=== PATIENT | male | born 1960 | race Caucasian/White ===

== ENCOUNTER 2017-01-17 10:36 | Emergency (ER) | payer OTHER ==
[~2017-01-17 10:36] MED LIST: ASPEC81 PO; CMD5 PO; DILT120C50 PO; MULT-506 PO
[2017-01-17 10:45] VITALS: TEMP 36.8; Ht 172.7 cm
[2017-01-17] MEDS ORDERED: MAGN400T6 PO (11:48)
[2017-01-17] MEDS ORDERED: METO50TA7 PO (11:48)
[2017-01-17 12:34] LABS: HEMATOCRIT 52.2 % (42-52); MEAN CELL VOLUME 93.4 fL (80-100); MEAN CORPUSCULAR HEMOGLOBIN 32.2 pg (25-34); MEAN CORPUSCULAR HGB CONC 34.5 g/dl (32-36); MEAN PLATELET VOLUME 11.8 fL (7.4-10.4); PLATELET COUNT 204 K/uL (130-400); RED BLOOD COUNT 5.59 M/uL (4.7-6.1); WHITE BLOOD COUNT 9.98 K/uL (4.8-10.8)
[2017-01-17 12:52] LABS: CALCIUM 9.1 mg/dl (8.5-10.1)
[2017-01-17 12:53] LABS: BLOOD UREA NITROGEN 19 mg/dl (7-18); BUN/CREATININE RATIO 14.7 (10-20); CARBON DIOXIDE 26 mmol/L (21-32); CHLORIDE 107 mmol/L (98-107); GLUCOSE 111 mg/dl (70-99); POTASSIUM 4.6 mmol/L (3.5-5.1); SODIUM 140 mmol/L (136-145)
--- NOTE | 2017-01-17 14:14 | DIAGNOSTIC IMAGING REPORT ---
LEFT LOWER EXTREMITY VENOUS DOPPLER HISTORY: left calf pain COMPARISON STUDY: None. FINDINGS: There is normal compressibility, flow, and augmentation within the left lower extremity deep venous system. IMPRESSION: No DVT within the left lower extremity. Electronically signed by: Jose Chester M.D. 01/17/2017 2:12 PM Dictated Date/Time: 01/17/2017 2:12 PM
--- NOTE | 2017-01-17 14:58 | EMERGENCY ROOM VISIT NOTE ---
History Report prepared by Zoie: Jimbo Christopher Under the Supervision of: Dr. Irwin Rea D.O. First contact with patient: 12:02 Chief Complaint: CALF PAIN Stated Complaint: LEFT LEG CALF/ANKLE PAIN History of Present Illness The patient is a 57 year old male who presents to the Emergency Room with complaints of persistent left lower extremity pain that started at approximately 0930 this morning. The patient describes pain in the left calf that is worse when he bears weight on it. The patient also has pain in the left ankle / Achilles tendon area. Pain is rated 2/10 in severity. The pain started when he got up from a chair and walked to his bedroom. He notes that he was walking up stairs prior to that. The patient is on Coumadin for a history of atrial fibrillation. Per nursing staff, the patient's POC INR was 1.4 upon arrival to the ED. Source of History: patient, nursing staff Onset: 0930 this morning Position: leg (left) Symptom Intensity: 2/10 Timing: other (persistent) Modifying Factors (Worsening): other (bearing weight) Review of Systems See HPI for pertinent positives & negatives. A total of 10 systems reviewed and were otherwise negative. Past Medical & Surgical Medical Problems: (1) New onset a-fib (2) Precordial chest pain Family History Cancer Diabetes mellitus Gallbladder disease Heart disease Hypertension Lung disease Social History Smoking Status: Never Smoker Alcohol Use: occasionally Drug Use: none Marital Status: Housing Status: lives with family Occupation Status: employed Current/Historical Medications Scheduled Diltiazem HCl (Diltiazem Cd), 120 MG PO QAM Metoprolol Succ (Toprol Xl) (Toprol-Xl), 1 TAB PO DAILY Multivitamin (Multivitamin), 1 TAB PO DAILY Warfarin Sod (Coumadin), 5 MG PO DAILY Miscellaneous Medications Magnesium Oxide (Mag-Ox), 400 MG PO Allergies Coded Allergies: Sulfa Antibiotics (Verified Allergy, Unknown, /, 05/24/15) Physical Exam Vital Signs Date Time Temp Pulse Resp B/P (MAP) Pulse Ox O2 Delivery O2 Flow Rate FiO2 01/17/17 13:28 75 18 119/89 98 Room Air 01/17/17 12:30 86 16 116/83 98 Room Air 01/17/17 10:45 36.8 99 20 115/86 99 Room Air Physical Exam CONSTITUTIONAL/VITAL SIGNS: Reviewed / noted above. GENERAL: Non-toxic in appearance. INTEGUMENTARY: Warm, dry, and [place]. HEAD: Normocephalic. EYES: without scleral icterus or trauma. ENT/OROPHARYNX: clear and moist. LYMPHADENOPATHY/NECK: Is supple without lymphadenopathy or meningismus. RESPIRATORY: Lungs clear and equal. CARDIOVASCULAR: Regular rate and rhythm. GI/ABDOMEN: Soft and nontender. No organomegaly or pulsatile mass. No rebound or guarding. Normal bowel sounds. EXTREMITIES: Tender to palpation over the left calf and Achilles area, there is no significant erythema warmth or edema, good distal pulses, no obvious bony trauma. BACK: No CVA tenderness. NEUROLOGICAL: Intact without focal deficits. PSYCHIATRIC: normal affect. MUSCULOSKELETAL: Normally developed with good muscle tone. Medical Decision & Procedures ER Provider Diagnostic Interpretation: Radiology results as stated below per my review and radiologist interpretation: LEFT LOWER EXTREMITY VENOUS DOPPLER HISTORY: left calf pain COMPARISON STUDY: None. FINDINGS: There is normal compressibility, flow, and augmentation within the left lower extremity deep venous system. IMPRESSION: No DVT within the left lower extremity. Electronically signed by: Jose Chester M.D. 01/17/2017 2:12 PM Dictated Date/Time: 01/17/2017 2:12 PM Laboratory Results 01/17/17 12:21 01/17/17 12:21 Test 01/17/17 12:14 01/17/17 12:21 Bedside Prothrombin Time INR 1.4 (0.9-1.1) Red Blood Count 5.59 M/uL (4.7-6.1) Mean Corpuscular Volume 93.4 fL (80-100) Mean Corpuscular Hemoglobin 32.2 pg (25-34) Mean Corpuscular Hemoglobin Concent 34.5 g/dl (32-36) RDW Standard Deviation 46.9 fL (36.4-46.3) RDW Coefficient of Variation 13.7 % (11.5-14.5) Mean Platelet Volume 11.8 fL (7.4-10.4) Anion Gap 7.0 mmol/L (3-11) Estimated GFR () 70.7 Estimated GFR (Non- 61.0 BUN/Creatinine Ratio 14.7 (10-20) Calcium Level 9.1 mg/dl (8.5-10.1) Laboratory results as stated above per my review. ED Course 1217: Previous medical records were reviewed. The patient was evaluated in room C7. A complete history and physical examination was performed. 1500: Reassessed the patient. Discussed the workup. He understands and agrees with the treatment plan. The patient is ready for discharge. Medical Decision Differential diagnosis: Etiologies such as DVT, musculoskeletal, infection, joint effusion, trauma, lymphedema, idiopathic, CHF, as well as others were entertained.. Medication Reconciliation: I attest that I have personally reviewed the patient' s current medication list. Blood pressure Screening: Patient was found to have normal blood pressure on screening and does not require follow-up. This is a 57-year-old male who presents to the ED with a chief complaint of left calf and posterior ankle pain. The patient states that he walked up and down a couple flight of stairs today and then sat down. When he got up to answer the phone and walk into the bedroom, he developed a pain in his left calf and posterior leg. The patient denies any other symptoms. His exam is noted above. There is some tenderness to palpation the left calf and Achilles. Negative Helm test. Achilles tendon appears to be intact to palpation and he has good strength with plantar flexion of his left foot. Exam did not reveal any findings of bony deformity or infection. CBC is normal, INR is 1.4, he is on Coumadin for A. fib. PRP was unremarkable. Left lower extremity ultrasound did not show DVT. The patient was told the results. His symptoms are likely to be musculoskeletal. He is felt to be stable for discharge. Impression Primary Impression: Pain of left calf Scribe Attestation The scribe's documentation has been prepared under my direction and personally reviewed by me in its entirety. I confirm that the note above accurately reflects all work, treatment, procedures, and medical decision making performed by me. Departure Information Dispostion Home / Self-Care Referrals Jocy Baac PA-C (PCP) Forms HOME CARE DOCUMENTATION FORM, IMPORTANT VISIT INFORMATION Patient Instructions My [facility] Additional Instructions Your INR today is 1.4. This should be closer to 2.5. Talk to your doctor about adjustments of your Coumadin. Ultrasound did not show DVT. Follow-up with your doctor for further care and evaluation in 1-2 days. Return to the emergency department for worsening or new symptoms or any concerns. You have been examined and treated today on an emergency basis only. This is not a substitute for, or an effort to provide, complete comprehensive medical care. It is impossible to recognize and treat all injuries or illnesses in a single emergency department visit. It is therefore important that you follow up closely with your doctor. Call as soon as possible for an appointment.
[2017-01-17 15:20] VITALS: BP 120/86; PULSE 77; O2SAT 98
[2017-02-09] MEDS ORDERED: LNX25 PO (14:41)
[2017-02-09] MEDS ORDERED: CRD200 PO (14:41)
[2017-02-09] MEDS ORDERED: LSX40 PO (14:41)
[2017-02-09] MEDS ORDERED: TPRSR50 PO ×2 (14:41)
[2017-02-09] MEDS ORDERED: LSN25 PO (14:41)
[2017-02-09] MEDS ORDERED: SPR25 PO (14:41)
[2017-02-09] MEDS ORDERED: LNX125 PO (14:46)
== END 2017-01-17 15:28 | disposition home or self-care (01) ==
LOC: C.EDB 10:37 → C.EDC 15:28
DX: M79.662 Pain in left lower leg (principal); I48.91 Unspecified atrial fibrillation; Z80.9 Family history of malignant neoplasm, unspecified; Z83.3 Family history of diabetes mellitus; Z83.79 Family history of other diseases of the digestive system; Z82.49 Family history of ischemic heart disease and other diseases of the circulatory system; Z83.6 Family history of other diseases of the respiratory system; Z79.01 Long term (current) use of anticoagulants; Z79.899 Other long term (current) drug therapy

== ENCOUNTER 2017-02-03 12:12 | Inpatient (IN) | payer OTHER ==
[~2017-02-03] VITALS: Ht 172.7 cm; Wt 93.8 kg
[~2017-02-03 12:12] MED LIST changes: -ASPEC81 PO; +CRDCD120 PO; -DILT120C50 PO; +MAGN400T6 PO; +METO50TA7 PO
[2017-02-03] MEDS ORDERED: ACETAMINOPHEN 325 MG TAB PO PRN (13:45)
[2017-02-03] MEDS ORDERED: METOPROLOL TARTRATE 1 MG/ML VIAL IV ONE (13:45)
[2017-02-03] MEDS ORDERED: ONDANSETRON INJ 2 MG/ML 2 ML VIAL IV PRN (13:45)
[2017-02-03 13:50] VITALS: BP 112/86; PULSE 121; TEMP 36.7; O2SAT 94; Ht 172.7 cm; Wt 93.8 kg
--- NOTE | 2017-02-03 13:52 | Cardiology Consultation ---
Cardiology Consultation History of Present Illness Patient is a 57 year old male has been following with Dr. Bravo for his history of paroxysmal atrial fibrillation and mild nonischemic cardiomyopathy. He states that over the last month he has noticed that he has been getting significantly short of breath. He states that he initially started getting winded with activity, but it has gradually progressed to the point where he is short of breath with bending over to tie his shoe, or even at rest. He was seen by his primary care and was diagnosed with bronchitis, and started on a course of antibiotics, however, he states that that was not helpful. Along with this, he started experiencing some chest tightness. He states he does not believe the tightness is exertional related. It can happen at any time, and he just feels as though he is not able to take a deep breath. During this course he also started retaining fluid. He started noticing lower extremity edema and increasing abdominal girth. His symptoms came to a head last night when he woke up in the middle of night, significantly short of breath lying flat, and had to sit up on the edge of the bed to catch his breath. He was also started on Lasix 20 mg daily by primary care. He has lost about 2 pounds since then, but all the symptoms have persisted. He has been religiously compliant with all of his medications, has not missed any dosages, and overall he states he just feels horrible right now. Of note, the patient is also dealing with significant social stressors. He has recently lost his job. 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 Past Medical/Surgical History Problem List: Medical Problems: (1) New onset a-fib (2) Precordial chest pain (3) SOB (shortness of breath) PAST SURGICAL HISTORY: 1. Femur fracture repair. 2. Hernia repair. 3. Finger surgery. 4. Colonoscopy. MEDICAL ILLNESSES: 1. Paroxysmal atrial fibrillation on chronic Coumadin therapy. 2. Mild nonischemic cardiomyopathy with nonischemic Lexiscan nuclear stress test July 2015. Family History Cancer Diabetes mellitus Gallbladder disease Heart disease Hypertension Lung disease FAMILY HISTORY: Remarkable for coronary artery disease in his mother, father and brother. Social History Smoking Status: Never Smoker Smokeless Tobacco Use: No Drug Use: none Marital Status: Occupation: employed Review Of Systems General: The patient denies weight change, night sweats, fever, chills. Head: The patient denies headache and prior head trauma. Cardiovascular: The patient denies chest pain or chest discomfort, dyspnea on exertion, palpitations, PND, orthopnea, edema, spontaneous shortness of breath, syncope and near syncope. Pulmonary: The patient denies cough, wheeze, pleurisy, hemoptysis, sputum, and excessive snoring. Gastrointestinal: The patient denies nausea, vomiting, diarrhea, constipation, bloating, hematemesis, hematochezia, and abdominal pain. Skin: The patient denies diaphoresis and rash. Musculoskeletal: The patient denies joint pain, joint swelling, myalgia, back pain, neck pain and prior injuries. Neurological: The patient denies prior stroke and seizures Allergies Coded Allergies: Sulfa Antibiotics (Verified Allergy, Unknown, /, 05/24/15) Medications Reported Home Medications Medications Dose Route/Sig Max Daily Dose Days Date Category Mag-Ox (Magnesium Oxide) 400 Mg Tab 400 Mg PO 01/17/17 Reported Toprol-Xl (Metoprolol Succinate) 50 Mg Tabcr 1 Tab PO DAILY 30 01/17/17 Reported Coumadin (Warfarin Sod) 5 Mg Tab 5 Mg PO DAILY 30 05/26/15 Rx Diltiazem Cd (Diltiazem HCl) 120 Mg Capcr 120 Mg PO QAM 30 05/26/15 Rx Multivitamin (Multivitamins) Tab 1 Tab PO DAILY 05/24/15 Reported Physical Exam General Appearance: Alert and Oriented x3. NAD. Head: Normocephalic Atraumatic. Eyes: PERRLA, EOMI, conjunctiva and sclera clear Neck: Supple. No carotid bruits noted. No JVD. No HJD. Respiratory: Breath sounds clear to auscultation bilaterally. No w/r/r. Cardiovascular: Reg rate and rhythm. S1 and S2 noted. No murmurs, rubs, gallops. PMI non displace. Abdomen: Normal bowel sounds, soft nontender. no abdominal bruits. Extremities: No edema, no clubbing or cyanosis. distal pulses 2/4 bilaterally. Neuro: No focal deficits. Psychiatric: Normal affect. Data Test 02/03/17 13:33 02/03/17 13:45 Creatine Kinase MB Ratio White Blood Count 9.80 Red Blood Count 5.62 Hemoglobin 17.6 Hematocrit 52.3 Mean Corpuscular Volume 93.1 Mean Corpuscular Hemoglobin 31.3 Mean Corpuscular Hemoglobin Concent 33.7 Platelet Count 227 Mean Platelet Volume 11.8 Neutrophils (%) (Auto) 75.2 Lymphocytes (%) (Auto) 13.2 Monocytes (%) (Auto) 9.9 Eosinophils (%) (Auto) 1.2 Basophils (%) (Auto) 0.2 Neutrophils # (Auto) 7.37 Lymphocytes # (Auto) 1.29 Monocytes # (Auto) 0.97 Eosinophils # (Auto) 0.12 Basophils # (Auto) 0.02 RDW Standard Deviation 47.4 RDW Coefficient of Variation 13.9 Immature Granulocyte % (Auto) 0.3 Immature Granulocyte # (Auto) 0.03 Prothrombin Time 37.7 Prothrombin Time INR 3.4 PTT 36.5 Partial Thromboplastin Ratio 1.4 Sodium Level 140 Potassium Level 4.1 Chloride Level 106 Carbon Dioxide Level 27 Anion Gap 7.0 Blood Urea Nitrogen 18 Creatinine 1.30 Est Creatinine Clear Calc Drug Dose 73.1 Estimated GFR () 70.7 Estimated GFR (Non- 61.0 BUN/Creatinine Ratio 13.7 Random Glucose 110 Calcium Level 8.5 Magnesium Level 2.5 Total Bilirubin 1.1 Aspartate Amino Transferase (AST) 32 Alanine Aminotransferase (ALT) 68 Alkaline Phosphatase 55 Creatine Kinase MB 4.4 Troponin I 0.016 Pro-B-Type Natriuretic Peptide 4842 Total Protein 6.9 Albumin 3.8 Globulin 3.1 Albumin/Globulin Ratio 1.2 Last 24 Hours Test 02/03/17 13:33 02/03/17 13:36 Creatine Kinase MB Ratio Imaging: CXY cardiomegaly EKG:Atrial fib Assessment & Plan IMPRESSION: 1. Acute decompensated systolic heart. 2. Newly discovered severely reduced LV systolic function, EF 20-24 %. 3. Atrial fibrillation with rapid ventricular response. Recommenmdation: Continue to diurese Hold diltiazem due to negative chronotropic effects ECHO Start [facility]
--- NOTE | 2017-02-03 14:19 | History and Physical ---
History & Physical Date & Time of Service: Feb 03, 2017 at 13:58 Chief Complaint: Acute Heart Failure Primary Care Physician: Jocy Baca PA-C History of Present Illness Source: patient, family Patient is a 57 yr male with PMH of P.atrial fibrillation,non ischemic cardiomyopathy presents for evaluation after visiting his scorekeeper for worsening SOB especially on exertion, B/L leg swelling, weight gain and dry intermittent cough since 2 weeks duration. He was seen by his PCP and was thought to have bronchitis for which he was prescribed antibiotics which did not help. He reports currently he is undergoing thought lot of stress secondary to losing his job. He states his SOB is worsened especially overnight and worse with exertion. Reports associated dry cough but denies any chest pain , palpitations, fever, chills, nausea, vomiting, dizziness, abdominal pain, change in bowel/bladder habits. Reports orthopnea and weight gain of at least 2 pounds in 2 weeks. Denies any recent travel, sick contact. He states he was started on lasix 4 days ago and has been taking it regularly. His recent ECHO showed an EF of 20-24% per his scorekeeper note. Past Medical/Surgical History Medical Problems: (1) New onset a-fib Status: Resolved (2) Precordial chest pain Status: Resolved Family History Cancer Diabetes mellitus Gallbladder disease Heart disease Hypertension Lung disease Past Surgical History: Hernia repair, Right knee surgery Social History Smoking Status: Never Smoker Smokeless Tobacco Use: No Alcohol Use: socially Drug Use: none Marital Status: Occupational Status: employed Allergies Coded Allergies: Sulfa Antibiotics (Verified Allergy, Unknown, /, 05/24/15) Home Medications Scheduled Diltiazem HCl (Diltiazem Cd), 120 MG PO QAM Metoprolol Succ (Toprol Xl) (Toprol-Xl), 1 TAB PO DAILY Multivitamin (Multivitamin), 1 TAB PO DAILY Warfarin Sod (Coumadin), 5 MG PO DAILY Miscellaneous Medications Magnesium Oxide (Mag-Ox), 400 MG PO Review of Systems See HPI for pertinent positives & negatives. A total of 10 systems reviewed and were otherwise negative. 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 psychology teacher II-XII nml as tested, no motor/sensory deficits, alert, normal mood/affect, oriented x 3 Skin: normal color, warm/dry Diagnostics Laboratory Results Results Past 24 Hours Test 02/03/17 13:33 02/03/17 13:45 02/03/17 13:52 Range/Units Creatine Kinase MB Ratio 0-3.0 Diagnostic Radiology CXR:pending EKG EKG:pending Monitor shows afib with RVR, PVCs Impression Assessment and Plan Acute systolic CHF exacerbation: Patient is a direct admit from his scorekeeper 's office Admit in Tele Will obtain CBC, CMP, Coags, CXR, EKG, Troponin Start his on IV Lasix 40mg BID Daily weight, I/Os Recent ECHO: EF:20-25% Will consult cardiology Will trend cardiac enzymes Afib with RVR: Monitor: afib with RVR, PVCs Currently rate is in 110s Will give stat dose of 2.5 mg lopressor Check electrolytes check INR Anxiety: Currently not on any meds at home Will consider Xanax PRN if necessary clinically DVT Px: On coumadin Code Status: Full Code Disposition: Monitor in Tele VTE Prophylaxis VTE Risk Assessment Done? Y/N: Yes Risk Level: Moderate
[2017-02-03 14:33] LABS: BASO % 0.2 %; BASO ABS # 0.02 K/uL (0-0.2); COMPLETE YES; EOS % 1.2 %; HEMATOCRIT 52.3 % (42-52); IG% 0.3 %; LYMPH % 13.2 %; LYMPH ABS # 1.29 K/uL (1.2-3.4); MEAN CELL VOLUME 93.1 fL (80-100); MEAN CORPUSCULAR HEMOGLOBIN 31.3 pg (25-34); MEAN CORPUSCULAR HGB CONC 33.7 g/dl (32-36); MEAN PLATELET VOLUME 11.8 fL (7.4-10.4); MONO % 9.9 %; NEUT % 75.2 %; PLATELET COUNT 227 K/uL (130-400); RED BLOOD COUNT 5.62 M/uL (4.7-6.1)
--- NOTE | 2017-02-03 14:35 | DIAGNOSTIC IMAGING REPORT ---
CHEST ONE VIEW PORTABLE CLINICAL HISTORY: SOB dyspnea COMPARISON STUDY: 05/24/2015 FINDINGS: Mild stable cardiomegaly. Diaphragms smooth. Lungs are clear. IMPRESSION: Mild stable cardiomegaly. Otherwise negative study. Electronically signed by: Wes Pederson M.D. 02/03/2017 2:34 PM Dictated Date/Time: 02/03/2017 2:33 PM
[2017-02-03 14:52] LABS: ALT/SGPT 68 U/L (12-78); AST/SGOT 32 U/L (15-37); BLOOD UREA NITROGEN 18 mg/dl (7-18); BUN/CREATININE RATIO 13.7 (10-20); CALCIUM 8.5 mg/dl (8.5-10.1); CARBON DIOXIDE 27 mmol/L (21-32); CHLORIDE 106 mmol/L (98-107); GLUCOSE 110 mg/dl (70-99); MAGNESIUM 2.5 mg/dl (1.8-2.4); POTASSIUM 4.1 mmol/L (3.5-5.1); SODIUM 140 mmol/L (136-145)
[2017-02-03 14:55] LABS: INR 3.4 (0.9-1.1); PARTIAL THROMBOPLASTIN RATIO 1.4; PROTHROMBIN TIME (PATIENT) 37.7 SECONDS (9.0-12.0)
[2017-02-03 14:58] LABS: ALB/GLOB RATIO 1.2 (0.9-2); ALKALINE PHOSPHATASE 55 U/L (45-117)
[2017-02-03 15:54] VITALS: BP 106/58; PULSE 96; TEMP 36.4; O2SAT 95
[2017-02-03 16:00] VITALS: O2SAT 95
[2017-02-03] MEDS: FUROSEMIDE INJ 40 MG in SYRINGE 0 ML IV SCH (16:51)
[2017-02-03] MEDS: WARFARIN SOD 5 MG TAB PO SCH (16:52)
[2017-02-03 19:42] VITALS: BP 112/64; PULSE 113; TEMP 36.6; O2SAT 96
[2017-02-03] MEDS: LISINOPRIL 2.5 MG TAB PO SCH (20:51)
[2017-02-03 23:05] VITALS: BP 122/86; PULSE 116; TEMP 36.9; O2SAT 94
[2017-02-03] MEDS: METOPROLOL TARTRATE 1 MG/ML VIAL IV PRN (23:56)
[2017-02-04 02:35] LABS: INR 3.4 (0.9-1.1); PROTHROMBIN TIME (PATIENT) 38.5 SECONDS (9.0-12.0)
[2017-02-04 03:31] VITALS: BP 106/78; PULSE 96; TEMP 36.6; O2SAT 90
[2017-02-04] MEDS: MAGNESIUM OXIDE 400 MG TAB PO SCH (07:07)
[2017-02-04 07:24] VITALS: BP 112/77; PULSE 102; TEMP 36.7; O2SAT 92
[2017-02-04] MEDS: FUROSEMIDE INJ 40 MG in SYRINGE 0 ML IV SCH (07:50)
[2017-02-04] MEDS ORDERED: DILTIAZEM HCL 120 MG CAPCR PO SCH (09:00)
[2017-02-04] MEDS: METOPROLOL SUCC 50MG EXT REL TAB PO SCH (09:33)
--- NOTE | 2017-02-04 10:37 | Cardiology Follow-Up ---
Subjective General Date of Service: Feb 04, 2017. Pt evaluation today including: conversation w/ patient, physical exam, chart review, lab review, review of studies, review of inpatient medication list History of Present Illness The patient is a 57 year old male admitted with HF, new cardiomyopathy and atrial fib with RVR. Pt. with no complaints. Diuresed large amount. HR increased again this AM. Allergies Coded Allergies: Sulfa Antibiotics (Verified Allergy, Unknown, /, 05/24/15) Social History Smoking Status: Never Smoker Hx Tobacco Use In Past Year?: Yes (can/week) Hx Alcohol Use - Type And Amou: Yes (beer (rarely)) Hx Substance Use - Type And Am: No Problem List Medical Problems: (1) Pain of left calf Status: Acute Physical Exam Vital Signs Last Vital Signs Documentation Date Time Temp Pulse Resp B/P (MAP) Pulse Ox O2 Delivery O2 Flow Rate FiO2 02/04/17 08:00 Room Air 02/04/17 07:24 36.7 102 18 112/77 (89) 92 Physical Exam Constitutional: General Apperance: heathly-appearing, well-nourished Level of Distress: NAD ENMT: normal ENT inspection Neck: supple Lungs: Auscultation: breath sounds normal, no wheezing, no rales/crackles Cardiovascular: Heart Auscultation: RRR, normal S1, normal S2, no murmurs Abdomen: Bowel Sounds: normal Inspection & Palpation: soft, non-distended Musculoskeletal: normal Extremities: no cyanosis, no edema Neurologic: Gait & Station: normal gait Cranial Nerves: grossly intact Sensation: grossly intact Assessment and Plan Assessment and Plan Meds Administered (Past 24Hrs) Medications (Trade) Dose Ordered Sig/Peri Route Start Time Stop Time Status Last Admin Dose Admin Metoprolol Tartrate (Lopressor Iv) 2.5 mg NOW ONCE IV 02/03/17 13:45 02/03/17 13:58 DC 02/03/17 14:36 2.5 MG Furosemide 40 mg/ Syringe 4 ml @ 4 mls/min BID17 IV 02/03/17 17:00 03/05/17 16:59 02/04/17 07:50 4 MLS/MIN Metoprolol Succinate (Toprol Xl Tab) 50 mg DAILY PO 02/04/17 09:00 03/06/17 08:59 02/04/17 09:33 50 MG Warfarin Sodium (Coumadin Tab) 5 mg DAILY@1600 PO 02/03/17 17:00 03/05/17 16:59 Future Hold 02/03/17 16:52 5 MG Lisinopril (Zestril Tab) 2.5 mg QPM PO 02/03/17 21:00 03/05/17 20:59 02/03/17 20:51 2.5 MG Metoprolol Tartrate (Lopressor Iv) 2.5 mg Q6 PRN IV 02/03/17 21:30 03/05/17 21:29 02/03/17 23:56 2.5 MG Test 02/03/17 13:45 02/03/17 19:56 02/04/17 02:00 02/04/17 02:08 White Blood Count 9.80 Red Blood Count 5.62 Hemoglobin 17.6 Hematocrit 52.3 Mean Corpuscular Volume 93.1 Mean Corpuscular Hemoglobin 31.3 Mean Corpuscular Hemoglobin Concent 33.7 Platelet Count 227 Mean Platelet Volume 11.8 Neutrophils (%) (Auto) 75.2 Lymphocytes (%) (Auto) 13.2 Monocytes (%) (Auto) 9.9 Eosinophils (%) (Auto) 1.2 Basophils (%) (Auto) 0.2 Neutrophils # (Auto) 7.37 Lymphocytes # (Auto) 1.29 Monocytes # (Auto) 0.97 Eosinophils # (Auto) 0.12 Basophils # (Auto) 0.02 RDW Standard Deviation 47.4 RDW Coefficient of Variation 13.9 Immature Granulocyte % (Auto) 0.3 Immature Granulocyte # (Auto) 0.03 Prothrombin Time 37.7 38.5 Prothrombin Time INR 3.4 3.4 PTT 36.5 Partial Thromboplastin Ratio 1.4 Sodium Level 140 Potassium Level 4.1 Chloride Level 106 Carbon Dioxide Level 27 Anion Gap 7.0 Blood Urea Nitrogen 18 Creatinine 1.30 Est Creatinine Clear Calc Drug Dose 73.1 Estimated GFR () 70.7 Estimated GFR (Non- 61.0 BUN/Creatinine Ratio 13.7 Random Glucose 110 Calcium Level 8.5 Magnesium Level 2.5 Total Bilirubin 1.1 Aspartate Amino Transferase (AST) 32 Alanine Aminotransferase (ALT) 68 Alkaline Phosphatase 55 Pro-B-Type Natriuretic Peptide 4842 Total Protein 6.9 Albumin 3.8 Globulin 3.1 Albumin/Globulin Ratio 1.2 Creatine Kinase MB 4.1 3.1 Creatine Kinase MB Ratio Troponin I 0.022 0.032 Impression: Atrial Fibrillation with RVR Idiopathic cardiomyopathy Systolic heart failure Recommendations: Will decrease dose of Lasix. Add Dig for better HR control. Will review echo. Laboratory Results Last 24 Hours Test 02/03/17 13:33 02/03/17 13:45 02/03/17 19:56 02/04/17 02:00 Creatine Kinase MB Ratio White Blood Count 9.80 K/uL Red Blood Count 5.62 M/uL Hemoglobin 17.6 g/dL Hematocrit 52.3 % Mean Corpuscular Volume 93.1 fL Mean Corpuscular Hemoglobin 31.3 pg Mean Corpuscular Hemoglobin Concent 33.7 g/dl Platelet Count 227 K/uL Mean Platelet Volume 11.8 fL Neutrophils (%) (Auto) 75.2 % Lymphocytes (%) (Auto) 13.2 % Monocytes (%) (Auto) 9.9 % Eosinophils (%) (Auto) 1.2 % Basophils (%) (Auto) 0.2 % Neutrophils # (Auto) 7.37 K/uL Lymphocytes # (Auto) 1.29 K/uL Monocytes # (Auto) 0.97 K/uL Eosinophils # (Auto) 0.12 K/uL Basophils # (Auto) 0.02 K/uL RDW Standard Deviation 47.4 fL RDW Coefficient of Variation 13.9 % Immature Granulocyte % (Auto) 0.3 % Immature Granulocyte # (Auto) 0.03 K/uL Prothrombin Time 37.7 SECONDS Prothromb Time International Ratio 3.4 Activated Partial Thromboplast Time 36.5 SECONDS Partial Thromboplastin Ratio 1.4 Sodium Level 140 mmol/L Potassium Level 4.1 mmol/L Chloride Level 106 mmol/L Carbon Dioxide Level 27 mmol/L Anion Gap 7.0 mmol/L Blood Urea Nitrogen 18 mg/dl Creatinine 1.30 mg/dl Est Creatinine Clear Calc Drug Dose 73.1 ml/min Estimated GFR () 70.7 Estimated GFR (Non- 61.0 BUN/Creatinine Ratio 13.7 Random Glucose 110 mg/dl Calcium Level 8.5 mg/dl Magnesium Level 2.5 mg/dl Total Bilirubin 1.1 mg/dl Aspartate Amino Transf (AST/SGOT) 32 U/L Alanine Aminotransferase (ALT/SGPT) 68 U/L Alkaline Phosphatase 55 U/L Creatine Kinase MB 4.4 ng/ml 4.1 ng/ml Troponin I 0.016 ng/ml 0.022 ng/ml Pro-B-Type Natriuretic Peptide 4842 pg/ml Total Protein 6.9 gm/dl Albumin 3.8 gm/dl Globulin 3.1 gm/dl Albumin/Globulin Ratio 1.2 Test 02/04/17 02:08 Prothrombin Time 38.5 SECONDS Prothromb Time International Ratio 3.4 Creatine Kinase MB 3.1 ng/ml Troponin I 0.032 ng/ml
[2017-02-04] MEDS ORDERED: DIGOXIN IV 250 MCG in SYRINGE 9 ML IV ONE (11:00)
[2017-02-04 11:39] VITALS: BP 121/90; PULSE 118; TEMP 36.4; O2SAT 96
--- NOTE | 2017-02-04 13:07 | Progress Note ---
Internal Med Progress Note Date of Service: Feb 04, 2017. Provider Documentation: SUBJECTIVE: Patient is doing much better today. SOB has almost resolved. Leg swelling, orthopnea resolved. Weight down, diuresed well Tele- Atrial fibrillation with RVR OBJECTIVE: Vital Signs-as noted below Exam: General-AAOX3, no distress Neck-Supple, NO JVD Lungs-AEBE, no crackles Heart-Irregularly irregular rhythm Extremities-No edema Lab data as noted below. 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 Patient presented with worsening SOB, orthopnea, weight gain, leg swelling x couples of weeks, not improved with antibiotics for possible bronchitis. -Likely precipitated by Atrial fibrillation with RVR -Clinically much better- symptoms have almost resolved -IV Lasix 40 mg BID--> Decreased to 20 mg PO BID today -Continue with metoprolol -Work up- Serial Trop- negative, BNP 4k, -Echo ordered -Cardiology on board. Will need Cardiac cath for new onset CMP--> likely on tuesday ATRIAL FIBRILLATION WITH RVR- HR improved - Continue with Metoprolol 50 mg as at home. Discontinued Diltiazem 120 mg which was his home medication. - Digoxin 0.125 mg daily started. - Echo ordered - Anticoagulation: On coumadin with INR 3.4 DVT Px: On coumadin CODE STATUS Full Code DISPOSITION Monitor in Tele Vital Signs: Date Time Temp Pulse Resp B/P (MAP) Pulse Ox O2 Delivery O2 Flow Rate FiO2 02/04/17 11:39 36.4 118 19 121/90 (100) 96 Room Air 02/04/17 11:17 112 02/04/17 08:00 Room Air 02/04/17 07:24 36.7 102 18 112/77 (89) 92 Room Air 02/04/17 04:00 Room Air 02/04/17 03:31 36.6 96 18 106/78 (87) 90 Room Air 02/04/17 00:01 Room Air 02/03/17 23:56 115 115/76 02/03/17 23:05 36.9 116 19 122/86 (98) 94 Room Air 02/03/17 20:00 Room Air 02/03/17 19:42 36.6 113 20 112/64 (80) 96 Room Air 02/03/17 16:00 95 Room Air 02/03/17 15:54 36.4 96 18 106/58 (74) 95 Room Air 02/03/17 14:36 121 112/86 02/03/17 13:50 36.7 121 16 112/86 94 Room Air Lab Results: Results Past 24 Hours Test 02/03/17 13:33 02/03/17 13:45 02/03/17 19:56 02/04/17 02:00 Range/Units Creatine Kinase MB Ratio 0-3.0 White Blood Count 9.80 4.8-10.8 K/uL Red Blood Count 5.62 4.7-6.1 M/uL Hemoglobin 17.6 14.0-18.0 g/dL Hematocrit 52.3 42-52 % Mean Corpuscular Volume 93.1 80-100 fL Mean Corpuscular Hemoglobin 31.3 25-34 pg Mean Corpuscular Hemoglobin Concent 33.7 32-36 g/dl Platelet Count 227 130-400 K/uL Mean Platelet Volume 11.8 7.4-10.4 fL Neutrophils (%) (Auto) 75.2 % Lymphocytes (%) (Auto) 13.2 % Monocytes (%) (Auto) 9.9 % Eosinophils (%) (Auto) 1.2 % Basophils (%) (Auto) 0.2 % Neutrophils # (Auto) 7.37 1.4-6.5 K/uL Lymphocytes # (Auto) 1.29 1.2-3.4 K/uL Monocytes # (Auto) 0.97 0.11-0.59 K/uL Eosinophils # (Auto) 0.12 0-0.5 K/uL Basophils # (Auto) 0.02 0-0.2 K/uL RDW Standard Deviation 47.4 36.4-46.3 fL RDW Coefficient of Variation 13.9 11.5-14.5 % Immature Granulocyte % (Auto) 0.3 % Immature Granulocyte # (Auto) 0.03 0.00-0.02 K/uL Prothrombin Time 37.7 9.0-12.0 SECONDS Prothromb Time International Ratio 3.4 0.9-1.1 Activated Partial Thromboplast Time 36.5 21.0-31.0 SECONDS Partial Thromboplastin Ratio 1.4 Sodium Level 140 136-145 mmol/L Potassium Level 4.1 3.5-5.1 mmol/L Chloride Level 106 98-107 mmol/L Carbon Dioxide Level 27 21-32 mmol/L Anion Gap 7.0 3-11 mmol/L Blood Urea Nitrogen 18 7-18 mg/dl Creatinine 1.30 0.60-1.40 mg/dl Est Creatinine Clear Calc Drug Dose 73.1 ml/min Estimated GFR () 70.7 Estimated GFR (Non- 61.0 BUN/Creatinine Ratio 13.7 10-20 Random Glucose 110 70-99 mg/dl Calcium Level 8.5 8.5-10.1 mg/dl Magnesium Level 2.5 1.8-2.4 mg/dl Total Bilirubin 1.1 0.2-1 mg/dl Aspartate Amino Transf (AST/SGOT) 32 15-37 U/L Alanine Aminotransferase (ALT/SGPT) 68 12-78 U/L Alkaline Phosphatase 55 45-117 U/L Creatine Kinase MB 4.4 4.1 0.5-3.6 ng/ml Troponin I 0.016 0.022 0-0.045 ng/ml Pro-B-Type Natriuretic Peptide 4842 0-900 pg/ml Total Protein 6.9 6.4-8.2 gm/dl Albumin 3.8 3.4-5.0 gm/dl Globulin 3.1 2.5-4.0 gm/dl Albumin/Globulin Ratio 1.2 0.9-2 Test 02/04/17 02:08 Range/Units Prothrombin Time 38.5 9.0-12.0 SECONDS Prothromb Time International Ratio 3.4 0.9-1.1 Creatine Kinase MB 3.1 0.5-3.6 ng/ml Troponin I 0.032 0-0.045 ng/ml
--- NOTE | 2017-02-04 13:27 | ECHOCARDIOGRAM REPORT ---
*NOTICE TO RECEIVING [employer] This information is strictly Confidential and protected under [place] law. [place] law prohibits you from making any further disclosure of this information unless further disclosure is expressly permitted by the written consent of the person to whom it pertains or is authorized by law. A general authorization for the release of medical or other information is not sufficient for this purpose. Hospital accepts no responsibility if the information is made available to any other person, INCLUDING THE PATIENT. Interpretation Summary * Name: EDGAR TAN Study Date: 02/04/2017 07:29 AM BP: 112/77 mmHg * Patient Location: C.2T\S\S231\S\1 HR: 122 * : 1960 (M/d/yyyy) Gender: Male Height: 68 in * Age: 57 yrs Ethnicity: [place] Weight: 222 lb * Ordering Physician: Pelon Ocampo * Referring Physician: Zac Bravo D.O. * Performed By: Marisa Gutierrez RCS * * Reason For Study: SOB / A-FIB * BSA: 2.1 m2 * -- Conclusions -- * There is moderate concentric left ventricular hypertrophy. * Left ventricular systolic function is moderate to severely reduced. * Ejection Fraction = 30-35%. * The right ventricular systolic function is mild to moderately reduced. * The left atrium is severely dilated. * The right atrium is moderately dilated. * There is moderate mitral regurgitation. * There is mild tricuspid regurgitation. Procedure Details * A complete two-dimensional transthoracic echocardiogram was performed (2D, M-mode, Doppler and color flow Doppler). Left Ventricle * The left ventricle is normal in size. * There is moderate concentric left ventricular hypertrophy. * Left ventricular systolic function is moderate to severely reduced. * Ejection Fraction = 30-35%. Right Ventricle * The right ventricle is grossly normal size. * The right ventricular systolic function is mild to moderately reduced. Atria * The left atrium is severely dilated. * The right atrium is moderately dilated. Mitral Valve * The mitral valve leaflets appear thickened, but open well. * There is moderate mitral regurgitation. Tricuspid Valve * The tricuspid valve is not well visualized, but is grossly normal. * There is mild tricuspid regurgitation. Aortic Valve * The aortic valve is normal in structure and function. Pulmonic Valve * The pulmonic valve is not well seen, but is grossly normal. * There is no significant pulmonary regurgitation. Great Vessels * The aortic root and proximal ascending aorta are normal sized. Pericardium/Pleural * There is no pericardial effusion. MMode 2D Measurements and Calculations IVSd 1.3 cm IVSs 1.6 cm LVIDd 4.6 cm LVIDs 3.6 cm LVPWd 1.4 cm LVPWs 1.7 cm IVS/LVPW 0.92 FS 20.0 % EDV(Teich) 95.1 ml ESV(Teich) 56.0 ml EF(Teich) 41.1 % EDV(cubed) 94.4 ml ESV(cubed) 48.3 ml EF(cubed) 48.9 % % IVS thick 21.3 % % LVPW thick 15.9 % LV mass(C)d 245.8 grams LV mass(C)dI 115.1 grams/m\S\2 LV mass(C)s 233.3 grams LV mass(C)sI 109.2 grams/m\S\2 SV(Teich) 39.1 ml SI(Teich) 18.3 ml/m\S\2 SV(cubed) 46.1 ml SI(cubed) 21.6 ml/m\S\2 Ao root diam 2.9 cm Ao root area 6.8 cm\S\2 ACS 2.0 cm LA dimension 5.4 cm LA/Ao 1.8 LVOT diam 2.0 cm LVOT area 3.0 cm\S\2 LVAd ap4 37.1 cm\S\2 LVLd ap4 8.8 cm EDV(MOD-sp4) 129.0 ml EDV(sp4-el) 133.2 ml LVAs ap4 25.0 cm\S\2 LVLs ap4 7.2 cm ESV(MOD-sp4) 70.7 ml ESV(sp4-el) 73.3 ml EF(MOD-sp4) 45.2 % EF(sp4-el) 45.0 % LVAd ap2 39.8 cm\S\2 LVLd ap2 8.5 cm EDV(MOD-sp2) 149.4 ml EDV(sp2-el) 157.9 ml LVAs ap2 24.8 cm\S\2 LVLs ap2 7.4 cm ESV(MOD-sp2) 70.1 ml ESV(sp2-el) 71.1 ml EF(MOD-sp2) 53.1 % EF(sp2-el) 55.0 % LVLd %diff -3.08 % EDV(MOD-bp) 139.6 ml LVLs %diff 1.7 % ESV(MOD-bp) 70.8 ml EF(MOD-bp) 49.3 % SV(MOD-sp4) 58.4 ml SI(MOD-sp4) 27.3 ml/m\S\2 SV(MOD-sp2) 79.3 ml SI(MOD-sp2) 37.1 ml/m\S\2 SV(MOD-bp) 68.8 ml SI(MOD-bp) 32.2 ml/m\S\2 SV(sp4-el) 59.9 ml SI(sp4-el) 28.0 ml/m\S\2 SV(sp2-el) 86.8 ml SI(sp2-el) 40.6 ml/m\S\2 Doppler Measurements and Calculations MV E max renate 98.1 cm/sec MV P1/2t max renate 75.3 cm/sec MV P1/2t 95.2 msec MVA(P1/2t) 2.3 cm\S\2 MV dec slope 231.8 cm/sec\S\2 MV dec time 0.15 sec Ao V2 max 76.4 cm/sec Ao max PG 2.3 mmHg Ao max PG (full) 1.2 mmHg SHANDRA(V,A) 2.1 cm\S\2 SHANDRA(V,D) 2.1 cm\S\2 LV V1 max PG 1.2 mmHg LV V1 max 54.0 cm/sec MR max renate 433.8 cm/sec MR max PG 75.3 mmHg TR max renate 244.8 cm/sec
[2017-02-04 15:20] VITALS: BP 122/90; PULSE 114; TEMP 37; O2SAT 96
[2017-02-04] MEDS: FUROSEMIDE 20 MG TAB PO SCH (17:27)
[2017-02-04] MEDS: DIGOXIN 0.25 MG TAB PO SCH (17:27)
[2017-02-04 19:18] VITALS: BP 133/93; PULSE 101; TEMP 36.8; O2SAT 95
[2017-02-04] MEDS: LISINOPRIL 2.5 MG TAB PO SCH (21:07)
[2017-02-05 00:16] VITALS: BP 122/81; PULSE 114; TEMP 36.4; O2SAT 96
[2017-02-05 03:41] VITALS: BP 137/86; PULSE 92; TEMP 36.6; O2SAT 94
[2017-02-05 07:22] LABS: MEAN CELL VOLUME 92.3 fL (80-100); MEAN CORPUSCULAR HEMOGLOBIN 30.3 pg (25-34); MEAN CORPUSCULAR HGB CONC 32.8 g/dl (32-36); MEAN PLATELET VOLUME 12.2 fL (7.4-10.4); PLATELET COUNT 196 K/uL (130-400); RED BLOOD COUNT 5.85 M/uL (4.7-6.1); WHITE BLOOD COUNT 9.91 K/uL (4.8-10.8)
[2017-02-05 07:30] LABS: INR 2.6 (0.9-1.1); PROTHROMBIN TIME (PATIENT) 28.8 SECONDS (9.0-12.0)
[2017-02-05] MEDS: MAGNESIUM OXIDE 400 MG TAB PO SCH (07:33)
[2017-02-05] MEDS: FUROSEMIDE 20 MG TAB PO SCH ×2 (07:34→15:44)
[2017-02-05] MEDS: METOPROLOL SUCC 50MG EXT REL TAB PO SCH (07:34)
[2017-02-05 07:48] VITALS: BP 130/93; PULSE 97; TEMP 36.6; O2SAT 95
[2017-02-05 07:50] LABS: BUN/CREATININE RATIO 16.4 (10-20); CALCIUM 8.7 mg/dl (8.5-10.1); CREATININE 1.1 mg/dl (0.60-1.40); POTASSIUM 3.9 mmol/L (3.5-5.1)
[2017-02-05] MEDS ORDERED: METOPROLOL SUCC 25MG EXT REL TAB PO ONE (09:00)
--- NOTE | 2017-02-05 11:32 | Cardiology Follow-Up ---
Subjective Subjective Date of Service: Feb 05, 2017. Pt evaluation today including: conversation w/ patient, physical exam, chart review, lab review, review of studies, review of inpatient medication list Additional Details: Pt seen and examined, states that he's feeling much better since admission. SOB and abdominal bloating improved. Denies cp, palpitations, lightheadedness or dizziness. Tele reviewed: afib in 100's Problem List Medical Problems: (1) Pain of left calf Status: Acute Review of Systems Respiratory: + shortness of breath, + dyspnea on exertion, No see HPI, No cough , No sputum, No wheezing, No dyspnea at rest, No hemoptysis, No problem reported Cardiac: + edema, No see HPI, No chest pain, No orthopnea, No PND, No claudication, No palpitations, No problem reported Objective Vital Signs Last Vital Signs Documentation Date Time Temp Pulse Resp B/P (MAP) Pulse Ox O2 Delivery O2 Flow Rate FiO2 02/05/17 11:14 Room Air 02/05/17 07:48 36.6 97 20 130/93 (105) 95 Physical Exam: General Appearance: WD/WN, no apparent distress Eyes: bilateral eyes normal inspection, bilateral eyes PERRL, bilateral eyes EOMI ENT: normal ENT inspection, hearing grossly normal, pharynx normal Neck: supple, no adenopathy, thyroid normal, no JVD, no carotid bruits, trachea midline Respiratory/Chest: chest non-tender, lungs clear, normal breath sounds, no respiratory distress, no accessory muscle use Cardiovascular: no edema, no gallop, no murmur, + tachycardia, + irregularly irregular Abdomen: normal bowel sounds, non tender, soft Extremities: non-tender, normal inspection, no pedal edema, no calf tenderness 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 Afib with RVR rates improving but still in 100's at rest will increase metoprolol succinate to 75mg qam and add 25mg qpm cont dig INR therapeutic, coumadin on hold for cath 2. cardiomyopathy historically was nonischemic but given significant reduction of LV systolic function will proceed with cath to rule out ischemia cont rate control will also ask surgery for abdominal fat pad biopsy to rule out amyloidosis while INR is down 3. acute systolic failure diuresing well actually began to diurese with lasix given by pcp will cont for now cont to monitor on tele
--- NOTE | 2017-02-05 11:41 | Progress Note ---
Internal Med Progress Note Date of Service: Feb 05, 2017. Provider Documentation: SUBJECTIVE: Patient is doing much better today. Symptoms of SOB, Orthopnea, leg swelling has resolved. Weight down, diuresed well Tele- Atrial fibrillation with RVR - HR in 110s OBJECTIVE: Vital Signs-as noted below Exam: General-AAOX3, no distress Neck-Supple, NO JVD Lungs-AEBE, no crackles Heart-Irregularly irregular rhythm Extremities-No edema Lab data as noted below. 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 Patient presented with worsening SOB, orthopnea, weight gain, leg swelling x couples of weeks, not improved with antibiotics for possible bronchitis. -Likely precipitated by Atrial fibrillation with RVR -Clinically much better- symptoms have almost resolved -S/P IV Lasix 40 mg BID--> Decreased to 20 mg PO BID on 02/04/17 -Metoprolol increased to 75 mg daily and 25 mg q PM -Work up- Serial Trop- negative, BNP 4k, -Echo - EF 30-35%, LV reduced, RV reduced function, Moderate MR, Mild TR, Left atrial severely dilated. -Cardiology on board. Will need Cardiac cath for new onset CMP on tuesday. Cardiology will request fat pad biopsy to rule out amyloidosis. ATRIAL FIBRILLATION WITH RVR- HR improved, but still 110s - Increased Metoprolol to 75 mg daily and 25 mg q PM. Discontinued Diltiazem 120 mg which was his home medication. - Digoxin 0.125 mg daily started this admission - Echo - as above - Anticoagulation: On coumadin with INR 2.6. Hold for Cath on tuesday DVT Px: On coumadin-= INR 2.6 CODE STATUS Full Code DISPOSITION Monitor in Tele Vital Signs: Date Time Temp Pulse Resp B/P (MAP) Pulse Ox O2 Delivery O2 Flow Rate FiO2 02/05/17 11:14 Room Air 02/05/17 07:53 Room Air 02/05/17 07:48 36.6 97 20 130/93 (105) 95 Room Air 02/05/17 04:00 Room Air 02/05/17 03:41 36.6 92 20 137/86 (103) 94 Room Air 02/05/17 00:16 36.4 114 18 122/81 (95) 96 Room Air 02/05/17 00:00 Room Air 02/04/17 20:00 Room Air 02/04/17 19:18 36.8 101 18 133/93 (106) 95 Room Air 02/04/17 17:27 110 02/04/17 16:15 Room Air 02/04/17 15:20 37.0 114 18 122/90 (101) 96 Room Air 02/04/17 12:00 Room Air 02/04/17 11:39 36.4 118 19 121/90 (100) 96 Room Air Lab Results: Results Past 24 Hours Test 02/05/17 06:30 02/05/17 10:56 Range/Units White Blood Count 9.91 4.8-10.8 K/uL Red Blood Count 5.85 4.7-6.1 M/uL Hemoglobin 17.7 14.0-18.0 g/dL Hematocrit 54.0 42-52 % Mean Corpuscular Volume 92.3 80-100 fL Mean Corpuscular Hemoglobin 30.3 25-34 pg Mean Corpuscular Hemoglobin Concent 32.8 32-36 g/dl RDW Standard Deviation 46.6 36.4-46.3 fL RDW Coefficient of Variation 13.7 11.5-14.5 % Platelet Count 196 130-400 K/uL Mean Platelet Volume 12.2 7.4-10.4 fL Prothrombin Time 28.8 9.0-12.0 SECONDS Prothromb Time International Ratio 2.6 0.9-1.1 Sodium Level 141 136-145 mmol/L Potassium Level 3.9 3.5-5.1 mmol/L Chloride Level 106 98-107 mmol/L Carbon Dioxide Level 26 21-32 mmol/L Anion Gap 9.0 3-11 mmol/L Blood Urea Nitrogen 18 7-18 mg/dl Creatinine 1.10 0.60-1.40 mg/dl Est Creatinine Clear Calc Drug Dose 85.6 ml/min Estimated GFR () 86.5 Estimated GFR (Non- 74.6 BUN/Creatinine Ratio 16.4 10-20 Random Glucose 87 70-99 mg/dl Calcium Level 8.7 8.5-10.1 mg/dl
[2017-02-05 12:04] LABS: BUN/CREATININE RATIO 14.1 (10-20); CALCIUM 9.5 mg/dl (8.5-10.1); CREATININE 1.3 mg/dl (0.60-1.40)
[2017-02-05 12:37] VITALS: BP 120/82; PULSE 101; TEMP 36.6; O2SAT 97
[2017-02-05 14:32] LABS: POTASSIUM 4.5 mmol/L (3.5-5.1)
[2017-02-05 15:40] VITALS: BP 131/99; PULSE 115; TEMP 36.4; O2SAT 97
[2017-02-05] MEDS: DIGOXIN 0.25 MG TAB PO SCH (15:44)
[2017-02-05 19:30] VITALS: BP 138/105; PULSE 114; TEMP 36.5; O2SAT 96
[2017-02-05] MEDS: LISINOPRIL 2.5 MG TAB PO SCH (20:55)
[2017-02-05] MEDS ORDERED: METOPROLOL SUCC 25MG EXT REL TAB PO SCH (21:00)
[2017-02-06] VITALS (7 sets, daily range): BP systolic 115–134; BP diastolic 71–95; PULSE 93–110; TEMP 36.6–36.8; O2SAT 94–96
[2017-02-06 06:13] LABS: INR 1.9 (0.9-1.1); PROTHROMBIN TIME (PATIENT) 20.4 SECONDS (9.0-12.0)
[2017-02-06] MEDS: MAGNESIUM OXIDE 400 MG TAB PO SCH (07:25)
[2017-02-06] MEDS: FUROSEMIDE 20 MG TAB PO SCH (07:26)
[2017-02-06] MEDS ORDERED: METOPROLOL SUCC 25MG EXT REL TAB PO SCH (09:00)
[2017-02-06] MEDS ORDERED: METOPROLOL SUCC 25MG EXT REL TAB PO ONE (10:00)
--- NOTE | 2017-02-06 12:59 | Cardiology Follow-Up ---
Subjective Subjective Date of Service: Feb 06, 2017. Pt evaluation today including: conversation w/ patient, conversation w/ family , physical exam, chart review, lab review, review of studies, review of inpatient medication list Additional Details: Pt seen and examined, with at bedside, both have multiple questions, report that all were answered to satisfaction. Lakhwinder cp, sob, palpitations, lightheadedness or dizziness. States that edema has resolved. Tele reviewed: atrial fibrillation rates's 90's-110's Problem List Medical Problems: (1) Pain of left calf Status: Acute Review of Systems Respiratory: + shortness of breath, + dyspnea on exertion, No see HPI, No cough , No sputum, No wheezing, No dyspnea at rest, No hemoptysis, No problem reported Cardiac: + edema, No see HPI, No chest pain, No orthopnea, No PND, No claudication, No palpitations, No problem reported Objective Vital Signs Last Vital Signs Documentation Date Time Temp Pulse Resp B/P (MAP) Pulse Ox O2 Delivery O2 Flow Rate FiO2 02/06/17 12:01 36.6 107 20 131/95 (107) 96 Room Air Physical Exam: General Appearance: WD/WN, no apparent distress Eyes: bilateral eyes normal inspection, bilateral eyes PERRL, bilateral eyes EOMI ENT: normal ENT inspection, hearing grossly normal, pharynx normal Neck: supple, no adenopathy, thyroid normal, no JVD, no carotid bruits, trachea midline Respiratory/Chest: chest non-tender, lungs clear, normal breath sounds, no respiratory distress, no accessory muscle use Cardiovascular: no edema, no gallop, no murmur, + tachycardia, + irregularly irregular Abdomen: normal bowel sounds, non tender, soft Extremities: non-tender, normal inspection, no pedal edema, no calf tenderness 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 Afib with RVR rates improving but still in 100's at rest will increase metoprolol succinate to 100mg qam and add 50mg qpm cont dig INR therapeutic, coumadin on hold for cath if cath negative will likely restart cardizem po 2. cardiomyopathy historically was nonischemic but given significant reduction of LV systolic function will proceed with cath to rule out ischemia cont rate control will also ask surgery for abdominal fat pad biopsy to rule out amyloidosis while INR is down 3. acute systolic failure diuresing well actually began to diurese with lasix given by pcp change to lasix 40mg po daily will likely add spironolactone after cath cont to monitor on tele
--- NOTE | 2017-02-06 13:02 | Progress Note ---
Internal Med Progress Note Date of Service: Feb 06, 2017. Provider Documentation: SUBJECTIVE: Patient is doing much better today. Symptoms of SOB, Orthopnea, leg swelling has resolved. Weight down, diuresed well Tele- Atrial fibrillation with RVR - HR in 110s OBJECTIVE: Vital Signs-as noted below Exam: General-AAOX3, no distress Neck-Supple, NO JVD Lungs-AEBE, no crackles Heart-Irregularly irregular rhythm Extremities-No edema Lab data as noted below. 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 Patient presented with worsening SOB, orthopnea, weight gain, leg swelling x couples of weeks, not improved with antibiotics for possible bronchitis. -Likely precipitated by Atrial fibrillation with RVR -Clinically much better - symptoms have almost resolved -S/P IV Lasix 40 mg BID -> Decreased to 20 mg PO BID on 02/04/17 -Metoprolol increased to total of 150 mg daily -Work up- Serial Trop- negative, BNP 4k, -Echo - EF 30-35%, LV reduced, RV reduced function, Moderate MR, Mild TR, Left atrial severely dilated. -Cardiology on board. Will need Cardiac cath for new onset CMP on Tuesday. Cardiology will request fat pad biopsy to rule out amyloidosis. ATRIAL FIBRILLATION WITH RVR- HR improved, but still 110s - Increased Metoprolol to 75 mg daily and 25 mg q PM. Discontinued Diltiazem 120 mg which was his home medication. - Digoxin 0.125 mg daily started this admission - Echo - as above - Anticoagulation: On coumadin with INR 1.9. Hold for Cath on Tuesday. DVT Px: -On Coumadin - INR 1.9 CODE STATUS Full Code DISPOSITION Monitor on Tele monitor Vital Signs: Date Time Temp Pulse Resp B/P (MAP) Pulse Ox O2 Delivery O2 Flow Rate FiO2 02/06/17 12:01 36.6 107 20 131/95 (107) 96 Room Air 02/06/17 11:16 Room Air 02/06/17 08:10 36.6 98 18 134/87 (103) 94 Room Air 02/06/17 08:00 Room Air 02/06/17 04:00 36.8 93 18 115/86 (96) 95 Room Air 02/06/17 04:00 Room Air 02/06/17 00:04 36.7 110 18 118/88 (98) 95 Room Air 02/06/17 00:00 Room Air 02/05/17 20:00 Room Air 02/05/17 19:30 36.5 114 16 138/105 (116) 96 Nasal Cannula 02/05/17 15:44 76 02/05/17 15:40 36.4 115 16 131/99 (110) 97 Room Air 02/05/17 15:28 Room Air Lab Results: Results Past 24 Hours Test 02/06/17 05:45 Range/Units Prothrombin Time 20.4 9.0-12.0 SECONDS Prothromb Time International Ratio 1.9 0.9-1.1
[2017-02-06] MEDS ORDERED: FUROSEMIDE 20 MG TAB PO ONE (13:30)
[2017-02-06] MEDS: HEPARIN 25,000 UNIT/500ML D5W 500 ML IV PRN (14:41)
[2017-02-06] MEDS: DIGOXIN 0.25 MG TAB PO SCH (15:25)
[2017-02-06] MEDS: WARFARIN SOD 5 MG TAB PO SCH (16:40)
[2017-02-06] MEDS: LISINOPRIL 2.5 MG TAB PO SCH (20:53)
[2017-02-06] MEDS: METOPROLOL SUCC 50MG EXT REL TAB PO SCH (20:53)
[2017-02-06 21:12] LABS: PARTIAL THROMBOPLASTIN RATIO 2.1
[2017-02-07] VITALS (19 sets, daily range): BP systolic 93–127; BP diastolic 60–89; PULSE 87–120; TEMP 36.4–37; O2SAT 93–97
[2017-02-07] MEDS: HEPARIN 25,000 UNIT/500ML D5W 500 ML IV PRN ×2 (05:34→21:04)
[2017-02-07 05:50] LABS: HEMATOCRIT 55.7 % (42-52); MEAN CELL VOLUME 92.1 fL (80-100); MEAN CORPUSCULAR HEMOGLOBIN 29.8 pg (25-34); MEAN CORPUSCULAR HGB CONC 32.3 g/dl (32-36); MEAN PLATELET VOLUME 11.9 fL (7.4-10.4); PLATELET COUNT 201 K/uL (130-400); RED BLOOD COUNT 6.05 M/uL (4.7-6.1); WHITE BLOOD COUNT 8.99 K/uL (4.8-10.8)
[2017-02-07 06:16] LABS: PARTIAL THROMBOPLASTIN RATIO 2.8
[2017-02-07] MEDS: MAGNESIUM OXIDE 400 MG TAB PO SCH (07:46)
[2017-02-07] MEDS: METOPROLOL SUCC 50MG EXT REL TAB PO SCH ×2 (07:47→18:19)
[2017-02-07] MEDS: FUROSEMIDE 40 MG TAB PO SCH (07:47)
--- NOTE | 2017-02-07 07:59 | Progress Note ---
Progress Note Date of Service Feb 07, 2017. Progress Note surgery consulted for fat pad biopsy, r/o amyloidosis Dr. Beverly arranged for biopsy to be performed by pathology department, we did not see the patient
[2017-02-07 08:46] LABS: BUN/CREATININE RATIO 17.6 (10-20); CALCIUM 8.7 mg/dl (8.5-10.1); CREATININE 1.1 mg/dl (0.60-1.40); POTASSIUM 4.1 mmol/L (3.5-5.1)
[2017-02-07 09:06] LABS: INR 1.5 (0.9-1.1); PROTHROMBIN TIME (PATIENT) 16.3 SECONDS (9.0-12.0)
--- NOTE | 2017-02-07 09:43 | Cardiology Follow-Up ---
Subjective General Date of Service: Feb 07, 2017. Pt evaluation today including: conversation w/ patient, conversation w/ family , physical exam, chart review, lab review, review of studies, review of inpatient medication list History of Present Illness The patient is a 57 year old male seen in follow-up. Denies chest pain or shortness of breath overnight. Rate control improved this morning with average in the 80s. Remains in atrial fibrillation. Family present at bedside. Patient offers no other concerns/complaints this time. Allergies Coded Allergies: Sulfa Antibiotics (Verified Allergy, Unknown, /, 05/24/15) Social History Smoking Status: Never Smoker Hx Tobacco Use In Past Year?: Yes (can/week) Hx Alcohol Use - Type And Amou: Yes (beer (rarely)) Hx Substance Use - Type And Am: No Problem List Medical Problems: (1) Pain of left calf Status: Acute Review of Systems Respiratory: No cough, No sputum, No wheezing, No shortness of breath, No dyspnea at rest, No hemoptysis Cardiac: No chest pain, No orthopnea, No PND, No edema, No palpitations Physical Exam Vital Signs Last Vital Signs Documentation Date Time Temp Pulse Resp B/P (MAP) Pulse Ox O2 Delivery O2 Flow Rate FiO2 02/07/17 08:00 Room Air 02/07/17 07:11 36.5 89 19 93/63 (73 96 Physical Exam Constitutional: General Apperance: heathly-appearing, well-nourished Level of Distress: NAD Head: normocephalic ENMT: normal ENT inspection Neck: supple Lungs: Auscultation: breath sounds normal, no wheezing, no rales/crackles Cardiovascular: Heart Auscultation: normal S1, normal S2, no murmurs, irregular rate rhythm Peripheral Pulses: Radial Pulse: normal on the left, normal on the right Femoral Pulse: normal on the right Abdomen: Bowel Sounds: normal Inspection & Palpation: soft, non-distended Musculoskeletal: normal Extremities: no cyanosis, no edema Neurologic: Gait & Station: normal gait Cranial Nerves: grossly intact Sensation: grossly intact Assessment and Plan Assessment and Plan 57-year-old male admitted with acute decompensated systolic heart failure secondary to atrial fibrillation with rapid ventricular response. Heart rate has improved with titration of beta batsheva therapy. Appears compensated from a heart failure perspective area diuretic therapy has been de-escalated. Due to decline in left ventricular systolic function there is a concern for underlying ischemic heart disease. He is tentatively plan for cardiac catheterization today. Plan/recommendations: I long discussion with the patient regarding the risk versus benefit of cardiac catheterization with coronary angiography. Patient is agreeable to diagnostic procedure and percutaneous intervention if indicated. He is a bare-metal stent candidate due to the need for chronic anticoagulation in the setting of atrial fibrillation. Other cardiovascular medications will be continued as previously ordered. Further recommendations pending review of coronary angiography. Laboratory Results Last 24 Hours Test 02/06/17 20:35 02/07/17 05:17 Activated Partial Thromboplast Time 55.5 SECONDS 71.6 SECONDS Partial Thromboplastin Ratio 2.1 2.8 White Blood Count 8.99 K/uL Red Blood Count 6.05 M/uL Hemoglobin 18.0 g/dL Hematocrit 55.7 % Mean Corpuscular Volume 92.1 fL Mean Corpuscular Hemoglobin 29.8 pg Mean Corpuscular Hemoglobin Concent 32.3 g/dl RDW Standard Deviation 45.8 fL RDW Coefficient of Variation 13.6 % Platelet Count 201 K/uL Mean Platelet Volume 11.9 fL Prothrombin Time 16.3 SECONDS Prothromb Time International Ratio 1.5 Sodium Level 139 mmol/L Potassium Level 4.1 mmol/L Chloride Level 105 mmol/L Carbon Dioxide Level 24 mmol/L Anion Gap 10.0 mmol/L Blood Urea Nitrogen 19 mg/dl Creatinine 1.10 mg/dl Est Creatinine Clear Calc Drug Dose 83.8 ml/min Estimated GFR () 86.5 Estimated GFR (Non- 74.6 BUN/Creatinine Ratio 17.6 Random Glucose 93 mg/dl Calcium Level 8.7 mg/dl
--- NOTE | 2017-02-07 10:03 | Procedure Note ---
Pre-Mod Sedation Assessment General Date of Moderate Sedation: Feb 07, 2017. Vital Signs: Vital Signs Past 12 Hours Date Time Temp Pulse Resp B/P (MAP) Pulse Ox O2 Delivery O2 Flow Rate FiO2 02/07/17 09:48 36.5 89 19 93/63 96 Room Air 02/07/17 08:00 Room Air 02/07/17 07:11 36.5 89 19 93/63 (73) 96 Room Air 02/07/17 04:00 Room Air 02/07/17 03:54 36.4 91 19 93/66 (75) 95 Room Air 02/07/17 00:00 Room Air 02/06/17 23:04 36.7 107 19 130/87 (101) 96 Room Air Review Cardiovascular: + systolic murmur, + irregularly irregular Abdomen: non tender, soft Lungs: chest non-tender, lungs clear Pre-Sedation Airway Assessment Oral Cavity: WNL Short Thick Neck: No Hx of Sleep Apnea: No Smoking Status: Never Smoker Mallampati Classification: Class III ASA Classification: Class III Procedure Planning Contraindications-for Mod Sed: None Yes Notes The planned sedation has been discussed with the patient and consent obtained. I have identified the patient, determined the appropriateness of sedation and have assessed the patient immediately prior to the procedure. All medicine(s) and interventions are by my order.
[2017-02-07] MEDS ORDERED: HEPARIN SOD (PORCINE) 1000 UNIT/ML 10 ML VIAL ONE (10:17)
[2017-02-07] MEDS ORDERED: NiCARDipine HCL INJ 2.5 MG/ML 10 ML AMP ONE (10:17)
[2017-02-07] MEDS ORDERED: MIDAZOLAM HCL 1 MG/ML 2ML VIAL ONE (10:18)
[2017-02-07] MEDS ORDERED: NITROGLYCERIN/D5W 100MCG/ML 20ML SYR ONE (10:18)
[2017-02-07] MEDS ORDERED: FENTANYL CITRATE INJ 50 MCG/1 ML 2 ML VIAL ONE (10:18)
[2017-02-07] MEDS ORDERED: SODIUM CHLORIDE 0.9% 1000ML 250 ML IV PRN (11:33)
[2017-02-07 11:35] LABS: ISTAT ARTERIAL BLOOD GAS HCO3 29 meq/L (19-24); ISTAT ARTERIAL BLOOD GAS PCO2 43 mmHg (35-46); ISTAT ARTERIAL BLOOD GAS PO2 < 32 mmHg (80-95); ISTAT ARTERIAL BLOOD GAS pH 7.43 (7.35-7.45); ISTAT CARBON DIOXIDE 30 mEq/l (24-31)
[2017-02-07 11:35] LABS: ISTAT ARTERIAL BLOOD GAS HCO3 18 meq/L (19-24); ISTAT ARTERIAL BLOOD GAS PCO2 32 mmHg (35-46); ISTAT ARTERIAL BLOOD GAS PO2 74 mmHg (80-95); ISTAT ARTERIAL BLOOD GAS pH 7.36 (7.35-7.45); ISTAT CARBON DIOXIDE 19 mEq/l (24-31)
--- NOTE | 2017-02-07 11:36 | Procedure Note ---
Post-Mod Sedation Assessment General Date of Moderate Sedation Feb 07, 2017. Vital Signs: Vital Signs Past 12 Hours Date Time Temp Pulse Resp B/P (MAP) Pulse Ox O2 Delivery O2 Flow Rate FiO2 02/07/17 11:19 84 16 104/74 (84) 94 Room Air 02/07/17 09:48 36.5 89 19 93/63 96 Room Air 02/07/17 08:00 Room Air 02/07/17 07:11 36.5 89 19 93/63 (73) 96 Room Air 02/07/17 04:00 Room Air 02/07/17 03:54 36.4 91 19 93/66 (75) 95 Room Air 02/07/17 00:00 Room Air Review - Discharge Criteria Vital Signs Stable: Yes Alert/Oriented/Conversant: Yes Returned to Baseline Mental St: Yes Nausea Absent/Minimal: Yes Pain/Discomfort/Absent/Minimal: Yes Normal/Baseline Respirations: Yes Active Bleeding?: No Pt Received D/C Instructions: N/A Prescriptions Given: None Specific Proced. D/C Criteria Distal Pulses Present (Cardiac: Yes Groin site assessed-Card Cath: N/A Voided Prior To Discharge: N/A Discharged Patients Adult Escort/Transportation: N/A
[2017-02-07] MEDS ORDERED: ACETAMINOPHEN 325 MG TAB PO PRN (11:45)
[2017-02-07] MEDS ORDERED: ONDANSETRON INJ 2 MG/ML 2 ML VIAL IV PRN (11:45)
--- NOTE | 2017-02-07 11:47 | Cardiac Catheterization ---
Procedure Note Procedure Date Feb 07, 2017. Pre-Procedure Diagnosis CHF, Cardiomyopathy AUC Score 8 Post-Procedure Diagnosis Mild CAD Procedure(s) Performed Coronary Angiography, Left Heart Cath, Right Heart Cath Economic Developer Dr. Bocanegra Cotton Weigher(s) Alexei PSYCHIATRIC AIDE, Sedation RN: Thomas Stewart Estimated Blood Loss 8cc Medication(s) Fentanyl, Heparin, Nicardipine, Nitroglycerin, Versed, Lidocaine 1% Summary of Findings Mild non obstructive CAD. Mild pulmonary HTN Elevated PCWP and LVEDP = 19mmHg Hemodynamics Rest Ao: 100/73/87 Final Ao: 104/75/90 LV: 104/13/19 RA: 9 RV: 43/1/5 PA: 40/20/29 PW: 19 Recommendations Medical therapy and/or Counseling Specimens None Radiation Exposure (mGy) 1375 Contrast (mls) 60 Anesthesia Moderate sedation, Start 1033, End 1119 Procedural Complication(s) None Disposition PCU ACC Data Cardiac Status Clinical evaluation leading to the procedure: CHF, decline in LV systolic function. CAD Presntation: Unstable angina (ADHF) Heart Failure: Yes, NYHA Class: CCS III Cardiogenic Shock w/in 24Hrs: No Cardiac Arrest w/in 24Hrs: No Imaging studies past 6 months: No Stress studies past 6 months: No Standard Exercise Stress Test: No Stress Echocardiogram: No Stress Testing w/SPECT MPI: No Coronary Anatomy Dominant: Right Left Main (% Stenosis): Normal LAD (% Stenosis): Ostial (0%), Proximal (20%), Mid (30%), Distal (10%) D1 (% Stenosis): Normal Circumflex (% Stenosis): Normal OM1 (% Stenosis): Normal OM2 (% Stenosis): Normal OM3 (% Stenosis): Normal L PL1 (% Stenosis): Normal L PL2 (% Stenosis): Normal RCA (% Stenosis): Ostial (0%), Proximal (30%), Mid (0%), Distal (0%) R PDA (% Stenosis): Ostial (Bifurcates proximally), Normal R PL1 (% Stenosis): Normal AM (% Stenosis): Normal Diagnostic Status: Urgent Closure Device Percutaneous Entry Location: Radial Closure Device: Radial Band Recommendations: Medical therapy and/or Counseling Intraprocedure Events Significant Dissection: No Perforation: No
--- NOTE | 2017-02-07 12:05 | Progress Note ---
Internal Med Progress Note Date of Service: Feb 07, 2017. Provider Documentation: SUBJECTIVE: Patient is status post cardiac cath today. No complaints of SOB, Orthopnea, leg swelling. Weight down, diuresed well within 24 hours Tele- Atrial fibrillation HR- 90s OBJECTIVE: Vital Signs-as noted below Exam: General-AAOX3, no distress Neck-Supple, NO JVD Lungs-AEBE, no crackles Heart-Irregularly irregular rhythm Extremities-No edema Lab data as noted below. 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 Bravo's office. Patient presented with worsening SOB, orthopnea, weight gain, leg swelling x couples of weeks, not improved with antibiotics for possible bronchitis. -Likely precipitated by Atrial fibrillation with RVR -Clinically responded well to IV lasix and within 24 hours symptoms resolved. -S/P IV Lasix 40 mg BID -> Changed to 20 mg PO BID on 02/04/17 --> 40 mg daily -Metoprolol increased to total of 150 mg daily on 02/06/17 -S/P Cardiac cath today - Normal coronaries. Plan is for abdominal fat pad biopsy to crescent to rule out amyloidosis to look into etiology for cardiomyopathy -Work up- Serial Trop- negative, BNP 4k. -Echo - EF 30-35%, LV reduced, RV reduced function, Moderate MR, Mild TR, Left atrial severely dilated. -Cardiology on board. ATRIAL FIBRILLATION WITH RVR- HR improved now in 90s - Increased Metoprolol to total of 150 mg daily on 02/06/17. Discontinued Diltiazem 120 mg which was his home medication. - Digoxin 0.125 mg daily started this admission - Echo - as above - Anticoagulation: On coumadin with INR 1.5. Held for cath today and for abdominal fat pad biopsy tomorrow. DVT Px: -On Coumadin - INR 1.5, Heparin SQ CODE STATUS Full Code DISPOSITION Monitor on Tele monitor Likely discharge tomorrow if HR stable and after abdominal fat pad biopsy Vital Signs: Date Time Temp Pulse Resp B/P (MAP) Pulse Ox O2 Delivery O2 Flow Rate FiO2 02/07/17 11:34 93 16 110/74 (86) 94 Room Air 02/07/17 11:19 84 16 104/74 (84) 94 Room Air 02/07/17 09:48 36.5 89 19 93/63 96 Room Air 02/07/17 08:00 Room Air 02/07/17 07:11 36.5 89 19 93/63 (73) 96 Room Air 02/07/17 04:00 Room Air 02/07/17 03:54 36.4 91 19 93/66 (75) 95 Room Air 02/07/17 00:00 Room Air 02/06/17 23:04 36.7 107 19 130/87 (101) 96 Room Air 02/06/17 20:00 Room Air 02/06/17 19:12 36.8 102 18 126/71 (89) 96 Room Air 02/06/17 15:28 Room Air 02/06/17 15:25 81 02/06/17 15:22 36.8 102 16 121/84 (96) 95 Room Air 02/06/17 12:01 36.6 107 20 131/95 (107) 96 Room Air Lab Results: Results Past 24 Hours Test 02/06/17 20:35 02/07/17 05:17 02/07/17 10:54 02/07/17 11:18 Range/Units Activated Partial Thromboplast Time 55.5 71.6 21.0-31.0 SECONDS Partial Thromboplastin Ratio 2.1 2.8 White Blood Count 8.99 4.8-10.8 K/uL Red Blood Count 6.05 4.7-6.1 M/uL Hemoglobin 18.0 14.0-18.0 g/dL Hematocrit 55.7 42-52 % Mean Corpuscular Volume 92.1 80-100 fL Mean Corpuscular Hemoglobin 29.8 25-34 pg Mean Corpuscular Hemoglobin Concent 32.3 32-36 g/dl RDW Standard Deviation 45.8 36.4-46.3 fL RDW Coefficient of Variation 13.6 11.5-14.5 % Platelet Count 201 130-400 K/uL Mean Platelet Volume 11.9 7.4-10.4 fL Prothrombin Time 16.3 9.0-12.0 SECONDS Prothromb Time International Ratio 1.5 0.9-1.1 Sodium Level 139 136-145 mmol/L Potassium Level 4.1 3.5-5.1 mmol/L Chloride Level 105 98-107 mmol/L Carbon Dioxide Level 24 21-32 mmol/L Anion Gap 10.0 3-11 mmol/L Blood Urea Nitrogen 19 7-18 mg/dl Creatinine 1.10 0.60-1.40 mg/dl Est Creatinine Clear Calc Drug Dose 83.8 ml/min Estimated GFR () 86.5 Estimated GFR (Non- 74.6 BUN/Creatinine Ratio 17.6 10-20 Random Glucose 93 70-99 mg/dl Calcium Level 8.7 8.5-10.1 mg/dl Bedside Blood Gas pH (LAB) 7.43 7.36 7.35-7.45 Bedside Blood Gas pCO2 (LAB) 43 32 35-46 mmHg Bedside Blood Gas pO2 (LAB) < 32 74 80-95 mmHg Bedside Blood Gas HCO3 (LAB) 29 18 19-24 meq/L Bedside Blood Gas Total CO2 30 19 24-31 mEq/l Bedside Blood Gas Base Excess (LAB) 5.0 -8.0 -9-1.8 meq/L Bedside Blood Gas O2 Saturation 64.0 94.0 90-95 %
[2017-02-07] MEDS: WARFARIN SOD 5 MG TAB PO SCH (15:31)
[2017-02-07] MEDS: DIGOXIN 0.25 MG TAB PO SCH (15:33)
[2017-02-07] MEDS: METOPROLOL TARTRATE 1 MG/ML VIAL IV PRN (17:40)
[2017-02-07] MEDS ORDERED: NURSING VERBAL MED ORDER ONE (18:00)
[2017-02-07 18:55] LABS: PARTIAL THROMBOPLASTIN RATIO 1.2
[2017-02-07] MEDS ORDERED: HEPARIN IV BOLUS 6,000 UNIT in SYRINGE 0 ML IV ONE (21:00)
[2017-02-07] MEDS: LISINOPRIL 2.5 MG TAB PO SCH (21:02)
[2017-02-08 03:49] LABS: PARTIAL THROMBOPLASTIN RATIO 7.8
[2017-02-08 03:50] VITALS: BP 106/74; PULSE 84; TEMP 36.8; O2SAT 95
[2017-02-08 05:30] LABS: PARTIAL THROMBOPLASTIN RATIO 3.2
[2017-02-08 07:19] VITALS: BP 106/72; PULSE 93; TEMP 36.6; O2SAT 93
[2017-02-08] MEDS: METOPROLOL SUCC 50MG EXT REL TAB PO SCH ×2 (08:30→20:33)
[2017-02-08] MEDS: MAGNESIUM OXIDE 400 MG TAB PO SCH (08:30)
[2017-02-08] MEDS: FUROSEMIDE 40 MG TAB PO SCH (08:30)
[2017-02-08 09:21] LABS: INR 1.7 (0.9-1.1); PROTHROMBIN TIME (PATIENT) 18.3 SECONDS (9.0-12.0)
[2017-02-08] MEDS ORDERED: AMIODARONE 200 MG TAB PO ONE (11:15)
--- NOTE | 2017-02-08 11:15 | Cardiology Follow-Up ---
Subjective General Date of Service: Feb 08, 2017. Pt evaluation today including: conversation w/ patient, physical exam, chart review, lab review, review of studies, review of inpatient medication list History of Present Illness The patient is a 57 year old male seen in follow-up. Cardiac catheterization demonstrated nonobstructive coronary disease with mild pulmonary hypertension. Patient remains in atrial fibrillation on monitor. 3 short salvos of nonsustained ventricular tachycardia recorded yesterday. There were no associated symptoms. No recurrent ventricular tachycardia this a.m. His abdominal fat pad biopsy was performed. Results will be likely available in 5- 7 days. Patient is feeling well. Denies orthopnea or PND. No lower extremity edema or chest discomfort. Requesting clearance to take a shower. Offers no complaints this time. Allergies Coded Allergies: Sulfa Antibiotics (Verified Allergy, Unknown, /, 05/24/15) Social History Smoking Status: Never Smoker Hx Tobacco Use In Past Year?: Yes (can/week) Hx Alcohol Use - Type And Amou: Yes (beer (rarely)) Hx Substance Use - Type And Am: No Problem List Medical Problems: (1) Pain of left calf Status: Acute Review of Systems Respiratory: No cough, No wheezing, No shortness of breath, No dyspnea at rest , No hemoptysis Cardiac: No chest pain, No orthopnea, No PND, No edema, No claudication, No palpitations Physical Exam Vital Signs Last Vital Signs Documentation Date Time Temp Pulse Resp B/P (MAP) Pulse Ox O2 Delivery O2 Flow Rate FiO2 02/08/17 08:00 Room Air 02/08/17 07:19 36.6 93 18 106/72 (83) 93 Physical Exam Constitutional: General Apperance: heathly-appearing, well-nourished Level of Distress: NAD Head: normocephalic ENMT: normal ENT inspection Neck: supple Lungs: Auscultation: breath sounds normal, no wheezing, no rales/crackles Cardiovascular: Heart Auscultation: normal S1, normal S2, no murmurs, tachycardia, irregular rate rhythm Peripheral Pulses: Radial Pulse: normal on the left, normal on the right Femoral Pulse: normal on the right Abdomen: Bowel Sounds: normal Inspection & Palpation: soft, non-distended Musculoskeletal: normal Extremities: no cyanosis, no edema Neurologic: Gait & Station: normal gait Cranial Nerves: grossly intact Sensation: grossly intact Assessment and Plan Assessment and Plan 57-year-old male admitted with acute decompensated systolic heart failure and atrial fibrillation with rapid ventricular response. Heart rate mildly improved , however, remains elevated with minimal exertion. His ejection fraction is less than 35%. He appears compensated from a heart failure perspective. Cardiac catheterization performed yesterday demonstrates mild nonobstructive coronary disease. Plan/recommendations: Results of catheterization and echocardiogram discussed with the patient. Heart rate remain elevated. We discussed rate control versus rhythm control strategy at length. Given his nonischemic cardiomyopathy, which is presumed tachycardia induced, we'll attempt rhythm control strategy. Recommend 4 weeks of adequate anticoagulation followed by elective external direct-current cardioversion. I will also add low-dose amiodarone in hopes of maintaining rhythm control post cardioversion. With patient's significant left atrial enlargement chances of success are limited and this was discussed at length. I also explained telemetry findings of nonsustained ventricular tachycardia recorded over the past 24 hours. Patient understands he is high risk for lethal dysrhythmias given his significant left ventricular systolic dysfunction. Discussed risk versus benefit of placing LifeVest for the next 12 weeks. Patient is agreeable. Continue evidence base heart failure therapy with beta batsheva, and lisinopril. I will add Aldactone today. Heparin will be restarted today. He'll receive a dose of Coumadin this evening. Repeat PT INR and basic metabolic panel in the a.m. Laboratory Results Last 24 Hours Test 02/07/17 11:18 02/07/17 18:04 02/08/17 02:39 02/08/17 05:00 Bedside Blood Gas pH (LAB) 7.36 Bedside Blood Gas pCO2 (LAB) 32 mmHg Bedside Blood Gas pO2 (LAB) 74 mmHg Bedside Blood Gas HCO3 (LAB) 18 meq/L Bedside Blood Gas Total CO2 19 mEq/l Bedside Blood Gas Base Excess (LAB) -8.0 meq/L Bedside Blood Gas O2 Saturation 94.0 % Activated Partial Thromboplast Time 30.1 SECONDS 206.1 SECONDS 83.6 SECONDS Partial Thromboplastin Ratio 1.2 7.8 3.2 Magnesium Level 2.3 mg/dl Prothrombin Time 18.3 SECONDS Prothromb Time International Ratio 1.7
[2017-02-08] MEDS ORDERED: SPIRONOLACTONE 25 MG TAB PO ONE (11:30)
[2017-02-08 11:50] VITALS: BP 114/80; PULSE 98; TEMP 36.6; O2SAT 94
[2017-02-08 12:01] LABS: PARTIAL THROMBOPLASTIN RATIO 1.2
[2017-02-08] MEDS: HEPARIN 25,000 UNIT/500ML D5W 500 ML IV PRN ×2 (12:31→13:24)
[2017-02-08] MEDS ORDERED: HEPARIN IV BOLUS 6,000 UNIT in SYRINGE 0 ML IV ONE (13:15)
[2017-02-08 15:47] VITALS: BP 116/78; PULSE 101; TEMP 36.9; O2SAT 97
--- NOTE | 2017-02-08 15:59 | Progress Note ---
Internal Med Progress Note Date of Service: Feb 08, 2017. Provider Documentation: SUBJECTIVE: The patient was seen and examined Feels a lot better today Has has 9 beats of V Tac yesterday Started on Amiodarone OBJECTIVE: Vital Signs-as noted below Exam: General-No apparent distress Eyes-normal ENT-normal Neck-supple Lungs-Clear to auscultate bilaterally Heart-Regular,no murmur appreciated Abdomen-Benign,no masses,bowel sound present Extremities-No edema Neuro-AAOx3 Lab data as noted below. ASSESSMENT & PLAN: ACUTE SYSTOLIC CONGESTIVE HEART FAILURE, NEW ONSET Patient presented with worsening SOB, orthopnea, weight gain, leg swelling x couples of weeks, not improved with antibiotics for possible bronchitis. Precipitated by Atrial fibrillation with RVR Responding to IV Lasix Changed to 20 mg PO BID on 02/04/17 --> 40 mg daily -Metoprolol increased to total of 150 mg daily on 02/06/17 -Echo - EF 30-35%, LV reduced, RV reduced function, Moderate MR, Mild TR, Left atrial severely dilated. -S/P Cardiac cath - Normal coronaries. Plan is for abdominal fat pad biopsy done today to r/o Amyloidosis Appreciate Cardiology input ATRIAL FIBRILLATION WITH RVR- HR improved now in 90s - Increased Metoprolol to total of 150 mg daily on 02/06/17. Discontinued Diltiazem 120 mg which was his home medication. - Digoxin 0.125 mg daily started this admission- Has has runs of Vv tac last night Started on Amiodarone by the dyehouse worker today DVT Px: -On Coumadin - INR 1.7, Heparin IV CODE STATUS Full Code DISPOSITION Monitor on Tele monitor Likely dischareg in a day or two Vital Signs: Date Time Temp Pulse Resp B/P (MAP) Pulse Ox O2 Delivery O2 Flow Rate FiO2 02/08/17 15:47 36.9 101 22 116/78 (91) 97 Room Air 02/08/17 12:00 Room Air 02/08/17 11:50 36.6 98 18 114/80 (91) 94 Room Air 02/08/17 08:00 Room Air 02/08/17 07:19 36.6 93 18 106/72 (83) 93 Room Air 02/08/17 04:00 Room Air 02/08/17 03:50 36.8 84 18 106/74 (85) 95 Room Air 02/08/17 00:00 Room Air 02/07/17 23:42 37.0 99 20 109/74 (86) 94 Room Air 02/07/17 20:00 Room Air 02/07/17 19:03 36.5 99 18 119/85 (96) 94 Room Air 02/07/17 17:40 140 127/84 02/07/17 17:19 36.7 120 20 127/84 (98) 93 Room Air 02/07/17 17:00 36.7 120 20 127/84 (98) 93 Room Air 02/07/17 16:19 36.4 98 18 104/73 (83) 93 Room Air 02/07/17 16:00 93 Room Air Lab Results: Results Past 24 Hours Test 02/07/17 18:04 02/08/17 02:39 02/08/17 05:00 02/08/17 11:16 Range/Units Activated Partial Thromboplast Time 30.1 206.1 83.6 31.0 21.0-31.0 SECONDS Partial Thromboplastin Ratio 1.2 7.8 3.2 1.2 Magnesium Level 2.3 1.8-2.4 mg/dl Prothrombin Time 18.3 9.0-12.0 SECONDS Prothromb Time International Ratio 1.7 0.9-1.1
[2017-02-08] MEDS: DIGOXIN 0.25 MG TAB PO SCH (16:04)
[2017-02-08] MEDS: WARFARIN SOD 5 MG TAB PO SCH (16:04)
[2017-02-08 19:54] VITALS: BP 119/85; PULSE 90; TEMP 36.8; O2SAT 96
[2017-02-08 20:02] LABS: INR 1.7 (0.9-1.1)
[2017-02-08 20:16] LABS: BUN/CREATININE RATIO 14.3 (10-20); CALCIUM 8.9 mg/dl (8.5-10.1); CREATININE 1.4 mg/dl (0.60-1.40); MAGNESIUM 2.4 mg/dl (1.8-2.4)
[2017-02-08 20:22] LABS: PARTIAL THROMBOPLASTIN RATIO 5.9
[2017-02-08] MEDS: AMIODARONE 200 MG TAB PO SCH (20:32)
[2017-02-08] MEDS: LISINOPRIL 2.5 MG TAB PO SCH (20:33)
[2017-02-08 22:24] LABS: PARTIAL THROMBOPLASTIN RATIO 2.6
[2017-02-08 23:20] VITALS: BP 126/88; PULSE 96; TEMP 36.8; O2SAT 96
[2017-02-09 04:07] VITALS: BP 95/63; PULSE 71; TEMP 36.5; O2SAT 97
[2017-02-09 04:37] LABS: HEMATOCRIT 50.6 % (42-52); MEAN CELL VOLUME 91.5 fL (80-100); MEAN CORPUSCULAR HEMOGLOBIN 31.6 pg (25-34); MEAN CORPUSCULAR HGB CONC 34.6 g/dl (32-36); MEAN PLATELET VOLUME 11.4 fL (7.4-10.4); PLATELET COUNT 185 K/uL (130-400); RED BLOOD COUNT 5.53 M/uL (4.7-6.1); WHITE BLOOD COUNT 8.24 K/uL (4.8-10.8)
[2017-02-09 05:09] LABS: PARTIAL THROMBOPLASTIN RATIO 3.8
[2017-02-09] MEDS: MAGNESIUM OXIDE 400 MG TAB PO SCH (07:13)
[2017-02-09] MEDS: FUROSEMIDE 40 MG TAB PO SCH (07:13)
[2017-02-09] MEDS: AMIODARONE 200 MG TAB PO SCH (07:14)
[2017-02-09] MEDS: METOPROLOL SUCC 50MG EXT REL TAB PO SCH (07:16)
[2017-02-09] MEDS: HEPARIN 25,000 UNIT/500ML D5W 500 ML IV PRN (07:49)
[2017-02-09 07:52] VITALS: BP 86/57; PULSE 80; TEMP 36.7; O2SAT 97
[2017-02-09] MEDS ORDERED: SPIRONOLACTONE 25 MG TAB PO SCH (09:00)
[2017-02-09 09:15] VITALS: BP 100/70; PULSE 77
--- NOTE | 2017-02-09 10:34 | Cardiology Follow-Up ---
Subjective General Date of Service: Feb 09, 2017. Pt evaluation today including: conversation w/ patient, physical exam, chart review, lab review, review of studies, review of inpatient medication list History of Present Illness The patient is a 57 year old male seen in follow-up. He is feeling well today. Telemetry demonstrates improved rate control this morning. Occasional PVCs and one deepthi of nonsustained ventricular tachycardia recorded. Denies orthopnea or PND. A.m. labs pending. Offers no complaints this time. Allergies Coded Allergies: Sulfa Antibiotics (Verified Allergy, Unknown, /, 05/24/15) Social History Smoking Status: Never Smoker Hx Tobacco Use In Past Year?: Yes (can/week) Hx Alcohol Use - Type And Amou: Yes (beer (rarely)) Hx Substance Use - Type And Am: No Problem List Medical Problems: (1) Pain of left calf Status: Acute Review of Systems Respiratory: No cough, No sputum, No wheezing, No shortness of breath, No dyspnea at rest, No hemoptysis Cardiac: No chest pain, No orthopnea, No PND, No edema, No claudication, No palpitations Physical Exam Vital Signs Last Vital Signs Documentation Date Time Temp Pulse Resp B/P (MAP) Pulse Ox O2 Delivery O2 Flow Rate FiO2 02/09/17 09:15 77 100/70 (80) 02/09/17 08:04 Room Air 02/09/17 07:52 36.7 16 97 Physical Exam Constitutional: General Apperance: heathly-appearing, well-nourished Level of Distress: NAD Head: normocephalic ENMT: normal ENT inspection Neck: supple Lungs: Auscultation: breath sounds normal, no wheezing, no rales/crackles Cardiovascular: Heart Auscultation: normal S1, normal S2, no murmurs, irregular rate rhythm Peripheral Pulses: Radial Pulse: normal on the left, normal on the right Femoral Pulse: normal on the right Abdomen: Bowel Sounds: normal Inspection & Palpation: soft, non-distended Musculoskeletal: normal Extremities: no cyanosis, no edema Neurologic: Gait & Station: normal gait Cranial Nerves: grossly intact Sensation: grossly intact Assessment and Plan Assessment and Plan 57-year-old male admitted with acute decompensated systolic heart failure and atrial fibrillation with rapid ventricular response. Cardiac catheterization performed during hospitalization demonstrates mild nonobstructive coronary disease and mild pulmonary hypertension. Heart rate improved overnight with addition of amiodarone. Continues to have short salvos of asymptomatic nonsustained ventricular tachycardia at heart rates less than 120 bpm. Patient is feeling well today and anxious for discharge. Appears euvolemic and compensated on physical exam. Plan/recommendations: Review a.m. labs when available. If INR remains below 2.0 patient will be discharged with subcutaneous Lovenox bridging. Continue current cardiovascular medications including Toprol-XL, amiodarone, lisinopril, Aldactone, and furosemide. He will require close heart failure clinic follow-up in one week. I will make arrangements for this appointment today. Ultimate plan for 4 weeks of adequate oral anticoagulation followed by external direct-current cardioversion. A repeat resting 2-D transthoracic echo will be performed approximately 12 weeks after cardioversion to assess left ventricular systolic function to determine need for ICD. All questions answered to satisfaction of the patient. He may be discharged after a.m. labs reviewed, and LifeVest is placed. Laboratory Results Last 24 Hours Test 02/08/17 11:16 02/08/17 19:36 02/08/17 21:49 02/09/17 04:25 Activated Partial Thromboplast Time 31.0 SECONDS 153.6 SECONDS 68.6 SECONDS 99.7 SECONDS Partial Thromboplastin Ratio 1.2 5.9 2.6 3.8 Prothrombin Time 19.0 SECONDS Prothromb Time International Ratio 1.7 Sodium Level 139 mmol/L Potassium Level 4.0 mmol/L Chloride Level 106 mmol/L Carbon Dioxide Level 24 mmol/L Anion Gap 9.0 mmol/L Blood Urea Nitrogen 20 mg/dl Creatinine 1.40 mg/dl Est Creatinine Clear Calc Drug Dose 65.9 ml/min Estimated GFR () 64.6 Estimated GFR (Non- 55.8 BUN/Creatinine Ratio 14.3 Random Glucose 100 mg/dl Calcium Level 8.9 mg/dl Magnesium Level 2.4 mg/dl White Blood Count 8.24 K/uL Red Blood Count 5.53 M/uL Hemoglobin 17.5 g/dL Hematocrit 50.6 % Mean Corpuscular Volume 91.5 fL Mean Corpuscular Hemoglobin 31.6 pg Mean Corpuscular Hemoglobin Concent 34.6 g/dl RDW Standard Deviation 45.8 fL RDW Coefficient of Variation 13.6 % Platelet Count 185 K/uL Mean Platelet Volume 11.4 fL Test 02/09/17 10:05
[2017-02-09 10:55] LABS: INR 1.7 (0.9-1.1); PROTHROMBIN TIME (PATIENT) 18.8 SECONDS (9.0-12.0)
[2017-02-09 11:03] VITALS: BP 105/75; PULSE 84; TEMP 36.8; O2SAT 97
[2017-02-09 11:08] LABS: BUN/CREATININE RATIO 15.5 (10-20); CALCIUM 8.8 mg/dl (8.5-10.1); CREATININE 1.1 mg/dl (0.60-1.40)
--- NOTE | 2017-02-09 12:19 | Progress Note ---
Internal Med Progress Note Date of Service: Feb 09, 2017. Provider Documentation: SUBJECTIVE: The patient was seen and examined Feels a lot better today No more episodes of V Tach Denies any symptoms OBJECTIVE: Vital Signs-as noted below Exam: General-No apparent distress Eyes-normal ENT-normal Neck-supple Lungs-Clear to auscultate bilaterally Heart-Irregular,no murmur appreciated Abdomen-Benign,no masses,bowel sound present Extremities-No edema Neuro-AAOx3 Lab data as noted below. ASSESSMENT & PLAN: ACUTE SYSTOLIC CONGESTIVE HEART FAILURE, NEW ONSET Patient presented with worsening SOB, orthopnea, weight gain, leg swelling x couples of weeks, not improved with antibiotics for possible bronchitis. Precipitated by Atrial fibrillation with RVR Responding to IV Lasix Changed to 20 mg PO BID on 02/04/17 --> 40 mg daily -Metoprolol increased to total of 150 mg daily on 02/06/17 -Echo - EF 30-35%, LV reduced, RV reduced function, Moderate MR, Mild TR, Left atrial severely dilated. -S/P Cardiac cath - Normal coronaries. Plan is for abdominal fat pad biopsy done today to r/o Amyloidosis Appreciate Cardiology input Aldactone added ATRIAL FIBRILLATION WITH RVR- HR improved now in 90s - Increased Metoprolol to total of 150 mg daily on 02/06/17. Discontinued Diltiazem 120 mg which was his home medication. - Digoxin 0.125 mg daily started this admission- Has has runs of Vv tac last night Started on Amiodarone by the sisal operator -to prevent V tachycardia Life-vest will be applied Plan to do cardiovert after 1 month DVT Px: -On Coumadin - INR 1.7, Heparin IV CODE STATUS Full Code DISPOSITION Monitor on Tele monitor Likely discharge today Vital Signs: Date Time Temp Pulse Resp B/P (MAP) Pulse Ox O2 Delivery O2 Flow Rate FiO2 02/09/17 11:03 36.8 84 18 105/75 (85) 97 Room Air 02/09/17 09:15 77 100/70 (80) 02/09/17 08:04 Room Air 02/09/17 07:52 36.7 80 16 86/57 (67) 97 Room Air 02/09/17 04:07 36.5 71 18 95/63 (74) 97 Room Air 02/09/17 04:00 Room Air 02/09/17 00:00 Room Air 02/08/17 23:20 36.8 96 20 126/88 (101) 96 Room Air 02/08/17 20:00 Room Air 02/08/17 19:54 36.8 90 22 119/85 (96) 96 Room Air 02/08/17 16:04 101 02/08/17 16:00 Room Air 02/08/17 15:47 36.9 101 22 116/78 (91) 97 Room Air Lab Results: Results Past 24 Hours Test 02/08/17 19:36 02/08/17 21:49 02/09/17 04:25 02/09/17 10:05 Range/Units Prothrombin Time 19.0 18.8 9.0-12.0 SECONDS Prothromb Time International Ratio 1.7 1.7 0.9-1.1 Activated Partial Thromboplast Time 153.6 68.6 99.7 21.0-31.0 SECONDS Partial Thromboplastin Ratio 5.9 2.6 3.8 Sodium Level 139 141 136-145 mmol/L Potassium Level 4.0 4.0 3.5-5.1 mmol/L Chloride Level 106 107 98-107 mmol/L Carbon Dioxide Level 24 26 21-32 mmol/L Anion Gap 9.0 8.0 3-11 mmol/L Blood Urea Nitrogen 20 17 7-18 mg/dl Creatinine 1.40 1.10 0.60-1.40 mg/dl Est Creatinine Clear Calc Drug Dose 65.9 83.3 ml/min Estimated GFR () 64.6 86.5 Estimated GFR (Non- 55.8 74.6 BUN/Creatinine Ratio 14.3 15.5 10-20 Random Glucose 100 98 70-99 mg/dl Calcium Level 8.9 8.8 8.5-10.1 mg/dl Magnesium Level 2.4 1.8-2.4 mg/dl White Blood Count 8.24 4.8-10.8 K/uL Red Blood Count 5.53 4.7-6.1 M/uL Hemoglobin 17.5 14.0-18.0 g/dL Hematocrit 50.6 42-52 % Mean Corpuscular Volume 91.5 80-100 fL Mean Corpuscular Hemoglobin 31.6 25-34 pg Mean Corpuscular Hemoglobin Concent 34.6 32-36 g/dl RDW Standard Deviation 45.8 36.4-46.3 fL RDW Coefficient of Variation 13.6 11.5-14.5 % Platelet Count 185 130-400 K/uL Mean Platelet Volume 11.4 7.4-10.4 fL
[2017-02-09 13:08] LABS: PARTIAL THROMBOPLASTIN RATIO 2.4
[2017-02-09] MEDS ORDERED: ENOXAPARIN 100 MG/1ML SYR SQ ONE (13:30)
[2017-02-09] MEDS ORDERED: TPRSR50 PO ×2 (14:41)
[2017-02-09] MEDS ORDERED: CRD200 PO (14:41)
[2017-02-09] MEDS ORDERED: LSX40 PO (14:41)
[2017-02-09] MEDS ORDERED: SPR25 PO (14:41)
[2017-02-09] MEDS ORDERED: LNX25 PO (14:41)
[2017-02-09] MEDS ORDERED: LSN25 PO (14:41)
--- NOTE | 2017-02-09 14:44 | Discharge Instructions ---
Discharge Instructions Date of Service Feb 09, 2017. Admission Reason for Admission: Acute Heart Failure Discharge Discharge Diagnosis / Problem: AF with RVR,CHF Discharge Goals Goal(s): Prevent Disease Progression Activity Recommendations Activity Limitations: resume your previous activity . Instructions / Follow-Up Instructions / Follow-Up Dr Avina on 02/14/17 at 10:5 AM,Cardiology will call with appointment,Coag clinic notified Current Hospital Diet Patient's current hospital diet: AHA Diet (Heart Healthy) Discharge Diet Recommended Diet: AHA Diet (Heart Healthy) Pending Studies Studies pending at discharge: no Medical Emergencies . Who to Call and When: Medical Emergencies: If at any time you feel your situation is an emergency, please call 911 immediately. . Non-Emergent Contact Non-Emergency issues call your: Primary Care Provider . Past History Medical & Surgical History: (1) Precordial chest pain (2) New onset a-fib (3) SOB (shortness of breath) . "Provider Documentation" section prepared by Jaime Puri. . VTE Core Measure Inpt VTE Proph given/why not?: Unfractionated heparin SQ, Warfarin (Coumadin)
[2017-02-09] MEDS ORDERED: LNX125 PO (14:46)
[2017-02-09 15:05] VITALS: BP 105/75; PULSE 84; TEMP 36.8; O2SAT 97
[2017-02-09] MEDS: WARFARIN SOD 5 MG TAB PO SCH (15:22)
[2017-02-09] MEDS: DIGOXIN 0.25 MG TAB PO SCH (15:24)
--- NOTE | 2017-02-10 07:31 | Discharge Summary ---
Discharge Summary Date of Service Feb 10, 2017. Discharge Summary Admission Date: Feb 03, 2017 at 12:31 Discharge Date: Feb 09, 2017 Discharge Disposition: Home Principal Diagnosis: AF with RVR,CHF Secondary Diagnoses/Problems: Please see H&P and Hospital progress note Consultations: Cardiology Medication Reconciliation New Medications: Digoxin (Digoxin) 0.125 Mg Tab 125 MCG PO DAILY, #30 Amiodarone HCl (Amiodarone HCl) 200 Mg Tab 200 MG PO BID for 30 Days, #60 TAB Furosemide (Furosemide) 40 Mg Tab 40 MG PO DAILY for 30 Days, #30 TAB Lisinopril (Lisinopril) 2.5 Mg Tab 2.5 MG PO QPM for 30 Days, #30 TAB Metoprolol Succinate (Metoprolol Succinate ER) 50 Mg Tabcr 100 MG PO DAILY for 30 Days, #60 Metoprolol Succinate (Metoprolol Succinate ER) 50 Mg Tabcr 50 MG PO QPM for 30 Days, #30 Spironolactone (Spironolactone) 25 Mg Tab 25 MG PO QAM for 30 Days, #30 TAB Continued Medications: Magnesium Oxide (Mag-Ox) 400 Mg Tab 400 MG PO, TAB Multivitamin (Multivitamin) Tab 1 TAB PO DAILY Warfarin Sod (Coumadin) 5 Mg Tab 5 MG PO DAILY for 30 Days Discontinued Medications: Diltiazem HCl (Diltiazem Cd) 120 Mg Capcr 120 MG PO QAM for 30 Days Metoprolol Succ (Toprol Xl) (Toprol-Xl) 50 Mg Tabcr 1 TAB PO DAILY for 30 Days, #30 TAB 5 Refills Admission Information HPI (per Admitting provider): Patient is a 57 yr male with PMH of P.atrial fibrillation,non ischemic cardiomyopathy presents for evaluation after 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 He was seen by his PCP and was thought to have bronchitis for which he was prescribed antibiotics which did not help. He reports currently he is undergoing thought lot of stress secondary to losing his job. He states his SOB is worsened especially overnight and worse with exertion. Reports associated dry cough but denies any chest pain , palpitations, fever, chills, nausea, vomiting, dizziness, abdominal pain, change in bowel/bladder habits. Reports orthopnea and weight gain of at least 2 pounds in 2 weeks. Denies any recent travel, sick contact. He states he was started on lasix 4 days ago and has been taking it regularly. His recent ECHO showed an EF of 20-24% per his rotary cutter operator note. Past Medical/Surgical History Medical Problems: (1) New onset a-fib Status: Resolved (2) Precordial chest pain Status: Resolved Family History Cancer Diabetes mellitus Gallbladder disease Heart disease Hypertension Lung disease Past Surgical History: Hernia repair, Right knee surgery Social History Smoking Status: Never Smoker Smokeless Tobacco Use: No Alcohol Use: socially Drug Use: none Marital Status: Occupational Status: employed Allergies Coded Allergies: Sulfa Antibiotics (Verified Allergy, Unknown, /, 05/24/15) Home Medications Scheduled Diltiazem HCl (Diltiazem Cd), 120 MG PO QAM Metoprolol Succ (Toprol Xl) (Toprol-Xl), 1 TAB PO DAILY Multivitamin (Multivitamin), 1 TAB PO DAILY Warfarin Sod (Coumadin), 5 MG PO DAILY Miscellaneous Medications Magnesium Oxide (Mag-Ox), 400 MG PO Review of Systems See HPI for pertinent positives & negatives. A total of 10 systems reviewed and were otherwise negative. Physical Ex - H&P Physical Exam General Appearance: WD/WN, no apparent distress Head: normocephalic, atraumatic Eyes: normal inspection, PERRL, EOMI ENT: normal ENT inspection, hearing grossly normal Neck: supple, trachea midline Respiratory/Chest: chest non-tender, lungs clear, normal breath sounds, no accessory muscle use Cardiovascular: no murmur, + irregularly irregular, + pertinent finding (2+ B/ L edema) Abdomen/GI: normal bowel sounds, non tender, soft, + pertinent finding ( Protuberant) Back: normal inspection Extremities/Musculoskelatal: normal inspection, + pedal edema Neurologic/Psych: real estate consultant II-XII nml as tested, no motor/sensory deficits, alert, normal mood/affect, oriented x 3 Skin: normal color, warm/dry Diagnostics - H&P Diagnostics Laboratory Results Results Past 24 Hours Test 02/03/17 13:33 02/03/17 13:45 02/03/17 13:52 Range/Units Creatine Kinase MB Ratio 0-3.0 Diagnostic Radiology CXR:pending EKG EKG:pending Monitor shows afib with RVR, PVCs Impression - H&P Impression Assessment and Plan Acute systolic CHF exacerbation: Patient is a direct admit from his rotary cutter operator 's office Admit in Tele Will obtain CBC, CMP, Coags, CXR, EKG, Troponin Start his on IV Lasix 40mg BID Daily weight, I/Os Recent ECHO: EF:20-25% Will consult cardiology Will trend cardiac enzymes Afib with RVR: Monitor: afib with RVR, PVCs Currently rate is in 110s Will give stat dose of 2.5 mg lopressor Check electrolytes check INR Anxiety: Currently not on any meds at home Will consider Xanax PRN if necessary clinically DVT Px: On coumadin Code Status: Full Code Disposition: Monitor in Tele VTE Prophylaxis VTE Risk Assessment Done? Y/N: Yes Risk Level: Moderate Physical Exam (per Admitting): General Appearance: WD/WN, no apparent distress Head: normocephalic, atraumatic Eyes: normal inspection, PERRL, EOMI ENT: normal ENT inspection, hearing grossly normal Neck: supple, trachea midline Respiratory/Chest: chest non-tender, lungs clear, normal breath sounds, no accessory muscle use Cardiovascular: no murmur, + irregularly irregular, + pertinent finding (2+ B/L edema) Abdomen/GI: normal bowel sounds, non tender, soft, + pertinent finding ( Protuberant) Back: normal inspection Extremities/Musculoskelatal: normal inspection, + pedal edema Neurologic/Psych: real estate consultant II-XII nml as tested, no motor/sensory deficits, alert , normal mood/affect, oriented x 3 Skin: normal color, warm/dry Hospital Course ACUTE SYSTOLIC CONGESTIVE HEART FAILURE, NEW ONSET Patient presented with worsening SOB, orthopnea, weight gain, leg swelling x couples of weeks, not improved with antibiotics for possible bronchitis. Precipitated by Atrial fibrillation with RVR Responding to IV Lasix Changed to 20 mg PO BID on 02/04/17 --> 40 mg daily -Metoprolol increased to total of 150 mg daily on 02/06/17 -Echo - EF 30-35%, LV reduced, RV reduced function, Moderate MR, Mild TR, Left atrial severely dilated. -S/P Cardiac cath - Normal coronaries. Plan is for abdominal fat pad biopsy done today to r/o Amyloidosis Appreciate Cardiology input Aldactone added ATRIAL FIBRILLATION WITH RVR- HR improved now in 90s - Increased Metoprolol to total of 150 mg daily on 02/06/17. Discontinued Diltiazem 120 mg which was his home medication. - Digoxin 0.125 mg daily started this admission- Has has runs of Vv tac last night Started on Amiodarone by the rotary cutter operator -to prevent V tachycardia Life-vest will be applied Plan to do cardiovert after 1 month DVT Px: -On Coumadin - INR 1.7, Heparin IV CODE STATUS Full Code DISPOSITION Monitor on Tele monitor Likely discharge today Total time spent on discharge = 35 minutes This includes examination of the patient, discharge planning, medication reconciliation, and communication with other providers. Discharge Instructions Date of Service Feb 09, 2017. Admission Reason for Admission: Acute Heart Failure Discharge Discharge Diagnosis / Problem: AF with RVR,CHF Discharge Goals Goal(s): Prevent Disease Progression Activity Recommendations Activity Limitations: resume your previous activity . Instructions / Follow-Up Instructions / Follow-Up Dr Avina on 02/14/17 at 10:5 AM,Cardiology will call with appointment,Coag clinic notified Current Hospital Diet Patient's current hospital diet: AHA Diet (Heart Healthy) Discharge Diet Recommended Diet: AHA Diet (Heart Healthy) Pending Studies Studies pending at discharge: no Medical Emergencies . Who to Call and When: Medical Emergencies: If at any time you feel your situation is an emergency, please call 911 immediately. . Non-Emergent Contact Non-Emergency issues call your: Primary Care Provider . Past History Medical & Surgical History: (1) Precordial chest pain (2) New onset a-fib (3) SOB (shortness of breath) . "Provider Documentation" section prepared by Jaime Puri. . VTE Core Measure Inpt VTE Proph given/why not?: Unfractionated heparin SQ, Warfarin (Coumadin) <Electronically signed by Jaime Puri M.D.> Signed: 02/09/17 [id number] Additional Copies To Vivi Avina,DO
== END 2017-02-09 15:30 | disposition home or self-care (01) | DRG 286 ==
LOC: C.2T 12:31
PROVIDERS: ADMIT Internal Medicine; ATTEND Internal Medicine
PROC: B2111ZZ Fluoroscopy of Multiple Coronary Arteries using Low Osmolar Contrast (ICD-10-PCS; principal; 2017-02-07 10:23)
PROC: 4A023N8 Measurement of Cardiac Sampling and Pressure, Bilateral, Percutaneous Approach (ICD-10-PCS; principal; 2017-02-07 10:23)
DX: I48.0 Paroxysmal atrial fibrillation (principal); I50.21 Acute systolic (congestive) heart failure; I27.0 Primary pulmonary hypertension; I42.0 Dilated cardiomyopathy; R07.2 Precordial pain; F41.9 Anxiety disorder, unspecified; I25.10 Atherosclerotic heart disease of native coronary artery without angina pectoris; Z82.49 Family history of ischemic heart disease and other diseases of the circulatory system; Z79.899 Other long term (current) drug therapy; Z79.01 Long term (current) use of anticoagulants

== ENCOUNTER → 2017-09-21 | Outpatient (CLI) | payer OTHER ==
[~2017-09-21] MED LIST changes: +CRD200 PO; -CRDCD120 PO; +LNX125 PO; +LSN25 PO; +LSX40 PO; -METO50TA7 PO; +SPR25 PO; +TPRSR50 PO
[2017-09-21 12:57] LABS: BASO % 0.5 %; BASO ABS # 0.05 K/uL (0-0.2); EOS % 3.9 %; EOS ABS # 0.36 K/uL (0-0.5); HEMATOCRIT 50.4 % (42-52); HEMOGLOBIN 16.8 g/dL (14.0-18.0); IG# 0.04 K/uL (0.00-0.02); LYMPH % 13.1 %; LYMPH ABS # 1.21 K/uL (1.2-3.4); MEAN CELL VOLUME 96.9 fL (80-100); MEAN CORPUSCULAR HEMOGLOBIN 32.3 pg (25-34); MEAN CORPUSCULAR HGB CONC 33.3 g/dl (32-36); MEAN PLATELET VOLUME 11.1 fL (7.4-10.4); MONO % 12.4 %; MONO ABS # 1.14 K/uL (0.11-0.59); NEUT % 69.7 %; NEUT ABS # 6.42 K/uL (1.4-6.5); PLATELET COUNT 241 K/uL (130-400); RED CELL DISTRIBUTION WIDTH CV 13.4 % (11.5-14.5); RED CELL DISTRIBUTION WIDTH SD 47.9 fL (36.4-46.3); WHITE BLOOD COUNT 9.22 K/uL (4.8-10.8)
[2017-09-21 13:03] LABS: INR 1.4 (0.9-1.1)
[2017-09-21 13:17] LABS: ALBUMIN 3.7 gm/dl (3.4-5.0); ALT/SGPT 117 U/L (12-78); BLOOD UREA NITROGEN 22 mg/dl (7-18); CALCIUM 9.2 mg/dl (8.5-10.1); CARBON DIOXIDE 32 mmol/L (21-32); CHOLESTEROL 162 mg/dl (0-200); GLUCOSE 116 mg/dl (70-99); POTASSIUM 5.1 mmol/L (3.5-5.1); SODIUM 137 mmol/L (136-145)
[2017-09-21 13:28] LABS: ALKALINE PHOSPHATASE 45 U/L (45-117); AST/SGOT 61 U/L (15-37); LDL CHOLESTEROL CALCULATED 103 mg/dl; TOTAL PROTEIN 7.5 gm/dl (6.4-8.2)
== END | disposition home or self-care (01) ==
LOC: C.LABBFT 07:22
PROVIDERS: ATTEND Internal Medicine
DX: I48.91 Unspecified atrial fibrillation (principal); N52.9 Male erectile dysfunction, unspecified

== ENCOUNTER → 2017-10-18 | Outpatient (CLI) | payer OTHER ==
[~2017-10-18] MED LIST changes: +APIX1TAB3 PO
[2017-10-18 12:51] LABS: HEMOGLOBIN A1C 5.3 % (4.5-5.6)
[2017-10-18 13:01] LABS: ALBUMIN 3.6 gm/dl (3.4-5.0); ALT/SGPT 132 U/L (12-78); AST/SGOT 63 U/L (15-37); BLOOD UREA NITROGEN 23 mg/dl (7-18); CALCIUM 8.6 mg/dl (8.5-10.1); CARBON DIOXIDE 30 mmol/L (21-32); CREATININE 1.44 mg/dl (0.60-1.40); GLUCOSE 118 mg/dl (70-99); POTASSIUM 4.4 mmol/L (3.5-5.1); SODIUM 139 mmol/L (136-145)
[2017-10-18 13:04] LABS: ALKALINE PHOSPHATASE 51 U/L (45-117); TOTAL PROTEIN 7.2 gm/dl (6.4-8.2)
== END | disposition home or self-care (01) ==
LOC: C.LABBFT 08:47
PROVIDERS: ATTEND Internal Medicine
DX: N28.9 Disorder of kidney and ureter, unspecified (principal); R73.9 Hyperglycemia, unspecified

== ENCOUNTER → 2017-11-04 | Outpatient (CLI) | payer OTHER ==
[~2017-11-04] MED LIST changes: -CMD5 PO
--- NOTE | 2017-11-04 12:27 | DIAGNOSTIC IMAGING REPORT ---
DUPLEX RENAL ARTERY CLINICAL HISTORY: N28.9 Renal [id number] COMPARISON STUDY: None. FINDINGS: The right kidney measures 13.1 cm and the left kidney measures 14.1 cm. No hydronephrosis. Bilateral renal veins are patent. Peak systolic velocity within the right renal artery is 164 cm/s and the left renal artery is 127 cm/s. Resistive indices of the bilateral renal arcuate arteries are within normal limits. IMPRESSION: No evidence for renal artery stenosis. Electronically signed by: Jose Chester M.D. 11/04/2017 12:25 PM Dictated Date/Time: 11/04/2017 12:24 PM
--- NOTE | 2017-11-04 12:28 | DIAGNOSTIC IMAGING REPORT ---
ABDOMINAL ULTRASOUND, RIGHT UPPER QUADRANT HISTORY: R79.89 Elevated liver function tests [id number]. COMPARISON: None. FINDINGS: Pancreas: The pancreatic head and tail are obscured by overlying bowel gas. The remaining portions of the pancreas are within normal limits. Liver: The liver is echogenic consistent with fatty change. The liver measures 18 cm in length. Gallbladder: No gallbladder wall thickening. No gallstones. CBD: 4 mm. Right kidney: No hydronephrosis. IMPRESSION: 1. Hepatic steatosis. 2. Normal gallbladder. No gallstones. Electronically signed by: Jose Chester M.D. 11/04/2017 12:26 PM Dictated Date/Time: 11/04/2017 12:25 PM
== END | disposition home or self-care (01) ==
LOC: C.ULTR 10:34
PROVIDERS: ATTEND Internal Medicine
DX: R79.89 Other specified abnormal findings of blood chemistry (principal); N28.9 Disorder of kidney and ureter, unspecified; K76.0 Fatty (change of) liver, not elsewhere classified

== ENCOUNTER → 2017-11-14 | Outpatient (CLI) | payer OTHER ==
[2017-11-14 17:12] LABS: ALBUMIN 3.8 gm/dl (3.4-5.0); TOTAL PROTEIN 7.5 gm/dl (6.4-8.2)
[2017-11-14 17:52] LABS: HEP C IGG 13 YRS+OLDER_RFLX NEG (NEG)
[2017-11-16 13:59] LABS: HEPATITIS A IGM TC 51813E NON-REACTIVE (NON-REACTIVE); HEPATITIS B CORE IGM TC51854R NON-REACTIVE (NON-REACTIVE)
== END | disposition home or self-care (01) ==
LOC: C.LABBFT 15:24
PROVIDERS: ATTEND Registered Nurse
DX: K76.0 Fatty (change of) liver, not elsewhere classified (principal); R74.8 Abnormal levels of other serum enzymes

== ENCOUNTER → 2017-12-12 | Outpatient (CLI) | payer OTHER ==
--- NOTE | 2017-12-13 05:33 | PAP/PSG TECHNICIAN REPORT ---
[facility] Dietary Supervisor Polysomnogram Report Study name: None Report date: 12/13/2017 Study date: 12/12/2017 Referring Physician: CLIFF FAN MD Name: EDGAR TAN Interpreting Physician: Domingo Uribe M.D. Date of : 1960 Dietary Supervisor: YAYA Parker. Sex: Male Age: 57 StudyType: PSG Weight: 235 lbs Height: 57 years, Height Neck Circum:17inches BMI: Medications: Digoxin 125mcg, Eliquis 5mg, Furosemide 40mg, Magnesium 400mg, Multivitamin, Lisinopril 2.5mg, Metoprolol Succinate Er 50mg, Spironolactone 25mg Patient History Study started on room air with no ETCO2 monitoring in room #6. 57 yr old male here tonight for a diagnostic psg. He has a history of A-FIB and cardiomyopathy. His reports loud snoring. His ESS=5/24. Neck circ=17inches. Parameters Monitored NPSG: E1-M2, E2-M1, Fp1-M2, Fp2-M1, F3-M2, F4-M2, F4-M1, C3-M2, C4-M2, C4-M1, O1-M2, O2-M2, O2-M1, T3-M2, T4-M1, P3-M2, P4-M1, CHIN1, CHIN2, HR, EKG, Legs, PFLOW, SNOR, FLOW, CFLOW, Tidal Volume, THOR, ABDO, SpO2, PLTH, CPRESS, ETCO2 Wave, ETCO2, pH Sleep Architecture Sleep Stages Time at Lights Off 11:05:26 PM STAGES Time (min.) TST (%) Time at Lights On 5:21:56 AM Wake 100.0 -- Total Recording Time (TRT) 375.50 min. N1 13.5 5 Total Sleep Period (TSP) 300.5 min. N2 170.5 62 Total Sleep Time (TST) 275.5min. N3 51.5 19 Awake Time 100.0 min. REM 40.0 15 Wake after Sleep Onset 80.5 min. Sleep Efficiency (SE) 73 % Sleep Onset Latency (SHARON) 20.5 min. Number of Stage 1 Shifts None Awakenings 10 Stage Changes 52 Number of REM periods 3 REM 40.0 15 REM Latency 144.5 min. NREM 235.5 85 Body Position Analysis Supine Right Left Side Prone Vertical Total Sleep Time (min.) 19.0 84.0 191.5 275.50 0.0 0.0 Total Sleep Time (%) 0% 30% 70% 100 0% N/A% Total Sleep Time REM (min.) 0.0 0.0 40.0 None 0.0 0.0 Total Sleep Time NREM (min.) 0.0 84.0 151.5 None 0.0 0.0 Intermittent Wake (min.) 19.0 31.4 49.5 None 0.0 0.0 Total Sleep Period (%) 0% None None None None None Arousals Myoclonus (PLM) * Events Count Index Events Count Index Spontaneous 14 3 Events Awake (PLMW) 42 25.2 Respiratory 0 0.0 Events Asleep w/ Arousal (PLMA) 1 0.2 PLM 1 0 Events Asleep w/o Arousal (PLMS) 36 7.8 Snoring 6 1 Total Asleep 37 8.1 Total 21 5 Total 79 13 Respiratory Analysis * CA OA MA CH H RERA Total Count 0 0 0 0 4 0 4 Index 0.0 0.0 0.0 0 0.9 0 0.9 Mean Duration 0.0 0.0 0.0 0.00 41.0 0.0 41.0 Longest Duration 0.0 0.0 0.0 0.00 0.0 0.0 49.2 Respiratory Event Summary Total Supine ~Supine Right Left Prone REM NREM Apneas Count 0 N/A 0 0 0 N/A 0 0 Index 0.0 N/A 0 0.0 0.0 N/A 0 0 Hypopneas (4% Desat) Count 4 N/A 4 0 4 N/A 4 0 Index 0.9 N/A 1 0.0 1.3 N/A 6.0 0.0 Apneas & All Hypopneas Count 4 N/A 4 0 4 N/A 4 0 Index 0.9 N/A 1 0 1 N/A 6.0 0.0 Respiratory Events (Gasoline Locomotive Crane Operator+All Hyp+RERA) Count 4 N/A 4 0 4 N/A 4 0 Index 0.9 N/A 1 0.0 1.3 N/A 6.0 0.0 Respiratory Related Arousal Count 0 N/A 0 0 0 N/A 0 0 Index 0.0 N/A 0 0 0 N/A 0 0 Snoring Analysis Supine Right Left Prone REM NREM Total Snore duration 53.0 min Snores count N/A 1,020 1,961 N/A 145 2,836 2,981 Snore mean duration 1.1 Sec Snores index N/A 729 614 N/A 217.5 722.5 649.2 TST with snoring (%) 19.2% Desaturation Event Summary: Minimum %SpO2 Event Count Mean/Min/Max Duration(sec.) Desaturation Index % Time In Bed > 90 7 26.5 / 6.8 / 50.3 9.4 12.2 86 - 90 3 40.2 / 35.0 / 45.0 0.6 86.2 81 - 85 3 21.9 / 6.8 / 40.5 31.3 1.6 76 - 80 0 N/A 0.0 0.0 71 - 75 0 N/A 0.0 0.0 66 - 70 0 N/A 0.0 0.0 61 - 65 0 N/A 0.0 0.0 56 - 60 0 N/A 0.0 0.0 51 - 55 0 N/A 0.0 0.0 < 50 0 N/A 0.0 0.0 Total REM NREM Awake <50% 0.0 min. 0.0 min. 0.0 min. 0.0 min. 51 - 60% 0.0 min. 0.0 min. 0.0 min. 0.0 min. 61 - 70% 0.0 min. 0.0 min. 0.0 min. 0.0 min. 71 - 80% 0.0 min. 0.0 min. 0.0 min. 0.0 min. 81 - 90% 321.4 min. 39.5 min. 200.0 min. 82.0 min. 91 - 100% 44.7 min. 0.5 min. 34.9 min. 9.3 min. Average 89 88 89 88 Minimum SpO2 81 81 85 83 Desaturation Event Index 1.6 4.5 1.0 1.8 # Desat. Events below 89% 8 3 2 3 Time(%) with Saturation below 89% 40.3 7.6 16.5 16.2 Time(min.) with Saturation below 89% 147.5 27.7 60.4 59.4 Time (mins) REM (mins) NREM (mins) % of TST SpO2 Below 90% 7 3 N4 64.8 SpO2 Below 88% 2 0 0 13 Heart Rate Analysis Min (bpm) Max (bpm) Average (bpm) Awake 54 82 64 NREM 51 78 63 REM 54 75 62 Overall 51 78 63 Supplemental O2 Values Minimum O2 level: None Value Start Time End Time Dietary Supervisor Comments Mr. Tan slept in the supine, right and left positions. Cardiac arrhythmia and some leg movements were noted. No bruxism noted. Snoring was noted and scored as a 5 on a scale of 1 through 5. (0=no snoring, 5=snoring loud enough to be heard through a closed door or down the allen way) He awoke to use the restroom 1 time during the night. He stated that he slept about the same as when at home. The final report will be interpreted and signed by a sleep physician. The completed physician report will then be placed in the patient medical record. Therapy (cm H2O) 0 TIB (min.) 375.5 TST (min.) 275.5 Sleep Onset (min.) 20.5 REM Onset From Sleep (min.) 144.5 Sleep Efficiency % 73 Wakefulness (%) 27 Wakefulness (min.) 100.0 NREM 1 (%) 5 NREM 1 (min.) 13.5 NREM 2 (%) 62 NREM 2 (min.) 170.5 NREM 3 (%) 19 NREM 3 (min.) 51.5 REM (%) 15 REM (min.) 40.0 # Arousals 21 Arousal Index 5 # Snore 2,981 Snore Index 649.2 AHI 0.9 AHI Supine N/A AHI Non-Supine 1 NREM AHI 0.0 REM AHI 6.0 RDI 0.9 # Obstructive Apnea 0 # Central Apnea 0 # Mixed Apnea 0 # Hypopneas 4 RERAs 0 Total Respiratory Events 4 Time Below SpO2 89% (min.) 88.1 Mean NREM SpO2 (%) 89 Mean REM SpO2 (%) 88 Mean Sleep SpO2 (%) 89 Min NREM SpO2 (%) 85 Min REM SpO2 (%) 81 Position Supine (min.) 19.0 Position Non-supine (min.) 275.5 LM Index Sleep 8.1 LM Index NREM 9.2 LM Index REM 1.5 Mean Heart Rate (bpm) 63 Min Heart Rate (bpm) 51
--- NOTE | 2017-12-15 07:34 | POLYSOMNOGRAPH REPORT ---
CLINICAL DATA: A 57-year-old male with BMI of 36.[address] Schroeder. He has a history of atrial fibrillation and cardiomyopathy with loud snoring. SLEEP ARCHITECTURE: Total sleep period was 300.5 minutes. Total sleep time was 275.5 minutes divided between 235.5 minutes of non-REM sleep and 40 minutes of REM sleep. Sleep onset latency was 20.5 minutes. REM latency was 144.5 minutes. Sleep efficiency was 73%. Wake after sleep onset was 80.5 minutes. Sleep consisted of stage N1 5%, stage N2 62%, stage N3 19%, and REM 15%. AROUSAL DATA: 21 arousals were recorded for an index of 5 per hour. PLM DATA: 37 limb movements during sleep were noted for an index of 8.1 per hour with arousal index of 0.2 per hour. RESPIRATORY DATA: There was no evidence of clinically significant sleep apnea seen. The AHI was 0.9. There were 4 hypopneic episodes with a mean duration of 41 seconds. OXIMETRY DATA: Transient hypoxemia was seen. Oxygen mayra was 81%. Mean saturation was 89%. Time below 88% was 2 minutes. EKG: Heart rates ranged from 51-78 beats per minute. Atrial fibrillation was seen throughout the night. SCALE OPERATOR'S COMMENTS: The patient slept supine, in the right and in the left positions. Snoring was severe, rated 5 on a scale of 1 through 5. IMPRESSION: No evidence of clinically significant sleep apnea/hypopnea, sustained nocturnal hypoxemia or abnormal limb movements during sleep to explain this patient's symptoms. He did have atrial fibrillation throughout the night. RECOMMENDATIONS: The patient should continue to practice good sleep hygiene. Weight loss may be of benefit. There is nothing to suggest that CPAP or oxygen are needed at this time. [facility]
== END | disposition home or self-care (01) ==
LOC: C.NEUR 20:00
PROVIDERS: ATTEND Internal Medicine Cardiovascular Disease
DX: I48.91 Unspecified atrial fibrillation (principal); R73.9 Hyperglycemia, unspecified; G47.33 Obstructive sleep apnea (adult) (pediatric); Z88.2 Allergy status to sulfonamides

== ENCOUNTER 2023-02-28 07:41 | Inpatient (IN) ==
[2023-02-28 09:17] LABS: Basophils # (auto) 0.06 K/uL (0-0.2); Basophils % (auto) 0.6 %; Eosinophils # (auto) 0.17 K/uL (0-0.50); Eosinophils % (auto) 1.7 %; Hematocrit (blood only) 48.7 % (42.0-52.0); Hemoglobin 14.6 g/dl (14.0-18.0); Immature Granulocytes # (auto) 0.04 K/uL (0.01-0.20); Immature Granulocytes % (auto) 0.4 %; Lymphocytes # (auto) 1.01 K/uL (1.2-3.4); Mean Corpuscular Hemoglobin 23.1 pg (25.0-34.0); Mean Corpuscular Volume 76.9 fL (80.0-100.0); Mean Platelet Volume 11.2 fL (9.4-12.4); Monocytes # (auto) 1.08 K/uL (0.11-0.59); Monocytes % (auto) 10.7 %; Neutrophils # (auto) 7.72 K/uL (1.40-6.50); Neutrophils % (auto) 76.6 %; Platelet Count 278 K/uL (130-400); RDW Coefficient of Variation 21.2 % (11.5-14.5); RDW Standard Deviation 55.1 fL (36.4-46.3); Red Blood Count 6.33 M/uL (4.70-6.10); White Blood Count 10.08 K/ul (4.8-10.8)
--- NOTE | 2023-02-28 09:25 | XRay Report ---
XR chest 1V portable HISTORY: 63 years-old Male Dyspnea acute shortness of breath COMPARISON: 02/03/2017 TECHNIQUE: AP view of the chest FINDINGS: Cardiac silhouette is enlarged. Single-lead left subclavian pacer/AICD. No pneumothorax, pleural effu renetta, airspace consolidation or pulmonary edema. Bones of the chest appear grossly intact. IMPRESSION: No acute process. ACT 112: Negative or not required by law. The above report was generated using voice recognition software. It may contain grammatical, syntax o r spelling errors. Electronically signed by: Natan Combs M.D. 02/28/2023 9:24 AM
--- NOTE | 2023-02-28 09:27 | Emergency Department Note ---
Impression & Plan EDMONDS (dyspnea on exertion), Bilateral edema of lower extremity ED Provider Note INFORMANT: Patient ED PROVIDER(S): Domingo Mohan MD CHIEF COMPLAINT: Shortness of breath, weight gain PLAN: Disposition: Admitted Condition: Good Outpatient prescription management: None Referral: None MEDICAL DECISION MAKING: Patient presented because of weight gain, shortness of breath. He was evaluated and his blood work was unremarkable regarding his CBC and chemistry panel. The patient unfortunately did have a marked elevation of his BNP. Troponin was negative. He was given IV Lasix. I did consult with Dr. Bocanegra of [facility] cardiology. He recommended admission and further work-up. Consultation was made with the [facility] hospitalist service.. Case discussed diagnostics were reviewed. Patient was evaluated in the ER and admitted for further management. Discussed with recreational vehicle resort manager. After review of the information above and other included data, I feel the victor hugo ent disposition. Triage Nursing notes reviewed and agree them. Vital Signs: reviewed and remarkable for no significant abnormalities Prior /Outside records reviewed: none Differential diagnosis: CHF, reactive airway disease, pneumonia, pneumothorax, COPD, infections, c ardiac ischemia, pulmonary embolism, musculoskeletal, gastrointestinal, as well as other pathologies. Diagnostics, as interpreted by me: ECG: Twelve-lead ECG reveals atrial fibrillation at 85 bpm. Low voltage QRS. Septal Q wave. No ST elevation or depression. Cardiac Monitoring: Cardiac monitoring ordered by me: The patient was placed on continuous cardiac monitoring and observed. It revealed atrial fibrillation 84 bpm. Medical decision rules: none Imaging studies: Chest x-ray shows cardiomegaly. No significant pulmonary edema. HPI: The patient is a 63 year old male who presents to the Emergency Room with complaints of SOB and LE edema. This started 10 days ago and is persisting. The patient also notes the following associated symptoms, 7lb wt gain, cough 3 weeks. The patient has tried lasix for relieving factors. Current pain is rated as 0/10. Pt denies LOC, headache, fevers, chills, diaphoresis, visual changes, neck pain, chest pain, nausea, vomiting, abdominal pain, back pain, melena, hematochezia, urinary symptoms, numbness, weakness, lymphadenopathy, rash, or other complaints. PAST MEDICAL HISTORY: See Below, afib, anticoagulation senior living PAST SURGICAL HISTORY: See Below, SOCIAL HISTORY: See Below, no smoking HOME MEDICATIONS: See Below ALLERGIES: See Below VITALS: See Below PHYSICAL EXAMINATION: GENERAL: Awake, alert, tired-appearing, in no distress HENT: Normocephalic, atraumatic. Oropharynx unremarkable. EYES: Normal conjunctiva. Sclera non-icteric. NECK: Inspection normal. Non-tender. Supple. No nuchal rigidity. FROM. No masses. RESPIRATORY: Clear to auscultation. No wheezes. No rales. Normal respiratory effort. CARDIAC: Normal rate. Irregular rhythm. No murmurs. No rubs. Extremities warm and well perfused. Pulses equal. No JVD. GI: Soft, non-distended. No tenderness to palpation. No rebound or guarding. No masses. RECTAL: Deferred. MUSCULOSKELETAL: Atraumatic. Chest examination reveals no tenderness. The back is symmetrical on inspection without obvious abnormality. There is no CVA tenderness to palpation. No joint edema. LOWER EXTREMITIES: Calves are equal size bilaterally and non-tender. 2+ edema. No discoloration. NEURO: Normal sensorium. No sensory or motor deficits noted. SKIN: No rash or jaundice noted. Past Med/Surg History Medical History Asthma NO INHALER USED Diverticulitis Elevated hemoglobin Fatty liver "CAUSED FROM AMIODARONE" History of colon polyps History of separation anxiety "WHEN AWAY FROM " Hypertension MACHADO (nonalcoholic steatohepatitis) NICM (nonischemic cardiomyopathy) Permanent atrial fibrillation Secondary polycythemia SOB (shortness of breath) Unilateral inguinal hernia Ventricular tachycardia Surgical History History of amputation LEFT THUMB History of arthroscopy KNEE History of cardiac cath 01/2017 (NO STENTS) History of cardiac defibrillator placement 04/01/22 ANA [facility] History of colonoscopy History of herniorrhaphy History of tooth extraction Family History Father Family history of diabetes mellitus Mother Heart disorder Social History Smoking Status: Never smoker Tobacco Type: Smokeless Tobacco (Dip or Chew) Second Hand Exposure: No; Do You Dip or Chew Tobacco: Yes; Tobacco Cessation Education Requested by Patient: No Hx Alcohol Use: No Hx Substance Use: No Preferred Language: Czech Communication Ability: Effective Heavy Forger Required: No Beliefs That Will Affect Care: None Current Living Situation: Spouse Other Information That Helps Us Care for You: No Feels Safe at Home: Yes Safety Concerns: Feels Safe At This Time Assistive Devices: None Allergies Allergies Allergy/AdvReac Type Severity Reaction Status Date / Time Sulfa (Sulfonamide Allergy Mild Fever Verified 03/12/20 15:28 Antibiotics) coumadin Allergy Severe skin Uncoded 02/28/23 13:08 sloughing off Home Meds Home Medications Medication Instructions Recorded Confirmed apixaban 5 mg tablet (Eliquis) 5 mg PO BID 05/12/18 02/28/23 magnesium oxide 400 mg PO QAM 05/12/18 02/28/23 metoprolol succinate 50 mg capsule 100 mg PO BID 05/12/18 02/28/23 sprinkle, ext. release 24 hr multivitamin 1 tab PO QAM 05/12/18 02/28/23 empagliflozin 10 mg tablet 10 mg PO DAILY 02/28/23 02/28/23 (Jardiance) loratadine 10 mg tablet 10 mg PO DAILY 02/28/23 02/28/23 omeprazole 20 mg capsule,delayed 20 mg PO QAM 02/28/23 02/28/23 release sacubitril 24 mg-valsartan 26 mg 1 tab PO BID 02/28/23 02/28/23 tablet (Entresto) Results & Data (ED) Vital Signs Vital Signs - 24 hr 02/28/23 07:45 02/28/23 08:18 02/28/23 08:22 Temperature 36.1 C L Temperature Source Temporal Artery Scan Pulse Rate 93 H 89 Pulse Rhythm Regular Pulse Strength Normal Respiratory Rate 20 Respiratory Effort / Characteristics Non-Labored Spontaneous Spontaneous Respiratory Depth Normal Normal Respiratory Pattern Regular Blood Pressure 117/88 Blood Pressure Mean 97 Pulse Oximetry 97 Oxygen Delivery Method Room Air Sepsis Recent Fever Within 48 Hours No Sepsis New/Unexplained Change in Mental Status No Sepsis Action Taken by Nursing No Action Required 02/28/23 08:22 02/28/23 08:22 Temperature Temperature Source Pulse Rate Pulse Rhythm Pulse Strength Respiratory Rate Respiratory Effort / Characteristics Respiratory Depth Respiratory Pattern Blood Pressure Blood Pressure Mean Pulse Oximetry Oxygen Delivery Method Room Air Room Air Sepsis Recent Fever Within 48 Hours Sepsis New/Unexplained Change in Mental Status Sepsis Action Taken by Nursing Laboratory Data 02/28/23 09:01 02/28/23 09:01 Lab Results 02/28/23 02/28/23 02/28/23 Range/Units 08:59 09:01 09:01 WBC 10.08 (4.8-10.8) K/ul RBC 6.33 H (4.70-6.10) M/uL Hgb 14.6 (14.0-18.0) g/dl Hct 48.7 (42.0-52.0) % MCV 76.9 L (80.0-100.0) fL MCH 23.1 L (25.0-34.0) pg MCHC 30.0 L (32.0-36.0) g/dL RDW Std Deviation 55.1 H (36.4-46.3) fL RDW Coeff of Silke 21.2 H (11.5-14.5) % Plt Count 278 (130-400) K/uL MPV 11.2 (9.4-12.4) fL Immature Gran % (Auto) 0.4 % Neut % (Auto) 76.6 % Lymph % (Auto) 10.0 % [place] % (Auto) 10.7 % Eos % (Auto) 1.7 % Baso % (Auto) 0.6 % Neut # (Auto) 7.72 H (1.40-6.50) K/uL Lymph # (Auto) 1.01 L (1.2-3.4) K/uL [place] # (Auto) 1.08 H (0.11-0.59) K/uL Eos # (Auto) 0.17 (0-0.50) K/uL Baso # (Auto) 0.06 (0-0.2) K/uL Immature Gran # (Auto) 0.04 (0.01-0.20) K/uL Polychromasia 2+ Anisocytosis Present Spherocytes 1+ PT (9.0-12.0) Seconds INR (0.9-1.1) APTT (21.0-31.0) Seconds PTT Ratio Sodium 139 (136-145) mmol/L Potassium 4.0 (3.5-5.1) mmol/L Chloride 105 (98-107) mmol/L Carbon Dioxide 28 (21-32) mmol/L Anion Gap 6 (3-11) BUN 24 H (6-23) mg/dl Creatinine 1.26 (0.6-1.4) mg/dl Est Cr Clr Drug Dosing 68.9 ml/min Est GFR ( Amer) 70.4 ml/min Est GFR (Non-Af Amer) 60.7 ml/min BUN/Creatinine Ratio 19.0 (10-20) Glucose 106 H (70-99(Fasting)) mg/dl Calcium 9.2 (8.6-10.3) mg/dl Magnesium 2.2 (1.7-2.4) mg/dl Total Bilirubin 1.7 H (0.2-1.0) mg/dl AST 21 (13-39) U/L ALT 23 (7-52) U/L Alkaline Phosphatase 46 (34-104) U/L Troponin I High Sens 10.0 (0-20) pg/ml B-Natriuretic Peptide (0-100) pg/ml Total Protein 6.4 (6.0-8.3) gm/dl Albumin 3.9 (3.4-5.0) gm/dl Globulin 2.5 (2.5-4.0) gm/dl Albumin/Globulin Ratio 1.6 (0.9-2) Urine Color Urine Appearance (Clear) Urine pH (4.5-7.5) Ur Specific [place] (1.000-1.030) Urine Protein (Negative) Urine Glucose (UA) (Negative) Urine Ketones (Negative) Urine Blood (Negative) Urine Nitrite (Negative) Urine Bilirubin (Negative) Urine Urobilinogen (Negative) Ur Leukocyte Esterase (Negative) SARS-CoV-2, RNA, NAAT NEGATIVE (NEGATIVE) 02/28/23 02/28/23 02/28/23 Range/Units 09:01 09:01 10:33 WBC (4.8-10.8) K/ul RBC (4.70-6.10) M/uL Hgb (14.0-18.0) g/dl Hct (42.0-52.0) % MCV (80.0-100.0) fL MCH (25.0-34.0) pg MCHC (32.0-36.0) g/dL RDW Std Deviation (36.4-46.3) fL RDW Coeff of Silke (11.5-14.5) % Plt Count (130-400) K/uL MPV (9.4-12.4) fL Immature Gran % (Auto) % Neut % (Auto) % Lymph % (Auto) % [place] % (Auto) % Eos % (Auto) % Baso % (Auto) % Neut # (Auto) (1.40-6.50) K/uL Lymph # (Auto) (1.2-3.4) K/uL [place] # (Auto) (0.11-0.59) K/uL Eos # (Auto) (0-0.50) K/uL Baso # (Auto) (0-0.2) K/uL Immature Gran # (Auto) (0.01-0.20) K/uL Polychromasia Anisocytosis Spherocytes PT 13.4 H (9.0-12.0) Seconds INR 1.2 H (0.9-1.1) APTT 29.4 (21.0-31.0) Seconds PTT Ratio 1.0 Sodium (136-145) mmol/L Potassium (3.5-5.1) mmol/L Chloride (98-107) mmol/L Carbon Dioxide (21-32) mmol/L Anion Gap (3-11) BUN (6-23) mg/dl Creatinine (0.6-1.4) mg/dl Est Cr Clr Drug Dosing ml/min Est GFR ( Amer) ml/min Est GFR (Non-Af Amer) ml/min BUN/Creatinine Ratio (10-20) Glucose (70-99(Fasting)) mg/dl Calcium (8.6-10.3) mg/dl Magnesium (1.7-2.4) mg/dl Total Bilirubin (0.2-1.0) mg/dl AST (13-39) U/L ALT (7-52) U/L Alkaline Phosphatase (34-104) U/L Troponin I High Sens (0-20) pg/ml B-Natriuretic Peptide 2956 H (0-100) pg/ml Total Protein (6.0-8.3) gm/dl Albumin (3.4-5.0) gm/dl Globulin (2.5-4.0) gm/dl Albumin/Globulin Ratio (0.9-2) Urine Color Dark Yellow Urine Appearance Clear (Clear) Urine pH 5.5 (4.5-7.5) Ur Specific [place] 1.021 (1.000-1.030) Urine Protein Negative (Negative) Urine Glucose (UA) 3+ H (Negative) Urine Ketones Negative (Negative) Urine Blood Negative (Negative) Urine Nitrite Negative (Negative) Urine Bilirubin Negative (Negative) Urine Urobilinogen Negative (Negative) Ur Leukocyte Esterase Negative (Negative) SARS-CoV-2, RNA, NAAT (NEGATIVE) Administered Medications Apixaban (Apixaban 5 Mg Tablet) 5 mg PO BID [facility] Stop: 03/30/23 20:59 Last Admin: 03/01/23 08:15 Dose: 5 mg Documented By: Admin: 02/28/23 19:37 Dose: 5 mg Documented By: RAJWINDER Empagliflozin (Empagliflozin 10 Mg Tab) 10 mg PO DAILY [facility] Stop: 03/30/23 16:06 Last Admin: 03/01/23 08:15 Dose: 10 mg Documented By: Admin: 02/28/23 17:24 Dose: 10 mg Documented By: MAU Furosemide (Furosemide 40 Mg/4 Ml Vial) 40 mg IV DAILY [facility] Stop: 03/31/23 08:59 Last Admin: 03/01/23 08:15 Dose: 40 mg Documented By: MAU Magnesium Oxide (Magnesium Oxide 400 Mg Tab) 400 mg PO QAM [facility] Stop: 03/31/23 08:59 Last Admin: 03/01/23 08:15 Dose: 400 mg Documented By: MAU Metoprolol Succinate (Metoprolol Succ 50mg Ext Rel Tab) 100 mg PO BID [facility] Stop: 03/30/23 20:59 Last Admin: 03/01/23 08:15 Dose: 100 mg Documented By: Admin: 02/28/23 19:36 Dose: 100 mg Documented By: RAJWINDER Pantoprazole Sodium (Pantoprazole 40 Mg Tab) 40 mg PO QAM [facility] Stop: 03/30/23 16:29 Last Admin: 03/01/23 08:15 Dose: 40 mg Documented By: Admin: 02/28/23 17:24 Dose: 40 mg Documented By: MAU Sacubitril/Valsartan (Valsartan/Sacubitril 26/24mg Tab) 1 tab PO BID [facility] Stop: 03/30/23 20:59 Last Admin: 03/01/23 08:15 Dose: 1 tab Documented By: Admin: 02/28/23 19:37 Dose: 1 tab Documented By: RAJWINDER Spironolactone (Spironolactone 12.5 Mg Tab) 12.5 mg PO DAILY [facility] Stop: 03/30/23 16:44 Last Admin: 03/01/23 08:15 Dose: 12.5 mg Documented By: Admin: 02/28/23 17:30 Dose: 12.5 mg Documented By: MAU Discontinued Medications Furosemide (Furosemide 40 Mg/4 Ml Vial) 40 mg IV ONE ONE Stop: 02/28/23 12:43 Last Admin: 02/28/23 12:57 Dose: 40 mg Documented By: KMO Discharge Plan Visit Data Chief Complaint: Shortness of Breath/Dyspnea Stated Complaint: SOB,EDEMA TO LEGS,SLIGHT COUGH,AFIB ED Provider: Domingo Mohan Discharge Problem: EDMONDS (dyspnea on exertion), Bilateral edema of lower extremity Patient Disposition: Admitted As Inpatient Discharge Instructions Interventions: ED Discharge Assessment Last Done: 02/28/23 14:45
[2023-02-28 09:36] LABS: Albumin Globulin Ratio 1.6 (0.9-2); Albumin Level 3.9 gm/dl (3.4-5.0); Bilirubin,Total 1.7 mg/dl (0.2-1.0); Calcium 9.2 mg/dl (8.6-10.3); Creatinine Clr Calc Pharmacy 68.9 ml/min; Est GFR (African American) 70.4 ml/min; Est GFR (Non-African American) 60.7 ml/min; Globulin 2.5 gm/dl (2.5-4.0); Magnesium 2.2 mg/dl (1.7-2.4); Total Protein 6.4 gm/dl (6.0-8.3)
[2023-02-28 09:40] LABS: Anisocytosis Present; Polychromasia 2+; Spherocytes 1+
[2023-02-28 09:47] LABS: INR 1.2 (0.9-1.1); Partial Thromboplastin Time 29.4 Seconds (21.0-31.0); Prothrombin Time 13.4 Seconds (9.0-12.0)
[2023-02-28 10:55] LABS: Appearance Urine Clear (Clear); Bilirubin Urine Negative (Negative); Blood Urine Negative (Negative); Color Urine Dark Yellow; Glucose Urine UA 3+ (Negative); Ketones Urine Negative (Negative); Leukocyte Esterase Urine Negative (Negative); Nitrite Urine Negative (Negative); Protein Urine Negative (Negative); Specific Gravity Urine 1.021 (1.000-1.030); Urobilinogen Urine Negative (Negative); pH Urine 5.5 (4.5-7.5)
[2023-02-28] MEDS ORDERED: FUROSEMIDE 40 MG/4 ML VIAL IV ONE (12:42)
--- NOTE | 2023-02-28 13:14 | History & Physical Report ---
Date of Service February 28, 2023 Assessment & Plan (1) Acute HFrEF (heart failure with reduced ejection fraction): Plan: h/o NICM. Reports worsening swelling, weight gain and increased dyspnea on exertion over the past 10 days that was progressive. He did try to take Lasix but this was an old prescription from 2017 and this wasn't helpful. Known h/o reduced EF s/p ICD in place. He is on GDMT wtih Entresto, Jardiance, and Toprol XL. Takes apixaban for persistent atrial fibrillation. 875cc out in response to initial dose of lasix in the ER. Cont Lasix 40mg IV once daily. He is functional and is very diligent in recording his data, so hopeful to avoid cintron catheter. Cont monitoring I/O strictly and daily standing weights. Cardiology consultation. Low salt diet. Trop is negative and EKG without evidence of acute ischemia, doubt ACS. Echo pending. Prior last year reveals EF 40-45% (2) NICM (nonischemic cardiomyopathy): Plan: ? tachycardia induced, initially diagnosed in 2016. Resolved per echo October 2017 (EF 55-60%) with further decline in EF again in Apr 2022 (45%). LVEF 27% oer cardiac MRI Mar 2022 and s/p ICD placement Apr [address] Skelton. (3) Hypertension: Plan: chronic, at goal. Cont current medications. (4) Permanent atrial fibrillation: Plan: chronic, cont apixaban and Toprol XL. Pacer interrogation pending. (5) Secondary polycythemia: Plan: h/o erythrocytosis since at least 2016. Normal WBC and platelets at baseline. EPO level 9.7 (2015) nd JAK2 mutation negative (2015), MPL mutation negative. No h/o thrombotic complications in the past. Sees [facility] Hematology for this. Undergoes phlebotomy for Hct>48. Around this level today. Expect phlebotomy from blood draws may change this. CBC in am. (6) Chronic kidney disease: Plan: chronic, at baseline which is around 1.2-1.4. DVT proph-apixaban Full Code per my discussion with he and his on admission. Dispo- PCU I spent a total [id number] coordinating, documenting, and providing care for this patient excluding time spent in the performance of separately billed services Carolyn Gonzalez DO [facility] Hospitalist History of Present Illness Chief Complaint: SOB Primary Care Provider: Vivi Avina DO The patient is a 63 year old male who presents to the Emergency Room with complaints of SOB and LE edema. This started 10 days ago and is persisting/progressively worsening. The patient also notes the following associated symptoms, 7lb wt gain, nonproductive cough 3 weeks for which his provider started claritin. The patient has tried Lasix for relieving factors but this was not helpful. Current pain is rated as 0/10. Has noted not being able to carry groceries into his house from the car, which he can typically do. Denies chest pain. Reports hands and feet were swelling. Was taking Lasix 20mg daily to help with this which is an outdated script from 2017. Started this on Tuesday (3-4 days ago). Wakes up coughing recently, can sleep flat without orthopnea. Reports a 7 lb weight. One week ago was still very functional, however, recording 10K+ steps in his logbook. Has a h/o heart failure exacerbation causing hospitalization 7 years ago. Allergies Allergy/AdvReac Type Severity Reaction Status Date / Time Sulfa (Sulfonamide Allergy Mild Fever Verified 03/12/20 15:28 Antibiotics) coumadin Allergy Severe skin Uncoded 02/28/23 13:08 sloughing off Home Medications Medication Instructions Recorded Confirmed Type apixaban 5 mg tablet (Eliquis) 5 mg PO BID 05/12/18 02/28/23 History magnesium oxide 400 mg PO QAM 05/12/18 02/28/23 History metoprolol succinate 50 mg capsule 100 mg PO BID 05/12/18 02/28/23 History sprinkle, ext. release 24 hr multivitamin 1 tab PO QAM 05/12/18 02/28/23 History empagliflozin 10 mg tablet 10 mg PO DAILY 02/28/23 02/28/23 History (Jardiance) loratadine 10 mg tablet 10 mg PO DAILY 02/28/23 02/28/23 History omeprazole 20 mg capsule,delayed 20 mg PO QAM 02/28/23 02/28/23 History release sacubitril 24 mg-valsartan 26 mg 1 tab PO BID 02/28/23 02/28/23 History tablet (Entresto) Past Med/Surg History Medical History (Updated 02/28/23 @ 14:20 by Carolyn Gonzalez DO) Asthma NO INHALER USED Diverticulitis Elevated hemoglobin Fatty liver "CAUSED FROM AMIODARONE" History of colon polyps History of separation anxiety "WHEN AWAY FROM " Hypertension MACHADO (nonalcoholic steatohepatitis) NICM (nonischemic cardiomyopathy) Permanent atrial fibrillation Secondary polycythemia SOB (shortness of breath) Unilateral inguinal hernia Ventricular tachycardia Surgical History (Updated 02/28/23 @ 13:12 by Carolyn Gonzalez DO) History of amputation LEFT THUMB History of arthroscopy KNEE History of cardiac cath 01/2017 (NO STENTS) History of cardiac defibrillator placement 04/01/22 ANA [facility] History of colonoscopy History of herniorrhaphy History of tooth extraction Family History (Updated 02/28/23 @ 13:13 by Carolyn Gonzalez DO) Father Family history of diabetes mellitus Mother Heart disorder Social History (Updated 02/28/23 @ 13:13 by Carolyn Gonzalez DO) Smoking Status: Never smoker Tobacco Type: Smokeless Tobacco (Dip or Chew) Second Hand Exposure: Yes (IN THE PAST (PARENTS SMOKING)); Do You Dip or Chew Tobacco: Yes (1 CAN WEEKLY); Hx Alcohol Use: No Hx Substance Use: No Preferred Language: Greek Communication Ability: Effective Engraving Patternmaker Required: No Beliefs That Will Affect Care: Sabianist Sabianist Beliefs: SABIANISM Current Living Situation: Spouse Feels Safe at Home: Yes Assistive Devices: Glasses Review of Systems Review of Systems: All systems were reviewed and negative except as indicated on HPI. Physical Exam Physical Exam: CONSTITUTIONAL: WNWD, vitals as above, generally well-appearing, NAD EYES: normal conjunctivae, no scleral icterus ENT: external ear and nose normal, MMM, tobacco dip seen in buccal area. NECK: trachea midline RESPIRATORY: clear to auscultation bilaterally, no crackles, rales or wheezes, normal respiratory effort CARDIOVASCULAR: regular rate and rhythm, S1 and 2 heard without murmurs, gallops or rubs, no JVD, trace peripheral edema in lower extremities. CHEST: +ICD in anterior left chest wall GASTROINTESTINAL: soft, nontender, ND, no guarding MUSCULOSKELETAL: strength 5/5 throughout, head is normocephalic and atraumatic SKIN: warm and dry NEUROLOGIC: CN 2-12 grossly intact, no sensory deficit, normal cognition, normal speech, no tremor PSYCHIATRIC: alert cooperative and oriented to person, place and time. Euthymic mood, makes good eye contact, language grossly intact, recent and remote memory grossly intact. Results & Data Results & Data Vital Signs (Past 12 Hours) Vital Signs Temp Pulse Pulse Resp BP BP Pulse Ox 02/28/23 12:00 72 18 112/75 98 02/28/23 11:50 82 02/28/23 10:00 87 18 98/82 L 98 02/28/23 08:22 02/28/23 08:22 02/28/23 08:18 89 02/28/23 07:45 36.1 C L 93 H 20 117/88 97 O2 Del Method 02/28/23 12:00 Room Air 02/28/23 11:50 02/28/23 10:00 Room Air 02/28/23 08:22 Room Air 02/28/23 08:22 Room Air 02/28/23 08:18 02/28/23 07:45 Room Air Laboratory Results Short CBC 02/28/23 Range/Units 09:01 WBC 10.08 (4.8-10.8) K/ul Hgb 14.6 (14.0-18.0) g/dl Hct 48.7 (42.0-52.0) % Plt Count 278 (130-400) K/uL BMP 02/28/23 09:01 Sodium 139 Potassium 4.0 Chloride 105 Carbon Dioxide 28 BUN 24 H Creatinine 1.26 Glucose 106 H Calcium 9.2 Liver Function 02/28/23 Range/Units 09:01 Total Bilirubin 1.7 H (0.2-1.0) mg/dl AST 21 (13-39) U/L ALT 23 (7-52) U/L Alkaline Phosphatase 46 (34-104) U/L Albumin 3.9 (3.4-5.0) gm/dl Urine 02/28/23 Range/Units 10:33 Urine Color Dark Yellow Urine Appearance Clear (Clear) Urine pH 5.5 (4.5-7.5) Ur Specific [place] 1.021 (1.000-1.030) Urine Protein Negative (Negative) Urine Glucose (UA) 3+ H (Negative) Diagnostic Findings Chest X-Ray 02/28/23 08:19 XR chest 1V portable HISTORY: 63 years-old Male Dyspnea acute shortness of breath COMPARISON: 02/03/2017 TECHNIQUE: AP view of the chest FINDINGS: Cardiac silhouette is enlarged. Single-lead left subclavian pacer/AICD. No pneumothorax, pleural effusion, airspace consolidation or pulmonary edema. Bones of the chest appear grossly intact. IMPRESSION: No acute process. ACT 112: Negative or not required by law. The above report was generated using voice recognition software. It may contain grammatical, syntax or spelling errors. Electronically signed by: Natan Combs M.D. 02/28/2023 9:24 AM
[2023-02-28] MEDS ORDERED: ACETAMINOPHEN 325 MG TAB PO PRN (16:07)
--- NOTE | 2023-02-28 16:48 | Cardiology Consultation ---
Date of Consultation February 28, 2023 Assessment & Plan (1) Acute on chronic heart failure with reduced ejection fraction and diastolic dysfunction: (2) NICM (nonischemic cardiomyopathy): (3) Permanent atrial fibrillation: Plan 63-year-old male admitted with acute heart failure with reduced ejection fraction. Echocardiogram demonstrate decline in LV function as noted above. Patient received 1 dose of intravenous furosemide in ER with significant diuresis. He is scheduled for second dose in the a.m. Currently treated with evidence-based heart failure therapy including Entresto, Toprol-XL, and Jardiance. Treated with spironolactone until September 2022 when it was discontinue d due to hyperkalemia. Patient reports significant intake of potassium rich food at that time. We will retrial with low-dose spironolactone 12.5 mg daily. Attempt to titrate Entresto as tolerated as well. Repeat basic metabolic panel in a.m. Follow daily weight, fluid balance, GFR, and electrolytes. All questions answered to satisfaction of both the patient and his . History of Present Illness Reason for Consultation: CHF Requesting Physician: Dr. Gonzalez Attending Physician: Carolyn Gonzalez, History of Present Illness 63-year-old male present to the emergency department with lower extremity edema, 7 pound weight gain, dyspnea on exertion with reduced exercise tolerance. Patient reports symptoms over the past 2 weeks. Mild, nonproductive cough present. Denies orthopnea or PND. Carries history of nonischemic cardiomyopathy with ejection fraction as low as 20-25%. Most recent echocardiogram reporting LVEF of 40-45%. Received 40 mg of intravenous furosemide in the ER. Nearly 1 L diuresis noted. Telemetry reveals rate controlled atrial fibrillation. 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 Allergies Allergy/AdvReac Type Severity Reaction Status Date / Time Sulfa (Sulfonamide Allergy Mild Fever Verified 03/12/20 15:28 Antibiotics) coumadin Allergy Severe skin Uncoded 02/28/23 13:08 sloughing off Home Medications Medication Instructions Recorded Confirmed Type apixaban 5 mg tablet (Eliquis) 5 mg PO BID 05/12/18 02/28/23 History magnesium oxide 400 mg PO QAM 05/12/18 02/28/23 History metoprolol succinate 50 mg capsule 100 mg PO BID 05/12/18 02/28/23 History sprinkle, ext. release 24 hr multivitamin 1 tab PO QAM 05/12/18 02/28/23 History empagliflozin 10 mg tablet 10 mg PO DAILY 02/28/23 02/28/23 History (Jardiance) loratadine 10 mg tablet 10 mg PO DAILY 02/28/23 02/28/23 History omeprazole 20 mg capsule,delayed 20 mg PO QAM 02/28/23 02/28/23 History release sacubitril 24 mg-valsartan 26 mg 1 tab PO BID 02/28/23 02/28/23 History tablet (Entresto) Patient History Medical History Asthma NO INHALER USED Diverticulitis Elevated hemoglobin Fatty liver "CAUSED FROM AMIODARONE" History of colon polyps History of separation anxiety "WHEN AWAY FROM " Hypertension MACHADO (nonalcoholic steatohepatitis) NICM (nonischemic cardiomyopathy) Permanent atrial fibrillation Secondary polycythemia SOB (shortness of breath) Unilateral inguinal hernia Ventricular tachycardia Surgical History History of amputation LEFT THUMB History of arthroscopy KNEE History of cardiac cath 01/2017 (NO STENTS) History of cardiac defibrillator placement 04/01/22 [facility] History of colonoscopy History of herniorrhaphy History of tooth extraction Family History Father Family history of diabetes mellitus Mother Heart disorder Social History Smoking Status: Never smoker Tobacco Type: Smokeless Tobacco (Dip or Chew) Second Hand Exposure: No; Do You Dip or Chew Tobacco: Yes; Tobacco Cessation Education Requested by Patient: No Hx Alcohol Use: No Hx Substance Use: No Preferred Language: [place] Communication Ability: Effective Parks Recreation Coordinator Required: No Beliefs That Will Affect Care: None Current Living Situation: Spouse Other Information That Helps Us Care for You: No Feels Safe at Home: Yes Safety Concerns: Feels Safe At This Time Assistive Devices: Glasses Review of Systems Review of Systems: All systems reviewed & are unremarkable except as noted in Subjective Physical Exam Constitutional: well nourished; no acute distress Respiratory: normal respiratory effort; no respiratory distress, no labored breathing and no retractions Auscultation: no crackles, no rales, no rhonchi and no wheezes Cardiovascular: Rate/Rhythm: + irregularly irregular Heart Sounds: normal S1 and normal S2; no murmur Vessels: no JVD Extremities: + edema (Mild bilateral pedal edema) Gastrointestinal (Abdomen): Inspection/Auscultation: normal bowel sounds; abdomen not distended Percussion/Palpation: abdomen soft; abdomen nontender, no guarding and abdomen not rigid Neurologic: CN's II-XI intact bilaterally; + does not move all extremities and no focal motor deficits Psychiatric: A+Ox3, euthymic affect Results & Data Vital Signs (Past 12 Hours) Vital Signs Temp Pulse Pulse Resp BP BP Pulse Ox 02/28/23 16:17 36.6 C 94 H 16 112/91 95 02/28/23 15:40 86 02/28/23 14:45 88 16 105/78 97 02/28/23 12:55 85 18 118/90 98 02/28/23 12:00 72 18 112/75 98 02/28/23 11:50 82 02/28/23 10:00 87 18 98/82 L 98 02/28/23 08:22 02/28/23 08:22 02/28/23 08:18 89 02/28/23 07:45 36.1 C L 93 H 20 117/88 97 O2 Del Method 02/28/23 16:17 Room Air 02/28/23 15:40 02/28/23 14:45 Room Air 02/28/23 12:55 Room Air 02/28/23 12:00 Room Air 02/28/23 11:50 02/28/23 10:00 Room Air 02/28/23 08:22 Room Air 02/28/23 08:22 Room Air 02/28/23 08:18 02/28/23 07:45 Room Air Laboratory Results Cardiac Enzymes 02/28/23 02/28/23 Range/Units 09:01 09:01 AST 21 (13-39) U/L Troponin I High Sens 10.0 (0-20) pg/ml B-Natriuretic Peptide 2956 H (0-100) pg/ml Coagulation 02/28/23 02/28/23 Range/Units 09:01 09:01 PT 13.4 H (9.0-12.0) Seconds APTT 29.4 (21.0-31.0) Seconds B-Natriuretic Peptide 2956 H (0-100) pg/ml CBC 02/28/23 Range/Units 09:01 WBC 10.08 (4.8-10.8) K/ul RBC 6.33 H (4.70-6.10) M/uL Hgb 14.6 (14.0-18.0) g/dl Hct 48.7 (42.0-52.0) % Plt Count 278 (130-400) K/uL Neut # (Auto) 7.72 H (1.40-6.50) K/uL Lymph # (Auto) 1.01 L (1.2-3.4) K/uL Wood # (Auto) 1.08 H (0.11-0.59) K/uL Eos # (Auto) 0.17 (0-0.50) K/uL Baso # (Auto) 0.06 (0-0.2) K/uL Comprehensive Metabolic Panel 02/28/23 Range/Units 09:01 Sodium 139 (136-145) mmol/L Potassium 4.0 (3.5-5.1) mmol/L Chloride 105 (98-107) mmol/L Carbon Dioxide 28 (21-32) mmol/L BUN 24 H (6-23) mg/dl Creatinine 1.26 (0.6-1.4) mg/dl Glucose 106 H (70-99(Fasting)) mg/dl Calcium 9.2 (8.6-10.3) mg/dl AST 21 (13-39) U/L ALT 23 (7-52) U/L Alkaline Phosphatase 46 (34-104) U/L Total Protein 6.4 (6.0-8.3) gm/dl Albumin 3.9 (3.4-5.0) gm/dl Intake and Output 02/28/23 02/28/23 02/28/23 06:59 14:59 22:59 Other: Weight 97.8 kg 96.6 kg Weight Measurement Method Chair Scale Standing Scale Patient Weight 03/01/23 06:59 Weight 96.6 kg
[2023-02-28] MEDS: EMPAGLIFLOZIN 10 MG TAB PO SCH (17:24)
[2023-02-28] MEDS: PANTOprazole 40 MG TAB PO SCH (17:24)
[2023-02-28] MEDS: SPIRONOLACTONE 12.5 MG TAB PO SCH (17:30)
[2023-02-28] MEDS: METOPROLOL SUCC 50MG EXT REL TAB PO SCH (19:36)
[2023-02-28] MEDS: APIXABAN 5 MG TABLET PO SCH (19:37)
[2023-02-28] MEDS: VALSARTAN/SACUBITRIL 26/24MG TAB PO SCH (19:37)
[2023-03-01 07:11] LABS: Hematocrit (blood only) 44.9 % (42.0-52.0); Hemoglobin 13.7 g/dl (14.0-18.0); Mean Corpuscular Hemoglobin 23.1 pg (25.0-34.0); Mean Corpuscular Hgb Conc 30.5 g/dL (32.0-36.0); Mean Corpuscular Volume 75.7 fL (80.0-100.0); Mean Platelet Volume 10.6 fL (9.4-12.4); Platelet Count 245 K/uL (130-400); RDW Coefficient of Variation 20.6 % (11.5-14.5); RDW Standard Deviation 53.6 fL (36.4-46.3); Red Blood Count 5.93 M/uL (4.70-6.10); White Blood Count 9.85 K/ul (4.8-10.8)
[2023-03-01 07:27] LABS: BUN Creatinine Ratio 22.7 (10-20); Calcium 8.8 mg/dl (8.6-10.3); Creatinine Clr Calc Pharmacy 78.1 ml/min; Est GFR (African American) 82.9 ml/min; Est GFR (Non-African American) 71.6 ml/min; Potassium 3.9 mmol/L (3.5-5.1)
[2023-03-01] MEDS: MAGNESIUM OXIDE 400 MG TAB PO SCH (08:15)
[2023-03-01] MEDS: METOPROLOL SUCC 50MG EXT REL TAB PO SCH ×2 (08:15→20:06)
[2023-03-01] MEDS: FUROSEMIDE 40 MG/4 ML VIAL IV SCH (08:15)
[2023-03-01] MEDS: EMPAGLIFLOZIN 10 MG TAB PO SCH (08:15)
[2023-03-01] MEDS: SPIRONOLACTONE 12.5 MG TAB PO SCH (08:15)
[2023-03-01] MEDS: PANTOprazole 40 MG TAB PO SCH (08:15)
[2023-03-01] MEDS: APIXABAN 5 MG TABLET PO SCH ×2 (08:15→20:02)
[2023-03-01] MEDS: VALSARTAN/SACUBITRIL 26/24MG TAB PO SCH ×2 (08:15→20:07)
--- NOTE | 2023-03-01 14:16 | Hospitalist Progress Note ---
Date of Service March 01, 2023 Assessment & Plan (1) Acute HFrEF (heart failure with reduced ejection fraction): Plan: H/O NICM S/P ICD Presents with worsening leg edema, weight gain and increased dyspnea on exertion over the past 10 days --CXR:No acute process. --ECHO: Left ventricle is moderately dilated. Left ventricle systolic function is severely reduced. EF 20 to 25%. Severe global hypokinesis of left ventricle. Right ventricle is mildly dilated. Right ventricle systolic function is reduced as assessed by tricuspid annular plane systolic excursion. Aortic valve sclerosis mild, without significant aortic valve stenosis. Moderate mitral and tricuspid regurgitation. Estimated systolic pulmonary pressure is 44 mmHg. -Continue IV Lasix, metoprolol, spironolactone, Entresto, Jardiance Appreciate cardiology input Monitor I's and O's, daily weight, renal function, electrolytes Currently saturating well on room (2) NICM (nonischemic cardiomyopathy): Plan: Management as above (3) Hypertension: Plan: BP relatively low Continue Entresto, metoprolol (4) Permanent atrial fibrillation: Plan: Continue metoprolol On apixaban for anticoagulation (5) Secondary polycythemia: Plan: H/O Erythrocytosis since at least 2017. EPO level 9.7 (2016) nd JAK2 mutation negative (2016), MPL mutation negative. No h/o thrombotic complications in the past. Follows with [facility] Undergoes phlebotomy for Hct>48. Monitor CBC (6) Chronic kidney disease: Plan: chronic, at baseline which is around 1.2-1.4. DVT Px: Apixaban Code Status Full Code Admission and Anticipated Discharge Date Admission Date: February 28, 2023 Subjective Patient is seen and examined at bedside States feeling much better today Dyspnea, leg edema much improved No new complaints Sitting in chair comfortably during my encounter Denies any chest pain, dizziness, nausea, vomiting, abdominal pain No other complaints today saturating well on room air Review of Systems Review of Systems: All systems reviewed & are unremarkable except as noted in Subjective Physical Exam Physical Exam: Physical Exam: Vitals signs as noted above General Appearance:Moderately built and nourished, no apparent distress Head: normocephalic, Atraumatic Eyes: normal inspection, EOMI Neck: supple, Trachea midline Respiratory/Chest: Normal breath sounds, CTA, No accessory muscle use Cardiovascular: S1, S2, + murmur Abdomen/GI:Soft, Non tender, Bowel sounds present Extremities/Musculoskeletal:normal inspection, 1+ pedal edema Neurologic/Psych:AAOX3, grossly no focal neurological deficits Skin: normal color, warm Results & Data Results & Data Vital Signs (Past 12 Hours) Vital Signs Temp Pulse Pulse Resp BP Pulse Ox O2 Del Method 03/01/23 11:37 36.5 C 92 H 18 105/75 98 Room Air 03/01/23 07:51 72 03/01/23 07:30 36.1 C L 86 18 112/89 98 Room Air 03/01/23 03:02 36.7 C 88 16 94/66 L 94 Room Air Laboratory Results Short CBC 03/01/23 Range/Units 06:22 WBC 9.85 (4.8-10.8) K/ul Hgb 13.7 L (14.0-18.0) g/dl Hct 44.9 (42.0-52.0) % Plt Count 245 (130-400) K/uL BMP 03/01/23 06:22 Sodium 138 Potassium 3.9 Chloride 104 Carbon Dioxide 26 BUN 25 H Creatinine 1.10 Glucose 82 Calcium 8.8
--- NOTE | 2023-03-01 18:32 | Cardiology Progress Note ---
Date of Service March 01, 2023 Assessment & Plan (1) Acute on chronic heart failure with reduced ejection fraction and diastolic dysfunction: (2) NICM (nonischemic cardiomyopathy): (3) Permanent atrial fibrillation: Plan 63-year-old male admitted with acute heart failure with reduced ejection fraction. Echocardiogram demonstrate decline in LV function as noted above. Continue furosemide 40 mg IV daily, spironolactone 12.5 mg daily, Entresto, metoprolol succinate, Jardiance, Eliquis. Admission and Anticipated Discharge Date Admission Date: February 28, 2023 Subjective Patient seen in cardiology follow-up. His brother, [id number], and are visiting at the bedside. Patient feeling improved without acute complaint at present. He notes several days of progressive lower extremity edema, his thinks that it was going on a little bit longer, and shortness of breath. His symptoms have improved thus far in the hospital. Telemetry reveals rate controlled atrial fibrillation in the 70s to 80s which is a chronic finding for him, and occasional PVCs. Physical Exam Constitutional: WD/WN, vitals as above Respiratory: normal respiratory effort, lungs clear to auscultation Cardiovascular: Rate/Rhythm: regular rate and regular rhythm Vessels: no JVD Extremities: no edema Gastrointestinal (Abdomen): normal bowel sounds, soft, nontender, no hepatosplenomegaly Neurologic: PERRL, EOMI, accommodation nl, no face palsy, no dysarthria Results & Data Vital Signs (Past 12 Hours) Vital Signs Temp Pulse Pulse Resp BP Pulse Ox O2 Del Method 03/01/23 15:00 83 03/01/23 15:02 36.5 C 84 17 101/72 94 Room Air 03/01/23 11:37 36.5 C 92 H 18 105/75 98 Room Air 03/01/23 07:51 72 03/01/23 07:30 36.1 C L 86 18 112/89 98 Room Air Laboratory Results CBC 03/01/23 Range/Units 06:22 WBC 9.85 (4.8-10.8) K/ul RBC 5.93 (4.70-6.10) M/uL Hgb 13.7 L (14.0-18.0) g/dl Hct 44.9 (42.0-52.0) % Plt Count 245 (130-400) K/uL Comprehensive Metabolic Panel 03/01/23 Range/Units 06:22 Sodium 138 (136-145) mmol/L Potassium 3.9 (3.5-5.1) mmol/L Chloride 104 (98-107) mmol/L Carbon Dioxide 26 (21-32) mmol/L BUN 25 H (6-23) mg/dl Creatinine 1.10 (0.6-1.4) mg/dl Glucose 82 (70-99(Fasting)) mg/dl Calcium 8.8 (8.6-10.3) mg/dl
--- NOTE | 2023-03-02 05:46 | Electrocardiogram Report ---
Test Reason : Blood Pressure : / mmHG Vent. Rate : 085 BPM Atrial Rate : 000 BPM P-R Int : 000 ms QRS Dur : 088 ms QT Int : 378 ms P-R-T Axes : 000 026 012 degrees QTc Int : 449 ms Atrial fibrillation Low voltage QRS Septal infarct , age undetermined Nonspecific T wave abnormality Abnormal ECG When compared with ECG of 08-FEB-2017 11:15, Nonspecific T wave abnormality, improved in Inferior leads Nonspecific T wave abnormality, improved in Anterior leads QT has lengthened Confirmed by Ric Donovan ([id number]) on 03/02/2023 5:45:47 AM Referred By: Confirmed By:Ric Donovan
[2023-03-02 06:09] LABS: Hematocrit (blood only) 45.2 % (42.0-52.0); Mean Corpuscular Hemoglobin 23.4 pg (25.0-34.0); Mean Corpuscular Volume 75.5 fL (80.0-100.0); Mean Platelet Volume 11.2 fL (9.4-12.4); Platelet Count 238 K/uL (130-400); RDW Coefficient of Variation 20.7 % (11.5-14.5); RDW Standard Deviation 52.5 fL (36.4-46.3); Red Blood Count 5.99 M/uL (4.70-6.10); White Blood Count 9.05 K/ul (4.8-10.8)
[2023-03-02 06:27] LABS: Albumin Level 3.5 gm/dl (3.4-5.0); BUN Creatinine Ratio 19.2 (10-20); Bilirubin Direct 0.4 mg/dl (0-0.2); Bilirubin,Total 1.7 mg/dl (0.2-1.0); Calcium 8.9 mg/dl (8.6-10.3); Creatinine Clr Calc Pharmacy 68.6 ml/min; Est GFR (African American) 71.1 ml/min; Est GFR (Non-African American) 61.3 ml/min; Potassium 3.6 mmol/L (3.5-5.1); Total Protein 5.9 gm/dl (6.0-8.3)
[2023-03-02] MEDS: EMPAGLIFLOZIN 10 MG TAB PO SCH (08:02)
[2023-03-02] MEDS: METOPROLOL SUCC 50MG EXT REL TAB PO SCH (08:02)
[2023-03-02] MEDS: FUROSEMIDE 40 MG/4 ML VIAL IV SCH (08:02)
[2023-03-02] MEDS: MAGNESIUM OXIDE 400 MG TAB PO SCH (08:02)
[2023-03-02] MEDS: APIXABAN 5 MG TABLET PO SCH (08:02)
[2023-03-02] MEDS: SPIRONOLACTONE 12.5 MG TAB PO SCH (08:02)
[2023-03-02] MEDS: VALSARTAN/SACUBITRIL 26/24MG TAB PO SCH (08:02)
[2023-03-02] MEDS: PANTOprazole 40 MG TAB PO SCH (08:02)
--- NOTE | 2023-03-02 12:31 | Hospitalist Progress Note ---
Date of Service March 02, 2023 Assessment & Plan (1) Acute HFrEF (heart failure with reduced ejection fraction): Plan: H/O NICM S/P ICD Presents with worsening leg edema, weight gain and increased dyspnea on exertion over the past 10 days --CXR:No acute process. --ECHO: Left ventricle is moderately dilated. Left ventricle systolic function is severely reduced. EF 20 to 25%. Severe global hypokinesis of left ventricle. Right ventricle is mildly dilated. Right ventricle systolic function is reduced as assessed by tricuspid annular plane systolic excursion. Aortic valve sclerosis mild, without significant aortic valve stenosis. Moderate mitral and tricuspid regurgitation. Estimated systolic pulmonary pressure is 44 mmHg. During the hospitalization, patient was treated with IV diuretics (Lasix 40 mg IV once a day) with good urinary output. Cardiology was consulted for comanagement. At discharge, (2) NICM (nonischemic cardiomyopathy): Plan: Management as above (3) Hypertension: Plan: BP relatively low Continue Entresto, metoprolol (4) Permanent atrial fibrillation: Plan: Continue metoprolol On apixaban for anticoagulation (5) Secondary polycythemia: Plan: H/O Erythrocytosis since at least 2016. EPO level 9.7 (2016) nd JAK2 mutation negative (2016), MPL mutation negative. No h/o thrombotic complications in the past. Follows with [facility] Undergoes phlebotomy for Hct>48. Monitor CBC (6) Chronic kidney disease: Plan: chronic, at baseline which is around 1.2-1.4. DVT Px: Apixaban Code Status Full Code Admission and Anticipated Discharge Date Admission Date: February 28, 2023 Subjective Patient seen and examined at bedside. He is lying in the bed comfortably; not in distress. Denies any shortness of breath. Reports that his leg swelling has improved significantly. Review of Systems Review of Systems: All systems reviewed & are unremarkable except as noted in Subjective Physical Exam Physical Exam: Constitutional: WD/WN, vitals as above, NAD, sitting up in bed, pleasant, conversing easily Respiratory: normal respiratory effort, lungs clear to auscultation, no wheeze, rales, rhonchi. Normal insp/exp effort, no accessory muscle use Cardiovascular: Irregular, no murmur, no edema Vessels: no JVD or carotid bruit Chest: normal inspection of chest Abdomen: normal bowel sounds, soft, nontender, no hepatosplenomegaly Musculoskeletal: no cyanosis or clubbing, extremities motor strength 5/5. No pitting edema Skin: no rashes, warm and dry normal turgor Neurologic: PERRL, EOMI, accommodation nl, no face palsy, no dysarthria CN's II- XI intact bilaterally and moves all extremities Psychiatric: A+Ox3, euthymic affect Results & Data Results & Data Vital Signs (Past 12 Hours) Vital Signs Temp Pulse Pulse Resp BP Pulse Ox O2 Del Method 03/02/23 11:55 36.7 C 96 H 17 98/75 L 96 Room Air 03/02/23 07:59 36.8 C 91 H 18 120/80 98 Room Air 03/02/23 07:28 75 03/02/23 02:44 36.5 C 81 18 95/69 L 96 Room Air Laboratory Results Laboratory Results WBC 9.05 K/ul (4.8-10.8) 03/02/23 05:44 RBC 5.99 M/uL (4.70-6.10) 03/02/23 05:44 Hgb 14.0 g/dl (14.0-18.0) 03/02/23 05:44 Hct 45.2 % (42.0-52.0) 03/02/23 05:44 MCV 75.5 fL (80.0-100.0) L 03/02/23 05:44 MCH 23.4 pg (25.0-34.0) L 03/02/23 05:44 MCHC 31.0 g/dL (32.0-36.0) L 03/02/23 05:44 RDW Std Deviation 52.5 fL (36.4-46.3) H 03/02/23 05:44 RDW Coeff of Silke 20.7 % (11.5-14.5) H 03/02/23 05:44 Plt Count 238 K/uL (130-400) 03/02/23 05:44 MPV 11.2 fL (9.4-12.4) 03/02/23 05:44 Immature Gran % (Auto) 0.4 % 02/28/23 09:01 Neut % (Auto) 76.6 % 02/28/23 09:01 Lymph % (Auto) 10.0 % 02/28/23 09:01 [place] % (Auto) 10.7 % 02/28/23 09:01 Eos % (Auto) 1.7 % 02/28/23 09:01 Baso % (Auto) 0.6 % 02/28/23 09:01 Neut # (Auto) 7.72 K/uL (1.40-6.50) H 02/28/23 09:01 Lymph # (Auto) 1.01 K/uL (1.2-3.4) L 02/28/23 09:01 [place] # (Auto) 1.08 K/uL (0.11-0.59) H 02/28/23 09:01 Eos # (Auto) 0.17 K/uL (0-0.50) 02/28/23 09:01 Baso # (Auto) 0.06 K/uL (0-0.2) 02/28/23 09:01 Immature Gran # (Auto) 0.04 K/uL (0.01-0.20) 02/28/23 09:01 Polychromasia 2+ 02/28/23 09:01 Anisocytosis Present 02/28/23 09:01 Spherocytes 1+ 02/28/23 09:01 PT 13.4 Seconds (9.0-12.0) H 02/28/23 09:01 INR 1.2 (0.9-1.1) H 02/28/23 09:01 APTT 29.4 Seconds (21.0-31.0) 02/28/23 09:01 PTT Ratio 1.0 02/28/23 09:01 Sodium 138 mmol/L (136-145) 03/02/23 05:44 Potassium 3.6 mmol/L (3.5-5.1) 03/02/23 05:44 Chloride 103 mmol/L (98-107) 03/02/23 05:44 Carbon Dioxide 29 mmol/L (21-32) 03/02/23 05:44 Anion Gap 6 (3-11) 03/02/23 05:44 BUN 24 mg/dl (6-23) H 03/02/23 05:44 Creatinine 1.25 mg/dl (0.6-1.4) 03/02/23 05:44 Est Cr Clr Drug Dosing 68.6 ml/min 03/02/23 05:44 Est GFR ( Amer) 71.1 ml/min 03/02/23 05:44 Est GFR (Non-Af Amer) 61.3 ml/min 03/02/23 05:44 BUN/Creatinine Ratio 19.2 (10-20) 03/02/23 05:44 Glucose 92 mg/dl (70-99(Fasting)) 03/02/23 05:44 Calcium 8.9 mg/dl (8.6-10.3) 03/02/23 05:44 Magnesium 2.0 mg/dl (1.7-2.4) 03/01/23 06:22 Total Bilirubin 1.7 mg/dl (0.2-1.0) H 03/02/23 05:44 Direct Bilirubin 0.4 mg/dl (0-0.2) H 03/02/23 05:44 AST 17 U/L (13-39) 03/02/23 05:44 ALT 16 U/L (7-52) 03/02/23 05:44 Alkaline Phosphatase 48 U/L (34-104) 03/02/23 05:44 Troponin I High Sens 10.0 pg/ml (0-20) 02/28/23 09:01 B-Natriuretic Peptide 1525 pg/ml (0-100) H 03/02/23 05:44 Total Protein 5.9 gm/dl (6.0-8.3) L 03/02/23 05:44 Albumin 3.5 gm/dl (3.4-5.0) 03/02/23 05:44 Globulin 2.5 gm/dl (2.5-4.0) 02/28/23 09:01 Albumin/Globulin Ratio 1.6 (0.9-2) 02/28/23 09:01 Urine Color Dark Yellow 02/28/23 10:33 Urine Appearance Clear (Clear) 02/28/23 10:33 Urine pH 5.5 (4.5-7.5) 02/28/23 10:33 Ur Specific [place] 1.021 (1.000-1.030) 02/28/23 10:33 Urine Protein Negative (Negative) 02/28/23 10:33 Urine Glucose (UA) 3+ (Negative) H 02/28/23 10:33 Urine Ketones Negative (Negative) 02/28/23 10:33 Urine Blood Negative (Negative) 02/28/23 10:33 Urine Nitrite Negative (Negative) 02/28/23 10:33 Urine Bilirubin Negative (Negative) 02/28/23 10:33 Urine Urobilinogen Negative (Negative) 02/28/23 10:33 Ur Leukocyte Esterase Negative (Negative) 02/28/23 10:33 SARS-CoV-2, RNA, NAAT NEGATIVE (NEGATIVE) 02/28/23 08:59 Impressions Chest X-Ray 02/28/23 08:19 XR chest 1V portable HISTORY: 63 years-old Male Dyspnea acute shortness of breath COMPARISON: 02/03/2017 TECHNIQUE: AP view of the chest FINDINGS: Cardiac silhouette is enlarged. Single-lead left subclavian pacer/AICD. No pneumothorax, pleural effusion, airspace consolidation or pulmonary edema. Bones of the chest appear grossly intact. IMPRESSION: No acute process. ACT 112: Negative or not required by law. The above report was generated using voice recognition software. It may contain grammatical, syntax or spelling errors. Electronically signed by: Natan Combs M.D. 02/28/2023 9:24 AM
--- NOTE | 2023-03-02 13:44 | Cardiology Progress Note ---
Date of Service March 02, 2023 Assessment & Plan (1) Acute on chronic heart failure with reduced ejection fraction and diastolic dysfunction: (2) NICM (nonischemic cardiomyopathy): (3) Permanent atrial fibrillation: Plan 63-year-old male admitted with acute heart failure with reduced ejection fraction. EKG and telemetry reveals rate controlled atrial fibrillation with relatively narrow QRS complex of 88 ms. Patient is status post implantation of a single-chamber AICD performed 04/01/2022 at [facility] by Dr. Haynes. Per outpatient chart, patient underwent cardiac MRI on 03/04/2022: Findings consistent with nonischemic cardiomyopathy at that time ejection fraction 27%. I reviewed the images of the outpatient echocardiogram performed 10/07/2022 within the [facility] system. The ejection fraction was reported to be 44% at that time. However I think this was an overestimation of the ejection fraction. Contrast was not administered. I independently reviewed the images obtained at the time of his echocardiogram during his hospital stay 02/28/2023. Sonic contrast (Definity) was administered. Severe left ventricular systolic dysfunction noted with qualitative ejection fraction in the range of 20-25%. Overall, with taking all this data into account, I am not certain that he has had a recent decline in the ejection fraction after all, but this likely represents the same ejection fraction that was noted a year ago and prompted his AICD. Severe left atrial enlargement is present. I do not think attempts to restore sinus rhythm would be successful. Recommend discharge on the current medications: Eliquis 5 mg twice daily Entresto 1 tablet by mouth 2 times per day Jardiance 10 mg by mouth daily Metoprolol succinate 100 mg by mouth two times per day Resume spironolactone 12.5 mg daily. Potassium stable at this time. Resume furosemide 20 mg by mouth daily. He was previously taking this on an as- needed basis. I am optimistic that if he is taking a daily loop diuretic dose, that his potassium will be reasonably well controlled on the low-dose of spironolactone. -We will arrange follow-up with outpatient cardiology clinic, as well as the clinical pharmacy team for CHF medication optimization. Admission and Anticipated Discharge Date Admission Date: February 28, 2023 Subjective Patient seen in cardiology follow-up. He states he feels well, and is eager for discharge. Telemetry reveals rate controlled atrial fibrillation in the 80s with occasional PVCs. Physical Exam Constitutional: WD/WN, vitals as above Respiratory: normal respiratory effort, lungs clear to auscultation Cardiovascular: Rate/Rhythm: regular rate and regular rhythm Vessels: no JVD Extremities: no edema Gastrointestinal (Abdomen): normal bowel sounds, soft, nontender, no hepatosplenomegaly Neurologic: PERRL, EOMI, accommodation nl, no face palsy, no dysarthria Results & Data Vital Signs (Past 12 Hours) Vital Signs Temp Pulse Pulse Resp BP Pulse Ox O2 Del Method 03/02/23 11:55 36.7 C 96 H 17 98/75 L 96 Room Air 03/02/23 07:59 36.8 C 91 H 18 120/80 98 Room Air 03/02/23 07:28 75 03/02/23 02:44 36.5 C 81 18 95/69 L 96 Room Air Laboratory Results Cardiac Enzymes 03/02/23 03/02/23 Range/Units 05:44 05:44 AST 17 (13-39) U/L B-Natriuretic Peptide 1525 H (0-100) pg/ml Coagulation 03/02/23 Range/Units 05:44 B-Natriuretic Peptide 1525 H (0-100) pg/ml CBC 03/02/23 Range/Units 05:44 WBC 9.05 (4.8-10.8) K/ul RBC 5.99 (4.70-6.10) M/uL Hgb 14.0 (14.0-18.0) g/dl Hct 45.2 (42.0-52.0) % Plt Count 238 (130-400) K/uL Comprehensive Metabolic Panel 03/02/23 Range/Units 05:44 Sodium 138 (136-145) mmol/L Potassium 3.6 (3.5-5.1) mmol/L Chloride 103 (98-107) mmol/L Carbon Dioxide 29 (21-32) mmol/L BUN 24 H (6-23) mg/dl Creatinine 1.25 (0.6-1.4) mg/dl Glucose 92 (70-99(Fasting)) mg/dl Calcium 8.9 (8.6-10.3) mg/dl Direct Bilirubin 0.4 H (0-0.2) mg/dl AST 17 (13-39) U/L ALT 16 (7-52) U/L Alkaline Phosphatase 48 (34-104) U/L Total Protein 5.9 L (6.0-8.3) gm/dl Albumin 3.5 (3.4-5.0) gm/dl Intake and Output 03/01/23 03/02/23 03/02/23 22:59 06:59 14:59 Intake Total 1650 / 1750 100 / 1750 Output Total 3002 1150 / 3002 2550 / 2550 Balance 1648 / -1252 -1050 / -1252 -2550 / -2550 Intake: Oral 1650 / 1750 100 / 1750 Output: Urine 1150 / 3000 2550 / 2550 # Bowel Movements 2 / 2 Other: # Unmeasured Voids 2 Weight 95.2 kg Weight Measurement Method Built in [facility]
--- NOTE | 2023-03-02 14:05 | Discharge Summary ---
Date of Service March 02, 2023 Admission HPI Per Admitting Provider The patient is a 63 year old male who presents to the Emergency Room with complaints of SOB and LE edema. This started 10 days ago and is persisting/progressively worsening. The patient also notes the following associ ated symptoms, 7lb wt gain, nonproductive cough 3 weeks for which his provider started claritin. The patient has tried Lasix for relieving factors but this was not helpful. Current pain is rated as 0/10. Has noted not being able to carry groceries into his house from the car, which he can typically do. Denies chest pain. Reports hands and feet were swelling. Was taking Lasix 20mg daily to help with this which is an outdated script from 2017. Started this on Tuesday (3-4 days ago). Wakes up coughing recently, can sleep flat without orthopnea. Reports a 7 lb weight. One week ago was still very functional, however, recording 10K+ steps in his logbook. Has a h/o heart failure exacerbation causing hospitalization 7 years ago. Admission Exam Per Admitting Provider CONSTITUTIONAL: WNWD, vitals as above, generally well-appearing, NAD EYES: normal conjunctivae, no scleral icterus ENT: external ear and nose normal, MMM, tobacco dip seen in buccal area. NECK: trachea midline RESPIRATORY: clear to auscultation bilaterally, no crackles, rales or wheezes, normal respiratory effort CARDIOVASCULAR: regular rate and rhythm, S1 and 2 heard without murmurs, gallops or rubs, no JVD, trace peripheral edema in lower extremities. CHEST: +ICD in anterior left chest wall GASTROINTESTINAL: soft, nontender, ND, no guarding MUSCULOSKELETAL: strength 5/5 throughout, head is normocephalic and atraumatic SKIN: warm and dry NEUROLOGIC: CN 2-12 grossly intact, no sensory deficit, normal cognition, normal speech, no tremor PSYCHIATRIC: alert cooperative and oriented to person, place and time. Euthymic mood, makes good eye contact, language grossly intact, recent and remote memory grossly intact. Principal Diagnosis Acute HFrEF (heart failure with reduced ejection fraction) Discharge Exam Constitutional: WD/WN, vitals as above, NAD, sitting up in bed, pleasant, conversing easily Respiratory: normal respiratory effort, lungs clear to auscultation, no wheeze, rales, rhonchi. Normal insp/exp effort, no accessory muscle use Cardiovascular: RRR, no murmur, no edema Vessels: no JVD or carotid bruit Chest: normal inspection of chest Abdomen: normal bowel sounds, soft, nontender, no hepatosplenomegaly Musculoskeletal: no cyanosis or clubbing, extremities motor strength 5/5 Skin: no rashes, warm and dry normal turgor Neurologic: PERRL, EOMI, accommodation nl, no face palsy, no dysarthria CN's II- XI intact bilaterally and moves all extremities Psychiatric: A+Ox3, euthymic affect Discharge Data Allergies Allergy/AdvReac Type Severity Reaction Status Date / Time Sulfa (Sulfonamide Allergy Mild Fever Verified 03/12/20 15:28 Antibiotics) coumadin Allergy Severe skin Uncoded 02/28/23 13:08 sloughing off Consultations 02/28/23 13:32 ED Decision to Admit Stat 02/28/23 16:07 Consult Cardiology Routine Hospital Course (1) Acute HFrEF (heart failure with reduced ejection fraction): (2) NICM (nonischemic cardiomyopathy): (3) Hypertension: (4) Permanent atrial fibrillation: (5) Secondary polycythemia: (6) Chronic kidney disease: Plan Patient is a 63 year old male who presents to the Emergency Room with complaints of SOB and LE edema. This started 10 days ago and is persisting/progressively worsening. Patient was admitted to telemetry floor for further management. Cardiology was consulted for comanagement. Patient was started on IV diuretic with Lasix 40 mg once a day. He responded well with diuretics with urine output of 5 L. Repeat echocardiogram showed reduced EF of 20 to 25%. Patient was discharged home with 20 mg of Lasix every day in spironolactone 12.5 mg once a day. Other guideline directed medical therapy was continued. Patient to follow-up with primary care doctor and cardiology Total Time Total Time Spent Total Time Spent (In Minutes): 45 Total Time Includes: Examination of the Patient, Discharge Planning, Medication Reconciliation, Communication With Other Providers and Other Discharge Plan Discharge Items Patient Disposition: Home - Self-Care Reason For Visit: CHF EXACERBATION Discharge Diagnosis: Acute on chronic systolic heart failure. Activity: Resume your previous activity Non-emergency contact: Primary Care Provider Call non-emergency contact if: you have any medication questions and your symptoms worsen Follow-up/Referrals: Vivi Avina, DO [Primary Care Provider] - (Date & Time 03/07/2023 4:20 PM Provider Vivi Avina DO Department [facility] ) Diet: Regular Addtl Attending Provider Instructions: You are admitted to the hospital with acute heart failure with reduced ejection fraction. You are prescribed following medications as per recommendation by cardiology: 1) Take Lasix 20 mg once a day. 2) Take Aldactone 12.5mg once a day. Please take your weight daily in the morning and make a note of it. If your weight increases by 3 to 5 pounds and you notice that your leg have started to swell; take extra dose of Lasix 20 mg in the afternoon till your weight is back to baseline. Also, contact your primary care doctor. Please follow-up with your primary care doctor for Pending Studies at Discharge: No Stand-Alone Forms: My [facility], Smoking Cessation Medications and DC Order Prescriptions: New spironolactone 25 mg Tablet 12.5 mg PO DAILY Qty: 30 0RF furosemide 20 mg Tablet 20 mg PO QAM Qty: 30 0RF Continued multivitamin Tablet 1 tab PO QAM magnesium oxide 400 mg Capsule 400 mg PO QAM Eliquis 5 mg Tablet 5 mg PO BID metoprolol succinate 50 mg Capsule,Sprinkle,Er 24hr 100 mg PO BID omeprazole 20 mg capsule,delayed release(DR/EC) 20 mg PO QAM Jardiance 10 mg tablet 10 mg PO DAILY Entresto 24-26 mg tablet 1 tab PO BID loratadine 10 mg Tablet 10 mg PO DAILY Admission Data Admit Date/Time: 02/28/23 13:23 Attending Provider: Krishna Lopez Admit Provider: Carolyn Gonzalez Primary Care Provider: Vivi Avina Other Providers: Carolyn Gonzalez ; Flavio Bocanegra ; Jeff White
[2023-03-03] MEDS ORDERED: FUROSEMIDE 20 MG TAB PO SCH (09:00)
== END 2023-03-02 17:26 | disposition home or self-care (01) | DRG 291 ==
LOC: ED 07:41 → 2E 13:23 → SUATTDRO 13:23 → 2E 14:45

== ENCOUNTER 2023-06-14 01:52 | Observation (INO) ==
--- NOTE | 2023-06-14 02:20 | Emergency Department Note ---
Impression & Plan Orthopnea, Permanent atrial fibrillation, Acute HFrEF (heart failure with reduced ejection fraction) ED Provider Note CHIEF COMPLAINT: Shortness of breath HISTORY OF PRESENT ILLNESS: This 63-year-old male patient presents to the emergency department via private vehicle accompanied by for evaluation of shortness of breath which started 1 hour ago. The patient reports a history of atrial fibrillation and heart failure. 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 The patient feels that he will likely transfer his care to the [facility], noting that [facility] is too busy to properly care for him. Patient states he has been experiencing swelling in both of his feet for several weeks. He states this is not significantly changed recently, but he has increased his Lasix to 40 mg daily to try to alleviate the swelling. The patient states that about 1 hour ago, he developed shortness of breath, worse with lying flat. He states that when the symptoms did not resolve, he woke his and asked to be brought here. The patient denies any fever or recent illness. No nausea or vomiting. No numbness or tingling. No change in the swelling of the feet. Patient has been eating and drinking normally. Pt. states "I know what it is. It's fluid in my lungs." REVIEW OF SYSTEMS: A 10 system review of systems was performed with positives and pertinent negatives listed in the history of present illness. All other systems were reviewed and are negative. ALLERGIES: Sulfa, Coumadin PHYSICAL EXAM: VITALS: Vitals are noted on the nurse's note and reviewed by myself. Vital signs stable. GENERAL: This is a 63-year-old male, in no acute distress, nondiaphoretic, well- developed well-nourished. SKIN: 1+ pitting edema of the ankles. Bilateral the skin was otherwise without rashes, erythema, edema, or bruising. There is no tenting of the skin. Capillary refill less than 2 seconds. HEAD: Normocephalic atraumatic. EARS: External auditory canals clear, tympanic membranes pearly dumont without erythema or effusion bilaterally. No hemotympanum. Negative miller sign EYES: Pupils equal round and reactive to light and accommodation. Conjunctivae without injection, sclerae without icterus. Extraocular movements intact. NOSE: Patent, turbinates without inflammation or discharge. No sinus tenderness. MOUTH: Mucous membranes moist. Tonsils are not enlarged. Pharynx without erythema or exudate. Uvula midline. Airway patent. Tongue does not deviate. NECK: Supple without nuchal rigidity. No lymphadenopathy. No JVD. HEART: Irregular rate and rhythm without murmurs gallops or rubs. LUNGS: Clear to auscultation bilaterally without wheezes, rales or rhonchi. No retractions or accessory muscle use. ABDOMEN: Positive bowel sounds x 4. Soft, nontender, without masses or organomegaly. No guarding or rebound tenderness. MUSCULOSKELETAL: No muscle atrophy, erythema, or edema noted. Full range of motion without joint tenderness in all extremities. No tenderness to palpation. Normal gait. Strength 5/5 throughout. NEURO: Patient was alert and oriented to person place and time. No focal neurological deficits. An order was placed for continuous cafeteria monitor. The monitor showed a normal sinus rhythm at a ventricular rate of 86 bpm, per my interpretation. EKG, per my interpretation: Atrial fibrillation with PVCs. No ST elevation or depression. No T wave inversion. No significant change when compared to EKG from 02/28/2023. EMERGENCY DEPARTMENT COURSE: The patient was seen and evaluated as above. Patient has a history of heart failure. He states that he knows his lungs are filling up with fluid and that is with causing his orthopnea IV access was obtained, labs were drawn. Labs were reviewed. No leukocytosis, anemia, thrombocytopenia. Renal, hepatic function and electrolytes without significant abnormality. BNP significantly elevated at greater than 4700. Troponin 19.7. INR 1.3 Chest x-ray, per my interpretation shows cardiomegaly. No consolidation to suggest pneumonia The patient was medicated with IV Lasix. The patient notes that one of his symptoms become like this where he requires an emergency department visit, he generally needs to be admitted to the hospital. Given his significantly elevated BNP as well as this history, utilizing shared decision-making, we did elect to admit him. I discussed case with Dr. Chandler. He did agree to see the patient. Please see hospitalist dictation regarding ongoing management and care of this patient Differential diagnosis includes Reactive airway disease, pneumonia, pneumothorax, COPD, CHF, infections, cardiac ischemia, pulmonary embolism, musculoskeletal, gastrointestinal, as well as other pathologies. I attest that I have personally reviewed the patient's current medication list. Patient was found to have normal blood pressure on screening and does not require follow-up. The chart was completed utilizing [employer] Speech voice recognition software. Grammatical errors, random word insertions, pronoun errors, and incomplete sentences are an occasional consequence of this system due to software limitations, ambient noise, and hardware issues. Any formal questions or concerns about the content, text, or information contained within the body of this dictation should be directly addressed to the provider for clarification. Past Med/Surg History Medical History Acute on chronic heart failure with reduced ejection fraction and diastolic dysfunction NICM (nonischemic cardiomyopathy) Permanent atrial fibrillation MACHADO (nonalcoholic steatohepatitis) Unilateral inguinal hernia Secondary polycythemia Ventricular tachycardia Elevated hemoglobin History of colon polyps Fatty liver "CAUSED FROM AMIODARONE" Diverticulitis History of separation anxiety "WHEN AWAY FROM " Hypertension Asthma NO INHALER USED SOB (shortness of breath) Surgical History History of amputation LEFT THUMB History of arthroscopy KNEE History of cardiac cath 01/2017 (NO STENTS) History of cardiac defibrillator placement 04/01/22 [facility] History of colonoscopy History of herniorrhaphy History of tooth extraction Family History Father Family history of diabetes mellitus Mother Heart disorder Social History Smoking Status: Never smoker Tobacco Type: Smokeless Tobacco (Dip or Chew) Second Hand Exposure: No; Do You Dip or Chew Tobacco: Yes (less than one can per week); Hx Alcohol Use: No Hx Substance Use: No Preferred Language: Slovenian Communication Ability: Effective Glaze Grinder Required: No Beliefs That Will Affect Care: None Current Living Situation: Family 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[employer], 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 Feels Safe at Home: Yes Assistive Devices: None Allergies Allergies Allergy/AdvReac Type Severity Reaction Status Date / Time Sulfa (Sulfonamide Allergy Mild Fever Verified 06/14/23 02:16 Antibiotics) coumadin Allergy Severe skin Uncoded 06/14/23 02:16 sloughing off Home Meds Home Medications Medication Instructions Recorded Confirmed apixaban 5 mg tablet (Eliquis) 5 mg PO BID 05/12/18 06/14/23 magnesium oxide 400 mg PO QAM 05/12/18 06/14/23 empagliflozin 10 mg tablet 10 mg PO QAM 02/28/23 06/14/23 (Jardiance) loratadine 10 mg tablet 10 mg PO DAILY PRN Allergy Symptoms 02/28/23 06/14/23 omeprazole 20 mg capsule,delayed 20 mg PO DAILYBB 02/28/23 06/14/23 release sacubitril 24 mg-valsartan 26 mg 1 tab PO BID 02/28/23 06/14/23 tablet (Entresto) albuterol sulfate 90 mcg/actuation 2 puff inhalation Q4 PRN wheezing 06/14/23 06/14/23 aerosol inhaler or dyspnea furosemide 20 mg tablet 20 mg PO QAM PRN as directed 06/14/23 06/14/23 metoprolol succinate 100 mg 100 mg PO AMHS 06/14/23 06/14/23 tablet,extended release 24 hr [id number] 300 mcg-K 60 1 tab PO DAILY 06/14/23 06/14/23 mcg-lycop 600 mcg-lutein 300 mcg tablet (Centrum Silver Men) Previous Rx's Medication Instructions Recorded spironolactone 25 mg tablet 12.5 mg (1/2 x 25 mg) PO DAILY #30 03/02/23 tabs Results & Data (ED) Vital Signs Vital Signs - 24 hr 06/14/23 01:56 06/14/23 02:20 Temperature 36.9 C Temperature Source Temporal Artery Scan Pulse Rate 85 86 Respiratory Rate 18 Respiratory Effort / Characteristics Non-Labored Spontaneous Respiratory Depth Normal Blood Pressure 106/82 Blood Pressure Mean 90 Pulse Oximetry 98 Oxygen Delivery Method Room Air Sepsis Recent Fever Within 48 Hours No Sepsis New/Unexplained Change in Mental Status No Sepsis Action Taken by Nursing No Action Required Laboratory Data 06/14/23 02:25 06/14/23 02:25 Lab Results 06/14/23 Range/Units 02:25 WBC 10.09 (4.8-10.8) K/ul RBC 6.84 H (4.70-6.10) M/uL Hgb 16.3 (14.0-18.0) g/dl Hct 55.4 H (42.0-52.0) % MCV 81.0 (80.0-100.0) fL MCH 23.8 L (25.0-34.0) pg MCHC 29.4 L (32.0-36.0) g/dL RDW Std Deviation 54.3 H (36.4-46.3) fL RDW Coeff of Silke 20.2 H (11.5-14.5) % Plt Count 309 (130-400) K/uL MPV 10.8 (9.4-12.4) fL Immature Gran % (Auto) 0.2 % Neut % (Auto) 64.6 % Lymph % (Auto) 20.4 % [place] % (Auto) 11.7 % Eos % (Auto) 2.4 % Baso % (Auto) 0.7 % Neut # (Auto) 6.52 H (1.40-6.50) K/uL Lymph # (Auto) 2.06 (1.20-3.40) K/uL [place] # (Auto) 1.18 H (0.11-0.59) K/uL Eos # (Auto) 0.24 (0.00-0.50) K/uL Baso # (Auto) 0.07 (0.00-0.20) K/uL Immature Gran # (Auto) 0.02 (0.01-0.20) K/uL Polychromasia 1+ Anisocytosis Present PT 14.4 H (9.0-12.0) Seconds INR 1.3 H (0.9-1.1) APTT 28.4 (21.0-31.0) Seconds PTT Ratio 1.0 Sodium 136 (136-145) mmol/L Potassium 3.9 (3.5-5.1) mmol/L Chloride 99 (98-107) mmol/L Carbon Dioxide 27 (21-32) mmol/L Anion Gap 10 (3-11) BUN 25 H (6-23) mg/dl Creatinine 1.50 H (0.6-1.4) mg/dl Est Cr Clr Drug Dosing 57.6 ml/min Est GFR ( Amer) 57.0 ml/min Est GFR (Non-Af Amer) 49.2 ml/min BUN/Creatinine Ratio 16.7 (10-20) Glucose 102 H (70-99(Fasting)) mg/dl Calcium 10.1 (8.6-10.3) mg/dl Total Bilirubin 1.6 H (0.2-1.0) mg/dl AST 33 (13-39) U/L ALT 26 (7-52) U/L Alkaline Phosphatase 72 (34-104) U/L Troponin I High Sens 19.7 (0-20) pg/ml B-Natriuretic Peptide > 4700 H (0-100) pg/ml Total Protein 8.0 (6.0-8.3) gm/dl Albumin 4.7 (3.4-5.0) gm/dl Globulin 3.3 (2.5-4.0) gm/dl Albumin/Globulin Ratio 1.4 (0.9-2) Administered Medications Discontinued Medications Furosemide (Furosemide 40 Mg/4 Ml Vial) 40 mg IV ONE ONE Stop: 06/14/23 03:32 Last Admin: 06/14/23 04:09 Dose: 40 mg Documented By: SB Discharge Plan Visit Data Chief Complaint: Shortness of Breath/Dyspnea Stated Complaint: SOB/FLUID RETENTION ED Provider: Edward Ling ED Midlevel Provider: Nataly Mata Discharge Problem: Orthopnea, Permanent atrial fibrillation, Acute HFrEF (heart failure with reduced ejection fraction) Patient Disposition: Admitted As Inpatient Forms Stand Alone Forms: My [facility] Prescriptions Prescriptions: No Action magnesium oxide 400 mg Capsule 400 mg PO QAM Eliquis 5 mg Tablet 5 mg PO BID metoprolol succinate 100 mg tablet extended release 24 hr 100 mg PO AMHS albuterol sulfate 90 mcg/actuation HFA aerosol inhaler 2 puff INHALATION Q4 PRN (Reason: wheezing or dyspnea) furosemide 20 mg tablet 20 mg PO QAM PRN (Reason: as directed) Centrum Silver Men [id number] mcg Tablet 1 tab PO DAILY omeprazole 20 mg capsule,delayed release(DR/EC) 20 mg PO DAILYBB Jardiance 10 mg tablet 10 mg PO QAM Entresto 24-26 mg tablet 1 tab PO BID loratadine 10 mg Tablet 10 mg PO DAILY PRN (Reason: Allergy Symptoms) spironolactone 25 mg Tablet 12.5 mg PO DAILY Qty: 30 0RF Referrals Referrals: Vivi Avina, [Primary Care Provider] -
[2023-06-14 02:49] LABS: Basophils # (auto) 0.07 K/uL (0.00-0.20); Basophils % (auto) 0.7 %; Eosinophils # (auto) 0.24 K/uL (0.00-0.50); Eosinophils % (auto) 2.4 %; Hematocrit (blood only) 55.4 % (42.0-52.0); Hemoglobin 16.3 g/dl (14.0-18.0); Immature Granulocytes # (auto) 0.02 K/uL (0.01-0.20); Immature Granulocytes % (auto) 0.2 %; Lymphocytes # (auto) 2.06 K/uL (1.20-3.40); Lymphocytes % (auto) 20.4 %; Mean Corpuscular Hemoglobin 23.8 pg (25.0-34.0); Mean Corpuscular Hgb Conc 29.4 g/dL (32.0-36.0); Mean Platelet Volume 10.8 fL (9.4-12.4); Monocytes # (auto) 1.18 K/uL (0.11-0.59); Monocytes % (auto) 11.7 %; Neutrophils # (auto) 6.52 K/uL (1.40-6.50); Neutrophils % (auto) 64.6 %; Platelet Count 309 K/uL (130-400); RDW Coefficient of Variation 20.2 % (11.5-14.5); RDW Standard Deviation 54.3 fL (36.4-46.3); Red Blood Count 6.84 M/uL (4.70-6.10); White Blood Count 10.09 K/ul (4.8-10.8)
[2023-06-14 03:05] LABS: Albumin Globulin Ratio 1.4 (0.9-2); Albumin Level 4.7 gm/dl (3.4-5.0); BUN Creatinine Ratio 16.7 (10-20); Bilirubin,Total 1.6 mg/dl (0.2-1.0); Calcium 10.1 mg/dl (8.6-10.3); Creatinine Clr Calc Pharmacy 57.6 ml/min; Est GFR (Non-African American) 49.2 ml/min; Globulin 3.3 gm/dl (2.5-4.0); Potassium 3.9 mmol/L (3.5-5.1)
[2023-06-14 03:11] LABS: Troponin I High Sensitivity 19.7 pg/ml (0-20)
[2023-06-14 03:18] LABS: INR 1.3 (0.9-1.1); Partial Thromboplastin Time 28.4 Seconds (21.0-31.0); Prothrombin Time 14.4 Seconds (9.0-12.0)
[2023-06-14 03:25] LABS: Anisocytosis Present; Polychromasia 1+
[2023-06-14] MEDS ORDERED: FUROSEMIDE 40 MG/4 ML VIAL IV ONE (03:31)
--- NOTE | 2023-06-14 05:12 | History & Physical Report ---
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 Acute heart failure with reduced ejection fraction EF 40 to 45% on echo done in September 2022 Received IV Lasix 40 mg in the ER We will continue IV Lasix 40 twice daily Continue home medications metoprolol succinate, Jardiance, Entresto, spironolactone Daily weights and I's and O's We will monitor the response Echocardiogram Monitoring telemetry floor Consult cardiology in a.m. 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 Patient states last few days his legs edema getting worse and increased his Lasix dose but was not helping. Tonight at 1 AM woke up with short of breath which prompted him to come to ER. Orthopnea present. Denies any chest pain. No nausea. No headache. No blurred vision. Has some runny nose. Has dry cough. No difficulty swallowing. Appetite is good. No abdominal pain. Normal bowel and bladder movements. Currently hemodynamics are stable. Past medical history. As mentioned above Past surgical history. Colonoscopy, cardiac defibrillator. Inguinal hernia repair. Social history. . No smoking. Chews 1 can/week. No alcohol use. No drug use. Family history. Father had prostate cancer at age 78. Diabetes. CHF. Hypertension. Mother had MT. Brother had heart disorder. Allergies Allergy/AdvReac Type Severity Reaction Status Date / Time Sulfa (Sulfonamide Allergy Mild Fever Verified 06/14/23 02:16 Antibiotics) coumadin Allergy Severe skin Uncoded 06/14/23 02:16 sloughing off Home Medications Medication Instructions Recorded Confirmed Type apixaban 5 mg tablet (Eliquis) 5 mg PO BID 05/12/18 06/14/23 History magnesium oxide 400 mg PO QAM 05/12/18 06/14/23 History empagliflozin 10 mg tablet 10 mg PO QAM 02/28/23 06/14/23 History (Jardiance) loratadine 10 mg tablet 10 mg PO DAILY PRN Allergy Symptoms 02/28/23 06/14/23 History omeprazole 20 mg capsule,delayed 20 mg PO DAILYBB 02/28/23 06/14/23 History release sacubitril 24 mg-valsartan 26 mg 1 tab PO BID 02/28/23 06/14/23 History tablet (Entresto) spironolactone 25 mg tablet 12.5 mg (1/2 x 25 mg) PO DAILY #30 03/02/23 06/14/23 Rx tabs albuterol sulfate 90 mcg/actuation 2 puff inhalation Q4 PRN wheezing 06/14/23 06/14/23 History aerosol inhaler or dyspnea furosemide 20 mg tablet 20 mg PO QAM as directed 06/14/23 06/14/23 History metoprolol succinate 100 mg 100 mg PO AMHS 06/14/23 06/14/23 History tablet,extended release 24 hr [id number] 300 mcg-K 60 1 tab PO DAILY 06/14/23 06/14/23 History mcg-lycop 600 mcg-lutein 300 mcg tablet (Centrum Silver Men) Past Med/Surg History Medical History Acute on chronic heart failure with reduced ejection fraction and diastolic dysfunction NICM (nonischemic cardiomyopathy) Permanent atrial fibrillation CLIFFORD (nonalcoholic steatohepatitis) Unilateral inguinal hernia Secondary polycythemia Ventricular tachycardia Elevated hemoglobin History of colon polyps Fatty liver "CAUSED FROM AMIODARONE" Diverticulitis History of separation anxiety "WHEN AWAY FROM " Hypertension Asthma NO INHALER USED SOB (shortness of breath) Surgical History History of amputation LEFT THUMB History of arthroscopy KNEE History of cardiac cath 01/2017 (NO STENTS) History of cardiac defibrillator placement 04/01/22 [facility] [place], GORDO History of colonoscopy History of herniorrhaphy History of tooth extraction Family History Father Family history of diabetes mellitus Mother Heart disorder Social History Smoking Status: Never smoker Tobacco Type: Smokeless Tobacco (Dip or Chew) Second Hand Exposure: No; Do You Dip or Chew Tobacco: Yes; Tobacco Cessation Education Requested by Patient: No Hx Alcohol Use: No Hx Substance Use: No Preferred Language: Thai Communication Ability: Effective Retoucher Photoengraving Required: No Beliefs That Will Affect Care: None Current Living Situation: Spouse 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 ENT- oropharynx clear Neck- supple, no JVD. Lungs- clear to auscultation no obvious wheezing or crackles Heart- regular rhythm; no murmur, no gallop. Abdomen- normal bowel sounds, soft, nontender, no distension. Extremities- +1 pretibial edema, no erythema seen. Neuro- alert, oriented x 3; PERRL, no facial palsy; no dysarthria; Skin- warm & dry Results & Data Results & Data Vital Signs (Past 12 Hours) Vital Signs Temp Pulse Resp BP Pulse Ox O2 Del Method 06/14/23 02:20 86 06/14/23 01:56 36.9 C 85 18 106/82 98 Room Air Diagnostic Findings Laboratory Results WBC 10.09 K/ul (4.8-10.8) 06/14/23 02:25 RBC 6.84 M/uL (4.70-6.10) H 06/14/23 02:25 Hgb 16.3 g/dl (14.0-18.0) 06/14/23 02:25 Hct 55.4 % (42.0-52.0) H 06/14/23 02:25 MCV 81.0 fL (80.0-100.0) 06/14/23 02:25 MCH 23.8 pg (25.0-34.0) L 06/14/23 02:25 MCHC 29.4 g/dL (32.0-36.0) L 06/14/23 02:25 RDW Std Deviation 54.3 fL (36.4-46.3) H 06/14/23 02:25 RDW Coeff of Silke 20.2 % (11.5-14.5) H 06/14/23 02:25 Plt Count 309 K/uL (130-400) 06/14/23 02:25 MPV 10.8 fL (9.4-12.4) 06/14/23 02:25 Immature Gran % (Auto) 0.2 % 06/14/23 02:25 Neut % (Auto) 64.6 % 06/14/23 02:25 Lymph % (Auto) 20.4 % 06/14/23 02:25 [place] % (Auto) 11.7 % 06/14/23 02:25 Eos % (Auto) 2.4 % 06/14/23 02:25 Baso % (Auto) 0.7 % 06/14/23 02:25 Neut # (Auto) 6.52 K/uL (1.40-6.50) H 06/14/23 02:25 Lymph # (Auto) 2.06 K/uL (1.20-3.40) 06/14/23 02:25 [place] # (Auto) 1.18 K/uL (0.11-0.59) H 06/14/23 02:25 Eos # (Auto) 0.24 K/uL (0.00-0.50) 06/14/23 02:25 Baso # (Auto) 0.07 K/uL (0.00-0.20) 06/14/23 02:25 Immature Gran # (Auto) 0.02 K/uL (0.01-0.20) 06/14/23 02:25 Polychromasia 1+ 06/14/23 02:25 Anisocytosis Present 06/14/23 02:25 PT 14.4 Seconds (9.0-12.0) H 06/14/23 02:25 INR 1.3 (0.9-1.1) H 06/14/23 02:25 APTT 28.4 Seconds (21.0-31.0) 06/14/23 02:25 PTT Ratio 1.0 06/14/23 02:25 Sodium 136 mmol/L (136-145) 06/14/23 02:25 Potassium 3.9 mmol/L (3.5-5.1) 06/14/23 02:25 Chloride 99 mmol/L (98-107) 06/14/23 02:25 Carbon Dioxide 27 mmol/L (21-32) 06/14/23 02:25 Anion Gap 10 (3-11) 06/14/23 02:25 BUN 25 mg/dl (6-23) H 06/14/23 02:25 Creatinine 1.50 mg/dl (0.6-1.4) H 06/14/23 02:25 Est Cr Clr Drug Dosing 57.6 ml/min 06/14/23 02:25 Est GFR ( Amer) 57.0 ml/min 06/14/23 02:25 Est GFR (Non-Af Amer) 49.2 ml/min 06/14/23 02:25 BUN/Creatinine Ratio 16.7 (10-20) 06/14/23 02:25 Glucose 102 mg/dl (70-99(Fasting)) H 06/14/23 02:25 Calcium 10.1 mg/dl (8.6-10.3) 06/14/23 02:25 Total Bilirubin 1.6 mg/dl (0.2-1.0) H 06/14/23 02:25 AST 33 U/L (13-39) 06/14/23 02:25 ALT 26 U/L (7-52) 06/14/23 02:25 Alkaline Phosphatase 72 U/L (34-104) 06/14/23 02:25 Troponin I High Sens 19.7 pg/ml (0-20) 06/14/23 02:25 B-Natriuretic Peptide > 4700 pg/ml (0-100) H 06/14/23 02:25 Total Protein 8.0 gm/dl (6.0-8.3) 06/14/23 02:25 Albumin 4.7 gm/dl (3.4-5.0) 06/14/23 02:25 Globulin 3.3 gm/dl (2.5-4.0) 06/14/23 02:25 Albumin/Globulin Ratio 1.4 (0.9-2) 06/14/23 02:25 ECG Additional Comments: ECG. Atrial fibrillation with PVCs at a rate of 90. No significant change was found Code Status & VTE Plan VTE Prophylaxis Plan VTE Prophylaxis will be ordered: Yes
[2023-06-14] MEDS ORDERED: NITROGLYCERIN SL 0.4 MG/TAB TAB SL PRN (07:03)
[2023-06-14] MEDS ORDERED: ACETAMINOPHEN 325 MG TAB PO PRN (07:03)
[2023-06-14] MEDS ORDERED: ALBUTEROL HFA 8 GM INHALER INH PRN (07:03)
[2023-06-14] MEDS ORDERED: LORATADINE 10 MG TAB PO PRN (07:03)
[2023-06-14] MEDS ORDERED: POLYETHYLENE (MIRALAX) 17 GM PACK PO PRN (07:03)
--- NOTE | 2023-06-14 07:13 | XRay Report ---
XR chest 1V portable CLINICAL HISTORY: Dyspnea TECHNIQUE: Single frontal radiograph of the chest was obtained. Comparison: Comparison is made to chest radiograph 02/28/2023 FINDINGS: Pacemaker defibrillator is seen. Cardiomegaly is noted. The lungs are clear. No evidence of pleural e ffusion or pneumothorax. IMPRESSION: No acute chest disease. ACT 112: Negative or not required by law. Electronically signed by: Tomy Langley M.D. 06/14/2023 7:12 AM
--- NOTE | 2023-06-14 08:27 | Cardiology Consultation ---
Date of Consultation June 14, 2023 Assessment & Plan (1) Heart failure, systolic, with acute decompensation: (2) Persistent atrial fibrillation: (3) Atrial enlargement, left: (4) Nonobstructive atherosclerosis of coronary artery: (5) Monoallelic mutation of TTN gene: (6) Hypertension: Supervising Physician Co-Signing Physician Notes Attending Staff: Pt seen and evaluated with [facility] staff Concur with observations and plans 63 yo man presenting with worsening dyspnea and LE edema Dx: acute on chronic combined CHF * NICMP (2017) * TTN+ * Cath 2017 - Nonobstructive CAD * LVEF 25-30% * ICD * Chronic Afib Plans: * Diurese * Lasix 80 mg IV BID * Goal is -2 liters per day * Cm Hose * K+ goal 4.5-5 * Mag goal >2 * Check PM electrolytes * Continue Entresto 24/26 mg po BID * Start Aldactone 12.5 mg po per day * Stop Lopressor 100 mg po BID * Start Toprol 100 mg po per day * + Afib - rate controlled * Continue DOAC * Restart Jardiance 10 mg po per day Sharif Davis History of Present Illness Reason for Consultation: Acute systolic heart failure Requesting Physician: Dr. Chandler Attending Physician: Dr. Estevez History of Present Illness 63-year-old male presenting to the ER via personal vehicle with acute on chronic shortness of breath, orthopnea, and PND following worsening lower extremity peripheral edema and weight gain despite self titration of oral furosemide. - Chest x-ray showed an enlarged cardiac silhouette without pulmonary edema or pleural effusion, without acute process. - B natruretic peptide elevated greater than 4700 pg/mL. - High-sensitivity troponin negative 19.7 - 13.8 pg/mL. - EKG: Atrial fibrillation at 90 bpm with premature ventricular or aberrantly conducted complexes, low voltage QRS. Cannot rule out an old anterior infarct. QTc 481 ms. - Telemetry: Atrial fibrillation in the 80s Problem List: Nonischemic cardiomyopathy, initially diagnosed in 2017 TTN positive, 01/2023 genetic testing February 07, 2017 Coronary Angiography ([facility], Dr. Bocanegra): Mild nonobstructive CAD (20% proximal LAD, 30% mid LAD, 10% distal LAD, 30% proximal RCA, right dominant coronary anatomy). Mild pulmonary hypertension. Elevated PCWP and LVEDP = 19 mmHg LVEF 25 to 29% via cardiac MRI in March 2022 Nonischemic nuclear stress testing last in October 2021 NYHA Class III Status post April 01, 2022 Medtronic single-chamber ICD implantation Persistent atrial fibrillation with resting echocardiography revealing a severely enlarged left atrium, treated with rate control and Eliquis anticoagulation Hypertension Abnormal LFTs Secondary polycythemia History of MACHADO History of hyperkalemia Covid-19 May 2023 Social History. . No smoking. Chews 1 can/week. No alcohol use. No drug use. Family History. Father had prostate cancer at age 78. Diabetes. CHF. Hypertension. Mother had [place]. Brother had heart disorder. Allergies Allergy/AdvReac Type Severity Reaction Status Date / Time Sulfa (Sulfonamide Allergy Mild Fever Verified 06/14/23 02:16 Antibiotics) coumadin Allergy Severe skin Uncoded 06/14/23 02:16 sloughing off Home Medications Medication Instructions Recorded Confirmed Type apixaban 5 mg tablet (Eliquis) 5 mg PO BID 05/12/18 06/14/23 History magnesium oxide 400 mg PO QAM 05/12/18 06/14/23 History empagliflozin 10 mg tablet 10 mg PO QAM 02/28/23 06/14/23 History (Jardiance) loratadine 10 mg tablet 10 mg PO DAILY PRN Allergy Symptoms 02/28/23 06/14/23 History omeprazole 20 mg capsule,delayed 20 mg PO DAILYBB 02/28/23 06/14/23 History release sacubitril 24 mg-valsartan 26 mg 1 tab PO BID 02/28/23 06/14/23 History tablet (Entresto) spironolactone 25 mg tablet 12.5 mg (1/2 x 25 mg) PO DAILY #30 03/02/23 06/14/23 Rx tabs albuterol sulfate 90 mcg/actuation 2 puff inhalation Q4 PRN wheezing 06/14/23 06/14/23 History aerosol inhaler or dyspnea furosemide 20 mg tablet 20 mg PO QAM as directed 06/14/23 06/14/23 History metoprolol succinate 100 mg 100 mg PO AMHS 06/14/23 06/14/23 History tablet,extended release 24 hr ajrlhrsn-[id number]-iwifq 300 mcg-K 60 1 tab PO DAILY 06/14/23 06/14/23 History mcg-lycop 600 mcg-lutein 300 mcg tablet (Centrum Silver Men) Patient History Medical History Acute on chronic heart failure with reduced ejection fraction and diastolic dysfunction NICM (nonischemic cardiomyopathy) Permanent atrial fibrillation MACHADO (nonalcoholic steatohepatitis) Unilateral inguinal hernia Secondary polycythemia Ventricular tachycardia Elevated hemoglobin History of colon polyps Fatty liver "CAUSED FROM AMIODARONE" Diverticulitis History of separation anxiety "WHEN AWAY FROM " Hypertension Asthma NO INHALER USED SOB (shortness of breath) Surgical History History of cardiac defibrillator placement 04/01/22 [facility], [place]ORD[place] History of amputation LEFT THUMB History of arthroscopy KNEE History of herniorrhaphy History of colonoscopy History of tooth extraction History of cardiac cath 01/2017 (NO STENTS) Family History Father Family history of diabetes mellitus Mother Heart disorder Social History Smoking Status: Never smoker Tobacco Type: Smokeless Tobacco (Dip or Chew) Second Hand Exposure: No; Do You Dip or Chew Tobacco: Yes; Tobacco Cessation Education Requested by Patient: No Hx Alcohol Use: No Hx Substance Use: No Preferred Language: Venezuelan Communication Ability: Effective Developmental Behavioral Physician Required: No Beliefs That Will Affect Care: None Current Living Situation: Spouse 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[employer], [employer] Other Information That Helps Us Care for You: No Feels Safe at Home: Yes Safety Concerns: Feels Safe At This Time Assistive Devices: Glasses Review of Systems Review of Systems: Complete review of systems is otherwise as stated above, negative, noncontributory Physical Exam Physical Exam: Overweight JVP to just under jaw S1S2 Soft 2/6 systolic murmur CTA B 1+ Bilateral LE edema Warm and perfusing Results & Data Vital Signs (Past 12 Hours) Vital Signs Temp Pulse Pulse Resp BP BP Pulse Ox 06/14/23 07:00 06/14/23 07:00 36.6 C 87 18 100/77 99 06/14/23 06:08 70 06/14/23 05:00 81 14 101/73 94 06/14/23 03:52 68 14 102/68 95 06/14/23 02:20 86 06/14/23 01:56 36.9 C 85 18 106/82 98 06/14/23 01:52 O2 Del Method 06/14/23 07:00 Room Air 06/14/23 07:00 Room Air 06/14/23 06:08 06/14/23 05:00 06/14/23 03:52 Room Air 06/14/23 02:20 06/14/23 01:56 Room Air 06/14/23 01:52 Room Air Laboratory Results Cardiac Enzymes 06/14/23 06/14/23 Range/Units 02:25 07:50 AST 33 (13-39) U/L Troponin I High Sens 19.7 13.8 D (0-20) pg/ml B-Natriuretic Peptide > 4700 H (0-100) pg/ml Coagulation 06/14/23 Range/Units 02:25 PT 14.4 H (9.0-12.0) Seconds APTT 28.4 (21.0-31.0) Seconds B-Natriuretic Peptide > 4700 H (0-100) pg/ml CBC 06/14/23 06/14/23 Range/Units 02:25 07:50 WBC 10.09 10.55 (4.8-10.8) K/ul RBC 6.84 H 6.20 H (4.70-6.10) M/uL Hgb 16.3 14.7 (14.0-18.0) g/dl Hct 55.4 H 49.6 (42.0-52.0) % Plt Count 309 320 (130-400) K/uL Neut # (Auto) 6.52 H 7.78 H (1.40-6.50) K/uL Lymph # (Auto) 2.06 1.32 (1.20-3.40) K/uL [place] # (Auto) 1.18 H 1.26 H (0.11-0.59) K/uL Eos # (Auto) 0.24 0.12 (0.00-0.50) K/uL Baso # (Auto) 0.07 0.05 (0.00-0.20) K/uL Comprehensive Metabolic Panel 06/14/23 06/14/23 Range/Units 02:25 07:50 Sodium 136 138 (136-145) mmol/L Potassium 3.9 4.0 (3.5-5.1) mmol/L Chloride 99 101 (98-107) mmol/L Carbon Dioxide 27 28 (21-32) mmol/L BUN 25 H 24 H (6-23) mg/dl Creatinine 1.50 H 1.36 (0.6-1.4) mg/dl Glucose 102 H 107 H (70-99(Fasting)) mg/dl Calcium 10.1 9.4 (8.6-10.3) mg/dl AST 33 (13-39) U/L ALT 26 (7-52) U/L Alkaline Phosphatase 72 (34-104) U/L Total Protein 8.0 (6.0-8.3) gm/dl Albumin 4.7 (3.4-5.0) gm/dl Intake and Output 06/13/23 06/14/23 06/14/23 22:59 06:59 14:59 Other: Weight 96.7 kg 96.3 kg Weight Measurement Method Standing Scale Patient Weight 06/15/23 06:59 Weight 96.3 kg Diagnostic Findings Device interrogation on March 06, 2023 personally reviewed. Single lead Medtronic ICD with backup pacemaker set at VVI 40 bpm. Remaining longevity: 10.9 years. Persistent atrial fibrillation with average heart rates between 60 and 100 bpm. Ventricular paced 0.4%. 1 episode of nonsustained ventricular tachycardia. February 28, 2023 TTE Interpretation Summary ([facility], Dr. Bocanegra): Moderately dilated LV. Severely reduced LV systolic function. EF 20 to 25%. Severe global hypokinesis of the LV. Mildly dilated RV. Reduced RV systolic function by TAPSE. Mild aortic valve sclerosis without significant stenosis. Moderate mitral regurgitation. Moderate tricuspid regurgitation. Estimated systolic pulmonary pressure 44 mmHg. Medications Administered Current Inpatient Medications Acetaminophen (Acetaminophen 325 Mg Tab) 650 mg PO Q4H PRN PRN Reason: Pain or Fever Stop: 07/14/23 07:02 Albuterol (Albuterol Hfa 8 Gm Inhaler) 2 puffs INH Q4 PRN PRN Reason: wheezing or dyspnea Stop: 07/14/23 07:02 Apixaban (Apixaban 5 Mg Tablet) 5 mg PO BID CASSANDRA Stop: 07/14/23 08:59 Last Admin: 06/14/23 09:13 Dose: 5 mg Furosemide (Furosemide 40 Mg/4 Ml Vial) 40 mg IV BID17 [facility] Stop: 07/14/23 08:59 Last Admin: 06/14/23 09:14 Dose: 40 mg Loratadine (Loratadine 10 Mg Tab) 10 mg PO DAILY PRN PRN Reason: Allergy Symptoms Stop: 07/14/23 07:02 Magnesium Oxide (Magnesium Oxide 400 Mg Tab) 400 mg PO QAM CASSANDRA Stop: 07/14/23 08:59 Last Admin: 06/14/23 09:13 Dose: 400 mg Metoprolol Succinate (Metoprolol Succ 50mg Ext Rel Tab) 100 mg PO BID CASSANDRA Stop: 07/14/23 08:59 Last Admin: 06/14/23 09:12 Dose: 100 mg Multivitamins/Minerals (Cerovite Adv Formula Tab) 1 tab PO DAILY CASSANDRA Stop: 07/14/23 08:59 Last Admin: 06/14/23 09:13 Dose: 1 tab Nitroglycerin (Nitroglycerin Sl 0.4 Mg/Tab Tab) 0.4 mg SL Q5M PRN PRN Reason: Chest Pain Stop: 07/14/23 07:02 Pantoprazole Sodium (Pantoprazole 40 Mg Tab) 40 mg PO DAILYBB [facility] Stop: 07/14/23 07:44 Last Admin: 06/14/23 09:13 Dose: 40 mg Polyethylene Glycol (Polyethylene (Miralax) 17 Gm Pack) 17 gm PO DAILY PRN PRN Reason: Constipation Stop: 07/14/23 07:02 Sacubitril/Valsartan (Valsartan/Sacubitril 26/24mg Tab) 1 tab PO BID CASSANDRA Stop: 07/14/23 08:59 Last Admin: 06/14/23 09:13 Dose: 1 tab Spironolactone (Spironolactone 12.5 Mg Tab) 12.5 mg PO DAILY CASSANDRA Stop: 07/14/23 08:59 Last Admin: 06/14/23 09:25 Dose: Not Given
[2023-06-14 08:31] LABS: Basophils # (auto) 0.05 K/uL (0.00-0.20); Basophils % (auto) 0.5 %; Eosinophils # (auto) 0.12 K/uL (0.00-0.50); Eosinophils % (auto) 1.1 %; Hematocrit (blood only) 49.6 % (42.0-52.0); Hemoglobin 14.7 g/dl (14.0-18.0); Immature Granulocytes # (auto) 0.02 K/uL (0.01-0.20); Immature Granulocytes % (auto) 0.2 %; Lymphocytes # (auto) 1.32 K/uL (1.20-3.40); Lymphocytes % (auto) 12.5 %; Mean Corpuscular Hemoglobin 23.7 pg (25.0-34.0); Mean Corpuscular Hgb Conc 29.6 g/dL (32.0-36.0); Mean Platelet Volume 11.5 fL (9.4-12.4); Monocytes # (auto) 1.26 K/uL (0.11-0.59); Monocytes % (auto) 11.9 %; Neutrophils # (auto) 7.78 K/uL (1.40-6.50); Neutrophils % (auto) 73.8 %; Platelet Count 320 K/uL (130-400); RDW Coefficient of Variation 19.8 % (11.5-14.5); RDW Standard Deviation 52.8 fL (36.4-46.3); White Blood Count 10.55 K/ul (4.8-10.8)
[2023-06-14 08:35] LABS: BUN Creatinine Ratio 17.6 (10-20); Calcium 9.4 mg/dl (8.6-10.3); Creatinine Clr Calc Pharmacy 63.4 ml/min; Est GFR (African American) 64.2 ml/min; Est GFR (Non-African American) 55.4 ml/min; Magnesium 2.3 mg/dl (1.7-2.4)
[2023-06-14 08:41] LABS: Troponin I High Sensitivity 13.8 pg/ml (0-20)
[2023-06-14 08:51] LABS: Estimated Average Glucose 123 mg/dl; Hemoglobin A1C 5.9 % (4.5-5.6)
[2023-06-14] MEDS ORDERED: FUROSEMIDE 40 MG/4 ML VIAL IV SCH (09:00)
[2023-06-14 09:11] LABS: Appearance Urine Clear (Clear); Bilirubin Urine Negative (Negative); Blood Urine Negative (Negative); Color Urine Yellow; Glucose Urine UA 2+ (Negative); Ketones Urine Negative (Negative); Leukocyte Esterase Urine Negative (Negative); Nitrite Urine Negative (Negative); Protein Urine Negative (Negative); Urobilinogen Urine Negative (Negative); pH Urine 5.5 (4.5-7.5)
[2023-06-14] MEDS: METOPROLOL SUCC 50MG EXT REL TAB PO SCH ×2 (09:12→20:23)
[2023-06-14] MEDS: APIXABAN 5 MG TABLET PO SCH ×2 (09:13→20:22)
[2023-06-14] MEDS: VALSARTAN/SACUBITRIL 26/24MG TAB PO SCH ×2 (09:13→20:23)
[2023-06-14] MEDS: CEROVITE ADV FORMULA TAB PO SCH (09:13)
[2023-06-14] MEDS: MAGNESIUM OXIDE 400 MG TAB PO SCH (09:13)
[2023-06-14] MEDS: PANTOprazole 40 MG TAB PO SCH (09:13)
[2023-06-14] MEDS: SPIRONOLACTONE 12.5 MG TAB PO SCH (09:25)
--- NOTE | 2023-06-14 11:05 | Electrocardiogram Report ---
Test Reason : Blood Pressure : / mmHG Vent. Rate : 090 BPM Atrial Rate : 000 BPM P-R Int : 000 ms QRS Dur : 090 ms QT Int : 394 ms P-R-T Axes : 000 035 002 degrees QTc Int : 481 ms Atrial fibrillation with premature ventricular or aberrantly conducted complexes Low voltage QRS Possible Old Anterior infarct (cited on or before 28-FEB-2023) Abnormal ECG When compared with ECG of 28-FEB-2023 07:57, No significant change was found Confirmed by Dickson Waite ([id number]) on 06/14/2023 11:05:04 AM Referred By: REFERRED SELF Confirmed By:Dickson Waite
--- NOTE | 2023-06-14 14:05 | Communication Note ---
Date of Service: June 14, 2023 S: Reports feeling much better, noted improvement in orthopnea O: HDS, no oxygen; labs stable, BNP >4700, 1+ pitting edema around BLE, lungs CTABL A/P: Mr. 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 Patient states he has been working very hard and works with a [employer]--noting not complete dietary compliance. He noted swelling of his legs, but orthopnea was the presenting concern. For over 1 week, he has been taking 40mg lasix rather than 20mg. He reports his dry weight to be around 200lbs and is roughly 212lbs on admission. #Acute on chronic heart failure with reduced ejection fraction *POA #Hypertension ECHO 06/14 20-25%, RV function reduced February 28, 2023 TTE Interpretation Summary ([facility], Dr. Bocanegra): Moderately dilated LV. Severely reduced LV systolic function. EF 20 to 25%. Severe global hypokinesis of the LV. Mildly dilated RV. Reduced RV systolic function by TAPSE. Mild aortic valve sclerosis without significant stenosis. Moderate mitral regurgitation. Moderate tricuspid regurgitation. Estimated systolic pulmonary pressure 44 mmHg. - Home diuretics: Lasix 20mg, currently taking 40mg daily - GDMT: *BetaB: continue home 100mg Metoprolol 100mg BID *RAAS: continue home entresto 26-24 *Dyllan: Start Aldactone 12.5mg daily *SGLT: Restart Jardiance 10mg daily *ICD: Address outpatient - s/p 40mg IV lasix in ED -Continue IV lasix 80mg BID - Strict I/Os, daily weights -Cardiology following #Permanent Atrial Fibrillation Continue metoprolol BID Continue Eliquis Monitor on Tele
[2023-06-14 17:07] LABS: BUN Creatinine Ratio 18.8 (10-20); Calcium 9.3 mg/dl (8.6-10.3); Creatinine Clr Calc Pharmacy 62.5 ml/min; Est GFR (African American) 63.1 ml/min; Est GFR (Non-African American) 54.4 ml/min; Potassium 4.5 mmol/L (3.5-5.1)
[2023-06-14] MEDS: FUROSEMIDE 40 MG/4 ML VIAL IV SCH (17:17)
[2023-06-15] MEDS: PANTOprazole 40 MG TAB PO SCH (05:39)
[2023-06-15 08:15] LABS: Hematocrit (blood only) 47.4 % (42.0-52.0); Hemoglobin 14.9 g/dl (14.0-18.0); Mean Corpuscular Hemoglobin 24.1 pg (25.0-34.0); Mean Corpuscular Hgb Conc 31.4 g/dL (32.0-36.0); Mean Corpuscular Volume 76.6 fL (80.0-100.0); Mean Platelet Volume 10.7 fL (9.4-12.4); Platelet Count 259 K/uL (130-400); RDW Coefficient of Variation 19.8 % (11.5-14.5); RDW Standard Deviation 50.1 fL (36.4-46.3); Red Blood Count 6.19 M/uL (4.70-6.10)
[2023-06-15] MEDS: METOPROLOL SUCC 50MG EXT REL TAB PO SCH ×2 (08:27→20:06)
[2023-06-15] MEDS: APIXABAN 5 MG TABLET PO SCH ×2 (08:27→20:06)
[2023-06-15] MEDS: VALSARTAN/SACUBITRIL 26/24MG TAB PO SCH ×2 (08:27→20:06)
[2023-06-15] MEDS: CEROVITE ADV FORMULA TAB PO SCH (08:28)
[2023-06-15] MEDS: FUROSEMIDE 40 MG/4 ML VIAL IV SCH (08:28)
[2023-06-15] MEDS: MAGNESIUM OXIDE 400 MG TAB PO SCH (08:28)
[2023-06-15] MEDS: SPIRONOLACTONE 12.5 MG TAB PO SCH (08:28)
[2023-06-15] MEDS: EMPAGLIFLOZIN 10 MG TAB PO SCH (08:28)
[2023-06-15 08:47] LABS: Calcium 9.4 mg/dl (8.6-10.3); Creatinine Clr Calc Pharmacy 60.3 ml/min; Est GFR (Non-African American) 53.5 ml/min; Magnesium 2.1 mg/dl (1.7-2.4); Phosphorus 3.7 mg/dl (2.5-4.9); Potassium 4.4 mmol/L (3.5-5.1)
--- NOTE | 2023-06-15 13:01 | Cardiology Progress Note ---
Date of Service June 15, 2023 Assessment & Plan Admission and Anticipated Discharge Date Admission Date: June 14, 2023 Supervising Physician Co-Signing Physician Notes Attending Staff: Pt seen and evaluated with AP staff Concur with observations and plans 63 yo man presenting with worsening dyspnea and LE edema Dx: acute on chronic combined CHF * NICMP (2017) * TTN+ * Cath 2017 - Nonobstructive CAD * LVEF 25-30% * ICD * Chronic Afib Plans: * Diuresing - getting closer to euvolemia * STOP Lasix 80 mg IV BID * START Lasix 80 mg po per day (start on 06/15/2023) * Goal is -2 liters * Cm Hose * K+ goal 4.5-5 * Mag goal >2 * Check PM electrolytes * Continue Entresto 24/26 mg po BID * Increase Aldactone 25 mg po per day * Continue Toprol 100 mg po per day * + Afib - rate controlled * Continue DOAC * Continue Jardiance 10 mg po per day * Pt to follow up with [facility] Cardiology Sharif Davis Subjective Events Overnight: * diuresis overnight - 6 liters out Subjective: * breathing improved Review of Systems Review of Systems: All systems reviewed & are unremarkable except as noted in HPI & below Physical Exam Physical Exam: Overweight JVP just above the clavicles S1S2 Soft 2/6 systolic murmur CTA B 1+ Bilateral LE edema Warm and perfusing Results & Data Vital Signs (Past 12 Hours) Vital Signs Temp Pulse Pulse Resp BP Pulse Ox O2 Del Method 06/15/23 11:00 36.9 C 77 20 119/70 96 Room Air 06/15/23 08:00 37.0 C 74 18 125/63 97 Room Air 06/15/23 07:00 Room Air 06/15/23 07:00 69 06/15/23 03:22 37.5 C 88 20 138/77 96 Room Air Laboratory Results CBC 06/15/23 Range/Units 07:47 WBC 9.60 (4.8-10.8) K/ul RBC 6.19 H (4.70-6.10) M/uL Hgb 14.9 (14.0-18.0) g/dl Hct 47.4 (42.0-52.0) % Plt Count 259 (130-400) K/uL Comprehensive Metabolic Panel 06/14/23 06/15/23 Range/Units 16:17 07:47 Sodium 136 138 (136-145) mmol/L Potassium 4.5 4.4 (3.5-5.1) mmol/L Chloride 100 100 (98-107) mmol/L Carbon Dioxide 29 32 (21-32) mmol/L BUN 26 H 28 H (6-23) mg/dl Creatinine 1.38 1.40 (0.6-1.4) mg/dl Glucose 91 91 (70-99(Fasting)) mg/dl Calcium 9.3 9.4 (8.6-10.3) mg/dl Intake and Output 06/14/23 06/15/23 06/15/23 22:59 06:59 14:59 Intake Total 400 / 750 350 / 750 Output Total 1600 / 6200 2400 / 6200 Balance -1200 / -5450 -2050 / -5450 Intake: Oral 400 / 750 350 / 750 Output: Urine 1600 / 6200 2400 / 6200 Other: Weight 92.3 kg Weight Measurement Method Standing Scale Medications Administered Current Inpatient Medications Acetaminophen (Acetaminophen 325 Mg Tab) 650 mg PO Q4H PRN PRN Reason: Pain or Fever Stop: 07/14/23 07:02 Albuterol (Albuterol Hfa 8 Gm Inhaler) 2 puffs INH Q4 PRN PRN Reason: wheezing or dyspnea Stop: 07/14/23 07:02 Apixaban (Apixaban 5 Mg Tablet) 5 mg PO BID [facility] Stop: 07/14/23 08:59 Last Admin: 06/15/23 08:27 Dose: 5 mg Empagliflozin (Empagliflozin 10 Mg Tab) 10 mg PO DAILY [facility] Stop: 07/15/23 08:59 Last Admin: 06/15/23 08:28 Dose: 10 mg Furosemide (Furosemide 40 Mg/4 Ml Vial) 80 mg IV BID17 [facility] Stop: 07/14/23 16:59 Last Admin: 06/15/23 08:28 Dose: 80 mg Loratadine (Loratadine 10 Mg Tab) 10 mg PO DAILY PRN PRN Reason: Allergy Symptoms Stop: 07/14/23 07:02 Magnesium Oxide (Magnesium Oxide 400 Mg Tab) 400 mg PO QAM [facility] Stop: 07/14/23 08:59 Last Admin: 06/15/23 08:28 Dose: 400 mg Metoprolol Succinate (Metoprolol Succ 50mg Ext Rel Tab) 100 mg PO BID [facility] Stop: 07/14/23 08:59 Last Admin: 06/15/23 08:27 Dose: 100 mg Multivitamins/Minerals (Cerovite Adv Formula Tab) 1 tab PO DAILY [facility] Stop: 07/14/23 08:59 Last Admin: 06/15/23 08:28 Dose: 1 tab Nitroglycerin (Nitroglycerin Sl 0.4 Mg/Tab Tab) 0.4 mg SL Q5M PRN PRN Reason: Chest Pain Stop: 07/14/23 07:02 Pantoprazole Sodium (Pantoprazole 40 Mg Tab) 40 mg PO DAILYBB [facility] Stop: 07/14/23 07:44 Last Admin: 06/15/23 05:39 Dose: 40 mg Polyethylene Glycol (Polyethylene (Miralax) 17 Gm Pack) 17 gm PO DAILY PRN PRN Reason: Constipation Stop: 07/14/23 07:02 Sacubitril/Valsartan (Valsartan/Sacubitril 26/24mg Tab) 1 tab PO BID [facility] Stop: 07/14/23 08:59 Last Admin: 06/15/23 08:27 Dose: 1 tab Spironolactone (Spironolactone 12.5 Mg Tab) 12.5 mg PO DAILY [facility] Stop: 07/14/23 08:59 Last Admin: 06/15/23 08:28 Dose: 12.5 mg
--- NOTE | 2023-06-15 15:12 | Hospitalist Progress Note ---
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 He is being managed for the following: Acute heart failure with reduced ejection fraction Patient came in with shortness of breath, September 2022 echo with EF of 40 to 45%. Patient reports being compliant with medication but states he is not able to maintain dietary compliance due to work condition. 06/14 echo with EF of 20 to 25%, left ventricle is severely dilated. Moderate to severe mitral regurgitation noted. Patient reports improvement in his shortness of breath. Maintain I's and O's. Telemetry monitoring. Cardiology on board, hector, on p.o. Lasix from today. Continue with home Entresto/metoprolol/magnesium oxide Aldactone dose increased to 25 mg daily. Continue with Jardiance and DOAC. Cardiology follow-up on DC. History of permanent atrial fibrillation: Continue with metoprolol and Eliquis. Rate controlled. Hypertension: Continue with/resume home meds as and when able. DVT prophylaxis: Patient already on Eliquis. Disposition: AK with cardiology clearance, likely in next 1 to 2 days. Full code Admission and Anticipated Discharge Date Admission Date: June 14, 2023 Subjective Patient was seen and examined at bedside. Patient was sitting up in chair, patient's at bedside. Patient on room air, NAD, reports improving shortness of breath. Reports feeling better. Reports some dry cough. Denies chest pain or headache or dizziness. Reports eating okay and moving bowels okay. Physical Exam Physical Exam: GENERAL: Alert and oriented x3. NAD, on RA. HEENT: No pallor, no icterus. Pupils equal, round and reactive to light. Oral mucosa moist. NECK: No JVD, no neck masses. HEART: S1 and S2 heard. regular rate and rhythm. No murmur, no gallop. RESPIRATORY SYSTEM: Normal AP diameter. No accessory muscle use. No wheezing, bb crackles. ABDOMEN: Soft, bowel sounds present, nontender, no distention. CENTRAL NERVOUS SYSTEM: No facial droop. Speech is clear. Obeys simple commands. Moves extremities. EXTREMITIES: 1+ ble edema, no erythema seen. Results & Data Results & Data Vital Signs (Past 12 Hours) Vital Signs Temp Pulse Pulse Resp BP Pulse Ox O2 Del Method 06/15/23 11:00 36.9 C 77 20 119/70 96 Room Air 06/15/23 08:00 37.0 C 74 18 125/63 97 Room Air 06/15/23 07:00 Room Air 06/15/23 07:00 69 06/15/23 03:22 37.5 C 88 20 138/77 96 Room Air
[2023-06-15] MEDS ORDERED: FUROSEMIDE 80 MG TAB PO ONE (16:00)
--- OUTSIDE RECORDS SUMMARY | 2023-06-16 00:23 | External Medical Summary | Summary of Care ---
Author Name Unknown Organization [facility] Address [address] [facility] [place] [address] Phone [phone] Care Team Providers Care Hse Manager Name Role Phone Vivi Avina DO Primary Care Provider Encounter Details Date Type Department Care Team (Late st Contact Info) Description 06/09/2023 Telephone Family Practice [facility] [address] [place] [address] Vivi Avina DO 200 [facility] [place] [address] Allergies Active Allergy Reactions Criticality Noted Date Comments Warfarin High 12/29/2021 Skin reaction/slothing off Sulfa Antibiotics 08/26/1999 fever documented as of this encounter (statuses as of 06/09/2023) Medications Medication Sig Dispensed Refills Start Date End Date Status TRIAMCINOLONE ACETONIDE 0.5 % EX CREAIndications:Dyshi drosis Apply to affected area twice a day 60 g 5 03/16/2010 Active Multiple Vitamins-Minerals (CENTRUM SILVER 50+MEN) TABS Take by mouth 1 Tablet daily . 0 Active Magnesium 400 MG Capsule Take 1 Capsule by mouth in the morning. 0 02/10/2017 Active Loratadine 10 MG Oral Tablet (Claritin)Indications :Acute rhinitis,History of 2019 novel coronavirus disease (COVID-19) Take by mouth 1 Tablet before bedtime. x1-2 wks then as needed-otc. 30 Tablet 5 12/08/2021 Active miscellaneous OTC Take 1 Each by mouth in the morning and 1 Each before bedtime. 0 Active Liver Support Sublingual Tablet Sublingual Take by mouth 2 Tablets daily . 0 Active Zinc 50 MG Oral Tablet Take 1 Tablet by mouth in the morning. 0 Active Ventolin HFA 108 (90 Base) MCG/ACT Inhalation Aerosol SolutionIndications:V iral URI with cough,Rales Inhale 2 Puffs by mouth every 4 hours as needed for Wheezing or Dyspnea. 1 g 0 09/15/2022 Active Sildenafil Citrate 50 MG Oral TabletIndications:Ere ctile dysfunction TAKE 1/2 TABLET BY MOUTH 1 HOUR BEFORE SEXUAL ACTIVITY 30 Tablet 5 09/23/2022 Active Eliquis 5 MG Oral Tablet (Apixaban)Indications :Paroxysmal atrial fibrillation (HCC) take 1 tablet by mouth twice a day 180 Tablet 3 10/06/2022 Active Jardiance 10 MG Oral Tablet (Empagliflozin)Indica tions:Ejection fraction < 50%,NICM (nonischemic cardiomyopathy) (HCC),Persistent atrial fibrillation (HCC) take 1 tablet by mouth every morning 90 Tablet 3 11/22/2022 Active Omeprazole 20 MG Oral Capsule Delayed Release (PriLOSEC)Indications :Gastroesophageal reflux disease with esophagitis without hemorrhage Take 1 Capsule by mouth in the morning. 1 hour before the first meal of the day. 30 Capsule 5 02/15/2023 Active Entresto 24-26 MG Oral Tablet (sacubitril-valsartan 24-26 mg per tab)Indications:HTN, goal below 140/90,Permanent atrial fibrillation (HCC) take 1 tablet by mouth every morning and 1 tablet by mouth BEFORE BEDTIME 60 Tablet 11 04/09/2023 Active Furosemide 20 MG Oral Tablet (Lasix) Take 1 Tablet by mouth in the morning. As needed. 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 Increased risk for Cardiomyopathy (CM). Please click the link below for current clinical management recommendations for Hereditary Cardiomyopathy. TTN MACHADO (nonalcoholic steatohepatitis) 01/24/2023 NICM (nonischemic cardiomyopathy) 04/01/2022 Secondary polycythemia 06/05/2020 HTN, goal below 140/90 09/04/2018 Permanent atrial fibrillation 03/14/2017 Ventricular tachycardia 03/14/2017 UNILAT INGUINAL HERNIA documented as of this encounter (statuses as of 06/09/2023) Resolved Problems Problem Noted Date Diagnosed Date Resolved Date Prediabetes 05/10/2022 09/15/2022 Overview: Per Prediabetes protocol Acute systolic congestive heart failure 03/14/2017 09/04/2018 Acute systolic heart failure 03/14/2017 03/14/2017 Paroxysmal atrial fibrillation 05/26/2015 12/29/2021 Varicella without complication 11/19/2002 09/04/2018 documented as of this encounter (statuses as of 06/09/2023) Immunizations Name Administration Dates Next Due Pneumococcal Polysaccharide PPV23 (Pneumovax) 05/17/2017 SEASONAL INFLUENZA, PF, 6 M & Above, IM , (FLULAVAL or FLUZONE) 05/17/2017 Seasonal Influenza, QUAD, wi th Preserv, 6 mons & Above, 0.5 mL, IM 05/02/2018 Seasonal Influenza, Quadriva lent, No Preserve, IM 05/02/2021,05/09/2020,05/15/2016 Seasonal Influenza, Split, I IV3, With Preserve, Inj 05/01/2015,05/01/2013,05/09/2012,05/15 TDAP (age 11 and older)(Adacel) 10/03/2012,10/19 Zoster Vaccine Recombinant (Shingrix) 11/08/2019 ,10/08/2019 documented as of this encounter Social History Tobacco Use Types Packs/Day Years Used Date Smoking Tobacco: Never Smokeless Tobacco: Current Snuff, Chew Comments:1 can per week or l ess Alcohol Use Standard Drinks/Week Comments Not Currently 0 (1 standard drink = 0.6 oz pur e alcohol) Sex and Gender Information Value Date Recorded Sex Assigned at Not on file Gender Identity Not on file Sexual Orientation Not on file Job Start Date Occupation Industry Not on file Not on file Not on file documented as of this encounter Miscellaneous Notes * Telephone Encounter - Heather Jeffries OSA - 06/09/2023 1:21 PM EST Echo images from 10/07/2022 transferred to [facility] via [employer]. documented in this encounter Plan of Treatment Upcoming Encounters Date Type Department Care Team (Late st Contact Info) Description 07/12/2023 3:40 PM EST Office Visit Family Practice [facility] [address] [place] [address] Vivi Avina DO 200 [facility] [place] [address] 07/28/2023 3:00 PM EST Laboratory Laboratory [facility] [address] [facility] [place] [id number] Cat, Lab [facility] [address] [facility] [place] [address] 07/28/2023 3:30 PM EST Hem/Onc Treatment Hematology/Oncology Treatment, [place] [address] [place] [address] Cat, Chair 3 Hem Onc [facility] [address] [facility] [place] [address] 08/03/2023 4:30 PM EST Office Visit Cardiology, [facility] [address] [place] [address] Madiha Bowie IV, MD [address] [place] [address] 12/20/2023 3:15 PM EDT Office Visit Hematology/Oncology [facility] [address] [place] [address] Bryce Crain MD [address] [place] [address] Scheduled Procedures Name Priority Associated Diagnoses Date/Ti me COLONOSCOPY FLEXIBLE PROXIMAL DIAGNOSTIC Recall History of colon polyps Health Maintenance Due Date Last Done Comments COVID-19 Vaccine (#1) 1960 Depression Screening 05/17/2018 05/17/2017 Pneumococcal Vaccine: Pediatrics (0 to 5 Years) and At-Risk Patients (6 to 64 Years) (2 - PCV) 05/17/2018 05/17/2017 DTaP,Tdap,and Td Vaccines (3 - Td or Tdap) 10/03/2022 10/03/2012, 10/19/2006 Influenza Vaccine (FLU shot) (#1) 2023 05/02/2021, 05/09/2020, 05/02/2018, Additional history exists GFR 05/19/2024 05/19/2023, 08/2022, 04/20/2023, Additional history exists Albumin/Creatinine Ratio 02/15/2026 02/15/2023, 09/01 Diabetes Screening 05/19/2026 05/19/2023, 1 , 04/20/2023, Additional history exists COLONOSCOPY-EVERY 5 YRS AGES 18-100 06/19/2026 06/19/2021, 06/19/2021, 06/04/2011 Lipid Panel 08/23/2027 08/23/2022, 09/02, 10/01/2020, Additional history exists Zoster Vaccines Completed 11/08/2019, 10/08/2019 Colonoscopy Discontinued 06/19/2021, 06/01, 06/04/2011 Colorectal Cancer Screening Discontinued Cologuard Discontinued Fecal Occult Blood Test Discontinued GARDASIL-HPV IMMUNIZATION SERIES Aged Out No longer eligible based on patient's age to complete this topic Hepatitis B Aged Out No longer eligi ble based on patient's age to complete this topic MENINGOCOCCAL (MENACTRA/MENVEO) Aged Out No longer eligible based on patient's age to complete this topic Sigmoidoscopy Discontinued documented as of this encounter Medical Devices Implanted Type Area Demand Planning Analyst Device Identifier Shelf Expiration Date Model / Serial / Lot Envelope Antibacteral Tyrx - [id number] Implanted:Qty: 1 on 04/01/2022 by Randa Skelton DO at OR [facility] : CRM [id number] 12/12/2022 [id number] / / [id number] documented as of this encounter Care Teams Hse Manager Relationship Specialty Start Date End Date Vivi Avina DO [address] [place] [address] PCP - General Family Medicine 01/27/17 documented as of this encounter
--- OUTSIDE RECORDS SUMMARY | 2023-06-16 00:23 | External Medical Summary | Summary of Care ---
Author Name Unknown Organization [facility] Address [address] [facility] [place] [address] Phone [phone] Care Team Providers Care Pulp Refiner Operator Name Role Phone Vivi Avina DO Primary Care Provider Reason for Visit * Reason Onset Date Comments No Show 05/24/2023 Phlebotomy Encounter Details Date Type Department Care Team (Late st Contact Info) Description 05/24/2023 Telephone Hematology/Oncology [facility] [place] [address] [facility] [place] [address] Bryce Crain MD [address] [place] [address] No Show (Phlebotomy) Allergies Active Allergy Reactions Criticality Noted Date Comments Warfarin High 12/29/2021 Skin reaction/slothing off Sulfa Antibiotics 08/26/1999 fever documented as of this encounter (statuses as of 05/25/2023) Medications Medication Sig Dispensed Refills Start Date [...] as of this encounter (statuses as of 05/25/2023) Active Problems Problem Noted Date Diagnosed Date Genetic susceptibility to cardiomyopathy 023 Overview: pathogenic TTN gene variant (c.39605+2del, p.?) detected via [employer]. Increased risk for Cardiomyopathy (CM). Please click the link below for current clinical management recommendations for Hereditary Cardiomyopathy. TTN MACHADO (nonalcoholic steatohepatitis) 01/24/2023 NICM (nonischemic cardiomyopathy) 04/01/2022 Secondary polycythemia 06/05/2020 HTN, goal below 140/90 09/04/2018 Permanent atrial fibrillation 03/14/2017 Ventricular tachycardia 03/14/2017 UNILAT INGUINAL HERNIA documented as of this encounter (statuses as of 05/25/2023) Resolved Problems Problem Noted Date Diagnosed Date Resolved Date Prediabetes 05/10/2022 09/15/2022 Overview: Per Prediabetes protocol Acute systolic congestive heart failure 03/14/2017 09/04/2018 Acute systolic heart failure 03/14/2017 03/14/2017 Paroxysmal atrial fibrillation 05/26/2015 12/29/2021 Varicella without complication 11/19/2002 09/04/2018 documented as of this encounter (statuses as of 05/25/2023) Immunizations Name Administration Dates Next Due Pneumococcal [...] encounter Miscellaneous Notes * Telephone Encounter - DOC Zheng - 05/25/2023 9:10 AM EDT Called patient, no answer. Left message to call back to schedule. Will call patient again later today/tomorrow. * Telephone Encounter - DOC Kohler - 05/25/2023 9:05 AM EDT Patient returning missed call. Please advise patient at number [phone]. * Telephone Encounter - DOC Zheng - 05/25/2023 8:54 AM EDT Called patient, no answer. Left message to call back to schedule. Will call patient again later today/tomorrow. * Telephone Encounter - Anna Olguin RN - 05/24/2023 3:56 PM EDT Pt no showed for his labs and phlebotomy today. Please call him to reschedule. He needs: Lab appointment [facility] Phlebotomy appointment (1 hour) Thanks documented in this encounter Plan of Treatment Upcoming Encounters Date Type Department Care Team (Late st Contact Info) Description 07/12/2023 3:40 PM EST Office Visit Family Practice [facility] [place] [address] [place] [address] Vivi Avina DO [address] [place] [address] 08/03/2023 4:30 PM EST Office Visit Cardiology, [facility] [address] [facility] [place] [address] Madiha Bowie IV, MD [address] [place] [address] 12/20/2023 3:15 PM EDT Office Visit Hematology/Oncology [facility] [address] [place] [address] Bryce Crain MD [address] [facility] [place] [address] Scheduled Procedures Name Priority Associated Diagnoses Date/Ti [...] this encounter Medical Devices Implanted Type Area Steel Shot Header Operator Device Identifier Shelf Expiration Date Model / Serial / Lot Envelope Antibacteral Tyrx - [id number] Implanted:Qty: 1 on 04/01/2022 by Randa Skelton DO at OR [facility] [employer] : [facility] [id number] 12/12/2022 CMR6 133 / / [id number] documented as of this encounter Care Teams Pulp Refiner Operator Relationship Specialty Start Date End Date Vivi Avina DO [address] [place] [address] PCP - General Family Medicine 01/27/17 documented as of this encounter
--- OUTSIDE RECORDS SUMMARY | 2023-06-16 00:23 | External Medical Summary | Summary of Care ---
Author Name Unknown Organization [facility] Address [address] [place] [place] [place] [address] Phone [phone] Care Team Providers Care Shoe Trimmer Name Role Phone Vivi Avina DO Primary Care Provider Reason for Visit * Reason Comments Outpatient Testing Encounter Details Date Type Department Care Team (Late st Contact Info) Description 05/31/2023 2:30 PM EDT Laboratory Laboratory [facility] [address] [place] [address] [facility] [address] [place] [address] Secondary polycythemia Allergies Active Allergy Reactions Criticality Noted Date Comments Warfarin High 12/29/2021 Skin reaction/slothing off Sulfa Antibiotics 08/26/1999 fever documented as of this encounter (statuses as of 05/31/2023) Medications Medication Sig Dispensed Refills Start Date [...] as of this encounter (statuses as of 05/31/2023) Active Problems Problem Noted Date Diagnosed Date Genetic susceptibility to cardiomyopathy 023 Overview: pathogenic TTN gene variant (c.46951+2del, p.?) detected via [employer]. Increased risk for Cardiomyopathy (CM). Please click the link below for current clinical management recommendations for Hereditary Cardiomyopathy. TTN MACHADO (nonalcoholic steatohepatitis) 01/24/2023 NICM (nonischemic cardiomyopathy) 04/01/2022 Secondary polycythemia 06/05/2020 HTN, goal below 140/90 09/04/2018 Permanent atrial fibrillation 03/14/2017 Ventricular tachycardia 03/14/2017 UNILAT INGUINAL HERNIA documented as of this encounter (statuses as of 05/31/2023) Resolved Problems Problem Noted Date Diagnosed Date Resolved Date Prediabetes 05/10/2022 09/15/2022 Overview: Per Prediabetes protocol Acute systolic congestive heart failure 03/14/2017 09/04/2018 Acute systolic heart failure 03/14/2017 03/14/2017 Paroxysmal atrial fibrillation 05/26/2015 12/29/2021 Varicella without complication 11/19/2002 09/04/2018 documented as of this encounter (statuses as of 05/31/2023) Immunizations Name Administration Dates Next Due Pneumococcal [...] on file documented as of this encounter Plan of Treatment Upcoming Encounters Date Type Department Care Team (Late st Contact Info) Description 07/12/2023 3:40 PM EST Office Visit Family Practice [facility] [address] [place] [address] Vivi Avina DO 200 [facility] [place] [address] 08/03/2023 4:30 PM EST Office Visit Cardiology, [facility] [address] [facility] [place] [address] Madiha Bowie IV, MD [address] [place] [facility] [place] [address] 12/20/2023 3:15 PM EDT Office Visit Hematology/Oncology [facility] [address] [place] [address] Bryce Crain MD [address] [place] [address] Pending Results Name Type Priority Associated Diagnoses Date /Time CBC WITH WBC DIFFERENTIAL Lab STAT Secondary polycythemia 05/31/2023 3:09 PM EDT CBC Lab STAT Secondary polycythemia 05/31/2023 3:09 PM EDT DIFFERENTIAL, AUTOMATED Lab STAT Secondary polycythemia 05/31/2023 3:09 PM EDT Scheduled Procedures Name Priority Associated Diagnoses Date/Ti [...] this encounter Medical Devices Implanted Type Area Preschool Assistant Teacher Device Identifier Shelf Expiration Date Model / Serial / Lot Envelope Antibacteral Tyrx - [id number] Implanted:Qty: 1 on 04/01/2022 by Randa Skelton DO at OR [facility] [employer] : CRM [id number] 12/12/2022 [id number] / / [id number] documented as of this encounter Visit Diagnoses Diagnosis Secondary polycythemia Polycythemia, secondary documented in this encounter Care Teams Shoe Trimmer Relationship Specialty Start Date End Date Vivi Avina DO [address] [place] [address] PCP - General Family Medicine 01/27/17 documented as of this encounter
--- OUTSIDE RECORDS SUMMARY | 2023-06-16 00:23 | External Medical Summary | Summary of Care ---
Author Name Unknown Organization [facility] Address [address] [facility] [place] [address] Phone [phone] Care Team Providers Care Thread Twister Name Role Phone Vivi Avina DO Primary Care Provider Reason for Visit * Reason Onset Date Comments No Show 05/24/2023 Phlebotomy Encounter Details Date Type Department Care Team (Late st Contact Info) Description 05/24/2023 Telephone Hematology/Oncology [place] 200 [facility] [place] [address] Bryce Crain MD [address] [place] [address] No Show (Phlebotomy) Allergies Active Allergy Reactions [...] cardiomyopathy 023 Overview: 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 Increased risk for Cardiomyopathy (CM). Please click [...] Miscellaneous Notes * Telephone Encounter - DOC Kohler - 05/25/2023 9:05 AM EDT Patient returning missed call. Please advise patient at number [phone]. * Telephone Encounter - DOC Zheng - [...] 3:40 PM EST Office Visit Family Practice [facility] 200 [facility] [place] [address] Vivi Avina, 200 [facility] [place] [address] 08/03/2023 4:30 PM EST Office Visit Cardiology, [facility] 132 [facility] [place] [address] Madiha Bowie IV, MD [address] [place] [address] 12/20/2023 3:15 PM EDT Office Visit Hematology/Oncology [facility] [address] [place] [address] Bryce Crain MD [address] [place] [address] Scheduled Procedures Name Priority Associated Diagnoses Date/Ti [...] this encounter Medical Devices Implanted Type Area Barbering Instructor Device Identifier Shelf Expiration Date Model / Serial / Lot Envelope Antibacteral Tyrx - [id number] Implanted:Qty: 1 on 04/01/2022 by Randa Skelton DO at OR [facility] [employer] : CRM [id number] 12/12/2022 CMRM6 133 / / [id number] documented as of this encounter Care Teams Thread Twister Relationship Specialty Start Date End Date Vivi Avina DO 200 [facility] [place] [address] PCP - General Family Medicine 01/27/17 documented as of this encounter
--- OUTSIDE RECORDS SUMMARY | 2023-06-16 00:23 | External Medical Summary | Summary of Care ---
Author Name Unknown Organization [facility] Address [address] [facility] [place] [address] Phone [phone] Care Team Providers Care Chore Worker Name Role Phone Vivi Avina DO Primary Care Provider Reason for Visit * Reason Onset Date Comments Medical Records Request 06/08/2023 Encounter Details Date Type Department Care Team (Late st Contact Info) Description 06/08/2023 Telephone Family Practice [facility] 200 [facility] [place] [address] Vivi Avina DO 200 [facility] [place] [address] Medical Records Request Allergies Active Allergy Reactions Criticality Noted Date [...] tablet by mouth BEFORE BEDTIME 60 Tablet 04/09/2023 Active Furosemide 20 MG Oral Tablet [...] cardiomyopathy 023 Overview: pathogenic TTN gene variant (c.21239+2del, p.?) detected via Br[employer] Tele[employer]. Increased risk for Cardiomyopathy (CM). Please click [...] encounter Miscellaneous Notes * Telephone Encounter - Palomo Brown RN - 06/09/2023 1:21 PM EST Contacted Heather Jeffries at [facility] who agreed to send echo images from 10/07/22 via [employer]. I printed Echo report and EKG from 05/01/23 and put in an envelop in the accordion man near cardiology/pulmonology at [facility]. Pt notified and prefers to pick it up himself rather than me mail it. . Elpidio Brown RN * Telephone Encounter - Maryan Brooks OSA - 06/08/2023 1:48 PM EST Patient is requesting imaging disc. What type of imaging was done? Echo and EKG When was the imaging done? 05/01/23 and 10/07/22 Where was the imaging done? [facility] Reason for request? Needs images for another appt Patient phone number: [phone] Requesting to be overnighted. And also needs disc to bring with them. [facility] [address] [place] [address] documented in this encounter Plan of Treatment Upcoming Encounters Date Type Department Care Team (Late st Contact Info) Description 07/12/2023 3:40 PM EST Office Visit Family Practice [facility] [place] [address] [place] [address] Vivi Avina DO [address] [place] [address] 07/28/2023 3:00 PM EST Laboratory Laboratory [facility] Maliha Shel[place] [address] [place] [phone] [place], Lab [facility] [address] [place] [address] 07/28/2023 3:30 PM EST Hem/Onc Treatment Hematology/Oncology Treatment, [place] [address] [place] [address] Park, Chair 3 Hem Onc [facility] 200 [facility] [place] [address] 08/03/2023 4:30 PM EST Office Visit Cardiology, [facility] [address] [address] Madiha Bowie IV, MD [address] [place], [place] [address] 12/20/2023 3:15 PM EDT Office Visit Hematology/Oncology [facility] 200 [place] [address] Bryce Crain MD 200 [facility] [place] [address] Scheduled Procedures Name Priority Associated Diagnoses Date/Ti [...] this encounter Medical Devices Implanted Type Area Web Application Tester Device Identifier Shelf Expiration Date Model / Serial / Lot Envelope Antibacteral Tyrx - [id number] Implanted:Qty: 1 on 04/01/2022 by Randa Skelton DO at OR [facility] [employer] : CRM [id number] 12/12/2022 CMRM6 133 / / [id number] documented as of this encounter Care Teams Chore Worker Relationship Specialty Start Date End Date Vivi Avina DO [address] [place] [address] PCP - General Family Medicine 01/27/17 documented as of this encounter
--- OUTSIDE RECORDS SUMMARY | 2023-06-16 00:23 | External Medical Summary | Summary of Care ---
Author Name Unknown Organization [facility] Address [address] [place] [facility] [place] [address] Phone [phone] Care Team Providers Care Complaint Supervisor Name Role Phone Vivi Avina DO Primary Care Provider Reason for Visit * Reason Onset Date Comments Medical Records Request 06/08/2023 Encounter Details Date Type Department Care Team (Late st Contact Info) Description 06/08/2023 Telephone Family Practice [facility] 200 [facility] [place] [address] Vivi Avina DO 200 [facility] [place] [address] Medical Records Request Allergies Active Allergy Reactions Criticality Noted Date Comments Warfarin High 12/29/2021 Skin reaction/slothing off Sulfa Antibiotics 08/26/1999 fever documented as of this encounter (statuses as of 06/08/2023) Medications Medication Sig Dispensed Refills Start Date [...] as of this encounter (statuses as of 06/08/2023) Active Problems Problem Noted Date Diagnosed Date 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 Increased risk for Cardiomyopathy (CM). Please click the link below for current clinical management recommendations for Hereditary Cardiomyopathy. TTN MACHADO (nonalcoholic steatohepatitis) 01/24/2023 NICM (nonischemic cardiomyopathy) 04/01/2022 Secondary polycythemia 06/05/2020 HTN, goal below 140/90 09/04/2018 Permanent atrial fibrillation 03/14/2017 Ventricular tachycardia 03/14/2017 UNILAT INGUINAL HERNIA documented as of this encounter (statuses as of 06/08/2023) Resolved Problems Problem Noted Date Diagnosed Date Resolved Date Prediabetes 05/10/2022 09/15/2022 Overview: Per Prediabetes protocol Acute systolic congestive heart failure 03/14/2017 09/04/2018 Acute systolic heart failure 03/14/2017 03/14/2017 Paroxysmal atrial fibrillation 05/26/2015 12/29/2021 Varicella without complication 11/19/2002 09/04/2018 documented as of this encounter (statuses as of 06/08/2023) Immunizations Name Administration Dates Next Due Pneumococcal [...] encounter Miscellaneous Notes * Telephone Encounter - Maryan Brooks OSA - 06/08/2023 1:48 PM EST Patient is requesting imaging disc. What type of imaging was done? Echo and EKG When was the imaging done? 05/01/23 and 10/07/22 Where was the imaging done? [facility] Reason for request? Needs images for another appt Patient phone number: [phone] Requesting to be overnighted. And also needs disc to bring with them. [facility] [address] [place], [place] [address] documented in this encounter Plan of Treatment Upcoming Encounters Date Type Department Care Team (Late st Contact Info) Description 07/12/2023 3:40 PM EST Office Visit Family Practice [facility] [address] [place] [address] Vivi Avina, 200 [facility] [place] [address] 07/28/2023 3:00 PM EST Laboratory Laboratory [facility] [place] [address] [place] [phone] [place], Lab [facility] 200 Tea [facility] [place] [address] 07/28/2023 3:30 PM EST Hem/Onc Treatment Hematology/Oncology Treatment, [place] [address] [place] [address] Cat, Chair 3 Hem Onc [facility] 200 [facility] [place] [address] 08/03/2023 4:30 PM EST Office Visit Cardiology, [facility] 132 [facility] [place] [address] Madiha Bowie IV, MD [address] [place] [address] 12/20/2023 3:15 PM EDT Office Visit Hematology/Oncology [place] 200 [place] [address] Bryce Crain MD 200 [place] [address] Scheduled Procedures Name Priority Associated Diagnoses Date/Ti [...] this encounter Medical Devices Implanted Type Area Pipe Covering Molder Device Identifier Shelf Expiration Date Model / Serial / Lot Envelope Antibacteral Tyrx - [id number] Implanted:Qty: 1 on 04/01/2022 by Randa Skelton DO at OR [facility] [employer] : CRM [id number] 12/12/2022 CMR6 133 / / [id number] documented as of this encounter Care Teams Complaint Supervisor Relationship Specialty Start Date End Date Vivi Avina DO [address] [place] [address] PCP - General Family Medicine 01/27/17 documented as of this encounter
--- OUTSIDE RECORDS SUMMARY | 2023-06-16 00:23 | External Medical Summary ---
Author Name Unknown Address Unknown Organization K09:[facility] [place] [address] Laboratory Report Ordering Provider Test Date Status GISELA AMOS 05/31/2023 15:09:16 Final Observation Date Value Abnormality Reference (Units ) Status WBC, Total 05/31/2023 15:09:16 10.17 4.00-10.8 0 (K/uL) Final RBC 05/31/2023 15:09:16 6.07 4.50-5.25 (M/uL) Final Hemoglobin 05/31/2023 15:09:16 14.7 14.0-16.8 (g/dL) Final HCT 05/31/2023 15:09:16 47.6 40.0-48.4 (%) Final MCV 05/31/2023 15:09:16 78.4 82.0-99.5 (fL) Final MCH 05/31/2023 15:09:16 24.2 27.0-34.0 (pg) Final MCHC 05/31/2023 15:09:16 30.9 32.0-36.0 (g/dL) Final RDW 05/31/2023 15:09:16 20.8 11.5-15.5 (%) Final Platelets 05/31/2023 15:09:16 222 140-400 (K /uL) Final MPV 05/31/2023 15:09:16 10.6 6.6-11.1 ( fL) Final Performing Location [facility] [place] [address]
--- OUTSIDE RECORDS SUMMARY | 2023-06-16 00:23 | External Medical Summary ---
Author Name Unknown Address Unknown Organization K09:[facility] [place] [address] Laboratory Report Ordering Provider Test Date Status GISELA AMOS 05/31/2023 15:09:16 Final Observation Date Value Abnormality Reference (Units ) Status Nucleated erythrocytes/100 leukocytes [Ratio] in Blood by Automated count 05/31/2023 15:09:16 Final Performing Location [facility] [place] [address]
--- OUTSIDE RECORDS SUMMARY | 2023-06-16 00:23 | External Medical Summary | Summary of Care ---
Author Name Unknown Organization [facility] Address [address] [facility] [place] [place] [address] Phone [phone] Care Team Providers Care Store Administrator Name Role Phone Vivi Avina DO Primary Care Provider Reason for Visit * Reason Comments Procedure HOLD Phlebotomy Encounter Details Date Type Department Care Team (Late st Contact Info) Description 05/31/2023 3:00 PM EDT Hem/Onc Treatment Hematology/Oncology Treatment, [address] [address] Cat Chair 8 Hem Onc [place] 200 [place] [address] Allergies Active Allergy Reactions Criticality Noted Date [...] cardiomyopathy 023 Overview: pathogenic TTN gene variant (c.65542+2del, p.?) detected via [employer]. Increased risk for Cardiomyopathy (CM). Please click [...] on file documented as of this encounter Nursing Notes * Anna Olguin RN - 05/31/2023 3:50 PM EDT Hct=47.6 per verbal from Eva Moore in the lab. Phlebotomy held per orders. Discharged in stable condition. documented in this encounter Plan of Treatment Upcoming Encounters Date Type Department Care Team (Late st Contact Info) Description 07/12/2023 3:40 PM EST Office Visit Family Practice [facility] [address] [place] [address] Vivi Avina DO [address] [place] [address] 07/28/2023 3:00 PM EST Laboratory Laboratory [facility] [address] [place] [phone] [place], Lab [facility] [address] [place] [address] 07/28/2023 3:30 PM EST [facility] [address] [place] [address] Cat, Chair 3 Hem Onc [facility] 200 [facility] [place] [address] 08/03/2023 4:30 PM EST Office Visit Cardiology, [facility] 132 [place] [address] Madiha Bowie IV, MD [address] [place] [address] 12/20/2023 3:15 PM EDT Office Visit Hematology/Oncology [facility] [address] [place] [address] Bryce Crain MD [address] [place] [address] Scheduled Procedures Name Priority Associated Diagnoses Date/Ti [...] this encounter Medical Devices Implanted Type Area Sheet Pile Driver Operator Device Identifier Shelf Expiration Date Model / Serial / Lot Envelope Antibacteral Tyrx - [id number] Implanted:Qty: 1 on 04/01/2022 by Randa Skelton DO at OR [facility] [employer] : CRM [id number] 12/12/2022 [facility] 133 / / [id number] documented as of this encounter Care Teams Store Administrator Relationship Specialty Start Date End Date Vivi Avina DO [address] [place], [place] [phone] PCP - General Family Medicine 01/27/17 documented as of this encounter
--- OUTSIDE RECORDS SUMMARY | 2023-06-16 00:23 | External Medical Summary | Summary of Care ---
Author Name Unknown Organization [facility] Address [address] [facility] [place] [address] Phone [phone] Care Team Providers Care Senior Service Technician Name Role Phone Vivi Avina DO Primary Care Provider Reason for Visit * Reason Onset Date Comments No Show 05/24/2023 Phlebotomy Encounter Details Date Type Department Care Team (Late st Contact Info) Description 05/24/2023 Telephone Hematology/Oncology [place] 200 [facility] [place] [address] Bryce Crain MD [address] [place] [address] No Show (Phlebotomy) Allergies Active Allergy Reactions Criticality Noted Date Comments Warfarin High 12/29/2021 Skin reaction/slothing off Sulfa Antibiotics 08/26/1999 fever documented as of this encounter (statuses as of 05/26/2023) Medications Medication Sig Dispensed Refills Start Date [...] as of this encounter (statuses as of 05/26/2023) Active Problems Problem Noted Date Diagnosed Date 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 Increased risk for Cardiomyopathy (CM). Please click the link below for current clinical management recommendations for Hereditary Cardiomyopathy. TTN MACHADO (nonalcoholic steatohepatitis) 01/24/2023 NICM (nonischemic cardiomyopathy) 04/01/2022 Secondary polycythemia 06/05/2020 HTN, goal below 140/90 09/04/2018 Permanent atrial fibrillation 03/14/2017 Ventricular tachycardia 03/14/2017 UNILAT INGUINAL HERNIA documented as of this encounter (statuses as of 05/26/2023) Resolved Problems Problem Noted Date Diagnosed Date Resolved Date Prediabetes 05/10/2022 09/15/2022 Overview: Per Prediabetes protocol Acute systolic congestive heart failure 03/14/2017 09/04/2018 Acute systolic heart failure 03/14/2017 03/14/2017 Paroxysmal atrial fibrillation 05/26/2015 12/29/2021 Varicella without complication 11/19/2002 09/04/2018 documented as of this encounter (statuses as of 05/26/2023) Immunizations Name Administration Dates Next Due Pneumococcal [...] * Telephone Encounter - DOC Zheng - 05/26/2023 9:44 AM EDT Spoke to patients , she rescheduled labs/phlebotomy for 05/31/23 @ 2:30/ 3:00 pm. * Telephone Encounter - DOC Zheng - 05/25/2023 9:10 AM EDT Called patient, no answer. Left message to call back to schedule. Will call patient again later today/tomorrow. * Telephone Encounter - DOC Kohler - 05/25/2023 9:05 AM EDT Patient returning missed call. Please advise patient at number [phone]. * Telephone Encounter - DOC Zheng - [...] Description 05/31/2023 2:30 PM EDT Laboratory Laboratory [facility] [address] [place] [phone] Cat, Lab [facility] 200 [facility] [place] [address] 05/31/2023 3:00 PM EDT Hem/Onc Treatment Hematology/Oncology Treatment, [place] [address] [facility] [address] [place] [address] Cat, Chair 8 Hem Onc [facility] 200 [facility] [place] [address] 07/12/2023 3:40 PM EST Office Visit Family Practice [facility] 200 [facility] [place] [address] Vivi Avina DO 200 [facility] [place] [address] 08/03/2023 4:30 PM EST Office Visit Cardiology, [facility] [address] [place] [address] Madiha Bowie IV, MD [address] [place], [place] [address] 12/20/2023 3:15 PM EDT Office Visit Hematology/Oncology [facility] 200 [facility] [place] [address] Bryce Crain MD 200 [facility] [place] [address] Scheduled Procedures Name Priority Associated Diagnoses Date/Ti [...] 05/02/2018, Additional history exists GFR 05/19/2024 05/19/2023, 1008/2022, 04/20/2023, Additional history exists Albumin/Creatinine Ratio 02/15/2026 [...] this encounter Medical Devices Implanted Type Area Nursing Techn Device Identifier Shelf Expiration Date Model / Serial / Lot Envelope Antibacteral Tyrx - [id number] Implanted:Qty: 1 on 04/01/2022 by Randa Skelton DO at OR [facility] [employer] : CRM [id number] 12/12/2022 CMRM6 133 / / [id number] documented as of this encounter Care Teams Senior Service Technician Relationship Specialty Start Date End Date Vivi Avina DO [address] [place], [place] [address] PCP - General Family Medicine 01/27/17 documented as of this encounter
--- OUTSIDE RECORDS SUMMARY | 2023-06-16 00:23 | External Medical Summary ---
Author Name Unknown Address Unknown Organization K09:[facility] [place] [address] Laboratory Report Ordering Provider Test Date Status GISELA AMOS 05/31/2023 15:09:16 Final Observation Date Value Abnormality Reference (Units ) Status SYNC LEUKOCYTES IN BLOOD BY AUTOMATED COUNT 05/31/2023 15:09:16 10.17 4.00-10.80 (K/uL) Final Segs 05/31/2023 15:09:16 68.4 40.0-75.0 (%) Final Lymphs % 05/31/2023 15:09:16 15.9 Below low normal 18.0-42.0 (%) Final Monos 05/31/2023 15:09:16 14.1 Above high normal 1.0-11.0 (%) Final Eosinophils 05/31/2023 15:09:16 1.1 0.0-6.0 (%) Final Basos 05/31/2023 15:09:16 0.5 0.0-2.0 (%) Final Absolute Segs 05/31/2023 15:09:16 6.96 1.80-7.70 (K/uL) Final Lymphs, absolute 05/31/2023 15:09:16 1.62 1.00-4.80 (K/ul) Final Monos, Abs 05/31/2023 15:09:16 1.43 Above high normal 0.00-1.10 (K/uL) Final Eos, Abs 05/31/2023 15:09:16 0.11 0.00-0.70 (K/uL) Final Basos, Abs 05/31/2023 15:09:16 0.05 0.00-0.20 (K/uL) Final Performing Location [facility] [place] [address]
--- OUTSIDE RECORDS SUMMARY | 2023-06-16 00:24 | External Medical Summary ---
Author Name Unknown Address Unknown Organization K01:[facility] [facility] [address] [facility] [address] [place] [address] Laboratory Report Ordering Provider Test Date Status GIRISH GONSALES 05/19/2023 16:20:32 Final Observation Date Value Abnormality Reference (Units ) Status BUN 05/19/2023 16:20:32 23 Above high normal 6-20 (mg/dL) Final Creatinine 05/19/2023 16:20:32 1.5 Above high normal 0.6-1.2 (mg/dL) Final Glomerular filtration rate/1.73 sq M.predicted [Volume Rate/Area] in Serum, Plasma or Blood by Creatinine-based formula (CKD-EPI) 05/19/2023 16:20:32 53 Below low normal >=60 (mL/min) Final eGFR is calculated based on the CKD-EPI 2020 equation SODIUM 05/19/2023 16:20:32 137 135-146 (m mol/L) Final Potassium 05/19/2023 16:20:32 5.0 3.5-5.1 (m mol/L) Final Cl 05/19/2023 16:20:32 97 Below low normal 98- 107 (mmol/L) Final CO2 05/19/2023 16:20:32 27 22-32 (mmo l/L) Final Anion gap 05/19/2023 16:20:32 13 7-15 (mmol /L) Final Glucose 05/19/2023 16:20:32 87 70-120 (mg /dL) Final Calcium 05/19/2023 16:20:32 9.7 8.4-10.2 ( mg/dL) Final Performing Location [facility] [place] [facility] [address] [place] [address]
--- OUTSIDE RECORDS SUMMARY | 2023-06-16 00:24 | External Medical Summary | Summary of Care ---
Author Name Unknown Organization [facility] Address [address] [facility] [place] [address] Phone [phone] Care Team Providers Care Respite Care Provider Name Role Phone Vivi Avina DO Primary Care Provider Reason for Visit * Reason Onset Date Comments No Show 05/24/2023 Phlebotomy Encounter Details Date Type Department Care Team (Late st Contact Info) Description 05/24/2023 Telephone Hematology/Oncology [place] 200 [facility] [place] [address] Bryce Crain MD [address] [place] [address] No Show (Phlebotomy) Allergies Active Allergy Reactions [...] cardiomyopathy 023 Overview: pathogenic TTN gene variant (c.34945+2del, p.?) detected via Watchful [employer]. Increased risk for Cardiomyopathy (CM). Please click [...] 3:40 PM EST Office Visit Family Practice [facility] [address] [place] [address] Vivi Avina DO 200 [facility] [place] [address] 08/03/2023 4:30 PM EST Office Visit Cardiology, [facility] [address] Madiha Bowie IV, MD [address] [place], [place] [address] 12/20/2023 3:15 PM EDT Office Visit Hematology/Oncology [facility] [place] [address] [place] [address] Bryce Crain MD 200 [facility] [place] [address] Scheduled Procedures Name Priority Associated Diagnoses Date/Ti [...] this encounter Medical Devices Implanted Type Area Upholstery Sewer Device Identifier Shelf Expiration Date Model / Serial / Lot Envelope Antibacteral Tyrx - [id number] Implanted:Qty: 1 on 04/01/2022 by aRnda Skelton DO at [facility] [employer] : HAYDEE [id number] 12/12/2022 [facility] 133 / / [id number] documented as of this encounter Care Teams Respite Care Provider Relationship Specialty Start Date End Date Vivi Avina DO [address] [address] PCP - General Family Medicine 01/27/17 documented as of this encounter
--- OUTSIDE RECORDS SUMMARY | 2023-06-16 00:24 | External Medical Summary | Summary of Care ---
Author Name Unknown Organization [facility] Address [address] [place] [address] Phone [phone] Care Team Providers Care Check Viewer Name Role Phone Vivi Avina DO Primary Care Provider Reason for Visit * Reason Onset Date Comments Advice 05/17/2023 Encounter Details Date Type Department Care Team Description 05/17/2023 Telephone Cardiology, [facility] [address] [place] [address] Sangeetha Julien CRNP [address] [place] [address] Advice Allergies Active Allergy Reactions Severity Noted Date Comments Warfarin High 12/29/2021 Skin reaction/slothing off Sulfa Antibiotics 08/26/1999 fever documented as of this encounter (statuses as of 05/17/2023) Medications Medication Sig Dispensed Refills Start Date End Date Status TRIAMCINOLONE ACETONIDE 0.5 % EX CREAIndications:Dys hidrosis Apply to affected area twice a day 60 g 5 03/16/2010 Active Multiple Vitamins-Minerals (CENTRUM SILVER 50+MEN) TABS Take by mouth 1 Tablet daily . 0 Active Magnesium 400 MG Capsule Take 1 Capsule by mouth in the morning. 0 02/10/2017 Active Loratadine 10 MG Oral Tablet (Claritin)Indicatio ns:Acute rhinitis,History of 2019 novel coronavirus disease (COVID-19) [...] HFA 108 (90 Base) MCG/ACT Inhalation Aerosol SolutionIndications :Viral URI with cough,Rales Inhale 2 Puffs by mouth every 4 hours as needed for Wheezing or Dyspnea. 1 g 0 09/15/2022 Active Sildenafil Citrate 50 MG Oral TabletIndications:E rectile dysfunction TAKE 1/2 TABLET BY MOUTH 1 HOUR BEFORE SEXUAL ACTIVITY 30 Tablet 5 09/23/2022 Active Eliquis 5 MG Oral Tablet (Apixaban)Indicatio ns:Paroxysmal atrial fibrillation (HCC) take 1 tablet by mouth twice a day 180 Tablet 3 10/06/2022 Active Jardiance 10 MG Oral Tablet (Empagliflozin)Ana M cations:Ejection fraction < 50%,NICM (nonischemic cardiomyopathy) (HCC),Persistent atrial fibrillation (HCC) take 1 tablet by mouth every morning 90 Tablet 3 11/22/2022 Active Omeprazole 20 MG Oral Capsule Delayed Release (PriLOSEC)Indicatio ns:Gastroesophageal reflux disease with esophagitis without hemorrhage Take 1 Capsule by mouth in the morning. 1 hour before the first meal of the day. 30 Capsule 5 02/15/2023 Active Entresto 24-26 MG Oral Tablet (sacubitril-valsart an 24-26 mg per tab)Indications:HTN , goal below 140/90,Permanent atrial fibrillation (HCC) take [...] BEFORE BEDTIME 180 Tablet 3 04/18/2023 Active Nirmatrelvir&Ritona vir 300/100 20 x 150 MG & 10 x 100MG Oral Tablet Therapy Pack (Paxlovid) Take 2 pink tablets of Nirmatrelvir and 1 white tablet of Ritonavir two times a day by mouth. 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 Increased risk for Cardiomyopathy (CM). Please click the link below for current clinical management recommendations for Hereditary Cardiomyopathy. TTN MACHADO (nonalcoholic steatohepatitis) 12/31 NICM (nonischemic cardiomyopathy) 2021 Secondary polycythemia 06/05/2020 HTN, goal below 140/90 09/04/2018 Permanent atrial fibrillation 03/14/2017 Ventricular tachycardia 03/14/2017 UNILAT INGUINAL HERNIA documented as of this encounter (statuses as of 05/17/2023) Resolved Problems Problem Noted Date Resolved Date Prediabetes 05/10/2022 09/15/2022 Overview: Per Prediabetes protocol Acute systolic congestive heart failure 03/14/20 17 09/04/2018 Acute systolic heart failure 03/14/2017 Paroxysmal atrial fibrillation 05/26/2015 0 12/29/2021 Varicella without complication 11/19/2002 0 09/04/2018 documented as of this encounter (statuses as of 05/17/2023) Immunizations Name Administration Dates Next Due Pneumococcal [...] = 0.6 oz pur e alcohol) Sex Assigned at Date Recorded Not on file Job Start Date Occupation Industry Not on file Not on file Not on file documented as of this encounter Miscellaneous Notes * Telephone Encounter - DOC Lizarraga - 05/17/2023 11:22 AM EDT Pt called again I made him appt for 2 days sooner with Toshia Pt aware he is on fast pass for other cxld appts Thank you DOC Lizarraga * Telephone Encounter - DOC Thomas - 05/17/2023 8:41 AM EDT Pt's is calling. Concerned about legs and feet swelling.Would like to talk to someone before his upcoming appt on the . thinks it could be medication. Recently had covid and RSV. documented in this encounter Plan of Treatment Upcoming Encounters Date Type Specialty Care Team Description 05/24/2023 Office Visit Cardiology Toshia Mendoza CRNP [address] [facility] [place] [address] 05/24/2023 Laboratory Laboratory Cat, Lab Scenery [address] [facility] [place] [address] 05/24/2023 Hem/Onc Treatment Hematology Oncology [place], Chair 8 Hem Onc Scenery [address] [place] [address] 07/12/2023 Office Visit Family Medicine Vivi Avina DO [address] [place] [address] 08/03/2023 Office Visit Cardiology Madiha Bowie IV, MD [address] [place] [address] 12/20/2023 Office Visit Hematology Oncology Bryce Crain MD [address] [place] [address] Scheduled Procedures Name Priority Associated Diagnoses Date/Ti [...] 05/02/2021, 05/09/2020, 05/02/2018, Additional history exists GFR 05/01/2024 05/01/2023, 04/02, 03/25/2023, Additional history exists Albumin/Creatinine Ratio 02/15/2026 02/15/2023, 09/01 Diabetes Screening 05/01/2026 05/01/2023, 0 04/20/2023, 03/25/2023, Additional history exists COLONOSCOPY-EVERY 5 YRS AGES [...] this encounter Medical Devices Implanted Type Area Human Resources Operations Manager Device Identifier Shelf Expiration Date Model / Serial / Lot Envelope Antibacteral Tyrx - [id number] Implanted:Qty: 1 on 04/01/2022 by Randa Skelton DO at OR [facility] [employer] : CRM [id number] 12/12/2022 [id number] 133 / / [id number] documented as of this encounter Additional Health Concerns Infection Onset Date Last Indicated Resolved Time COVID-19 (confirmed) 05/01/2023 05/01/2023 Enterovirus (resp)/Rhinovirus 05/01/2023 05/01/2023 documented as of this encounter Care Teams Check Viewer Relationship Specialty Start Date End Date Vivi Avina DO [address] [place] [address] PCP - General Family Medicine 01/27/17 documented as of this encounter
--- OUTSIDE RECORDS SUMMARY | 2023-06-16 00:24 | External Medical Summary | Summary of Care ---
Author Name Unknown Organization [facility] Address [address] [place] [address] Phone [phone] Care Team Providers Care District Extension Service Agent Name Role Phone Vivi Avina DO Primary Care Provider Reason for Visit * Reason Onset Date Comments Appointment 05/19/2023 Encounter Details Date Type Department Care Team Description 05/19/2023 Telephone Cardiology, [facility] [address] [facility] [place] [address] Vivienne Whyte PA[facility]C [address] [facility] [place] [address] Appointment Allergies Active Allergy Reactions Severity Noted Date Comments Warfarin High 12/29/2021 Skin reaction/slothing off Sulfa Antibiotics 08/26/1999 fever documented as of this encounter (statuses as of 05/20/2023) Medications Medication Sig Dispensed Refills Start Date [...] as of this encounter (statuses as of 05/20/2023) Active Problems Problem Noted Date 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 Increased risk for Cardiomyopathy (CM). Please click the link below for current clinical management recommendations for Hereditary Cardiomyopathy. TTN MACHADO (nonalcoholic steatohepatitis) 12/31 NICM (nonischemic cardiomyopathy) 2021 Secondary polycythemia 06/05/2020 HTN, goal below 140/90 09/04/2018 Permanent atrial fibrillation 03/14/2017 Ventricular tachycardia 03/14/2017 UNILAT INGUINAL HERNIA documented as of this encounter (statuses as of 05/20/2023) Resolved Problems Problem Noted Date Resolved Date Prediabetes 05/10/2022 09/15/2022 Overview: Per Prediabetes protocol Acute systolic congestive heart failure 03/14/2009/04/2018 Acute systolic heart failure 03/14/2017 Paroxysmal atrial fibrillation 05/26/2015 0 12/29/2021 Varicella without complication 11/19/2002 0 09/04/2018 documented as of this encounter (statuses as of 05/20/2023) Immunizations Name Administration Dates Next Due Pneumococcal [...] Miscellaneous Notes * Telephone Encounter - DOC Valerio - 05/20/2023 7:31 AM EDT Pt added to recall list for Dr. Day. * Telephone Encounter - Nash Grissom - 05/19/2023 4:13 PM EDT Follow-up disposition: Return in about 3 months (around 08/19/2023). Check out comments: 3-4 month follow up, Dr. Day- patient preference documented in this encounter Plan of Treatment Upcoming Encounters Date Type Specialty Care Team Description 05/24/2023 Laboratory Laboratory Cat, Lab Scenery [address] [place] [address] 05/24/2023 Hem/Onc Treatment Hematology Oncology [place], Chair 8 Hem Onc Scenery [address] [facility] [address] 07/12/2023 Office Visit Family Medicine Vivi Avina DO [address] [facility] [address] 08/03/2023 Office Visit Cardiology Madiha Bowie IV, MD [address] [place] [address] 12/20/2023 Office Visit Hematology Oncology Bryce Crain MD [address] [place] [address] Scheduled Procedures Name Priority Associated Diagnoses Date/Ti [...] this encounter Medical Devices Implanted Type Area Brine Well Operator Device Identifier Shelf Expiration Date Model / Serial / Lot Envelope Antibacteral Tyrx - [id number] Implanted:Qty: 1 on 04/01/2022 by Randa Skelton DO at [facility] [employer] : CRM [id number] 12/12/2022 [id number] 133 / / [id number] documented as of this encounter Additional Health Concerns Infection Onset Date Last Indicated Resolved Time COVID-19 (confirmed) 05/01/2023 05/01/2023 Enterovirus (resp)/Rhinovirus 05/01/2023 05/01/2023 documented as of this encounter Care Teams District Extension Service Agent Relationship Specialty Start Date End Date Vivi Avina DO [address] [place] [address] PCP - General Family Medicine 01/27/17 documented as of this encounter
--- OUTSIDE RECORDS SUMMARY | 2023-06-16 00:24 | External Medical Summary | Summary of Care ---
Author Name Unknown Organization [facility] Address [address] [facility] [place] [address] Phone [phone] Care Team Providers Care Material Liaison Name Role Phone Vivi Avina DO Primary Care Provider Reason for Visit * Reason Onset Date Comments No Show 05/24/2023 Phlebotomy Encounter Details Date Type Department Care Team (Late st Contact Info) Description 05/24/2023 Telephone Hematology/Oncology [place] [address] [facility] [place] [address] Bryce Crain MD [address] [place] [address] No Show (Phlebotomy) Allergies Active Allergy Reactions Criticality Noted Date Comments Warfarin High 12/29/2021 Skin reaction/slothing off Sulfa Antibiotics 08/26/1999 fever documented as of this encounter (statuses as of 05/24/2023) Medications Medication Sig Dispensed Refills Start Date [...] as of this encounter (statuses as of 05/24/2023) Active Problems Problem Noted Date Diagnosed Date 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 Increased risk for Cardiomyopathy (CM). Please click the link below for current clinical management recommendations for Hereditary Cardiomyopathy. TTN MACHADO (nonalcoholic steatohepatitis) 01/24/2023 NICM (nonischemic cardiomyopathy) 04/01/2022 Secondary polycythemia 06/05/2020 HTN, goal below 140/90 09/04/2018 Permanent atrial fibrillation 03/14/2017 Ventricular tachycardia 03/14/2017 UNILAT INGUINAL HERNIA documented as of this encounter (statuses as of 05/24/2023) Resolved Problems Problem Noted Date Diagnosed Date Resolved Date Prediabetes 05/10/2022 09/15/2022 Overview: Per Prediabetes protocol Acute systolic congestive heart failure 03/14/2017 09/04/2018 Acute systolic heart failure 03/14/2017 03/14/2017 Paroxysmal atrial fibrillation 05/26/2015 12/29/2021 Varicella without complication 11/19/2002 09/04/2018 documented as of this encounter (statuses as of 05/24/2023) Immunizations Name Administration Dates Next Due Pneumococcal [...] encounter Miscellaneous Notes * Telephone Encounter - Anna Olguin RN - 05/24/2023 3:56 PM EDT Pt no showed for his labs and phlebotomy today. Please call him to reschedule. He needs: Lab appointment [facility] Phlebotomy appointment (1 hour) Thanks documented in this encounter Plan of Treatment Upcoming Encounters Date Type Department Care Team (Late st Contact Info) Description 07/12/2023 3:40 PM EST Office Visit Family Practice [facility] [address] [facility] [place] [address] Vivi Avina DO [address] [facility] [place] [address] 08/03/2023 4:30 PM EST Office Visit Cardiology, [facility] [address] [place] [address] Madiha Bowie IV, MD [address] [place], [place] [id number] 12/20/2023 3:15 PM EDT Office Visit Hematology/Oncology [facility] [address] [facility] [place] [address] Bryce Crain MD [address] [facility] [place] [address] Scheduled Procedures Name Priority Associated Diagnoses Date/Ti [...] this encounter Medical Devices Implanted Type Area Flume Ride Operator Device Identifier Shelf Expiration Date Model / Serial / Lot Envelope Antibacteral Tyrx - [id number] Implanted:Qty: 1 on 04/01/2022 by Randa Skelton DO at OR [facility] [employer] : CRM [id number] 12/12/2022 [id number] 133 / / [id number] documented as of this encounter Care Teams Material Liaison Relationship Specialty Start Date End Date Vivi Avina DO [address] [place] [address] PCP - General Family Medicine 01/27/17 documented as of this encounter
--- OUTSIDE RECORDS SUMMARY | 2023-06-16 00:24 | External Medical Summary | Summary of Care ---
Author Name Unknown Organization [facility] Address [address] [facility] [place] [address] Phone [phone] Care Team Providers Care Belt Back Operator Name Role Phone Vivi Avina DO Primary Care Provider Reason for Visit * Reason Onset Date Comments Test Results 05/21/2023 Encounter Details Date Type Department Care Team Description 05/21/2023 Telephone Cardiology, [facility] [address] [facility] [place] [address] Vivienne Whyte PA-C [address] [facility] [place] [address] Test Results Allergies Active Allergy Reactions Severity Noted Date Comments Warfarin High 12/29/2021 Skin reaction/slothing off Sulfa Antibiotics 08/26/1999 fever documented as of this encounter (statuses as of 05/21/2023) Medications Medication Sig Dispensed Refills Start Date [...] as of this encounter (statuses as of 05/21/2023) Active Problems Problem Noted Date 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 Increased risk for Cardiomyopathy (CM). Please click the link below for current clinical management recommendations for Hereditary Cardiomyopathy. TTN MACHADO (nonalcoholic steatohepatitis) 12/31 NICM (nonischemic cardiomyopathy) 2021 Secondary polycythemia 06/05/2020 HTN, goal below 140/90 09/04/2018 Permanent atrial fibrillation 03/14/2017 Ventricular tachycardia 03/14/2017 UNILAT INGUINAL HERNIA documented as of this encounter (statuses as of 05/21/2023) Resolved Problems Problem Noted Date Resolved Date Prediabetes 05/10/2022 09/15/2022 Overview: Per Prediabetes protocol Acute systolic congestive heart failure 03/14/20 17 09/04/2018 Acute systolic heart failure 03/14/2017 Paroxysmal atrial fibrillation 05/26/2015 0 12/29/2021 Varicella without complication 11/19/2002 0 09/04/2018 documented as of this encounter (statuses as of 05/21/2023) Immunizations Name Administration Dates Next Due Pneumococcal [...] encounter Miscellaneous Notes * Telephone Encounter - Yesika Ceballos LPN - 05/21/2023 1:50 PM EDT Mychart * Telephone Encounter - Yesika Ceballos LPN - 05/21/2023 1:50 PM EDT ----- Message from Vivienne Whyte PA-C sent at 05/20/2023 8:36 AM EDT ----- Labs reviewed, slight worsening of kidney function, but not far off baseline. No changes. As discussed, continue furosemide 20 mg daily and contact clinic with any worsening symptoms. documented in this encounter Plan of Treatment Upcoming Encounters Date Type Specialty Care Team Description 05/24/2023 Laboratory Laboratory Cat, Lab Scenery [address] [facility] [place] [address] 05/24/2023 Hem/Onc Treatment Hematology Oncology [place], Chair 8 Hem Onc Scenery [address] [facility] [place] [address] 07/12/2023 Office Visit Family Medicine Vivi Avina DO [address] [place] [address] 08/03/2023 Office Visit Cardiology Madiha Bowie IV, MD [address] [place] [address] 12/20/2023 Office Visit Hematology Oncology Bryce Crain MD [address] [place] [address] Scheduled Procedures Name Priority Associated Diagnoses Date/Ti [...] this encounter Medical Devices Implanted Type Area Director Payment Device Identifier Shelf Expiration Date Model / Serial / Lot Envelope Antibacteral Tyrx - [id number] Implanted:Qty: 1 on 04/01/2022 by Randa Skelton DO at OR [facility] [employer] : HAYDEE [id number] 12/12/2022 [id number] 133 / / [id number] documented as of this encounter Additional Health Concerns Infection Onset Date Last Indicated Resolved Time COVID-19 (confirmed) 05/01/2023 05/01/2023 Enterovirus (resp)/Rhinovirus 05/01/2023 05/01/2023 documented as of this encounter Care Teams Belt Back Operator Relationship Specialty Start Date End Date Vivi Avina DO [address] [place], [place] [id number] PCP - General Family Medicine 01/27/17 documented as of this encounter
--- OUTSIDE RECORDS SUMMARY | 2023-06-16 00:24 | External Medical Summary | Summary of Care ---
Author Name Unknown Organization [facility] Address [address] [facility] [place] [address] Phone [phone] Care Team Providers Care Library Page Name Role Phone Vivi Avina DO Primary Care Provider Reason for Visit * Reason Comments Outpatient Testing Encounter Details Date Type Department Care Team Description 05/19/2023 Laboratory Laboratory, [facility] [address] [place] [address] [facility] [address] [place] [address] NICM (nonischemic cardiomyopathy) (HCC); Presence of automatic cardioverter/defibrillato r (AICD); Persistent atrial fibrillation (HCC); Nonobstructive atherosclerosis of coronary artery Allergies Active Allergy Reactions Severity Noted Date Comments Warfarin High 12/29/2021 Skin reaction/slothing off Sulfa Antibiotics 08/26/1999 fever documented as of this encounter (statuses as of 05/19/2023) Medications Medication Sig Dispensed Refills Start Date [...] as of this encounter (statuses as of 05/19/2023) Active Problems Problem Noted Date 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 Increased risk for Cardiomyopathy (CM). Please click the link below for current clinical management recommendations for Hereditary Cardiomyopathy. TTN MACHADO (nonalcoholic steatohepatitis) 12/31 NICM (nonischemic cardiomyopathy) 2021 Secondary polycythemia 06/05/2020 HTN, goal below 140/90 09/04/2018 Permanent atrial fibrillation 03/14/2017 Ventricular tachycardia 03/14/2017 UNILAT INGUINAL HERNIA documented as of this encounter (statuses as of 05/19/2023) Resolved Problems Problem Noted Date Resolved Date Prediabetes 05/10/2022 09/15/2022 Overview: Per Prediabetes protocol Acute systolic congestive heart failure 03/14/20 17 09/04/2018 Acute systolic heart failure 03/14/2017 Paroxysmal atrial fibrillation 05/26/2015 0 12/29/2021 Varicella without complication 11/19/2002 0 09/04/2018 documented as of this encounter (statuses as of 05/19/2023) Immunizations Name Administration Dates Next Due Pneumococcal [...] Laboratory Laboratory Cat, Lab Scenery [address] [facility] [address] 05/24/2023 Hem/Onc Treatment Hematology Oncology [place], Chair 8 Hem Onc Scenery [address] [facility] [address] 07/12/2023 Office Visit Family Medicine Vivi Avina DO [address] [facility] [address] 08/03/2023 Office Visit Cardiology Madiha Bowie IV, MD [address] [place] [address] 12/20/2023 Office Visit Hematology Oncology Bryce Crain MD [address] [place] [address] Pending Results Name Type Priority Associated Diagnoses Date /Time BASIC METABOLIC PANEL Lab Routine NICM (nonischemic cardiomyopathy) (HCC) Presence of automatic cardioverter/defibrillator (AICD) Persistent atrial fibrillation (HCC) Nonobstructive atherosclerosis of coronary artery 05/19/2023 4:20 PM EDT Scheduled Procedures Name Priority Associated [...] this encounter Medical Devices Implanted Type Area Surgical Garment Assembler Device Identifier Shelf Expiration Date Model / Serial / Lot Envelope Antibacteral Tyrx - [id number] Implanted:Qty: 1 on 04/01/2022 by Randa Skelton DO at OR [facility] [employer] : CRM [id number] 12/12/2022 [id number] 133 / / [id number] documented as of this encounter Visit Diagnoses Diagnosis NICM (nonischemic cardiomyopathy) (HCC) Other primary cardiomyopathies Presence of automatic cardioverter/defibrillator (AICD) Automatic implantable cardiac defibrillator in situ Persistent atrial fibrillation (HCC) Atrial fibrillation Nonobstructive atherosclerosis of coronary artery documented in this encounter Additional Health Concerns Infection Onset Date Last Indicated Resolved Time COVID-19 (confirmed) 05/01/2023 05/01/2023 Enterovirus (resp)/Rhinovirus 05/01/2023 05/01/2023 documented as of this encounter Care Teams Library Page Relationship Specialty Start Date End Date Vivi Avina DO [address] [place] [address] PCP - General Family Medicine 01/27/17 documented as of this encounter
--- OUTSIDE RECORDS SUMMARY | 2023-06-16 00:24 | External Medical Summary | Summary of Care ---
Author Name Unknown Organization [facility] Address [address] [place] [address] Phone [phone] Care Team Providers Care Mental Health Aides Teacher Name Role Phone Vivi Avina DO Primary Care Provider Reason for Visit * Reason Comments Follow Up * Evaluate & Treat - Unlimited Visits (Within 30 days (routine)) - Pending Review Specialty Diagnoses / Procedures Referred By Contact Referred To Contact Cardiovascular Medicine / Cardiology CrossDev MD [address] [place] [address] Referral ID Status Reason Start Date Expiration Date Visits Requested Visits Authorized [id number] Pending Review Second Opinion 05/01/2023 [id number] Encounter Details Date Type Department Care Team Description 05/19/2023 Office Visit Cardiology, [facility] [address] [place] [address] Vivienne Whyte PA-C [address] [place], [place] [address] [place] [address] NICM (nonischemic cardiomyopathy) (HCC)*; Presence of automatic cardioverter/defibrillat or (AICD); Persistent atrial fibrillation (HCC); Nonobstructive atherosclerosis of coronary artery Allergies Active Allergy Reactions Severity Noted Date Comments Warfarin High 12/29/2021 Skin reaction/slothing off Sulfa Antibiotics 08/26/1999 fever documented as of this encounter (statuses as of 05/19/2023) Medications Medication Sig Dispensed Refills Start Date End Date Status TRIAMCINOLONE ACETONIDE 0.5 % EX CREAIndications:D yshidrosis Apply to affected area twice a day 60 g 5 0 Active Multiple Vitamins-Minerals (CENTRUM SILVER 50+MEN) TABS Take by mouth 1 Tablet daily . 0 Active Magnesium 400 MG Capsule Take 1 Capsule by mouth in the morning. 0 7 Active Loratadine 10 MG Oral Tablet (Claritin)Indicat ions:Acute rhinitis,History of 2019 novel coronavirus disease (COVID-19) Take by mouth 1 Tablet before bedtime. x1-2 wks then as needed-otc. 30 Tablet 5 2 Active miscellaneous OTC Take 1 Each by mouth in the morning and 1 Each before bedtime. 0 Active Liver Support Sublingual Tablet Sublingual Take by mouth 2 Tablets daily . 0 Active Zinc 50 MG Oral Tablet Take 1 Tablet by mouth in the morning. 0 Active Ventolin HFA 108 (90 Base) MCG/ACT Inhalation Aerosol SolutionIndicatio ns:Viral URI with cough,Rales Inhale 2 Puffs by mouth every 4 hours as needed for Wheezing or Dyspnea. 1 g 0 3 Active Sildenafil Citrate 50 MG Oral TabletIndications :Erectile dysfunction TAKE 1/2 TABLET BY MOUTH 1 HOUR BEFORE SEXUAL ACTIVITY 30 Tablet 5 3 Active Eliquis 5 MG Oral Tablet (Apixaban)Indicat ions:Paroxysmal atrial fibrillation (HCC) take 1 tablet by mouth twice a day 180 Tablet 3 3 Active Jardiance 10 MG Oral Tablet (Empagliflozin)In dications:Ejectio n fraction < 50%,NICM (nonischemic cardiomyopathy) (HCC),Persistent atrial fibrillation (HCC) take 1 tablet by mouth every morning 90 Tablet 3 3 Active Omeprazole 20 MG Oral Capsule Delayed Release (PriLOSEC)Indicat ions:Gastroesopha geal reflux disease with esophagitis without hemorrhage Take 1 Capsule by mouth in the morning. 1 hour before the first meal of the day. 30 Capsule 5 3 Active Entresto 24-26 MG Oral Tablet (sacubitril-valsa rtan 24-26 mg per tab)Indications:H TN, goal below 140/90,Permanent atrial fibrillation (HCC) take 1 tablet by mouth every morning and 1 tablet by mouth BEFORE BEDTIME 60 Tablet 11 3 Active Furosemide 20 MG Oral Tablet (Lasix) Take 1 Tablet by mouth in the morning. As needed. 90 Tablet 3 3 Active Metoprolol Succinate ER 100 MG Oral Tablet Extended Release 24 Hour (toPROL XL)Indications:NI CM (nonischemic cardiomyopathy) (HCC) take 1 tablet by mouth every morning and 1 tablet by mouth BEFORE BEDTIME 180 Tablet 3 3 Active Nirmatrelvir&Benoit navir 300/100 20 x 150 MG & 10 x 100MG Oral Tablet Therapy Pack (Paxlovid) Take 2 pink tablets of Nirmatrelvir and 1 white tablet of Ritonavir two times a day by mouth. 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 Increased risk for Cardiomyopathy (CM). Please click [...] Tobacco: Never Smokeless Tobacco: Current Snuff, Chew Tobacco Cessation:Ready to Q uit: Not Asked; Counseling Given: Not Answered Comments:1 can per week or less Alcohol Use Standard Drinks/Week Comments Not Currently 0 (1 standard drink = 0.6 oz pur e alcohol) Sex Assigned at Date Recorded Not on file Job Start Date Occupation Industry Not on file Not on file Not on file documented as of this encounter Last Filed Vital Signs Vital Sign Reading Time Taken Comments Blood Pressure 96/72 05/19/2023 3:28 PM EDT Pulse 80 05/19/2023 3:28 PM EDT Temperature - - Respiratory Rate 14 05/19/2023 3:28 PM EDT Oxygen Saturation - - Inhaled Oxygen Concentration - - Weight 92.1 kg (203 lb) 05/19/2023 3:28 PM EDT Height - - Body Mass Index 30.87 09/15/2022 3:50 PM EST documented in this encounter Progress Notes * Vivienne Whyte PA-C - 05/19/2023 3:30 PM EDT Images from the original note were not included. 05/19/2023 Cardiology Follow Up Past Medical History: History of nonischemic cardiomyopathy, ? tachycardic induced- initially diagnosed in 2016, resolvedper echo 10/2017 (55-60%) Further decline in LVEF dated 04/2022 (45%) LVEF 27% per cardiac MRI 03/2022 S/p ICD placement 04/01/[address] Skelton TTN positive, 01/2023 genetic testing Persistent atrial fibrillation, on Eliquis Mild nonobstructive CAD per cardiac catheterization, 2017 Negative nuclear stress 10/2021 HTN Abnormal LFTs Secondary polycythemia History of hyperkalemia MACHADO HPI: Manuel Menendez is a 63 year old male who presents for cardiology follow up. Last seen in clinic 03/2023 by GERTRUDIS Clarke. Since last visit, had ED visit at [facility] on 05/01/23 with shortness of breath, cough, edema, diagnosed with COVID-19, given paxlovid. Prescribed course of prednisone, but never took it. Presents today accompanied by . States he feels better today than he has been, but not at baseline. Since COVID infection, he was experiencing lower extremity edema, says his "toes looked like sausages". Was taking furosemide 20 mg daily. Two days ago he increased his dose on his own to 40 mg in the morning and 20 mg at night. He did this for two days and noticed his edema improved. Today he went back to taking 20 mg daily. Drinks 4-5 bottles of water daily. Has been trying to avoid salty foods. Has shortness of breath with exertion and when coughing a lot. Denies chest pain, palpitations, lightheadedness, syncope. Was attending cardiac rehab, but stopped when he got COVID, plans to return next week. 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 Has been dealing with low blood pressure, states he checks it daily at home and runs 80-100 systolic. He is scheduled to see workers compensation claims adjuster at [facility] on 06/21/23 for second opinion for afib treatment. REVIEW OF SYSTEMS: See HPI for pertinent positives. All others negative other than those noted in the HPI. CONSTITUTIONAL: No change in weight, No weakness, No fatigue and No fevers, No sweats or chills. PULMONARY: No cough, sputum, or hemoptysis, No wheezing, + shortness of breath CARDIOVASCULAR: No chest pain, + dyspnea on exertion, + edema, No palpitations and No syncope. GASTROINTESTINAL: No abdominal pain, No change in bowel habits, No significant heartburn, No nausea, No vomiting, No diarrhea, No constipation, No blood in stools or black tarry stools. No dysphagia. HEMATOLOGIC: No abnormal bleeding and No bruising. NEUROLOGICAL: Normal balance, No headaches and No weakness. Review of patient's allergies indicates: Allergen Reactions Coumadin [Warfarin] Skin reaction/slothing off Sulfa Antibiotics fever Current Outpatient Medications Medication Sig Dispense Refill TRIAMCINOLONE ACETONIDE 0.5 % EX CREA Apply to affected area twice a day 60 g 5 Multiple Vitamins-Minerals (CENTRUM SILVER 50+MEN) TABS Take by mouth 1 Tablet daily . Magnesium 400 MG Capsule Take 1 Capsule by mouth in the morning. Loratadine 10 MG Oral Tablet (Claritin) Take by mouth 1 Tablet before bedtime. x1-2 wks then as needed-otc. 30 Tablet 5 Ventolin HFA 108 (90 Base) MCG/ACT Inhalation Aerosol Solution Inhale 2 Puffs by mouth every 4 hours as needed for Wheezing or Dyspnea. 1 g 0 Sildenafil Citrate 50 MG Oral Tablet TAKE 1/2 TABLET BY MOUTH 1 HOUR BEFORE SEXUAL ACTIVITY 30 Tablet 5 Eliquis 5 MG Oral Tablet (Apixaban) take 1 tablet by mouth twice a day 180 Tablet 3 Jardiance 10 MG Oral Tablet (Empagliflozin) take 1 tablet by mouth every morning 90 Tablet 3 Omeprazole 20 MG Oral Capsule Delayed Release (PriLOSEC) Take 1 Capsule by mouth in the morning. 1 hour before the first meal of the day. 30 Capsule 5 Entresto 24-26 MG Oral Tablet (sacubitril-valsartan 24-26 mg per tab) take 1 tablet by mouth every morning and 1 tablet by mouth BEFORE BEDTIME 60 Tablet 11 Furosemide 20 MG Oral Tablet (Lasix) Take 1 Tablet by mouth in the morning. As needed. 90 Tablet 3 Metoprolol Succinate ER 100 MG Oral Tablet Extended Release 24 Hour (toPROL XL) take 1 tablet by mouth every morning and 1 tablet by mouth BEFORE BEDTIME 180 Tablet 3 miscellaneous OTC Take 1 Each by mouth in the morning and 1 Each before bedtime. (Patient not taking: Reported on 03/15/2023) Liver Support Sublingual Tablet Sublingual Take by mouth 2 Tablets daily . (Patient not taking: Reported on 03/15/2023) Zinc 50 MG Oral Tablet Take 1 Tablet by mouth in the morning. (Patient not taking: Reported on 03/15/2023) No current facility-administered medications for this visit. Past Medical History: Diagnosis Date Asthma Benign neoplasm of colon 06/04/2011 hyperplastic polyp COVID-19 09/15/2022 Measles without complication Mumps without complication Paroxysmal atrial fibrillation (HCC) 05/26/2015 Varicella without complication Family History Problem Relation Age of Onset Heart Disorder Mother mi Diabetes Father Hypertension Father Cancer Father prostrate ca at age 78 Heart Disorder Father chf Thyroid Disorder Brother No Past Hx Brother Heart Disorder Brother No Past Hx Daughter No Past Hx Son Social History Socioeconomic History Marital status: Tobacco Use Smoking status: Never Smokeless tobacco: Current Types: Snuff, Chew Tobacco comments: 1 can per week or less Vaping Use Vaping Use: Never used Substance and Sexual Activity Alcohol use: Not Currently Drug use: No Sexual activity: Yes Partners: Female Other Topics Concern Service No Blood Transfusions No Caffeine Concern No Occupational Exposure No Hobby Hazards No Sleep Concern No Stress Concern No Weight Concern No Special Diet No Back Care No Exercise Yes Comment: karate Seat Belt Yes OBJECTIVE/PHYSICAL EXAMINATION: BP 96/72 | Pulse 80 | Resp 14 | Wt 92.1 kg (203 lb) | BMI 30.87 kg/m | BSA 2.1 m Wt Readings from Last 3 Encounters: 05/19/23 92.1 kg (203 lb) 05/01/23 93 kg (205 lb 0.4 oz) 03/15/23 93.3 kg (205 lb 12 oz) General: No acute distress. A+Ox3. HEENT: Normocephalic. Atraumatic. PERRL. EOMI. Conjunctiva and sclera clear. NECK: No carotid bruits. No JVD. Carotid upstrokes are brisk. Heart: Irregular rhythm. S1 and S2 noted. No murmur. No rubs or gallops. PMI non displaced. Lungs: Clear to auscultation. No wheezes. No rhonchi. No rales. Abdomen: Normal bowel sounds. Soft. Nontender. No masses or organomegaly. No abdominal bruits. Extremities: No edema. No clubbing or cyanosis. Pulses: radial=2/4, posterior tibial=2/4, dorsalis pedis = 2/4. NEURO: No focal deficits. PSYCH: Appropriate affect and insight. DATA Labs & Imaging Reviewed Below: Echo at [facility] 02/28/2023 Echo 09/2022 The examination is adequate to evaluate the referral indication. The qualitative LV ejection fraction is 40-44% (mildly reduced). The left ventricular cavity size is mildly enlarged. The LV wall thickness is normal. There is mild diffuse left ventricular hypokinesis. The left atrium is severely enlarged (>48 ml/m^2,). Mild mitral regurgitation is present. Mild tricuspid regurgitation is present. There is no evidence of pulmonary hypertension. Cardiac MRI 03/2022 1. Cardiac MRI findings of severely reduced left ventricular ejection fraction. There is mild edemanoted on T2 para metric mapping. There is mid wall enhancement noted more prominent in the septal segments. 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 Extracellular volume calculation is 39%. 2. The left ventricular systolic function is severely reduced. The left ventricular cavity size is moderately enlarged. The calculated LV ejection fraction is 27%. 3. The right ventricle is normal in size. The right ventricular systolic function is mildly reduced. The calculated RV ejection fraction is 36%. Nuclear stress 10/2021 Myocardial perfusion imaging without sign of infarct or ischemia. Severe global hypokinesis EF calculated to be 34%. Dilated LV chamber size at rest and at stress, three times daily is unremarkable. Compared to previous study of July 11, 2015: LV systolic function is now severely reduced Echo 09/2021 The primary indication after review was deemed appropriate and the examination was performed. Compared to last available study changes are noted as follows: PASP has decreased. Mildly dilated LV chamber size with normal wall thickness. Mildly reduced LV systolic function with mild global hypokinesis. Calculated LV ejection Fraction = 45% (bi-plane method of discs). Mild mitral regurgitation. Mild tricuspid regurgitation. Severe left atrial enlargement. ASSESSMENT/PLAN: 63 year old year old male 1. NICM (nonischemic cardiomyopathy) (HCC) 2. Presence of automatic cardioverter/defibrillator (AICD) -History of nonischemic cardiomyopathy, ? tachycardic induced- initially diagnosed in 2016, resolved in 2017. -Further decline in 09/2021. Most recent LVEF 27% per cardiac MRI dated 03/2022 (idiopathic NICM per imaging) -S/p ICD placement 04/01/[address] Skelton +Genetic testing (TTN positive) 1. Continue goal-directed medical therapy with Entresto, metoprolol succinate, and Jardiance as ordered. Spironolactone held due to hypotension. 2. Euvolemic on exam, advised to go back to furosemide 20 mg daily and monitor for edema. Repeat BMP today. 3. Continue cardiac rehab 4. CHF education reinforced, low-sodium diet (less than 2g/2000mg daily). Continue daily weights- weigh first thing in the morning after using the bathroom. Should weight increase 3 pounds in 1 day or 5 pounds in 1 week, notify cardiology. 3. Persistent atrial fibrillation (HCC) -[id number] score of 4 (HTN, CHF, CAD, DM). -Ventricular rates well controlled. 1. Continue metoprolol succinate 100 mg twice daily 2. Continue Eliquis 5 mg twice daily 3. Patient has [facility] EP appt in Aug and plans to see [facility] cardiology next month for2nd opinion. 4. Nonobstructive atherosclerosis of coronary artery -Mild nonobstructive CAD per cardiac catheterization, 2016. -Negative nuclear stress 10/2021. Not on ASA as he is on Eliquis DISPOSITION: Follow up 3-4 months or sooner if symptoms worsen/fail to improve. All questions were answered to the patients satisfaction. Patient advised to report to ED with any and all emergencies. The patient agrees to the above plan and will call with additional questions or concerns. Vivienne Whyte PA-C Cardiology, [address] [place] [address] I spent a total of 45 minutes on the date of service in preparation, delivery, and documentation ofthe care provided to Manuel Menendez excluding any time spent in the performance of separately billed services. This chart was completed in part utilizing [employer] Speech Voice Recognition Software. Grammatical errors, random word insertions, pronoun errors, and incomplete sentences are an occasional consequence of this system due to software limitations, ambient noise, and hardware issues. Any formal questions or concerns about the content, text, or information contained within the body of this dictation should be directly addressed to the provider for clarification. documented in this encounter Nursing Notes * Yesika Ceballos LPN - 05/19/2023 3:27 PM EDT Examination Room: 1 Name: Manuel Menendez Date of : 1960 Reason for Visit: Follow up Problems/Concerns: C/o swelling and tired Interim Hosp(s): denies Chest Pain/SOB: denies MyChart Discussed: ALREADY ACTIVE Patient was instructed to not get up on the exam table until directed and assisted by their provider; patient is to remain seated in the chair/ wheelchair/ exam table for fall prevention and safety reasons. Patient is aware to have assistance to step down off exam table with personnel. documented in this encounter Plan of Treatment Upcoming Encounters Date Type Specialty Care Team Description 05/24/2023 Laboratory Laboratory Cat Lab Scenery [address] [facility] [address] [place] [facility] [address] 05/24/2023 Hem/Onc Treatment Hematology Oncology Park, Chair 8 Hem Onc Scenery [address] [facility] [place] [address] 07/12/2023 Office Visit Family Medicine Vivi Avina DO [address] [place] [address] 08/03/2023 Office Visit Cardiology Madiha Bowie IV, MD [address] [place] [address] 12/20/2023 Office Visit Hematology Oncology Bryce Crain MD [address] [place] [address] Pending Results Name Type Priority Associated Diagnoses Date /Time BASIC METABOLIC PANEL Lab Routine NICM (nonischemic cardiomyopathy) (HCC) Presence of automatic cardioverter/defibrillator (AICD) Persistent atrial fibrillation (HCC) Nonobstructive atherosclerosis of coronary artery 05/19/2023 4:20 PM EDT Scheduled Orders Name Type Priority Associated Diagnoses Orde r Schedule BASIC METABOLIC PANEL Lab Routine NICM (nonischemic cardiomyopathy) (HCC) Presence of automatic cardioverter/defibrillator (AICD) Persistent atrial fibrillation (HCC) Nonobstructive atherosclerosis of coronary artery Expected: 05/19/2023, Expires: 05/19/2024 Scheduled Procedures Name Priority Associated Diagnoses Date/Ti [...] this encounter Medical Devices Implanted Type Area Insurance Processing Clerk Device Identifier Shelf Expiration Date Model / Serial / Lot Envelope Antibacteral Tyrx - [id number] Implanted:Qty: 1 on 04/01/2022 by Randa Skelton DO at OR [facility] [employer] : [id number] 12/12/2022 [id number] / [id number] documented as of this encounter Visit Diagnoses Diagnosis NICM (nonischemic cardiomyopathy) (HCC)- Primary Other primary cardiomyopathies Presence of automatic cardioverter/defibrillator (AICD) Automatic implantable cardiac defibrillator in situ Persistent atrial fibrillation (HCC) Atrial fibrillation Nonobstructive atherosclerosis of coronary artery documented in this encounter Additional Health Concerns Infection Onset Date Last Indicated Resolved Time COVID-19 (confirmed) 05/01/2023 05/01/2023 Enterovirus (resp)/Rhinovirus 05/01/2023 05/01/2023 documented as of this encounter Care Teams Mental Health Aides Teacher Relationship Specialty Start Date End Date Vivi Avina DO [address] [place] [facility] [place] [address] PCP - General Family Medicine 01/27/17 documented as of this encounter
--- OUTSIDE RECORDS SUMMARY | 2023-06-16 00:25 | External Medical Summary | Summary of Care ---
Author Name Unknown Organization [facility] Address [address] [facility] [place] [address] Phone [phone] Care Team Providers Care Medical Massage Therapist Name Role Phone Vivi Avina DO Primary Care Provider Reason for Visit * Reason Onset Date Comments Blood Pressure Check 04/20/2023 Encounter Details Date Type Department Care Team Description 04/20/2023 Telephone Family Practice [facility] [place] [address] [facility] [place] [id number] Vivi Avina DO [address] [facility] [place] [address] Blood Pressure Check (/) Allergies Active Allergy Reactions Severity Noted Date Comments Warfarin High 12/29/2021 Skin reaction/slothing off Sulfa Antibiotics 08/26/1999 fever documented as of this encounter (statuses as of 04/22/2023) Medications Medication Sig Dispensed Refills Start Date [...] as of this encounter (statuses as of 04/22/2023) Active Problems Problem Noted Date 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 Increased risk for Cardiomyopathy (CM). Please click the link below for current clinical management recommendations for Hereditary Cardiomyopathy. TTN MACHADO (nonalcoholic steatohepatitis) 12/31 NICM (nonischemic cardiomyopathy) 2021 Secondary polycythemia 06/05/2020 HTN, goal below 140/90 09/04/2018 Permanent atrial fibrillation 03/14/2017 Ventricular tachycardia 03/14/2017 UNILAT INGUINAL HERNIA documented as of this encounter (statuses as of 04/22/2023) Resolved Problems Problem Noted Date Resolved Date Prediabetes 05/10/2022 09/15/2022 Overview: Per Prediabetes protocol Acute systolic congestive heart failure 03/14/20 17 09/04/2018 Acute systolic heart failure 03/14/2017 Paroxysmal atrial fibrillation 05/26/2015 0 12/29/2021 Varicella without complication 11/19/2002 0 09/04/2018 documented as of this encounter (statuses as of 04/22/2023) Immunizations Name Administration Dates Next Due Pneumococcal Polysaccharide PPV23 (Pneumovax) 05/17/2017 Seasonal Influenza, PF, 6 mo ns & Above, IM , (Flulaval) 05/17/2017 Seasonal Influenza, QUAD, wi th Preserv, [...] encounter Miscellaneous Notes * Telephone Encounter - Cami Bird LPN - 04/22/2023 12:22 PM EDT Pt notified via phone and states understanding. Pt is " pretty tired today" occasional dizziness and weakness. Will reduce to MWF as advised and have repeat BMP. * Telephone Encounter - GERTRUDIS Thompson - 04/21/2023 1:16 PM EDT Nursing- please see result note on BMP dated today. Renal function overall stable. BP check yesterday looked okay- BP still on the lower side. If patient is feeling well no changes need made- follow up as scheduled in May. If patient is lightheaded or dizzy/weak reduce lasix to 20 mg MWF only. BMP in 1 week. GERTRUDIS Hoyt * Telephone Encounter - Vivi Avina DO - 04/21/2023 12:09 PM EDT Pt and were worried about symptomatic low BP, and you recommended coming in for nurse check. Here are BP readings. Vivi Avina DO * Telephone Encounter - YOLIS Amaya - 04/20/2023 3:33 PM EDT Pt here for nurse visit for blood pressure check due to elevated blood pressure at last office visit. B/P 102/88 Pulse 90 BP Readings from Last 4 Encounters: 03/29/23 93/60 03/15/23 92/66 03/11/23 102/69 03/07/23 94/62 Please advise documented in this encounter Plan of Treatment Upcoming Encounters Date Type Specialty Care Team Description 05/24/2023 Laboratory Laboratory Cat, Lab Scenery [address] [place] [address] 05/24/2023 Hem/Onc Treatment Hematology Oncology [place], Chair 8 Hem Onc Scenery [address] [place] [address] 05/26/2023 Office Visit Cardiology Sangeetha Julien CRNP [address] [place] [address] 07/12/2023 Office Visit Family Medicine Vivi Avina DO [address] [place] [address] 12/20/2023 Office Visit Hematology Oncology Bryce Crain MD [address] [place] [address] Scheduled Procedures Name Priority Associated Diagnoses Date/Ti [...] 05/02/2021, 05/09/2020, 05/02/2018, Additional history exists GFR 04/20/2024 04/20/2023, 03/02, 03/11/2023, Additional history exists Albumin/Creatinine Ratio 02/15/2026 02/15/2023, 09/01 Diabetes Screening 04/20/2026 04/20/2023, 0 03/25/2023, 03/11/2023, Additional history exists COLONOSCOPY-EVERY 5 YRS AGES [...] this encounter Medical Devices Implanted Type Area Die Baker Device Identifier Shelf Expiration Date Model / Serial / Lot Envelope Antibacteral Tyrx - [id number] Implanted:Qty: 1 on 04/01/2022 by Randa Skelton DO at OR [facility] [employer] : CRM [id number] 12/12/2022 [id number] / / [id number] documented as of this encounter Care Teams Medical Massage Therapist Relationship Specialty Start Date End Date Vivi Avina DO [address] [facility] [place] [address] PCP - General Family Medicine 01/27/17 documented as of this encounter
--- OUTSIDE RECORDS SUMMARY | 2023-06-16 00:25 | External Medical Summary ---
Author Name Unknown Address Unknown Organization K01:[facility] [place] [address] [facility] [place] [address] Laboratory Report Ordering Provider Test Date Status RADHA PEÑA 05/01/2023 03:09:30 Final ADMITTED patient Observation Date Value Abnormality Reference (Units ) Status Adenovirus DNA [Presence] in Nasopharynx by INO with non-probe detection 05/01/2023 03:09:30 Negative Negative Final Human coronavirus 229E RNA [Presence] in Nasopharynx by INO with non-probe detection 05/01/2023 03:09:30 Negative Negative Final Human coronavirus HKU1 RNA [Presence] in Nasopharynx by ION with non-probe detection 05/01/2023 03:09:30 Negative Negative Final Human coronavirus NL63 RNA [Presence] in Nasopharynx by INO with non-probe detection 05/01/2023 03:09:30 Negative Negative Final Human coronavirus OC43 RNA [Presence] in Nasopharynx by INO with non-probe detection 05/01/2023 03:09:30 Negative Negative Final SARS-CoV-2 (COVID-19) RNA [Presence] in Nasopharynx by INO with non-probe detection 05/01/2023 03:09:30 Positive Abnormal Negative Final Coronavirus SARS detected by PCR (amplified probe). Test results reported to [facility]. Human metapneumovirus RNA [Presence] in Nasopharynx by INO with non-probe detection 05/01/2023 03:09:30 Negative Negative Final Rhinovirus+Enterovirus RNA [Presence] in Nasopharynx by INO with non-probe detection 05/01/2023 03:09:30 Positive Abnormal Negative Final Rhinovirus/Enterovirus detec sarah by PCR (amplified probe).

Influenza virus A RNA [Prese nce] in Nasopharynx by INO with non-probe detection 05/01/2023 03:09:30 Negative Negative Final Influenza virus B RNA [Prese nce] in Nasopharynx by INO with non-probe detection 05/01/2023 03:09:30 Negative Negative Final Parainfluenza virus 1 RNA [P resence] in Nasopharynx by INO with non-probe detection 05/01/2023 03:09:30 Negative Negative Final Parainfluenza virus 2 RNA [P resence] in Nasopharynx by INO with non-probe detection 05/01/2023 03:09:30 Negative Negative Final Parainfluenza virus 3 RNA [P resence] in Nasopharynx by INO with non-probe detection 05/01/2023 03:09:30 Negative Negative Final Parainfluenza virus 4 RNA [P resence] in Nasopharynx by INO with non-probe detection 05/01/2023 03:09:30 Negative Negative Final Respiratory syncytial virus RNA [Presence] in Nasopharynx by INO with non-probe detection 05/01/2023 03:09:30 Negative Negative F inal Bordetella pertussis.pertuss is toxin promoter region [Presence] in Nasopharynx by INO with non-probe detection 05/01/2023 03:09:30 Negative Negative Final Chlamydophila pneumoniae DNA [Presence] in Nasopharynx by INO with non-probe detection 05/01/2023 03:09:30 Negative Negative Final Mycoplasma pneumoniae DNA [P resence] in Nasopharynx by INO with non-probe detection 05/01/2023 03:09:30 Negative Negative Final Bordetella parapertussis IS1 001 DNA [Presence] in Nasopharynx by INO with non-probe detection 05/01/2023 03:09:30 Negative Negative F inal
The primers that detect Rhinovirus may cross react with some Enterorviruses. The validation of bronchial specimens, tracheal aspirates, and throats for this assay was developed and performance characteristics determined by [employer]. The validation of alternate specimen types has not been cleared or approved by the [place]. Food and Drug Administration (FDA). It has been determined that such clearance or approval is not necessary. Performing Location [facility] [place] - [facility] [address] [facility] [address] [facility] [address]
--- OUTSIDE RECORDS SUMMARY | 2023-06-16 00:25 | External Medical Summary | Summary of Care ---
Author Name Unknown Organization [facility] Address [address] [place] [address] Phone [phone] Care Team Providers Care Production Dispatcher Name Role Phone Vivi Avina DO Primary Care Provider Reason for Referral * Evaluate & Treat - Unlimited Visits (Within 30 days (routine)) - Pending Review Specialty Diagnoses / Procedures Referred By Contact Referred To Contact Cardiovascular Medicine / Cardiology Dev Coker MD [address] [place] [address] Referral ID Status Reason Start Date Expiration Date Visits Requested Visits Authorized [id number] Pending Review Second Opinion 05/01/[id number] Question Answer Referral Priority Within 30 days (routine) To which of the following clinics are you referring your patient? Arrhythmia/Electrophysiology Clinic Comments Discharge Order Reason for Visit * Reason Comments Edema B/LLE Cold Symptoms * Auth/Cert Specialty Diagnoses / Procedures Referred By Contac t Referred To Contact Referral ID Status Reason Start Date Expiration Date Visits Re quested Visits Authorized [id number] [phone] Encounter Details Date Type Department Care Team Description 05/01/2023 Emergency [facility]) Emergency Department ([facility]) [address] [place] [address] Wes Bean DO [address] [place] [address] COVID-19 virus infection (Primary Dx); SOB (shortness of breath); Rhinovirus infection; Suspected COVID-19 virus infection Allergies Active Allergy Reactions Severity Noted Date Comments Warfarin High 12/29/2021 Skin reaction/slothing off Sulfa Antibiotics 08/26/1999 fever documented as of this encounter (statuses as of 05/01/2023) Medications Medication Sig Dispensed Refills Start Date [...] by mouth. 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 Increased risk for Cardiomyopathy (CM). Please click the link below for current clinical management recommendations for Hereditary Cardiomyopathy. TTN MACHADO (nonalcoholic steatohepatitis) 12/31 NICM (nonischemic cardiomyopathy) 2021 Secondary polycythemia 06/05/2020 HTN, goal below 140/90 09/04/2018 Permanent atrial fibrillation 03/14/2017 Ventricular tachycardia 03/14/2017 UNILAT INGUINAL HERNIA documented as of this encounter (statuses as of 05/01/2023) Resolved Problems Problem Noted Date Resolved Date Prediabetes 05/10/2022 09/15/2022 Overview: Per Prediabetes protocol Acute systolic congestive heart failure 03/14/20 17 09/04/2018 Acute systolic heart failure 03/14/2017 Paroxysmal atrial fibrillation 05/26/2015 0 12/29/2021 Varicella without complication 11/19/2002 0 09/04/2018 documented as of this encounter (statuses as of 05/01/2023) Immunizations Name Administration Dates Next Due Pneumococcal [...] Sign Reading Time Taken Comments Blood Pressure 110/78 05/01/2023 6:03 AM EDT Pulse 99 05/01/2023 6:03 AM EDT Temperature 37 C (98.6 F) 05/01/2023 6:03 AM EDT Respiratory Rate 18 05/01/2023 6:03 AM EDT Oxygen Saturation 97% 05/01/2023 6:03 AM EDT Inhaled Oxygen Concentration - - Weight 93 kg (205 lb 0.4 oz) 05/01/2023 2:50 AM EDT Height - - Body Mass Index 31.17 09/15/2022 3:50 PM EST documented in this encounter Discharge Instructions * Discharge Instructions* Dev Coker MD - 05/01/2023 5:44 AM EDT You were seen in the emergency department and discovered to have a COVID infection. You should continue to monitor you symptoms if you notice it gets more difficult to breath or worsening of symptomsyou should return to the emergency department. You were prescribed Paxlovid for your infection. While on Paxlovid you should decrease your Eliquis dose to 2.5mg twice a day (1/2 tablet). You should also avoid taking Viagra while on the medication. If you are experiencing new symptoms while on the medication you should return to the Emergency room. You can also take Tylenol as needed for symptoms. documented in this encounter ED Notes * Ros Machado RN - 05/01/2023 2:51 AM EDT Patient presents with cold symptoms and swelling of his B/L extremities. Pt is on blood thinners for previous cardiac related issues and lasix. documented in this encounter Miscellaneous Notes * ED Cloth Mercerizer Operator Note - Jo Bone RN - 05/01/2023 3:46 AM EDT Pt is diaphoretic. Pt last had Tylenol at 0000. documented in this encounter Plan of Treatment Upcoming Encounters Date Type Specialty Care Team Description 05/24/2023 Laboratory Laboratory Cat, Lab Scenery [address] [place] [id number] 05/24/2023 Hem/Onc Treatment Hematology Oncology Park, Chair 8 Hem Onc Scenery [address] [place] [id number] 05/26/2023 Office Visit Cardiology Sangeetha Julien CRNP [address] [address] 07/12/2023 Office Visit Family Medicine Vivi Avina DO [address] [place] [address] 12/20/2023 Office Visit Hematology Oncology Bryce Crain MD [address] [facility] [place] [address] Pending Results Name Type Priority Associated Diagnoses Date /Time CULTURE, BLOOD Lab Routine 05/01/2023 3:26 AM EDT CULTURE, BLOOD Lab Routine 05/01/2023 3:26 AM EDT CULTURE, RESPIRATORY, LOWER, AEROBIC Lab Routine 05/01/2023 4:31 AM EDT CULTURE, URINE, QUANTITATIVE Lab STAT 05/01/2023 5:27 AM EDT Scheduled Orders Name Type Priority Associated Diagnoses Orde r Schedule EKG EKG STAT SOB (shortness of breath) Perform Now for 1 Occurrences starting 05/01/2023 until 05/01/2023 Scheduled Procedures Name Priority Associated Diagnoses Date/Ti me COLONOSCOPY FLEXIBLE PROXIMAL DIAGNOSTIC Recall History of colon polyps Scheduled Referrals Name Type Priority Associated Diagnoses Orde r Schedule CARDIOLOGY REFERRAL OP Referral Within 30 days (routine) Ordered: 05/01/2023 Health Maintenance Due Date Last Done Comments [...] this encounter Medical Devices Implanted Type Area Claims Agent Right Of Way Device Identifier Shelf Expiration Date Model / Serial / Lot Envelope Antibacteral Tyrx - [id number] Implanted:Qty: 1 on 04/01/2022 by Randa Skelton DO at OR [facility] [employer] [facility] [id number] 12/12/2022 [id number] / / [id number] documented as of this encounter Procedures Procedure Name Priority Date/Time Associated Diagnosis Comments URINALYSIS, REFLEX TO CULTURE STAT 05/01/2023 5:27 AM EDT URINALYSIS, REFLEX TO CULTURE (CUP ONLY) STAT 05/01/2023 5:19 AM EDT URINALYSIS, REFLEX TO CULTURE (NOT FOR NEUTROPENIC PATIENTS) STAT 05/01/2023 5:19 AM EDT TROPONIN T, HIGH SENSITIVITY STAT 05/01/2023 4:53 AM EDT CULTURE, RESPIRATORY, LOWER, AEROBIC Routine 05/01/2023 4:31 AM EDT TROPONIN T, HIGH SENSITIVITY STAT 05/01/2023 3:27 AM EDT COMPREHENSIVE METABOLIC PANEL STAT 05/01/2023 3:27 AM EDT LACTATE, WHOLE BLOOD WITH REFLEX IF ABNORMAL STAT 05/01/2023 3:26 AM EDT DIFFERENTIAL, AUTOMATED STAT 05/01/2023 3:26 AM EDT CBC STAT 05/01/2023 3:26 AM EDT CULTURE, BLOOD Routine 05/01/2023 3:26 AM EDT CULTURE, BLOOD Routine 05/01/2023 3:26 AM EDT CBC STAT 05/01/2023 3:26 AM EDT XR CHEST 2 VIEWS STAT 05/01/2023 3:11 AM EDT RESPIRATORY PATHOGEN PANEL, PCR STAT 05/01/2023 3:09 AM EDT documented in this encounter Results * (ABNORMAL) URINALYSIS, REFLEX TO CULTURE (05/01/2023 5:27 AM EDT) Color, Urine Light Yellow Colorless, Light Yellow, Yellow, Dark Yellow 05/01/2023 6:14 AM EDT LAB[facility]ORY [facility] Clarity, Urine Clear Clear 05/01/2023 6:14 AM EDT LABORATORY C Glucose, Urine >=1000(A) Negative mg/dL 05/01/2023 6:14 AM EDT LABORATORY C Bilirubin, Urine Negative Negative 05/01/2023 6:14 AM EDT LAB[facility]ORY [facility] Ketone, Urine Negative Negative mg/dL 05/01/2023 6:14 AM EDT LABORATORY C Specific [place], Urine 1.011 1.003 - 1.030 05/01/2023 6:14 AM EDT LABORATORY C Blood, Urine Negative Negative 05/01/2023 6:14 AM EDT LABORATORY C pH, Urine 6.0 5.0 - 7.5 Units 05/01/2023 6:14 AM EDT LAB[facility] Protein, Urine Negative Negative mg/dL 05/01/2023 6:14 AM EDT LABORATORY C Urobilinogen, Urine Normal Normal mg/dL 05/01/2023 6:14 AM EDT LABORATORY C Nitrite, Urine Negative Negative 05/01/2023 6:14 AM EDT LABORATORY C Esterase, Urine Negative Negative 05/01/2023 6:14 AM EDT LABORATORY [facility] RBC, Urine 0-2 0 - 2 /HPF 05/01/2023 6:14 AM EDT LABORATORY C WBC, Urine 10-19(A) 0 - 2 /HPF 05/01/2023 6:14 AM EDT LABORATORY [facility] Bacteria, Urine 0-25 0 - 25 /HPF 05/01/2023 6:14 AM EDT LABORATORY [facility] Culture, Urine 05/01/2023 6:14 AM EDT LABORATORY [facility] Comment:Quantitative urine c ulture to be performed Urine Urine specimen obtained by clean catch procedure / Unknown Non-blood Collection / Unknown 05/01/2023 5:27 AM EDT 05/01/2023 5:27 AM EDT Wes Bean LAB URINE ORDERABLES Performing Organization Address City/[facility] Co de Phone Number LABORATORY [facility] [address] [place] [address] * URINALYSIS, REFLEX TO CULTURE (CUP ONLY) (05/01/2023 5:19 AM EDT) Urinalysis, Reflex to Culture Specimen Specimen collected and received 05/01/2023 7:01 AM EDT LABORATORY [facility] Urine Urine specimen obtained by clean catch procedure / Unknown 05/01/2023 5:19 AM EDT 05/01/2023 5:26 AM EDT Wes Bean LAB URINE ORDERABLES Performing Organization Address City/[facility] Co de Phone Number LABORATORY [facility] [address] [place] [address] * TROPONIN T, HIGH SENSITIVITY (05/01/2023 4:53 AM EDT) Troponin T, High Sensitivity 20 <=22 ng/L 05/01/2023 5:22 AM EDT LABORATORY [facility] Blood Venous blood specimen / Unknown Venipuncture / Unknown 05/01/2023 4:53 AM EDT 05/01/2023 5:05 AM EDT Wes May Vikas DO LAB BLOOD ORDERABLES [facility] [address] [place] [address] * (ABNORMAL) TROPONIN T, HIGH SENSITIVITY (05/01/2023 3:27 AM EDT) Troponin T, High Sensitivity 25(H) <=22 ng/L 05/01/2023 3:59 AM EDT LABORATORY [facility] Blood Venous blood specimen / Unknown Venipuncture / Unknown 05/01/2023 3:27 AM EDT 05/01/2023 3:40 [address] Wes [address] [facility] LAB BLOOD ORDERABLES Performing Organization Address [facility] Co de Phone Number LABORATORY C [address] [place] [address] * (ABNORMAL) COMPREHENSIVE METABOLIC PANEL (05/01/2023 3:27 AM EDT) BUN 21(H) 6 - 20 mg/dL 05/01/2023 3:59 AM EDT LAB[facility] Creatinine 1.2 0.6 - 1.2 mg/dL 05/01/2023 3:59 AM EDT LABORATORY GM Estimated Glomerular Filtration Rate 69 >=60 mL/min 05/01/2023 3:59 AM EDT LAB[facility]ORY [facility] Comment:eGFR is calculated b ased on the CKD-EPI 2020 equation Sodium 136 135 - 146 mmol/L 05/01/2023 3:59 AM EDT LAB[facility] Potassium 4.2 3.5 - 5.1 mmol/L 05/01/2023 3:59 AM EDT LAB[facility] Chloride 103 98 - 107 mmol/L 05/01/2023 3:59 AM EDT LAB[facility] CO2 21(L) 22 - 32 mmol/L 05/01/2023 3:59 AM EDT [facility] Anion Gap 12 7 - 15 mmol/L 05/01/2023 3:59 AM EDT LAB[facility] Glucose 127(H) 70 - 120 mg/dL 05/01/2023 3:59 AM EDT LAB[facility] Albumin 3.9 3.8 - 5.0 g/dL 05/01/2023 3:59 AM EDT LAB[facility] AST 32 10 - 50 U/L 05/01/2023 3:59 AM EDT LAB[facility] Comment:Result may be falsel y elevated due to hemolysis. Alkaline Phosphatase 57 35 - 130 U/L 05/01/2023 3:59 AM EDT LAB[facility] Bilirubin, Total 1.8(H) <=1.2 mg/dL 05/01/2023 3:59 AM EDT LAB[facility] Calcium 9.0 8.4 - 10.2 mg/dL 05/01/2023 3:59 AM EDT LAB[facility] Protein 6.6 6.0 - 8.3 g/dL 05/01/2023 3:59 AM EDT [facility] ALT 31 10 - 50 U/L 05/01/2023 3:59 AM EDT [facility] Blood Venous blood specimen / Unknown Venipuncture / Unknown 05/01/2023 3:27 AM EDT 05/01/2023 3:40 AM EDT Wes Bean LAB BLOOD ORDERABLES [facility] [address] [place] [place], [place] [id number] * (ABNORMAL) DIFFERENTIAL, AUTOMATED (05/01/2023 3:26 AM EDT) WBC 13.97(H) 4.00 - 10.80 K/uL 05/01/2023 3:48 AM EDT LAB[facility]ORY [facility] Neutrophils % 85.2(H) 40.0 - 75.0 % 05/01/2023 3:48 AM EDT LAB[facility] Lymphocytes % 3.3(L) 18.0 - 42.0 % 05/01/2023 3:48 AM EDT LAB[facility] Monocytes % 9.0 1.0 - 11.0 % 05/01/2023 3:48 AM EDT LAB[facility] Eosinophils % 1.7 0.0 - 6.0 % 05/01/2023 3:48 AM EDT LAB[facility] Basophils % 0.4 0.0 - 2.0 % 05/01/2023 3:48 AM EDT LAB[facility] Immature Granulocytes % 0.4 0.0 - 2.0 % 05/01/2023 3:48 AM EDT LAB[facility] Absolute Neutrophils 11.90(H) 1.80 - 7.70 K/uL 05/01/2023 3:48 AM EDT LAB[facility] Absolute Lymphocytes 0.46(L) 1.00 - 4.80 K/ul 05/01/2023 3:48 AM EDT LAB[facility] Absolute Monocytes 1.26(H) 0.00 - 1.10 K/uL 05/01/2023 3:48 AM EDT LAB[facility] Absolute Eosinophils 0.24 0.00 - 0.70 K/uL 05/01/2023 3:48 AM EDT LAB[facility] Absolute Basophils 0.06 0.00 - 0.20 K/uL 05/01/2023 3:48 AM EDT LAB[facility] Absolute Immature Granulocytes 0.05 0.00 - 0.20 K/uL 05/01/2023 3:48 AM EDT LAB[facility] Blood Venous blood specimen / Unknown Venipuncture / Unknown 05/01/2023 3:26 AM EDT 05/01/2023 3:40 AM EDT Wes Yadira Vikas LAB BLOOD ORDERABLES Performing Organization Address City/State/[facility] Co de Phone Number LAB[facility]ORY [facility] [address] [place] [address] * (ABNORMAL) CBC (05/01/2023 3:26 AM EDT) WBC 13.97(H) 4.00 - 10.80 K/uL 05/01/2023 3:48 AM EDT LAB[facility] RBC 5.92 4.50 - 5.25 M/uL 05/01/2023 3:48 AM EDT LAB[facility] HGB 14.0 14.0 - 16.8 g/dL 05/01/2023 3:48 AM EDT LAB[facility] HCT 47.4 40.0 - 48.4 % 05/01/2023 3:48 AM EDT LAB[facility] MCV 80.1 82.0 - 99.5 fL 05/01/2023 3:48 AM EDT LAB[facility] MCH 23.6 27.0 - 34.0 pg 05/01/2023 3:48 AM EDT LABORATORY [facility] MCHC 29.5 32.0 - 36.0 g/dL 05/01/2023 3:48 AM EDT LABORATORY [facility] RDW 19.4 11.5 - 15.5 % 05/01/2023 3:48 AM EDT LABORATORY [facility] PLT 223 140 - 400 K/uL 05/01/2023 3:48 AM EDT LABORATORY [facility] MPV 10.4 6.6 - 11.1 fL 05/01/2023 3:48 AM EDT LABORATORY [facility] nRBCs 0 <=0 /100 WBCs 05/01/2023 3:48 AM EDT LABORATORY [facility] Blood Venous blood specimen / Unknown Venipuncture / Unknown 05/01/2023 3:26 AM EDT 05/01/2023 3:[address] [facility] LAB BLOOD ORDERABLES Performing Organization Address City/[facility]/ZIP Co de Phone Number LABORATORY [facility] [address] [place] [address] * (ABNORMAL) LACTATE, WHOLE BLOOD WITH REFLEX IF ABNORMAL (05/01/2023 3:26 AM EDT) [facility] Lactate, Whole Blood 2.1(H) 0.4 - 2.0 mmol/L 05/01/2023 3:43 AM EDT LABORATORY [facility] Blood Venous blood specimen / Unknown Venipuncture / Unknown 05/01/2023 3:26 AM EDT 05/01/2023 3:39 AM EDT Wes F Vikas DO LAB BLOOD ORDERABLES LABORATORY [facility] [address] [place] [address] * XR CHEST 2 VIEWS (05/01/2023 3:11 AM EDT) Anatomical Region Laterality Modality Chest Digital Radiogra phy 05/01/2023 4:20 AM EDT Impressions 05/01/2023 4:39 AM EDT IMPRESSION No radiographic evidence of acute cardiopulmonary process. I have personally reviewed this examination and agree with the resident/fellow physician's interpretation. Narrative 05/01/2023 4:39 AM EDT EXAM XR CHEST 2 VIEWS-05/01/2023 3:11 am HISTORY edema COMPARISON Chest radiographs dated 09/16/2022. TECHNIQUE PA and lateral views of the chest were obtained. FINDINGS LINES/DEVICES: Left-sided AICD in stable position. LUNGS/PLEURA: No consolidation. No pleural effusion or pneumothorax. CARDIOVASCULAR/MEDIASTINUM: The cardiomediastinal silhouette is within normal limits. OTHER: Degenerative osseous changes. Procedure Note Benjamin Jimenez MD - 05/01/2023 EXAM XR CHEST 2 VIEWS-05/01/2023 3:11 am HISTORY edema COMPARISON Chest radiographs dated 09/16/2022. TECHNIQUE PA and lateral views of the chest were obtained. FINDINGS LINES/DEVICES: Left-sided AICD in stable position. LUNGS/PLEURA: No consolidation. No pleural effusion or pneumothorax. CARDIOVASCULAR/MEDIASTINUM: The cardiomediastinal silhouette is withinnormal limits. OTHER: Degenerative osseous changes. IMPRESSION IMPRESSION No radiographic evidence of acute cardiopulmonary process. I have personally reviewed this examination and agree with the resident/fellow physician's interpretation. Wes Bean DO RADIOLOGY (RAD GENER AL) * (ABNORMAL) RESPIRATORY PATHOGEN PANEL, PCR (05/01/2023 3:09 AM EDT) Adenovirus by PCR Negative Negative 023 4:57 AM EDT LABORATORY [facility] Coronavirus 229E by PCR Negative Negative 05/01/2023 4:57 AM EDT LABORATORY [facility] Coronavirus HKU1 by PCR Negative Negative 05/01/2023 4:57 AM EDT LABORATORY [facility] Coronavirus NL63 by PCR Negative Negative 05/01/2023 4:57 AM EDT LABORATORY [facility] Coronavirus OC43 by PCR Negative Negative 05/01/2023 4:57 AM EDT LABORATORY [facility] Coronavirus SARS-CoV-2 by PCR Positive(A) Negative 05/01/2023 4:57 AM EDT LABORATORY [facility] Comment:Coronavirus SARS det ected by PCR (amplified probe). Test results reported to [facility]. Human Metapneumovirus by PCR Negative Negative 05/01/2023 4:57 AM EDT LABORATORY [facility] Rhinovirus/Enterov irus by PCR Positive(A) Negative 05/01/2023 4:57 AM EDT LABORATORY [facility] Comment: Rhinovirus/Enterovirus detected by PCR (amplified probe). Influenza A Virus by PCR Negative Negative 05/01/2023 4:57 AM EDT LABORATORY [facility] Influenza B Virus by PCR Negative Negative 05/01/2023 4:57 AM EDT LABORATORY [facility] Parainfluenza Virus 1 by PCR Negative Negative 05/01/2023 4:57 AM EDT LABORATORY [facility] Parainfluenza Virus 2 by PCR Negative Negative 05/01/2023 4:57 AM EDT LABORATORY [facility] Parainfluenza Virus 3 by PCR Negative Negative 05/01/2023 4:57 AM EDT LABORATORY [facility] Parainfluenza Virus 4 by PCR Negative Negative 05/01/2023 4:57 AM EDT LABORATORY [facility] Respiratory Syncytial Virus by PCR Negative Negative 05/01/2023 4:57 AM EDT LABORATORY [facility] Bordetella pertussis by PCR Negative Negative 05/01/2023 4:57 AM EDT LABORATORY [facility] Chlamydia pneumoniae by PCR Negative Negative 05/01/2023 4:57 AM EDT LABORATORY [facility] Mycoplasma pneumoniae by PCR Negative Negative 05/01/2023 4:57 AM EDT LABORATORY [facility] Bordetella parapertussis by PCR Negative Negative 05/01/2023 4:57 AM EDT LABORATORY [facility] Comment: The primers that detect Rhinovirus may cross react with some Enterorviruses. The validation of bronchial specimens, tracheal aspirates, and throats for this assay was developed and performance characteristics determined by [employer]. The validation of alternate specimen types has not been cleared or approved by the U.S. Food and Drug Administration (FDA). It has been determined that such clearance or approval is not necessary. Upper Respiratory Mid-turbinate nasal swab / Unknown Non-blood Collection / Unknown 05/01/2023 3:09 AM EDT 05/01/2023 3:46 AM EDT Wes Bean DO LAB MICRO - GENERAL ORDERABLES LABORATORY [facility] [address] [place] [address] documented in this encounter Visit Diagnoses Diagnosis COVID-19 virus infection- Primary SOB (shortness of breath) Shortness of breath Rhinovirus infection Rhinovirus infection in conditions classified elsewhere and of unspecified site Suspected COVID-19 virus infection documented in this encounter Administered Medications Inactive Administered Medications - up to 3 most recent administrations Medication Order MAR Action Action Date Dose Rate Site oxygen GAS Inhalation, OXYGEN, First dose on [place] 05/01/23 at 0330, Until Discontinued, Device/Managed by: Low Flow Device, Goal SPO2 (%): 91-95, Starting Device: Nasal Cannula, Inital Flow Rate (LPM): 2, Lowest Support: Nasal Cannula: Flow 0-6 LPM. Titrate up/down by 1 LPM., Titration Interval: Q2 minutes and as needed., Notify Provider: For sudden DECREASE in resting SPO2 to less than 85% and when escalating delivery device. documented in this encounter Active and Recently Administered Medications Times are shown in EDT. Scheduled Medication Order 04/29/2023 04/30/2023 05/01/2023 oxygen GAS Inhalation, OXYGEN, First dose on [place] 05/01/23 at 0330, Until Discontinued, Device/Managed by: Low Flow Device, Goal SPO2 (%): 91-95, Starting Device: Nasal Cannula, Inital Flow Rate (LPM): 2, Lowest Support: Nasal Cannula: Flow 0-6 LPM. Titrate up/down by 1 LPM., Titration Interval: Q2 minutes and as needed., Notify Provider: For sudden DECREASE in resting SPO2 to less than 85% and when escalating delivery device. 0330 (Oxygen Off - P rovider: Jo Bone RN) documented in this encounter Additional Health Concerns Infection Onset Date Last Indicated Resolved Time Respiratory Rule-Out 05/01/2023 05/01/2023 023 4:57 AM EDT COVID-19 Rule-Out 05/01/2023 05/01/2023 05/01/2023 4:57 AM EDT COVID-19 (confirmed) 05/01/2023 05/01/2023 Enterovirus (resp)/Rhinovirus 05/01/2023 05/01/2023 documented as of this encounter Care Teams Production Dispatcher Relationship Specialty Start Date End Date Vivi Avina DO [address] [place] [address] PCP - General Family Medicine 01/27/17 documented as of this encounter
--- OUTSIDE RECORDS SUMMARY | 2023-06-16 00:25 | External Medical Summary ---
Author Name Unknown Address Unknown Organization [id number]:LABORATORY [facility] - [address] [facility] [place] [address] Laboratory Report Ordering Provider Test Date Status RADHA PEÑA 05/01/2023 03:27:00 Final Observation Date Value Abnormality Reference (Units ) Status BUN 05/01/2023 03:27:00 21 Above high normal 6-20 (mg/dL) Final Creatinine 05/01/2023 03:27:00 1.2 0.6-1.2 (mg/dL) Final Glomerular filtration rate/1.73 sq M.predicted [Volume Rate/Area] in Serum, Plasma or Blood by Creatinine-based formula (CKD-EPI) 05/01/2023 03:27:00 69 >=60 (mL/min) Final eGFR is calculated based on the CKD-EPI 2020 equation SODIUM 05/01/2023 03:27:00 136 135-146 (m mol/L) Final Potassium 05/01/2023 03:27:00 4.2 3.5-5.1 (m mol/L) Final Cl 05/01/2023 03:27:00 103 98-107 (mm ol/L) Final CO2 05/01/2023 03:27:00 21 Below low normal 22- 32 (mmol/L) Final Anion gap 05/01/2023 03:27:00 12 7-15 (mmol /L) Final Glucose 05/01/2023 03:27:00 127 Above high normal 70 -120 (mg/dL) Final Albumin 05/01/2023 03:27:00 3.9 3.8-5.0 (g /dL) Final AST (Aspartate aminotransferase) 05/01/2023 03:27:00 32 10-50 (U/L) Fin al Result may be falsely elevat ed due to hemolysis. Alk Phos 05/01/2023 03:27:00 57 35-130 (U/ L) Final Bilirubin, Total 05/01/2023 03:27:00 1.8 Above high no rmal <=1.2 (mg/dL) Final Calcium 05/01/2023 03:27:00 9.0 8.4-10.2 ( mg/dL) Final Protein 05/01/2023 03:27:00 6.6 6.0-8.3 (g /dL) Final ALT (Alanine aminotransferase) 05/01/2023 03:27:00 31 10-50 (U/L) Ambrocio hayes Performing Location LABORATORY [facility] - [address] [facility] [address]
--- OUTSIDE RECORDS SUMMARY | 2023-06-16 00:25 | External Medical Summary | Summary of Care ---
Author Name Unknown Organization [facility] Address [address] [facility] [address] Phone [phone] Care Team Providers Care Depositing Machine Operator Name Role Phone Vivi Avina DO Primary Care Provider Reason for Visit * Reason Onset Date Comments Medication Question 05/02/2023 Encounter Details Date Type Department Care Team Description 05/02/2023 Telephone Family Practice [facility] [address] [facility] [place] [address] Vivi Avina DO 200 [facility] [place] [address] Medication Question Allergies Active Allergy Reactions Severity Noted Date Comments Warfarin High 12/29/2021 Skin reaction/slothing off Sulfa Antibiotics 08/26/1999 fever documented as of this encounter (statuses as of 05/02/2023) Medications Medication Sig Dispensed Refills Start Date [...] as of this encounter (statuses as of 05/02/2023) Active Problems Problem Noted Date 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 Increased risk for Cardiomyopathy (CM). Please click the link below for current clinical management recommendations for Hereditary Cardiomyopathy. TTN MACHADO (nonalcoholic steatohepatitis) 12/31 NICM (nonischemic cardiomyopathy) 2021 Secondary polycythemia 06/05/2020 HTN, goal below 140/90 09/04/2018 Permanent atrial fibrillation 03/14/2017 Ventricular tachycardia 03/14/2017 UNILAT INGUINAL HERNIA documented as of this encounter (statuses as of 05/02/2023) Resolved Problems Problem Noted Date Resolved Date Prediabetes 05/10/2022 09/15/2022 Overview: Per Prediabetes protocol Acute systolic congestive heart failure 03/14/20 17 09/04/2018 Acute systolic heart failure 03/14/2017 Paroxysmal atrial fibrillation 05/26/2015 0 12/29/2021 Varicella without complication 11/19/2002 0 09/04/2018 documented as of this encounter (statuses as of 05/02/2023) Immunizations Name Administration Dates Next Due Pneumococcal [...] encounter Miscellaneous Notes * Telephone Encounter - Peng Brooks [facility] - 05/02/2023 4:06 PM EDT ER mentioned dose change: Risk Rating D: Consider therapy modification Summary Inhibitors of CY (Strong) and P-glycoprotein may increase the serum concentration of Apixaban. Severity Major Reliability Rating Good Patient Management In patients receiving apixaban 5 mg or 10 mg twice daily, the dose of apixaban should be decreased by 50% when coadministered with strong inhibitors of CY and P-glycoprotein (P-gp), according to [place] apixaban prescribing information. In patients receiving a dose of 2.5 mg twicedaily, coadministration of apixaban and strong CY and P-gp inhibitors should be avoided. Coadministration of apixaban and strong CY3A4 and P-gp inhibitors is contraindicated according to the [place] product labeling. Patient will cut in half for course. Thanks, Peng Brooks, PharmD Clinical Pharmacist [facility] ([facility] ([facility]) [phone] 05/02/2023, 4:09 PM * Telephone Encounter - Deborah Durán CPhT - 05/02/2023 4:03 PM EDT Pt's calling stating the pt was recently prescribed Paxlovid at the [facility]. Caller states whenthey were there they mentioned something about Eliquis 5 MG Oral Tablet (Apixaban) and how the pt should be taking it while on Paxlovid but she cannot remember what the doc said. Transferring caller to [facility] Peng Christensen for further assistance. Thank you, Viviane Durán Abrasive Water Jet Cutter Operator I [facility] ([facility]) (Formerly [facility]) 05/02/2023,4:07 PM documented in this encounter Plan of Treatment Upcoming Encounters Date Type Specialty Care Team Description 05/24/2023 Laboratory Laboratory Cat, Lab Scenery [address] [place] [address] 05/24/2023 Hem/Onc Treatment Hematology Oncology [place], Chair 8 Hem Onc Scenery [address] [place] [address] 05/26/2023 Office Visit Cardiology Sangeetha Julien CRNP [address] [place] [address] 07/12/2023 Office Visit Family Medicine Vivi Avina DO [address] [place] [address] 12/20/2023 Office Visit Hematology Oncology Bryce Crain MD [address] [place] [address] Scheduled Procedures Name Priority Associated Diagnoses Date/Ti [...] this encounter Medical Devices Implanted Type Area Hat Brim And Crown Laminating Operator Device Identifier Shelf Expiration Date Model / Serial / Lot Envelope Antibacteral Tyrx - [id number] Implanted:Qty: 1 on 04/01/2022 by Randa Skelton DO at OR [facility] [employer] : CRM [id number] 12/12/2022 [id number] / / [id number] documented as of this encounter Additional Health Concerns Infection Onset Date Last Indicated Resolved Time COVID-19 (confirmed) 05/01/2023 05/01/2023 Enterovirus (resp)/Rhinovirus 05/01/2023 05/01/2023 documented as of this encounter Care Teams Depositing Machine Operator Relationship Specialty Start Date End Date Vivi Avina DO [address] [place] [address] PCP - General Family Medicine 01/27/17 documented as of this encounter
--- OUTSIDE RECORDS SUMMARY | 2023-06-16 00:25 | External Medical Summary | Summary of Care ---
Author Name Unknown Organization [facility] Address [address] [place] [facility] [place] [address] Phone [phone] Care Team Providers Care Bottom Steep Tender Name Role Phone Vivi Avina DO Primary Care Provider Reason for Visit * Reason Comments eRx-Medication Refill Encounter Details Date Type Department Care Team Description 04/18/2023 Refill Cardiology, [facility] [address] [facility] [place] [address] Randa Skelton DO [address] [facility] [address] NICM (nonischemic cardiomyopathy) ([facility]) Allergies Active Allergy Reactions Severity Noted Date Comments Warfarin High 12/29/2021 Skin reaction/slothing off Sulfa Antibiotics 08/26/1999 fever documented as of this encounter (statuses as of 04/18/2023) Medications Medication Sig Dispensed Refills Start Date End Date Status TRIAMCINOLONE ACETONIDE 0.5 % EX CREAIndications:Dy shidrosis Apply to affected area twice a day 60 g 5 03/16/2010 Active Multiple Vitamins-Minerals (CENTRUM SILVER 50+MEN) TABS Take by mouth 1 Tablet daily . 0 Active Magnesium 400 MG Capsule Take 1 Capsule by mouth in the morning. 0 02/10/2017 Active Loratadine 10 MG Oral Tablet (Claritin)Indicati ons:Acute rhinitis,History of 2019 novel coronavirus disease (COVID-19) [...] HFA 108 (90 Base) MCG/ACT Inhalation Aerosol SolutionIndication s:Viral URI with cough,Rales Inhale 2 Puffs by mouth every 4 hours as needed for Wheezing or Dyspnea. 1 g 0 09/15/2022 Active Sildenafil Citrate 50 MG Oral TabletIndications: Erectile dysfunction TAKE 1/2 TABLET BY MOUTH 1 HOUR BEFORE SEXUAL ACTIVITY 30 Tablet 5 09/23/2022 Active Eliquis 5 MG Oral Tablet (Apixaban)Indicati ons:Paroxysmal atrial fibrillation (HCC) take 1 tablet by mouth twice a day 180 Tablet 3 10/06/2022 Active Jardiance 10 MG Oral Tablet (Empagliflozin)Ind ications:Ejection fraction < 50%,NICM (nonischemic cardiomyopathy) (HCC),Persistent atrial fibrillation (HCC) take 1 tablet by mouth every morning 90 Tablet 3 11/22/2022 Active Omeprazole 20 MG Oral Capsule Delayed Release (PriLOSEC)Indicati ons:Gastroesophage al reflux disease with esophagitis without hemorrhage Take 1 Capsule by mouth in the morning. 1 hour before the first meal of the day. 30 Capsule 5 02/15/2023 Active Entresto 24-26 MG Oral Tablet (sacubitril-valsar hernandez 24-26 mg per tab)Indications:HT N, goal below 140/90,Permanent atrial fibrillation (HCC) take 1 tablet by mouth every morning and 1 tablet by mouth BEFORE BEDTIME 60 Tablet 11 04/09/2023 Active Furosemide 20 MG Oral Tablet (Lasix) Take 1 Tablet by mouth in the morning. As needed. 90 Tablet 3 04/13/2023 Active Metoprolol Succinate ER 100 MG Oral Tablet Extended Release 24 Hour (toPROL XL)Indications:ОЛЬГА M (nonischemic cardiomyopathy) (HCC) take 1 tablet by mouth every morning and 1 tablet by mouth BEFORE BEDTIME 180 Tablet 3 04/18/2023 Active Metoprolol Succinate ER 100 MG Oral Tablet Extended Release 24 Hour (toPROL XL)Indications:ОЛЬГА M (nonischemic cardiomyopathy) (HCC) Take by mouth 1 Tablet in the morning AND 1 Tablet before bedtime. 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 Increased risk for Cardiomyopathy (CM). Please click the link below for current clinical management recommendations for Hereditary Cardiomyopathy. TTN MACHADO (nonalcoholic steatohepatitis) 12/31 NICM (nonischemic cardiomyopathy) 2021 Secondary polycythemia 06/05/2020 HTN, goal below 140/90 09/04/2018 Permanent atrial fibrillation 03/14/2017 Ventricular tachycardia 03/14/2017 UNILAT INGUINAL HERNIA documented as of this encounter (statuses as of 04/18/2023) Resolved Problems Problem Noted Date Resolved Date Prediabetes 05/10/2022 09/15/2022 Overview: Per Prediabetes protocol Acute systolic congestive heart failure 03/14/20 17 09/04/2018 Acute systolic heart failure 03/14/2017 Paroxysmal atrial fibrillation 05/26/2015 0 12/29/2021 Varicella without complication 11/19/2002 0 09/04/2018 documented as of this encounter (statuses as of 04/18/2023) Immunizations Name Administration Dates Next Due Pneumococcal [...] encounter Miscellaneous Notes * Telephone Encounter - GERTRUDIS Thompson - 04/18/2023 11:50 AM EDT Signed Prescriptions: Disp Refills Metoprolol Succinate ER 100 MG Oral Tablet*180 Ta*3 Sig: take 1 tablet by mouth every morning and 1 tablet by mouth BEFORE BEDTIME Authorizing Provider: SARAH ESCALANTE * Telephone Encounter - CANDACE Duarte - 04/18/2023 10:15 AM EDTPending Prescriptions: Disp Refills Metoprolol Succinate ER 100 MG Oral Tablet*180 Ta*3 Sig: take 1 tablet by mouth every morning and 1 tablet by mouth BEFORE BEDTIME * Telephone Encounter - CANDACE Duarte - 04/18/2023 10:14 AM EDT Did you pend patient's preferred pharmacy and medication before forwarding?yes Pharmacy: [facility] [id number] Pending Prescriptions: Disp Refills Metoprolol Succinate ER 100 MG Oral Table*180 Ta*3 Sig: take 1 tablet by mouth every morning and 1 tablet by mouth BEFORE BEDTIME Last Visit: 03/15/2023 (in office), 08/20/2022 (telemedicine) Next Visit: 05/26/2023 If no future appointments scheduled, and last appointment is greater than a year ago, please schedule patient for a follow-up appointment Last date the medication was ordered: 04-19-2022 Is this request for a controlled substance?No Urine Drug Screen:No results found for this or any previous visit. Patient Phone Numbers Labs: Lab Results Component Value Date/Time CREAT 1.3 (H) 03/25/2023 03:13 PM CREAT 1.1 03/26/2020 03:58 PM POTASSIUM 4.7 03/25/2023 03:13 PM POTASSIUM 4.1 03/26/2020 03:58 PM TSH 4.380 09/21/2017 12:00 AM TSH 3.01 10/25/2008 04:09 PM LDLCALC 78 08/23/2022 03:27 PM LDLCALC 97 09/22/2019 11:55 AM LDLDIRECT 100 10/01/2020 03:17 PM LDLDIRECT NOT APPLICABLE 09/22/2019 11:55 AM LDLDIRECT 89 10/26/2010 12:22 PM ALT 64 (H) 09/10/2021 04:46 PM ALT 123 (H) 03/26/2020 03:58 PM HGBA1C 5.6 02/15/2023 12:43 PM HGBA1C 5.3 10/18/2017 12:00 AM documented in this encounter Plan of Treatment Upcoming Encounters Date Type Specialty Care Team Description 04/20/2023 Nurse Only Ancillary [place] Nurse [address] [place] [address] 04/20/2023 Laboratory Laboratory [place] Sharma [address] [address] 05/24/2023 Laboratory Laboratory Cat, Lab Scenery [address] [place] [address] 05/24/2023 Hem/Onc Treatment Hematology Oncology [place], Chair 8 Hem Onc Scenery [address] [place] [address] 05/26/2023 Office Visit Cardiology Sangeetha Julien CRNP [address] [place] [address] 07/12/2023 Office Visit Family Medicine Vivi Avina DO [address] [facility] [address] 12/20/2023 Office Visit Hematology Oncology Bryce Crain MD [address] [place] [address] Scheduled Procedures Name Priority Associated Diagnoses Date/Ti [...] 05/02/2021, 05/09/2020, 05/02/2018, Additional history exists GFR 03/25/2024 03/25/2023, 03/01, 02/15/2023, Additional history exists Albumin/Creatinine Ratio 02/15/2026 02/15/2023, 09/01 Diabetes Screening 03/25/2026 03/25/2023, 0 03/11/2023, 02/15/2023, Additional history exists COLONOSCOPY-EVERY 5 YRS AGES [...] encounter Medical Devices Implanted Type Area Claims Configuration Analyst Device Identifier Shelf Expiration Date Model / Serial / Lot Envelope Antibacteral Tyrx - [id number] Implanted:Qty: 1 on 04/01/2022 by Randa Skelton DO at OR [facility] [employer] : CRM [id number] 12/12/2022 CMRM6 133 / / [id number] documented as of this encounter Visit Diagnoses Diagnosis NICM (nonischemic cardiomyopathy) (HCC) Other primary cardiomyopathies documented in this encounter Care Teams Bottom Steep Tender Relationship Specialty Start Date End Date Vivi Avina DO [address] [place] [address] PCP - General Family Medicine 01/27/17 documented as of this encounter
--- OUTSIDE RECORDS SUMMARY | 2023-06-16 00:25 | External Medical Summary | Summary of Care ---
Author Name Unknown Organization [facility] Address [address] [place] [address] Phone [phone] Care Team Providers Care Business Job Titles Name Role Phone Vivi Avina DO Primary Care Provider Encounter Details Date Type Department Care Team Description 04/20/2023 Nurse Only Ancillary Department, [place] [address] [place] [address] [place], Nurse [address] [place] [address] Arrived Allergies Active Allergy Reactions Severity Noted Date Comments Warfarin High 12/29/2021 Skin reaction/slothing off Sulfa Antibiotics 08/26/1999 fever documented as of this encounter (statuses as of 04/20/2023) Medications Medication Sig Dispensed Refills Start Date [...] as of this encounter (statuses as of 04/20/2023) Active Problems Problem Noted Date 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 Increased risk for Cardiomyopathy (CM). Please click the link below for current clinical management recommendations for Hereditary Cardiomyopathy. TTN MACHADO (nonalcoholic steatohepatitis) 12/31 NICM (nonischemic cardiomyopathy) 2021 Secondary polycythemia 06/05/2020 HTN, goal below 140/90 09/04/2018 Permanent atrial fibrillation 03/14/2017 Ventricular tachycardia 03/14/2017 UNILAT INGUINAL HERNIA documented as of this encounter (statuses as of 04/20/2023) Resolved Problems Problem Noted Date Resolved Date Prediabetes 05/10/2022 09/15/2022 Overview: Per Prediabetes protocol Acute systolic congestive heart failure 03/14/2009/04/2018 Acute systolic heart failure 03/14/2017 Paroxysmal atrial fibrillation 05/26/2015 0 12/29/2021 Varicella without complication 11/19/2002 0 09/04/2018 documented as of this encounter (statuses as of 04/20/2023) Immunizations Name Administration Dates Next Due Pneumococcal [...] on file documented as of this encounter Progress Notes * YOLIS Amaya - 04/20/2023 3:30 PM EDT Pt here for nurse visit for blood pressure check due to elevated blood pressure at last office visit. B/P 102/88 Pulse 90 BP Readings from Last 4 Encounters: 03/29/23 93/60 03/15/23 92/66 03/11/23 102/69 03/07/23 94/62 Telephone encounter made about this visit to provider. Patient aware that our office will call them back if there is a change with their medication or treatment, otherwise, no phone call will be made back to the patient. documented in this encounter Plan of Treatment Upcoming Encounters Date Type Specialty Care Team Description 04/20/2023 Laboratory Laboratory [place] [address] [place] [address] Permanent atrial fibrillation (HCC); Hypotension, unspecified hypotension type 05/24/2023 Laboratory Laboratory [place], Lab Scenery [address] [facility] [place] [address] 05/24/2023 Hem/Onc Treatment Hematology Oncology [place], Chair 8 Hem Onc Scenery 200 [facility] [place] [address] 05/26/2023 Office Visit Cardiology Sangeetha Julien CRNP [address] [place] [address] 07/12/2023 Office Visit Family Medicine Vivi Avina DO [address] [place] [address] 12/20/2023 Office Visit Hematology Oncology Bryce Crain MD [address] [place] [address] Scheduled Procedures Name Priority Associated Diagnoses Date/Ti [...] this encounter Medical Devices Implanted Type Area Power Shear Operator Device Identifier Shelf Expiration Date Model / Serial / Lot Envelope Antibacteral Tyrx - [id number] Implanted:Qty: 1 on 04/01/2022 by Randa Skelton DO at OR [facility] [employer] : CRM [id number] 12/12/2022 CMRM6 [id number] / / [id number] documented as of this encounter Care Teams Business Job Titles Relationship Specialty Start Date End Date Vivi Avina DO [address] [place] [address] PCP - General Family Medicine 01/27/17 documented as of this encounter
--- OUTSIDE RECORDS SUMMARY | 2023-06-16 00:25 | External Medical Summary ---
Author Name Unknown Address Unknown Organization [id number]:LABORATORY [facility] [place] - [address] [place] [id number] Laboratory Report Ordering Provider Test Date Status RADHA PEÑA 05/01/2023 03:26:00 Final Observation Date Value Abnormality Reference (Units ) Status Bacteria identified in Specimen by Culture 05/01/2023 03:26:00 No growth Final Test: Culture, Blood
Sp ecimen Source: Blood, Venous
Specimen Type: Blood
Specimen Date: 05/01/2023 3:26 AM
Result Date: 05/06/2023 5:01 AM
Result Status: Final result
Resulting Lab: LAB[facility]ATORY [facility]
[address]
[place] [address]

CULTURE

No growth

null Performing Location LABORATORY [facility] - [address] [facility] [address]
--- OUTSIDE RECORDS SUMMARY | 2023-06-16 00:25 | External Medical Summary | Summary of Care ---
Author Name Unknown Organization [facility] Address [address] [place] [address] Phone [phone] Care Team Providers Care Storage Receipt Poster Name Role Phone Vivi Avina DO Primary Care Provider Reason for Visit * Reason Comments Outpatient Testing Encounter Details Date Type Department Care Team Description 04/20/2023 Laboratory Laboratory, [place] [address] [place] [address] [place], Laboratory [address] [place] [address] Permanent atrial fibrillation (HCC); Hypotension, unspecified hypotension type Allergies Active Allergy Reactions Severity Noted Date [...] cardiomyopathy 02/23/2023 Overview: pathogenic TTN gene variant (c.58439+2del, p.?) detected via [employer]ode. Increased risk for Cardiomyopathy (CM). Please click [...] Specialty Care Team Description 04/20/2023 [place] [address] Arrived 05/24/2023 Laboratory Laboratory Cat, Lab Scenery [address] [place] [address] 05/24/2023 Hem/Onc Treatment Hematology Oncology [place], Chair 8 Hem Onc Scenery [address] [place] [address] 05/26/2023 Office Visit Cardiology [facility] [address] [facility] [address] 07/12/2023 Office Visit Family Medicine Vivi Avina DO [address] [facility] [address] 12/20/2023 Office Visit Hematology Oncology Bryce Crain MD [address] [place] [address] Pending Results Name Type Priority Associated Diagnoses Date /Time BASIC METABOLIC PANEL Lab STAT Hypotension, unspecified hypotension type 04/20/2023 3:23 PM EDT Scheduled Procedures Name Priority Associated [...] this encounter Medical Devices Implanted Type Area Potato Chip Maker Device Identifier Shelf Expiration Date Model / Serial / Lot Envelope Antibacteral Tyrx - [id number] Implanted:Qty: 1 on 04/01/2022 by Randa Skelton DO at OR [facility] [employer] : CRM [id number] 12/12/2022 CMRM6 133 / / [id number] documented as of this encounter Visit Diagnoses Diagnosis Permanent atrial fibrillation (HCC) Atrial fibrillation Hypotension, unspecified hypotension type documented in this encounter Care Teams Storage Receipt Poster Relationship Specialty Start Date End Date Vivi Avina DO [address] [facility] [place] [address] PCP - General Family Medicine 01/27/17 documented as of this encounter
--- OUTSIDE RECORDS SUMMARY | 2023-06-16 00:25 | External Medical Summary ---
Author Name Unknown Address Unknown Organization [id number]:LABORATORY [facility] - [address] [place] [address] Laboratory Report Ordering Provider Test Date Status RADHA PEÑA 05/01/2023 04:53:00 Final Observation Date Value Abnormality Reference (Units ) Status Troponin T 05/01/2023 04:53:00 20 <=22 (ng/ L) Final Performing Location LABORATORY [facility] - [address] [place] [address]
--- OUTSIDE RECORDS SUMMARY | 2023-06-16 00:25 | External Medical Summary ---
Author Name Unknown Address Unknown Organization [id number]:LABORATORY [facility] [place] - [address] [place] [id number] Laboratory Report Ordering Provider Test Date Status RADHA PEÑA 05/01/2023 05:27:01 Final Observation Date Value Abnormality Reference (Units) Status Bacteria identified in Specimen by Culture 05/01/2023 05:27:01 No significant growth Final Test: Culture, Urine, Quanti tative
Specimen Source: Urine, Clean Catch
Specimen Type: Urine
Specimen Date: 05/01/2023 5:27 AM
Result Date: 05/02/2023 1:05 PM
Result Status: Final result
Resulting Lab: LABORATORY [facility]
[address]
[place] [facility]

CULTURE

No significant growth

null Performing Location LABORATORY [facility] - [address] [facility] [address]
--- OUTSIDE RECORDS SUMMARY | 2023-06-16 00:25 | External Medical Summary ---
Author Name Unknown Address Unknown Organization [id number]:[facility] [place] [address] [place] [address] Laboratory Report Ordering Provider Test Date Status RADHA PEÑA 05/01/2023 03:26:00 Final Observation Date Value Abnormality Reference (Units ) Status Lactic Acid, Whole Blood 05/01/2023 03:26:00 2.1 Above high normal 0.4-2.0 (mmol/L) Final Performing Location [facility] [place] [address] [place] [address]
--- OUTSIDE RECORDS SUMMARY | 2023-06-16 00:25 | External Medical Summary ---
Author Name Unknown Address Unknown Organization K01:LABORATORY [place] [address] [facility] [address] [facility] [address] Laboratory Report Ordering Provider Test Date Status RADHA PEÑA 05/01/2023 03:26:00 Final Observation Date Value Abnormality Reference (Units ) Status WBC, Total 05/01/2023 03:26:00 13.97 Above high normal 4.00-10.80 (K/uL) Final RBC 05/01/2023 03:26:00 5.92 4.50-5.25 (M/uL) Final Hemoglobin 05/01/2023 03:26:00 14.0 14.0-16.8 (g/dL) Final HCT 05/01/2023 03:26:00 47.4 40.0-48.4 (%) Final MCV 05/01/2023 03:26:00 80.1 82.0-99.5 (fL) Final MCH 05/01/2023 03:26:00 23.6 27.0-34.0 (pg) Final MCHC 05/01/2023 03:26:00 29.5 32.0-36.0 (g/dL) Final RDW 05/01/2023 03:26:00 19.4 11.5-15.5 (%) Final Platelets 05/01/2023 03:26:00 223 140-400 (K/uL) Final MPV 05/01/2023 03:26:00 10.4 6.6-11.1 (fL) Final Nucleated erythrocytes/100 leukocytes [Ratio] in Blood by Automated count 05/01/2023 03:26:00 0 <=0 (/100 WBCs) Final Performing Location LABORATORY [facility] [place] - [address] [facility] [address]
--- OUTSIDE RECORDS SUMMARY | 2023-06-16 00:25 | External Medical Summary ---
Author Name Unknown Address Unknown Organization [id number]:LAB[facility]ATORY [facility] [place] - [address] [place] [id number] Laboratory Report Ordering Provider Test Date Status RADHA PEÑA 05/01/2023 03:26:00 Final Observation Date Value Abnormality Reference (Units ) Status Bacteria identified in Specimen by Culture 05/01/2023 03:26:00 No growth Final Test: Culture, Blood (Site 2)
Specimen Source: Blood, Venous
Specimen Type: Blood
Specimen Date: 05/01/2023 3:26 AM
Result Date: 05/06/2023 5:01 AM
Result Status: Final result
Resulting Lab: [facility] [place]
[address]
[place] [address]

CULTURE

No growth

null Performing Location LAB[facility]ATORY [facility] [place] - [address] [facility] [address]
--- OUTSIDE RECORDS SUMMARY | 2023-06-16 00:25 | External Medical Summary | Summary of Care ---
Author Name Unknown Organization [facility] Address [address] 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 Increased risk for Cardiomyopathy (CM). Please click [...] Office Visit Cardiology Toshia Mendoza CRNP [address] [facility] [place] [address] 05/24/2023 Laboratory Laboratory Cat, Lab Scenery 200 [facility] [place] [address] 05/24/2023 Hem/Onc Treatment Hematology Oncology Park, Chair 8 Hem Onc Scenery [address] [place] [address] 07/12/2023 Office Visit Family Medicine Vivi Avina DO 200 [facility] [place] [address] 08/03/2023 Office Visit Cardiology Madiha Bowie IV, MD [address] [place] [address] 12/20/2023 Office Visit Hematology Oncology Bryce Crain MD 200 [facility] [place] [address] Scheduled Procedures Name Priority Associated Diagnoses Date/Ti [...] this encounter Medical Devices Implanted Type Area Artifacts Conservator Device Identifier Shelf Expiration Date Model / Serial / Lot Envelope Antibacteral Tyrx - [id number] Implanted:Qty: 1 on 04/01/2022 by Randa Skelton DO at OR [facility] [employer] : CRM [id number] 12/12/2022 [id number] 133 / / [id number] documented as of this encounter Additional Health Concerns Infection Onset Date Last Indicated Resolved Time COVID-19 (confirmed) 05/01/2023 05/01/2023 Enterovirus (resp)/Rhinovirus 05/01/2023 05/01/2023 documented as of this encounter Care Teams Rail Signal Designer Relationship Specialty Start Date End Date Vivi Avina DO [address] [facility] [place] [address] PCP - General Family Medicine 01/27/17 documented as of this encounter
--- OUTSIDE RECORDS SUMMARY | 2023-06-16 00:25 | External Medical Summary | Summary of Care ---
Author Name Unknown Organization [facility] Address [address] [place] [address] Phone [phone] Care Team Providers Care Ticket Writer Name Role Phone Vivi Avina DO Primary Care Provider Reason for Visit * Reason Onset Date Comments Advice 05/17/2023 Encounter Details Date Type Department Care Team Description 05/17/2023 Telephone Cardiology, [facility] [address] [place] [address] Sangeetha Julien CRNP [address] [place] [address] Advice Allergies Active Allergy Reactions Severity Noted [...] cardiomyopathy 02/23/2023 Overview: pathogenic TTN gene variant (c.08147+2del, p.?) detected via [employer]. Increased risk for Cardiomyopathy (CM). Please click [...] Office Visit Cardiology Toshia Mendoza CRNP 400 [facility] [place] [address] 05/24/2023 Laboratory Laboratory Cat, Lab Scenery 200 [facility] [place] [address] 05/24/2023 Hem/Onc Treatment Hematology Oncology Park, Chair 8 Hem Onc Scenery [address] [place] [address] 07/12/2023 Office Visit Family Medicine Vivi Avina DO [address] [facility] [place] [address] 08/03/2023 Office Visit Cardiology Madiha Bowie IV, MD [address] [place] [address] 12/20/2023 Office Visit Hematology Oncology Bryce Crain MD [address] [facility] [place] [address] Scheduled Procedures Name Priority Associated Diagnoses Date/Ti [...] this encounter Medical Devices Implanted Type Area Nailing Machine Operator Automatic Device Identifier Shelf Expiration Date Model / Serial / Lot Envelope Antibacteral Tyrx - [id number] Implanted:Qty: 1 on 04/01/2022 by Randa Skelton DO at OR [facility] [employer] : CRM [id number] 12/12/2022 [id number] 133 / / [id number] documented as of this encounter Additional Health Concerns Infection Onset Date Last Indicated Resolved Time COVID-19 (confirmed) 05/01/2023 05/01/2023 Enterovirus (resp)/Rhinovirus 05/01/2023 05/01/2023 documented as of this encounter Care Teams Ticket Writer Relationship Specialty Start Date End Date Vivi Avina DO [address] [facility] [place] [address] PCP - General Family Medicine 01/27/17 documented as of this encounter
--- OUTSIDE RECORDS SUMMARY | 2023-06-16 00:25 | External Medical Summary ---
Author Name Unknown Address Unknown Organization [id number]:[facility] [place] [address] [place] [address] Laboratory Report Ordering Provider Test Date Status RADHA PEÑA 05/01/2023 04:31:00 Final Observation Date Value Abnormality Reference (Units) Status Bacteria identified in Specimen by Culture 05/01/2023 04:31:00 Heavy growth normal jean Final Gram Stain 05/01/2023 04:31:00 Purulent specimen, >25 neutrophils/low power microscopic field. Abnormal Final Gram Stain 05/01/2023 04:31:00 Many Polymorphonuclear leukocytes Abnormal Final Gram Stain 05/01/2023 04:31:00 Many Gram positive cocci in chains Abnormal Final Gram Stain 05/01/2023 04:31:00 Moderate Mixed morphotypes Abnormal Final Test: Culture, Respiratory, Lower, Aerobic
Specimen Source: Sputum
Specimen Type: Lower Respiratory
Specimen Date: 05/01/2023 4:31 AM
Result Date: 05/03/2023 8:55 AM
Result Status: Final result
Abnormal: Yes
Resulting Lab: [facility]
[address]
[place] [address]

CULTURE

Heavy growth normal jean

STAIN

Purulent specimen, >25 neutrophils/low power microscopic field.

Many Polymorphonuclear leukocytes

Many Gram positive cocci in chains

Moderate Mixed morphotypes

null Performing Location [facility] [place] [facility] [address] [facility] [address]
--- OUTSIDE RECORDS SUMMARY | 2023-06-16 00:25 | External Medical Summary ---
Author Name Unknown Address Unknown Organization K01:LABORATORY [facility] [place] - [address] [facility] [place] [address] Laboratory Report Ordering Provider Test Date Status RADHA PEÑA 05/01/2023 05:27:01 Final Observation Date Value Abnormality Reference (Units ) Status Color of Urine by Auto 05/01/2023 05:27:01 Light Yellow Colorless, Light Yellow, Yellow, Dark Yellow Final Clarity, Urine 05/01/2023 05:27:01 Clear Clear Final Glucose [Mass/volume] in Urine by Automated test strip 05/01/2023 05:27:01 >=1000 Abnormal Negative (mg/dL) Final Bilirubin.total [Presence] in Urine by Automated test strip 05/01/2023 05:27:01 Negative Negative Final Ketones [Mass/volume] in Urine by Automated test strip 05/01/2023 05:27:01 Negative Negative (mg/dL) Final Specific gravity, Urine 05/01/2023 05:27:01 1.011 1.003-1.030 Final Hemoglobin [Presence] in Urine by Automated test strip 05/01/2023 05:27:01 Negative Negative Final pH, Urine 05/01/2023 05:27:01 6.0 5.0-7.5 (Units) Final Protein [Mass/volume] in Urine by Automated test strip 05/01/2023 05:27:01 Negative Negative (mg/dL) Final Urobilinogen [Mass/volume] in Urine by Automated test strip 05/01/2023 05:27:01 Normal Normal (mg/dL) Final Nitrite [Presence] in Urine by Automated test strip 05/01/2023 05:27:01 Negative Negative Final Leukocyte esterase [Presence] in Urine by Automated test strip 05/01/2023 05:27:01 Negative Negative Final RBC, Urine 05/01/2023 05:27:01 0-2 0-2 (/HPF) Final WBC, Urine 05/01/2023 05:27:01 10-19 Abnormal 0-2 (/HPF) Final Bacteria [#/area] in Urine sediment by Microscopy high power field 05/01/2023 05:27:01 0-25 0-25 (/HPF) Final CULTURE, URINE - CAYLAER 05/01/2023 05:27:01 Final Quantitative urine culture t o be performed Performing Location LABORATORY [facility] [place] - [facility] [address] [facility] [address]
--- OUTSIDE RECORDS SUMMARY | 2023-06-16 00:25 | External Medical Summary ---
Author Name Unknown Address Unknown Organization K01:LAB[facility]ATORY [facility] [place] - [address] [facility] [address] Laboratory Report Ordering Provider Test Date Status RADHA PEÑA 05/01/2023 03:26:00 Final Observation Date Value Abnormality Reference (Units ) Status SYNC LEUKOCYTES IN BLOOD BY AUTOMATED COUNT 05/01/2023 03:26:00 13.97 Above high normal 4.00-10.80 (K/uL) Final Segs 05/01/2023 03:26:00 85.2 Above high normal 40.0-75.0 (%) Final Lymphs % 05/01/2023 03:26:00 3.3 Below low normal 18.0-42.0 (%) Final Monos 05/01/2023 03:26:00 9.0 1.0-11.0 (%) Final Eosinophils 05/01/2023 03:26:00 1.7 0.0-6.0 (%) Final Basos 05/01/2023 03:26:00 0.4 0.0-2.0 (%) Final Immature Granulocyte, Percent 05/01/2023 03:26:00 0.4 0.0-2.0 (%) Final Absolute Segs 05/01/2023 03:26:00 11.90 Above high normal 1.80-7.70 (K/uL) Final Lymphs, absolute 05/01/2023 03:26:00 0.46 Below low normal 1.00-4.80 (K/ul) Final Monos, Abs 05/01/2023 03:26:00 1.26 Above high normal 0.00-1.10 (K/uL) Final Eos, Abs 05/01/2023 03:26:00 0.24 0.00-0.70 (K/uL) Final Basos, Abs 05/01/2023 03:26:00 0.06 0.00-0.20 (K/uL) Final Immature Granulocytes, Number 05/01/2023 03:26:00 0.05 0.00-0.20 (K/uL) Final Performing Location LABORATORY [facility] [place] - [facility] [address] [facility] [address]
--- OUTSIDE RECORDS SUMMARY | 2023-06-16 00:25 | External Medical Summary ---
Author Name Unknown Address Unknown Organization K01:LABORATORY [facility] [place] - [address] [place] [address] Laboratory Report Ordering Provider Test Date Status RADHA PEÑA 05/01/2023 03:27:00 Final Observation Date Value Abnormality Reference (Units ) Status Troponin T 05/01/2023 03:27:00 25 Above high normal < =22 (ng/L) Final Performing Location LABORATORY [facility] [place] - [address] [place] [address]
--- OUTSIDE RECORDS SUMMARY | 2023-06-16 00:25 | External Medical Summary ---
Author Name Unknown Address Unknown Organization K01:[place] [facility] [place] [facility] [address] [facility] [address] [facility] [address] Laboratory Report Ordering Provider Test Date Status BORIS SMITH 04/20/2023 15:23:11 Final Observation Date Value Abnormality Reference (Units ) Status BUN 04/20/2023 15:23:11 25 Above high normal 6-20 (mg/dL) Final Creatinine 04/20/2023 15:23:11 1.5 Above high normal 0.6-1.2 (mg/dL) Final Glomerular filtration rate/1.73 sq M.predicted [Volume Rate/Area] in Serum, Plasma or Blood by Creatinine-based formula (CKD-EPI) 04/20/2023 15:23:11 52 Below low normal >=60 (mL/min) Final eGFR is calculated based on the CKD-EPI 2020 equation SODIUM 04/20/2023 15:23:11 138 135-146 (m mol/L) Final Potassium 04/20/2023 15:23:11 4.8 3.5-5.1 (m mol/L) Final Cl 04/20/2023 15:23:11 100 98-107 (mm ol/L) Final CO2 04/20/2023 15:23:11 25 22-32 (mmo l/L) Final Anion gap 04/20/2023 15:23:11 13 7-15 (mmol /L) Final Glucose 04/20/2023 15:23:11 99 70-120 (mg /dL) Final Calcium 04/20/2023 15:23:11 9.3 8.4-10.2 ( mg/dL) Final Performing Location [facility] [place] [address] [place] [address]
--- OUTSIDE RECORDS SUMMARY | 2023-06-16 00:26 | External Medical Summary | Summary of Care ---
Author Name Unknown Organization [facility] Address [address] [facility] [place] [address] Phone [phone] Care Team Providers Care Curriculum Writer Name Role Phone Vivi Avina DO Primary Care Provider Reason for Visit * Reason Onset Date Comments Advice 04/12/2023 Encounter Details Date Type Department Care Team Description 04/12/2023 Telephone Cardiology, [facility] [address] [place] [phone] Toshia Akins CRNP [address] [facility] [place] [address] Advice Allergies Active Allergy Reactions Severity Noted Date Comments Warfarin High 12/29/2021 Skin reaction/slothing off Sulfa Antibiotics 08/26/1999 fever documented as of this encounter (statuses as of 04/15/2023) Medications Medication Sig Dispensed Refills Start Date [...] by mouth in the morning. 0 Active Metoprolol Succinate ER 100 MG Oral Tablet Extended Release 24 Hour (toPROL XL)Indications:ОЛЬГА M (nonischemic cardiomyopathy) (HCC) Take by mouth 1 Tablet in the morning AND 1 Tablet before bedtime. 180 Tablet 3 04/19/2022 Active Ventolin HFA 108 (90 Base) MCG/ACT [...] As needed. 90 Tablet 3 04/13/2023 Active Furosemide 20 MG Oral Tablet Take 1 Tablet by mouth in the morning. As needed. 30 Tablet 5 09/14/2022 04/13/2023 Discontinue d(Refill) Spironolactone 25 MG Oral Tablet (Aldactone) Take 0.5 Tablets by mouth once a day on Tuesday, Tuesday, and Tuesday only. 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 Increased risk for Cardiomyopathy (CM). Please click the link below for current clinical management recommendations for Hereditary Cardiomyopathy. TTN MACHADO (nonalcoholic steatohepatitis) 12/31 NICM (nonischemic cardiomyopathy) 2021 Secondary polycythemia 06/05/2020 HTN, goal below 140/90 09/04/2018 Permanent atrial fibrillation 03/14/2017 Ventricular tachycardia 03/14/2017 UNILAT INGUINAL HERNIA documented as of this encounter (statuses as of 04/15/2023) Resolved Problems Problem Noted Date Resolved Date Prediabetes 05/10/2022 09/15/2022 Overview: Per Prediabetes protocol Acute systolic congestive heart failure 03/14/20 17 09/04/2018 Acute systolic heart failure 03/14/2017 Paroxysmal atrial fibrillation 05/26/2015 0 12/29/2021 Varicella without complication 11/19/2002 0 09/04/2018 documented as of this encounter (statuses as of 04/15/2023) Immunizations Name Administration Dates Next Due Pneumococcal [...] Miscellaneous Notes * Telephone Encounter - DOC Wang - 04/15/2023 9:00 AM EDT Spoke with pt's . Pt is scheduled in for bp check and lab work for 04/20/23. * Telephone Encounter - DOC Wang - 04/14/2023 9:06 AM EDT LMOM, second attempt. * Telephone Encounter - DOC Wang - 04/13/2023 12:31 PM EDT LMOM. Schedule: Nurse BP check in 1 week with lab work same day * Telephone Encounter - Irwin Traore LPN - 04/13/2023 11:17 AM EDT Patient's is aware of Toshia's message. Patient needs a refill on Lasix- pended. Scheduling please reach out to the patient to schedule NV. * Telephone Encounter - GERTRUDIS Thompson - 04/12/2023 1:03 PM EDT Is patients blood pressure still that low? Hold spironolactone- Nurse BP check in 1 week with lab work same day. GERTRUDIS Hoyt * Telephone Encounter - DOC Quiñones - 04/12/2023 12:34 PM EDT Pt's , Rossana, called on behalf of Pt to see if GERTRUDIS Clarke would return his call. Rossana states running low blood pressure a week ago it was 80/66. Pt has been feeling pretty tired, and while he's not feeling bad, he's also not feeling great either. Rossana stated she's not sure if it could be his medication making him feel this way, and that Pt would like to touch base with her. Please return Pt call at [phone] documented in this encounter Plan of Treatment Upcoming Encounters Date Type Specialty Care Team Description 04/20/2023 Nurse Only Ancillary [place] Nurse [address] [place] [address] 04/20/2023 Laboratory Laboratory [facility] Sharma [address] [facility] [place] [address] 05/24/2023 Laboratory Laboratory Cat [facility] [address] [facility] [place] [address] 05/24/2023 Hem/Onc Treatment Hematology Oncology [place], Chair 8 Hem Onc Scenery 200 [facility] [place] [address] 05/26/2023 Office Visit Cardiology Sangeetha Julien CRNP 132 [facility] [place] [address] 07/12/2023 Office Visit Family Medicine Vivi Avina DO 200 [facility] [place] [address] 12/20/2023 Office Visit Hematology Oncology Bryce Crain MD 200 [facility] [place] [address] Scheduled Orders Name Type Priority Associated Diagnoses Orde r Schedule BASIC METABOLIC PANEL Lab STAT Hypotension, unspecified hypotension type Expected: 04/19/2023, Expires: 04/12/2024 Scheduled Procedures Name Priority Associated Diagnoses Date/Ti [...] this encounter Medical Devices Implanted Type Area Catheter Builder Device Identifier Shelf Expiration Date Model / Serial / Lot Envelope Antibacteral Tyrx - [id number] Implanted:Qty: 1 on 04/01/2022 by Randa Skelton DO at OR [facility] [employer] : CRM [id number] 12/12/2022 CMRM6 133 / / [id number] documented as of this encounter Visit Diagnoses Diagnosis Hypotension, unspecified hypotension type- Primary documented in this encounter Care Teams Curriculum Writer Relationship Specialty Start Date End Date Vivi Avina DO 200 [facility] [place] [address] PCP - General Family Medicine 01/27/17 documented as of this encounter
--- OUTSIDE RECORDS SUMMARY | 2023-06-16 00:26 | External Medical Summary | Summary of Care ---
Author Name Unknown Organization [facility] Address [address] [facility] [place] [address] Phone [phone] Care Team Providers Care Medical Center Director Name Role Phone Vivi Avina DO Primary Care Provider Reason for Visit * Reason Comments Procedure phlebotomy Encounter Details Date Type Department Care Team Description 03/29/2023 Hem/Onc Treatment Hematology/Oncology Treatment, [place] [address] [place] [address] Cat, Chair 4 Hem Onc Scenery [address] [place] [id number] Secondary polycythemia* Allergies Active Allergy Reactions Severity Noted Date Comments Warfarin High 12/29/2021 Skin reaction/slothing off Sulfa Antibiotics 08/26/1999 fever documented as of this encounter (statuses as of 03/29/2023) Medications Medication Sig Dispensed Refills Start Date [...] as needed-otc. 30 Tablet 5 12/08/2021 Active Entresto 24-26 MG Oral Tablet (sacubitril-valsartan 24-26 mg per tab) Take by mouth 1 Tablet in the morning AND 1 Tablet before bedtime. 60 Tablet 11 04/01/2022 Active miscellaneous OTC Take 1 Each by mouth in the morning and 1 Each before bedtime. 0 Active Liver Support Sublingual Tablet Sublingual Take by mouth 2 Tablets daily . 0 Active Zinc 50 MG Oral Tablet Take 1 Tablet by mouth in the morning. 0 Active Metoprolol Succinate ER 100 MG Oral Tablet Extended Release 24 Hour (toPROL XL)Indications:NICM (nonischemic cardiomyopathy) (HCC) Take by mouth 1 Tablet in the morning AND 1 Tablet before bedtime. 180 Tablet 3 04/19/2022 Active Furosemide 20 MG Oral Tablet Take 1 Tablet by mouth in the morning. As needed. 30 Tablet 5 09/14/2022 Active Ventolin HFA 108 (90 Base) MCG/ACT [...] the day. 30 Capsule 5 02/15/2023 Active Spironolactone 25 MG Oral Tablet (Aldactone) Take 0.5 Tablets by mouth once a day on Tuesday, Tuesday, and Tuesday only. 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 Increased risk for Cardiomyopathy (CM). Please click the link below for current clinical management recommendations for Hereditary Cardiomyopathy. TTN MACHADO (nonalcoholic steatohepatitis) 12/31 NICM (nonischemic cardiomyopathy) 2021 Secondary polycythemia 06/05/2020 HTN, goal below 140/90 09/04/2018 Permanent atrial fibrillation 03/14/2017 Ventricular tachycardia 03/14/2017 UNILAT INGUINAL HERNIA documented as of this encounter (statuses as of 03/29/2023) Resolved Problems Problem Noted Date Resolved Date Prediabetes 05/10/2022 09/15/2022 Overview: Per Prediabetes protocol Acute systolic congestive heart failure 03/14/20 17 09/04/2018 Acute systolic heart failure 03/14/2017 Paroxysmal atrial fibrillation 05/26/2015 0 12/29/2021 Varicella without complication 11/19/2002 0 09/04/2018 documented as of this encounter (statuses as of 03/29/2023) Immunizations Name Administration Dates Next Due Pneumococcal [...] Sign Reading Time Taken Comments Blood Pressure 93/60 03/29/2023 4:22 PM EDT Pulse 73 03/29/2023 4:22 PM EDT Temperature 36.4 C (97.6 F) 03/29/2023 3:20 PM ED T Respiratory Rate 18 03/29/2023 3:20 PM EDT Oxygen Saturation - - Inhaled Oxygen Concentration - - Weight - - Height - - Body Mass Index - - documented in this encounter Nursing Notes * Anna Olguin RN - 03/29/2023 4:08 PM EDT Chair 6 Pt arrives for therapeutic phlebotomy. IV started without difficulty and phlebotomy bag attached. Pt offered a drink and snack during procedure and encouraged to increase fluid intake today. After approximately 50 minutes of sitting with patient and trying to manipulate phlebotomy bag to flow, only [address] Crain made aware and he said OK to finish phlebotomy at that time, no need to return for 2 months. Pt made aware and agreeable. Appointments scheduled for May. Post phlebotomy BP 93/60. Pt states this is normal for him to run low. He denies any dizziness, lightheadedness, denies any feelings of fainting or any cardiac symptoms. IV site removed intact. Pt discharged in stable condition. Coverage by Lali Sotelo LPN. documented in this encounter Plan of Treatment Upcoming Encounters Date Type Specialty Care Team Description 05/24/2023 Laboratory Laboratory Cat, Lab Scenery [address] [place] [address] 05/24/2023 Hem/Onc Treatment Hematology Oncology Cat, Chair 8 Hem Onc Scenery [address] [place] [address] 05/26/2023 Office Visit Cardiology Sangeetha Julien CRNP [address] [place] [address] 07/12/2023 Office Visit Family Medicine Vivi Avina DO 200 [facility] [place] [address] 12/20/2023 Office Visit Hematology Oncology Bryce Crain MD 200 [facility] [place] [address] Scheduled Procedures Name Priority Associated Diagnoses Date/Ti me COLONOSCOPY FLEXIBLE PROXIMAL DIAGNOSTIC Recall History of colon polyps Health Maintenance Due Date Last Done Comments COVID-19 Vaccine (#1) 1960 Depression Screening, Annual for Pts 12 and Over 05/17/2018 05/17/2017 Pneumococcal Vaccine: Pediatrics (0 to [...] this encounter Medical Devices Implanted Type Area Slurry Control Tender Device Identifier Shelf Expiration Date Model / Serial / Lot Envelope Antibacteral Tyrx - [id number] Implanted:Qty: 1 on 04/01/2022 by Randa Skelton DO at OR [facility] [employer] : CRM [id number] 12/12/2022 CMRM6 133 / / [id number] documented as of this encounter Visit Diagnoses Diagnosis Secondary polycythemia- Primary Polycythemia, secondary documented in this encounter Care Teams Medical Center Director Relationship Specialty Start Date End Date iVvi Avina DO 200 [facility] [place] [address] PCP - General Family Medicine 01/27/17 documented as of this encounter
--- OUTSIDE RECORDS SUMMARY | 2023-06-16 00:26 | External Medical Summary ---
Author Name Unknown Address Unknown Organization [id number]:[facility] [place] [address] Laboratory Report Ordering Provider Test Date Status GISELA AMOS 03/29/2023 14:58:33 Final Observation Date Value Abnormality Reference (Units ) Status Nucleated erythrocytes/100 leukocytes [Ratio] in Blood by Automated count 03/29/2023 14:58:33 Final Elliptocytes [Presence] in Blood by Light microscopy 03/29/2023 14:58:33 Moderate Abnormal None Seen Final Target cells [Presence] in Blood by Light microscopy 03/29/2023 14:58:33 Moderate Abnormal None Seen Final Performing Location [facility] [place] [address]
--- OUTSIDE RECORDS SUMMARY | 2023-06-16 00:26 | External Medical Summary ---
Author Name Unknown Address Unknown Organization K09:[facility] [place] [place] [address] Laboratory Report Ordering Provider Test Date Status GISELA AMOS 03/29/2023 14:58:33 Final Observation Date Value Abnormality Reference (Units ) Status SYNC LEUKOCYTES IN BLOOD BY AUTOMATED COUNT 03/29/2023 14:58:33 10.20 4.00-10.80 (K/uL) Final Segs 03/29/2023 14:58:33 71.4 40.0-75.0 (%) Final Lymphs % 03/29/2023 14:58:33 12.9 Below low normal 18.0-42.0 (%) Final Monos 03/29/2023 14:58:33 12.4 Above high normal 1.0-11.0 (%) Final Eosinophils 03/29/2023 14:58:33 2.9 0.0-6.0 (%) Final Basos 03/29/2023 14:58:33 0.4 0.0-2.0 (%) Final Absolute Segs 03/29/2023 14:58:33 7.28 1.80-7.70 (K/uL) Final Lymphs, absolute 03/29/2023 14:58:33 1.32 1.00-4.80 (K/ul) Final Monos, Abs 03/29/2023 14:58:33 1.26 Above high normal 0.00-1.10 (K/uL) Final Eos, Abs 03/29/2023 14:58:33 0.30 0.00-0.70 (K/uL) Final Basos, Abs 03/29/2023 14:58:33 0.04 0.00-0.20 (K/uL) Final Performing Location [facility] [place] [address]
--- OUTSIDE RECORDS SUMMARY | 2023-06-16 00:26 | External Medical Summary | Summary of Care ---
Author Name Unknown Organization [facility] Address [address] [facility] [place] [address] Phone [phone] Care Team Providers Care Transition Manager Name Role Phone Vivi Avina DO Primary Care Provider Reason for Visit * Reason Onset Date Comments Advice 04/12/2023 Encounter Details Date Type Department Care Team Description 04/12/2023 Telephone Cardiology, [facility] [address] [place] [id number] Toshia Akins CRNP [address] [facility] [address] Advice Allergies Active Allergy Reactions Severity Noted Date Comments Warfarin High 12/29/2021 Skin reaction/slothing off Sulfa Antibiotics 08/26/1999 fever documented as of this encounter (statuses as of 04/14/2023) Medications Medication Sig Dispensed Refills Start Date [...] as of this encounter (statuses as of 04/14/2023) Active Problems Problem Noted Date 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 Increased risk for Cardiomyopathy (CM). Please click the link below for current clinical management recommendations for Hereditary Cardiomyopathy. TTN MACHADO (nonalcoholic steatohepatitis) 12/31 NICM (nonischemic cardiomyopathy) 2021 Secondary polycythemia 06/05/2020 HTN, goal below 140/90 09/04/2018 Permanent atrial fibrillation 03/14/2017 Ventricular tachycardia 03/14/2017 UNILAT INGUINAL HERNIA documented as of this encounter (statuses as of 04/14/2023) Resolved Problems Problem Noted Date Resolved Date Prediabetes 05/10/2022 09/15/2022 Overview: Per Prediabetes protocol Acute systolic congestive heart failure 03/14/20 17 09/04/2018 Acute systolic heart failure 03/14/2017 Paroxysmal atrial fibrillation 05/26/2015 0 12/29/2021 Varicella without complication 11/19/2002 0 09/04/2018 documented as of this encounter (statuses as of 04/14/2023) Immunizations Name Administration Dates Next Due Pneumococcal [...] with her. Please return Pt call at [phone] documented in this encounter Plan of Treatment Upcoming Encounters Date Type Specialty Care Team Description 05/24/2023 Laboratory Laboratory Cat Lab Scenery [address] [facility] [place] [address] 05/24/2023 Hem/Onc Treatment Hematology Oncology Cat, Chair 8 Hem Onc Scenery [address] [facility] [place] [address] 05/26/2023 Office Visit Cardiology Sangeetha Julien CRNP [address] [place] [address] 07/12/2023 Office Visit Family Medicine Vivi Avina DO [address] [facility] [place] [address] 12/20/2023 Office Visit Hematology Oncology Bryce Crain MD [address] [place] [address] Scheduled Orders Name Type Priority Associated Diagnoses [...] this encounter Medical Devices Implanted Type Area Manager Technical Training Device Identifier Shelf Expiration Date Model / Serial / Lot Envelope Antibacteral Tyrx - [id number] Implanted:Qty: 1 on 04/01/2022 by Randa Skelton DO at OR [facility] [employer] : CRM [id number] 12/12/2022 [id number] / / [id number] documented as of this encounter Visit Diagnoses Diagnosis Hypotension, unspecified hypotension type- Primary documented in this encounter Care Teams Transition Manager Relationship Specialty Start Date End Date Vivi Avina DO [address] [place] [address] PCP - General Family Medicine 01/27/17 documented as of this encounter
--- OUTSIDE RECORDS SUMMARY | 2023-06-16 00:26 | External Medical Summary | Summary of Care ---
Author Name Unknown Organization [facility] Address [address] [place] [address] Phone [phone] Care Team Providers Care Broom Handle Dipper Name Role Phone Vivi Avina DO Primary Care Provider Reason for Visit * Reason Comments Outpatient Testing Encounter Details Date Type Department Care Team Description 03/25/2023 Laboratory Laboratory Scenery [facility] [address] [place] [address] [facility] Lab Scenery [address] [place] [address] Secondary polycythemia; NICM (nonischemic cardiomyopathy) ([facility]) Allergies Active Allergy Reactions Severity Noted Date Comments Warfarin High 12/29/2021 Skin reaction/slothing off Sulfa Antibiotics 08/26/1999 fever documented as of this encounter (statuses as of 03/25/2023) Medications Medication Sig Dispensed Refills Start Date [...] as of this encounter (statuses as of 03/25/2023) Active Problems Problem Noted Date 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 Increased risk for Cardiomyopathy (CM). Please click the link below for current clinical management recommendations for Hereditary Cardiomyopathy. TTN MACHADO (nonalcoholic steatohepatitis) 12/31 NICM (nonischemic cardiomyopathy) 2021 Secondary polycythemia 06/05/2020 HTN, goal below 140/90 09/04/2018 Permanent atrial fibrillation 03/14/2017 Ventricular tachycardia 03/14/2017 UNILAT INGUINAL HERNIA documented as of this encounter (statuses as of 03/25/2023) Resolved Problems Problem Noted Date Resolved Date Prediabetes 05/10/2022 09/15/2022 Overview: Per Prediabetes protocol Acute systolic congestive heart failure 03/14/20 17 09/04/2018 Acute systolic heart failure 03/14/2017 Paroxysmal atrial fibrillation 05/26/2015 0 12/29/2021 Varicella without complication 11/19/2002 0 09/04/2018 documented as of this encounter (statuses as of 03/25/2023) Immunizations Name Administration Dates Next Due Pneumococcal [...] Encounters Date Type Specialty Care Team Description 03/25/2023 Hem/Onc Treatment Hematology Oncology Park, Chair 1 Hem Onc Scenery [address] [place] [address] Arrived 05/26/2023 Office Visit Cardiology Sangeetha Julien CRNP [address] [place] [address] 07/12/2023 Office Visit Family Medicine Vivi Avina DO [address] [place] [address] 12/20/2023 Office Visit Hematology Oncology Bryce Crain MD [address] [place] [address] Pending Results Name Type Priority Associated Diagnoses Date /Time CBC WITH WBC DIFFERENTIAL Lab STAT Secondary polycythemia 03/25/2023 3:13 PM EDT BASIC METABOLIC PANEL Lab Routine NICM (nonischemic cardiomyopathy) (HCC) 03/25/2023 3:13 PM EDT CBC Lab STAT Secondary polycythemia 03/25/2023 3:13 PM EDT DIFFERENTIAL, AUTOMATED Lab STAT Secondary polycythemia 03/25/2023 3:13 PM EDT Scheduled Procedures Name Priority Associated [...] 05/02/2021, 05/09/2020, 05/02/2018, Additional history exists GFR 03/11/2024 03/11/2023, 01/29, 09/28/2022, Additional history exists Albumin/Creatinine Ratio 02/15/2026 02/15/2023, 09/01 Diabetes Screening 03/11/2026 03/11/2023, 0 02/15/2023, 02/15/2023, Additional history exists COLONOSCOPY-EVERY 5 YRS [...] this encounter Medical Devices Implanted Type Area Charter Representative Device Identifier Shelf Expiration Date Model / Serial / Lot Envelope Antibacteral Tyrx - [id number] Implanted:Qty: 1 on 04/01/2022 by Randa Skelton DO at OR [facility] [employer] : CRM [id number] 12/12/2022 [id number] 133 / / [id number] documented as of this encounter Visit Diagnoses Diagnosis Secondary polycythemia Polycythemia, secondary NICM (nonischemic cardiomyopathy) (HCC) Other primary cardiomyopathies documented in this encounter Care Teams Broom Handle Dipper Relationship Specialty Start Date End Date Vivi Avina DO [address] [place] [address] PCP - General Family Medicine 01/27/17 documented as of this encounter
--- OUTSIDE RECORDS SUMMARY | 2023-06-16 00:26 | External Medical Summary ---
Author Name Unknown Address Unknown Organization K09:[facility] [place] [address] Laboratory Report Ordering Provider Test Date Status BORIS SMITH 03/25/2023 15:13:56 Final Observation Date Value Abnormality Reference (Units ) Status BUN 03/25/2023 15:13:56 27 Above high normal 6-20 (mg/dL) Final Creatinine 03/25/2023 15:13:56 1.3 Above high normal 0.6-1.2 (mg/dL) Final Glomerular filtration rate/1.73 sq M.predicted [Volume Rate/Area] in Serum, Plasma or Blood by Creatinine-based formula (CKD-EPI) 03/25/2023 15:13:56 64 >=60 (mL/min) Final eGFR is calculated based on the CKD-EPI 2020 equation SODIUM 03/25/2023 15:13:56 139 135-146 (m mol/L) Final Potassium 03/25/2023 15:13:56 4.7 3.5-5.1 (m mol/L) Final Cl 03/25/2023 15:13:56 102 98-107 (mm ol/L) Final CO2 03/25/2023 15:13:56 26 22-32 (mmo l/L) Final Anion gap 03/25/2023 15:13:56 11 7-15 (mmol /L) Final Glucose 03/25/2023 15:13:56 100 70-120 (mg /dL) Final Calcium 03/25/2023 15:13:56 9.5 8.4-10.2 ( mg/dL) Final Performing Location [facility] [place] [address]
--- OUTSIDE RECORDS SUMMARY | 2023-06-16 00:26 | External Medical Summary ---
Author Name Unknown Address Unknown Organization K09:[facility] [place] [address] Laboratory Report Ordering Provider Test Date Status GISELA AMOS 03/29/2023 14:58:33 Final Observation Date Value Abnormality Reference (Units ) Status WBC, Total 03/29/2023 14:58:33 10.20 4.00-10.8 0 (K/uL) Final RBC 03/29/2023 14:58:33 6.39 4.50-5.25 (M/uL) Final Hemoglobin 03/29/2023 14:58:33 15.3 14.0-16.8 (g/dL) Final HCT 03/29/2023 14:58:33 49.4 Above high normal 40 .0-48.4 (%) Final MCV 03/29/2023 14:58:33 77.3 82.0-99.5 (fL) Final MCH 03/29/2023 14:58:33 23.9 27.0-34.0 (pg) Final MCHC 03/29/2023 14:58:33 31.0 32.0-36.0 (g/dL) Final RDW 03/29/2023 14:58:33 22.5 11.5-15.5 (%) Final Platelets 03/29/2023 14:58:33 219 140-400 (K /uL) Final MPV 03/29/2023 14:58:33 10.4 6.6-11.1 ( fL) Final Performing Location [facility] [place] [address]
--- OUTSIDE RECORDS SUMMARY | 2023-06-16 00:26 | External Medical Summary ---
Author Name Unknown Address Unknown Organization K09:[facility] [place] [address] Laboratory Report Ordering Provider Test Date Status GISELA AMOS 03/25/2023 15:13:56 Final Observation Date Value Abnormality Reference (Units ) Status WBC, Total 03/25/2023 15:13:56 11.10 Above high normal 4 .00-10.80 (K/uL) Final RBC 03/25/2023 15:13:56 6.54 4.50-5.25 (M/uL) Final Hemoglobin 03/25/2023 15:13:56 15.4 14.0-16.8 (g/dL) Final HCT 03/25/2023 15:13:56 49.6 Above high normal 40 .0-48.4 (%) Final MCV 03/25/2023 15:13:56 75.8 82.0-99.5 (fL) Final MCH 03/25/2023 15:13:56 23.5 27.0-34.0 (pg) Final MCHC 03/25/2023 15:13:56 31.0 32.0-36.0 (g/dL) Final RDW 03/25/2023 15:13:56 22.4 11.5-15.5 (%) Final Platelets 03/25/2023 15:13:56 267 140-400 (K /uL) Final MPV 03/25/2023 15:13:56 10.7 6.6-11.1 ( fL) Final Performing Location [facility] [place] [address]
--- OUTSIDE RECORDS SUMMARY | 2023-06-16 00:26 | External Medical Summary | Summary of Care ---
Author Name Unknown Organization [facility] Address [address] [facility] [place] [address] Phone [phone] Care Team Providers Care Accounting Systems Analyst Name Role Phone Vivi Avina DO Primary Care Provider Reason for Visit * Reason Onset Date Comments Hospital Follow-Up 03/02/2023 Encounter Details Date Type Department Care Team Description 03/02/2023 Telephone Cardiology, [facility] [address] [place] [address] Cj Day DO [address] [place] [address] Hospital Follow-Up Allergies Active Allergy Reactions Severity Noted Date Comments Warfarin High 12/29/2021 Skin reaction/slothing off Sulfa Antibiotics 08/26/1999 fever documented as of this encounter (statuses as of 03/22/2023) Medications Medication Sig Dispensed Refills Start Date [...] the day. 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 Increased risk for Cardiomyopathy (CM). Please click the link below for current clinical management recommendations for Hereditary Cardiomyopathy. TTN MACHADO (nonalcoholic steatohepatitis) 12/31 NICM (nonischemic cardiomyopathy) 2021 Secondary polycythemia 06/05/2020 HTN, goal below 140/90 09/04/2018 Permanent atrial fibrillation 03/14/2017 Ventricular tachycardia 03/14/2017 UNILAT INGUINAL HERNIA documented as of this encounter (statuses as of 03/22/2023) Resolved Problems Problem Noted Date Resolved Date Prediabetes 05/10/2022 09/15/2022 Overview: Per Prediabetes protocol Acute systolic congestive heart failure 03/14/20 17 09/04/2018 Acute systolic heart failure 03/14/2017 Paroxysmal atrial fibrillation 05/26/2015 0 12/29/2021 Varicella without complication 11/19/2002 0 09/04/2018 documented as of this encounter (statuses as of 03/22/2023) Immunizations Name Administration Dates Next Due Pneumococcal [...] * Telephone Encounter - DOC Wang - 03/03/2023 1:19 PM EDT LM on pt's identified cell with appt info and number if needing to reschedule. * Telephone Encounter - DOC Wang - 03/02/2023 2:07 PM EDT 03/11/23 at 245 with ZEENAT. 03/15/23 at 215 with Toshia Snyder. No other appts available within 1-3 weeks. MyG sent. * Telephone Encounter - Cj Day DO - 03/02/2023 1:50 PM EDT Please help arrange outpatient follow-up in 1-3 weeks, perhaps with an AP. Patient previously followed with Dr. Barnes. Also Please arrange for follow-up with the MTM team for CHF medication follow up / Susan Day DO documented in this encounter Plan of Treatment Upcoming Encounters Date Type Specialty Care Team Description 03/25/2023 Laboratory Laboratory Cat, Lab Scenery [address] [place] [address] 03/25/2023 Hem/Onc Treatment Hematology Oncology Cat, Chair 1 Hem Onc Scenery [address] [place] [address] 05/26/2023 Office Visit Cardiology Sangeetha Julien CRNP [address] [place] [address] 07/12/2023 Office Visit Family Medicine Vivi Avina DO [address] [place] [address] 12/20/2023 Office Visit Hematology Oncology Bryce Crain MD [address] [place] [address] Scheduled Procedures Name Priority Associated Diagnoses Date/Ti [...] this encounter Medical Devices Implanted Type Area Clinical Nursing Assistant Device Identifier Shelf Expiration Date Model / Serial / Lot Envelope Antibacteral Tyrx - [id number] Implanted:Qty: 1 on 04/01/2022 by Randa Skelton DO at OR [facility] [employer] : CRM [id number] 12/12/2022 CMRM6 133 / / [id number] documented as of this encounter Care Teams Accounting Systems Analyst Relationship Specialty Start Date End Date Vivi Avina DO [address] [facility] [place] [address] PCP - General Family Medicine 01/27/17 documented as of this encounter
--- OUTSIDE RECORDS SUMMARY | 2023-06-16 00:26 | External Medical Summary | Summary of Care ---
Author Name Unknown Organization [facility] Address [address] [place] [address] Phone [phone] Care Team Providers Care Duplicating Machine Operator Name Role Phone Vivi Avina DO Primary Care Provider Reason for Visit * Reason Comments eRx-Medication Refill Encounter Details Date Type Department Care Team Description 04/03/2023 Refill Cardiology, [facility] [address] [facility] [place] [address] Christopher Witt DO [address] [facility] [place] [address] HTN, goal below 140/90*; Permanent atrial fibrillation (HCC) Allergies Active Allergy Reactions Severity Noted Date Comments Warfarin High 12/29/2021 Skin reaction/slothing off Sulfa Antibiotics 08/26/1999 fever documented as of this encounter (statuses as of 04/09/2023) Medications Medication Sig Dispensed Refills Start Date [...] Tuesday only. 90 Tablet 3 03/16/2023 Active Entresto 24-26 MG Oral Tablet (sacubitril-valsar hernandez 24-26 mg per tab)Indications:HT N, goal below 140/90,Permanent atrial fibrillation (HCC) take 1 tablet by mouth every morning and 1 tablet by mouth BEFORE BEDTIME 60 Tablet 11 04/09/2023 Active Entresto 24-26 MG Oral Tablet (sacubitril-valsar hernandez 24-26 mg per tab) Take by mouth 1 Tablet in the morning AND 1 Tablet before bedtime. 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 Increased risk for Cardiomyopathy (CM). Please click the link below for current clinical management recommendations for Hereditary Cardiomyopathy. TTN MACHADO (nonalcoholic steatohepatitis) 12/31 NICM (nonischemic cardiomyopathy) 2021 Secondary polycythemia 06/05/2020 HTN, goal below 140/90 09/04/2018 Permanent atrial fibrillation 03/14/2017 Ventricular tachycardia 03/14/2017 UNILAT INGUINAL HERNIA documented as of this encounter (statuses as of 04/09/2023) Resolved Problems Problem Noted Date Resolved Date Prediabetes 05/10/2022 09/15/2022 Overview: Per Prediabetes protocol Acute systolic congestive heart failure 03/14/20 17 09/04/2018 Acute systolic heart failure 03/14/2017 Paroxysmal atrial fibrillation 05/26/2015 0 12/29/2021 Varicella without complication 11/19/2002 0 09/04/2018 documented as of this encounter (statuses as of 04/09/2023) Immunizations Name Administration Dates Next Due Pneumococcal [...] encounter Miscellaneous Notes * Telephone Encounter - Christopher Witt DO - 04/09/2023 4:47 PM EDTSigned Prescriptions: Disp Refills Entresto 24-26 MG Oral Tablet (sacubitril-*60 Tab*11 Sig: take 1 tablet by mouth every morning and 1 tablet by mouth BEFORE BEDTIME Authorizing Provider: CHRISTOPHER WITT * Telephone Encounter - Herlinda Kenney CMA - 04/06/2023 12:21 PM EDTPending Prescriptions: Disp Refills Entresto 24-26 MG Oral Tablet (sacubitril-*60 Tab*11 Sig: take 1 tablet by mouth every morning and 1 tablet by mouth BEFORE BEDTIME * Telephone Encounter - Herlinda Kenney CMA - 04/06/2023 12:21 PM EDT Did you pend patient's preferred pharmacy and medication before forwarding?yes Pharmacy: [facility] #[id number] [address] [facility] Pending Prescriptions: Disp Refills Entresto 24-26 MG Oral Tablet (sacubitril*60 Tab*11 Sig: take 1 tablet by mouth every morning and 1 tablet by mouth BEFORE BEDTIME Last Visit: 03/15/2023 (in office), 08/20/2022 (telemedicine) Next Visit: 05/26/2023 If no future appointments scheduled, and last appointment is greater than a year ago, please schedule patient for a follow-up appointment Last date the medication was ordered: Is this request for a controlled substance?No [...] Specialty Care Team Description 05/24/2023 Laboratory Laboratory [facility] Scenery [address] [place] [address] 05/24/2023 Hem/Onc Treatment Hematology Oncology Park, Chair 8 Hem Onc Scenery [address] [place] [address] 05/26/2023 Office Visit Cardiology Sangeetha Julien CRNP [address] [place] [address] 07/12/2023 Office Visit Family Medicine Vivi Avina DO [address] [place] [address] 12/20/2023 Office Visit Hematology Oncology Bryce Crain MD [address] [place] [address] Scheduled Procedures Name Priority Associated Diagnoses Date/Ti [...] this encounter Medical Devices Implanted Type Area Hockey Scout Device Identifier Shelf Expiration Date Model / Serial / Lot Envelope Antibacteral Tyrx - [id number] Implanted:Qty: 1 on 04/01/2022 by Christopher Witt DO at OR [facility] [employer] : CRM [id number] 12/12/2022 CMRM6 133 / / [id number] documented as of this encounter Visit Diagnoses Diagnosis HTN, goal below 140/90- Primary Unspecified essential hypertension Permanent atrial fibrillation (HCC) Atrial fibrillation documented in this encounter Care Teams Duplicating Machine Operator Relationship Specialty Start Date End Date Vivi Avina DO [address] [facility] [place] [address] PCP - General Family Medicine 01/27/17 documented as of this encounter
--- OUTSIDE RECORDS SUMMARY | 2023-06-16 00:26 | External Medical Summary | Summary of Care ---
Author Name Unknown Organization [facility] Address [address] [facility] [place] [address] Phone [phone] Care Team Providers Care Emergency Department Name Role Phone Vivi Avina DO Primary Care Provider Reason for Visit * Reason Onset Date Comments Advice 04/12/2023 Encounter Details Date Type Department Care Team Description 04/12/2023 Telephone Cardiology, [facility] [address] [place] [phone] Toshia Akins CRNP [address] [place] [address] Advice Allergies Active Allergy Reactions Severity Noted Date Comments Warfarin High 12/29/2021 Skin reaction/slothing off Sulfa Antibiotics 08/26/1999 fever documented as of this encounter (statuses as of 04/13/2023) Medications Medication Sig Dispensed Refills Start Date [...] as of this encounter (statuses as of 04/13/2023) Active Problems Problem Noted Date 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 Increased risk for Cardiomyopathy (CM). Please click the link below for current clinical management recommendations for Hereditary Cardiomyopathy. TTN MACHADO (nonalcoholic steatohepatitis) 12/31 NICM (nonischemic cardiomyopathy) 2021 Secondary polycythemia 06/05/2020 HTN, goal below 140/90 09/04/2018 Permanent atrial fibrillation 03/14/2017 Ventricular tachycardia 03/14/2017 UNILAT INGUINAL HERNIA documented as of this encounter (statuses as of 04/13/2023) Resolved Problems Problem Noted Date Resolved Date Prediabetes 05/10/2022 09/15/2022 Overview: Per Prediabetes protocol Acute systolic congestive heart failure 03/14/20 17 09/04/2018 Acute systolic heart failure 03/14/2017 Paroxysmal atrial fibrillation 05/26/2015 0 12/29/2021 Varicella without complication 11/19/2002 0 09/04/2018 documented as of this encounter (statuses as of 04/13/2023) Immunizations Name Administration Dates Next Due Pneumococcal [...] with her. Please return Pt call at [phone] documented in this encounter Plan of Treatment Upcoming Encounters Date Type Specialty Care Team Description 05/24/2023 Laboratory Laboratory Cat, Lab Scenery [address] [facility] [place] [address] 05/24/2023 Hem/Onc Treatment Hematology Oncology Park, Chair 8 Hem Onc Scenery [address] [place] [address] 05/26/2023 Office Visit Cardiology Sangeetha Julien CRNP [address] [place] [address] 07/12/2023 Office Visit Family Medicine Vivi Avina DO [address] [place] [address] 12/20/2023 Office Visit Hematology Oncology Bryce Crain MD [address] [place] [address] Scheduled Orders Name Type Priority Associated Diagnoses [...] this encounter Medical Devices Implanted Type Area Boat Operator Device Identifier Shelf Expiration Date Model / Serial / Lot Envelope Antibacteral Tyrx - [id number] Implanted:Qty: 1 on 04/01/2022 by Randa Skelton DO at OR [facility] [employer] : CRM [id number] 12/12/2022 CMR6 133 / / [id number] documented as of this encounter Visit Diagnoses Diagnosis Hypotension, unspecified hypotension type- Primary documented in this encounter Care Teams Emergency Department Relationship Specialty Start Date End Date Vivi Avina DO [address] [place] [address] PCP - General Family Medicine 01/27/17 documented as of this encounter
--- OUTSIDE RECORDS SUMMARY | 2023-06-16 00:26 | External Medical Summary ---
Author Name Unknown Address Unknown Organization [id number]:[facility] [place] [address] Laboratory Report Ordering Provider Test Date Status GISELA AMOS 03/25/2023 15:13:56 Final Observation Date Value Abnormality Reference (Units ) Status SYNC LEUKOCYTES IN BLOOD BY AUTOMATED COUNT 03/25/2023 15:13:56 11.10 Above high normal 4.00-10.80 (K/uL) Final Neutrophils/100 leukocytes in Blood by Manual count 03/25/2023 15:13:56 79.0 Above high normal 40.0-75.0 (%) Final Lymphocytes/100 leukocytes in Blood by Manual count 03/25/2023 15:13:56 11.0 Below low normal 18.0-42.0 (%) Final Monocytes/100 leukocytes in Blood by Manual count 03/25/2023 15:13:56 7.0 1.0-11.0 (%) Final Eosinophils/100 leukocytes in Blood by Manual count 03/25/2023 15:13:56 3.0 0.0-6.0 (%) Final Neutrophils [#/volume] in Blood by Manual count 03/25/2023 15:13:56 8.77 Above high normal 1.80-7.70 (K/uL) Final Lymphocytes [#/volume] in Blood by Manual count 03/25/2023 15:13:56 1.22 1.00-4.80 (K/uL) Final Monocytes [#/volume] in Blood by Manual count 03/25/2023 15:13:56 0.78 0.00-1.10 (K/uL) Final Eosinophils [#/volume] in Blood by Manual count 03/25/2023 15:13:56 0.33 0.00-0.70 (K/uL) Final Performing Location [facility] [place] [address]
--- OUTSIDE RECORDS SUMMARY | 2023-06-16 00:26 | External Medical Summary | Summary of Care ---
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 Increased risk for Cardiomyopathy (CM). Please click [...] encounter Miscellaneous Notes * Telephone Encounter - Irwin Traore LPN [...] with her. Please return Pt call at [phone] documented in this encounter Plan of Treatment Upcoming Encounters Date Type Specialty Care Team Description 05/24/2023 Laboratory Laboratory Cat, Lab Scenery [address] [place] [address] 05/24/2023 Hem/Onc Treatment Hematology Oncology [place], Chair 8 Hem Onc Scenery [address] [place] [address] 05/26/2023 Office Visit Cardiology Sangeetha Julien CRNP [address] [place] [address] 07/12/2023 Office Visit Family Medicine Vivi Avina DO [address] [place] [address] 12/20/2023 Office Visit Hematology Oncology Bryce Crain MD [address] [place] [address] Scheduled Orders Name Type Priority Associated Diagnoses [...] this encounter Medical Devices Implanted Type Area Directory Assistance Operator Device Identifier Shelf Expiration Date Model / Serial / Lot Envelope Antibacteral Tyrx - [id number] Implanted:Qty: 1 on 04/01/2022 by Randa Skelton DO at OR [facility] [employer] : CRM [id number] 12/12/2022 [id number] 133 / / [id number] documented as of this encounter Visit Diagnoses Diagnosis Hypotension, unspecified hypotension type- Primary documented in this encounter Care Teams Healthcare Business Analyst Relationship Specialty Start Date End Date Vivi Avina DO [address] [place] [address] PCP - General Family Medicine 01/27/17 documented as of this encounter
--- OUTSIDE RECORDS SUMMARY | 2023-06-16 00:26 | External Medical Summary ---
Author Name Unknown Address Unknown Organization K01:[facility] - [address] [facility] [address] Laboratory Report Ordering Provider Test Date Status GISELA AMOS 03/25/2023 15:13:56 Final Observation Date Value Abnormality Reference (Units ) Status Pathologist review of results 03/25/2023 15:13:56 Blood smear: Final Pathologist review of results 03/25/2023 15:13:56 - Microcytic erythrocytosis, consistent with clinical history. Red blood cells show mild, non-specific, anisopoikilocytosi s. Final Pathologist review of results 03/25/2023 15:13:56 - Mild absolute neutrophilia, likely reactive. Final Performing Location [facility] - [address] [facility] [address]
--- OUTSIDE RECORDS SUMMARY | 2023-06-16 00:26 | External Medical Summary | Summary of Care ---
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 Increased risk for Cardiomyopathy (CM). Please click the link below for current clinical management recommendations for Hereditary Cardiomyopathy. TTN MACHADO (nonalcoholic steatohepatitis) 12/31 NICM (nonischemic cardiomyopathy) 2021 Secondary polycythemia 06/05/2020 HTN, goal below 140/90 09/04/2018 Permanent atrial fibrillation 03/14/2017 Ventricular tachycardia 03/14/2017 UNILAT INGUINAL HERNIA documented as of this encounter (statuses as of 03/16/2023) Resolved Problems Problem Noted Date Resolved Date Prediabetes 05/10/2022 09/15/2022 Overview: Per Prediabetes protocol Acute systolic congestive heart failure 03/14/20 17 09/04/2018 Acute systolic heart failure 03/14/2017 Paroxysmal atrial fibrillation 05/26/2015 0 12/29/2021 Varicella without complication 11/19/2002 0 09/04/2018 documented as of this encounter (statuses as of 03/16/2023) Immunizations Name Administration Dates Next Due Pneumococcal Polysaccharide PPV23 (Pneumovax) 05/17/2017 Seasonal Influenza, QUAD, wi th Preserv, 6 mons & Above, 0.5 mL, IM 05/02/2018 Seasonal Influenza, Quadriva lent, No Preserve, 6 Mons & Above, IM 05/17/2017 Seasonal Influenza, Quadriva lent, No Preserve, IM [...] Sign Reading Time Taken Comments Blood Pressure 94/62 03/07/2023 4:19 PM EDT Pulse 82 03/07/2023 4:19 PM EDT Temperature 36.8 C (98.3 F) 03/07/2023 4:19 PM ED T Respiratory Rate 16 03/07/2023 4:19 PM EDT Oxygen Saturation 97% 03/07/2023 4:19 PM EDT Inhaled Oxygen Concentration - - Weight 93.6 kg (206 lb 6.4 oz) 03/07/2023 4:19 P M EDT Height - - Body Mass Index 31.38 09/15/2022 3:50 PM EST documented in this encounter Progress Notes * Vivi Avina, - 03/16/2023 11:47 AM EDT Subjective: Manuel Menendez is a 63 year old male. Chief Complaint Patient presents with Hospital Follow-Up HPI: Manuel Menendez presents for hospital follow up. Medications & HM reviewed. 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 Omeprazole 20 MG Oral Capsule Delayed Release (PriLOSEC) Take 1 Capsule by mouth in the morning. 1 hour before the first meal of the day. 30 Capsule 5 Jardiance 10 MG Oral Tablet (Empagliflozin) take 1 tablet by mouth every morning 90 Tablet 3 Eliquis 5 MG Oral Tablet (Apixaban) take 1 tablet by mouth twice a day 180 Tablet 3 Sildenafil Citrate 50 MG Oral Tablet TAKE 1/2 TABLET BY MOUTH 1 HOUR BEFORE SEXUAL ACTIVITY 30 Tablet 5 Ventolin HFA 108 (90 Base) MCG/ACT Inhalation Aerosol Solution Inhale 2 Puffs by mouth every 4 hours as needed for Wheezing or Dyspnea. 1 g 0 Furosemide 20 MG Oral Tablet Take 1 Tablet by mouth in the morning. As needed. 30 Tablet 5 Metoprolol Succinate ER 100 MG Oral Tablet Extended Release 24 Hour (toPROL XL) Take by mouth 1 Tablet in the morning AND 1 Tablet before bedtime. 180 Tablet 3 Liver Support Sublingual Tablet Sublingual Take by mouth 2 Tablets daily . (Patient not taking: Reported on 03/15/2023) miscellaneous OTC Take 1 Each by mouth in the morning and 1 Each before bedtime. (Patient not taking: Reported on 03/15/2023) Zinc 50 MG Oral Tablet Take 1 Tablet by mouth in the morning. (Patient not taking: Reported on 03/15/2023) Entresto 24-26 MG Oral Tablet (sacubitril-valsartan 24-26 mg per tab) Take by mouth 1 Tablet in themorning AND 1 Tablet before bedtime. 60 Tablet 11 Loratadine 10 MG Oral Tablet (Claritin) Take by mouth 1 Tablet before bedtime. x1-2 wks then as needed-otc. 30 Tablet 5 Magnesium 400 MG Capsule Take 1 Capsule by mouth in the morning. Multiple Vitamins-Minerals (CENTRUM SILVER 50+MEN) TABS Take by mouth 1 Tablet daily . TRIAMCINOLONE ACETONIDE 0.5 % EX CREA Apply to affected area twice a day 60 g 5 No facility-administered medications prior to visit. Last reviewed on 03/15/2023 3:01 PM by GERTRUDIS Thompson Review of patient's allergies indicates: Allergen Reactions Coumadin [Warfarin] Skin reaction/slothing off Sulfa Antibiotics fever Objective: BP 94/62 | Pulse 82 | Temp 36.8 C (98.3 F) (Tympanic) | Resp 16 | Wt 93.6 kg (206 lb 6.4 oz) | SpO2 97% | BMI 31.38 kg/m | BSA 2.12 m Physical Exam: Neck: supple, no adenopathy, no bruits, thyroid normal size, non-tender, without nodularity Heart: regular rate & rhythm, no murmur, and no gallops Lungs: chest symmetric with normal AP diameter, no chest deformities noted, no chest wall tenderness, lungs clear to auscultation Pulses: carotid=2/4 w/o bruits Extremities: less than 2 second capillary refill, no joint deformities, effusion, or inflammation ASSESSMENT/PLAN: Acute on chronic systolic heart failure (HCC) (Primary) 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 Medications & HM reviewed. documented in this encounter Plan of Treatment Upcoming Encounters Date Type Specialty Care Team Description 03/25/2023 Laboratory Laboratory Cat Lab Scenery [address] [place] [address] 03/25/2023 Hem/Onc Treatment Hematology Oncology [place], Chair 1 Hem Onc Scenery [address] [place] [address] 05/26/2023 Office Visit Cardiology Sangeetha Julien CRNP [address] [place] [address] 07/12/2023 Office Visit Family Medicine Vivi Avina DO [address] [place] [address] 12/20/2023 Office Visit Hematology Oncology Bryce Crain MD [address] [place] [address] Scheduled Procedures Name Priority Associated Diagnoses Date/Ti [...] this encounter Medical Devices Implanted Type Area Software Sales Device Identifier Shelf Expiration Date Model / Serial / Lot Envelope Antibacteral Tyrx - [id number] Implanted:Qty: 1 on 04/01/2022 by Randa Skelton DO at OR [facility] [employer] : CRM [id number] 12/12/2022 CMRM6 133 / / [id number] documented as of this encounter Visit Diagnoses Diagnosis Acute on chronic systolic heart failure (HCC)- Primary Acute on chronic systolic heart failure 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
--- OUTSIDE RECORDS SUMMARY | 2023-06-16 00:26 | External Medical Summary | Summary of Care ---
Author Name Unknown Organization [facility] Address [address] [place] [place] [facility] [place] [address] Phone [phone] Care Team Providers Care Industrial Tractor Driver Name Role Phone Vivi Avina DO Primary Care Provider Reason for Visit * Reason Comments Outpatient Testing Encounter Details Date Type Department Care Team Description 03/29/[address] [facility] [address] [place] [address] [facility] Lab Scenery [address] [place] [address] Secondary polycythemia Allergies Active Allergy Reactions Severity Noted Date [...] cardiomyopathy 02/23/2023 Overview: pathogenic TTN gene variant (c.41490+2del, p.?) detected via [employer]. Increased risk for Cardiomyopathy (CM). Please click [...] Encounters Date Type Specialty Care Team Description 03/29/2023 Hem/Onc Treatment Hematology Oncology [place], Chair 4 Hem Onc Scenery [address] [place] [address] Arrived 05/26/2023 Office Visit Cardiology Sangeetha Julien CRNP [address] [place] [address] 07/12/2023 Office Visit Family Medicine Vivi Avina DO [address] [place] [address] 12/20/2023 Office Visit Hematology Oncology Bryce Crain MD [address] [place] [address] Pending Results Name Type Priority Associated Diagnoses Date /Time CBC WITH WBC DIFFERENTIAL Lab STAT Secondary polycythemia 03/29/2023 2:58 PM EDT CBC Lab STAT Secondary polycythemia 03/29/2023 2:58 PM EDT DIFFERENTIAL, AUTOMATED Lab STAT Secondary polycythemia 03/29/2023 2:58 PM EDT Scheduled Procedures Name Priority Associated [...] this encounter Medical Devices Implanted Type Area Antique Clock Repairer Device Identifier Shelf Expiration Date Model / Serial / Lot Envelope Antibacteral Tyrx - [id number] Implanted:Qty: 1 on 04/01/2022 by Randa Skelton DO at OR [facility] [employer] : CRM [id number] 12/12/2022 CMRM6 133 / / [id number] documented as of this encounter Visit Diagnoses Diagnosis Secondary polycythemia Polycythemia, secondary documented in this encounter Care Teams Industrial Tractor Driver Relationship Specialty Start Date End Date Vivi Avina DO [address] [facility] [place] [address] PCP - General Family Medicine 01/27/17 documented as of this encounter
--- OUTSIDE RECORDS SUMMARY | 2023-06-16 00:26 | External Medical Summary | Summary of Care ---
Author Name Unknown Organization [facility] Address [address] [facility] [place] [address] Phone [phone] Care Team Providers Care Train Driver Name Role Phone Vivi Avina DO Primary Care Provider Reason for Visit * Reason Comments Procedure phlebotomy Encounter Details Date Type Department Care Team Description 03/25/2023 Hem/Onc Treatment Hematology/Oncology Treatment, [place] [address] [place] [address] Cat, Chair 1 Hem Onc Scenery [address] [place] [address] Allergies Active Allergy Reactions Severity Noted Date [...] cardiomyopathy 02/23/2023 Overview: pathogenic TTN gene variant (c.43910+2del, p.?) detected via [employer]. Increased risk for Cardiomyopathy (CM). Please click [...] as of this encounter Nursing Notes * Ursula Fox RN - 03/25/2023 4:34 PM EDT Ch 8. Pt arrived for phlebotomy. He had labs performed prior, HCT 49.6, hgb 15.4. Phlebotomy attempted x2, unable to get blood to flow, only 50ml removed. Pt reports he was started on lasix and aldactone, and has been working outside this week in the heat at the [facility], perhaps he is more dehydrated than normal. Pt rescheduled for 03/29/23, repeat labs. Pt discharged in stable condition. documented in this encounter Plan of Treatment Upcoming Encounters Date Type Specialty Care Team Description 03/29/2023 Laboratory Laboratory Cat, Lab [facility] [address] [facility] [place] [address] 03/29/2023 Hem/Onc Treatment Hematology Oncology Cat, Chair 4 Hem Onc [facility] [address] [place] [address] 05/26/2023 Office Visit Cardiology [facility] [address] [facility] [address] 07/12/2023 Office Visit Family Medicine Vivi Avina DO [address] [place] [address] 12/20/2023 Office Visit Hematology Oncology Bryce Crain MD 200 [facility] [place] [address] Scheduled Procedures Name Priority Associated Diagnoses Date/Ti [...] this encounter Medical Devices Implanted Type Area Brass Buffer Device Identifier Shelf Expiration Date Model / Serial / Lot Envelope Antibacteral Tyrx - [id number] Implanted:Qty: 1 on 04/01/2022 by Randa Skelton DO at OR [facility] [employer] : CRM [id number] 12/12/2022 CMRM6 133 / / [id number] documented as of this encounter Care Teams Train Driver Relationship Specialty Start Date End Date Vivi Avina, [address] [place] [address] PCP - General Family Medicine 01/27/17 documented as of this encounter
--- OUTSIDE RECORDS SUMMARY | 2023-06-16 00:27 | External Medical Summary | Summary of Care ---
Author Name Unknown Organization [facility] Address [address] [facility] [place] [address] Phone [phone] Care Team Providers Care Rear Admiral Name Role Phone RovertorickiVivi DO Primary Care Provider Encounter Details Date Type Department Care Team Description 03/04/2023 Result Scan Unspecified Department Cj Day DO [address] [place], [place] [id number] <No scans attached> Allergies Active Allergy Reactions Severity Noted Date Comments Warfarin High 12/29/2021 Skin reaction/slothing off Sulfa Antibiotics 08/26/1999 fever documented as of this encounter (statuses as of 03/04/2023) Medications Medication Sig Dispensed Refills Start Date [...] by mouth in the morning. 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 Increased risk for Cardiomyopathy (CM). Please click the link below for current clinical management recommendations for Hereditary Cardiomyopathy. TTN MACHADO (nonalcoholic steatohepatitis) 12/31 NICM (nonischemic cardiomyopathy) 2021 Secondary polycythemia 06/05/2020 HTN, goal below 140/90 09/04/2018 Permanent atrial fibrillation 03/14/2017 Ventricular tachycardia 03/14/2017 UNILAT INGUINAL HERNIA documented as of this encounter (statuses as of 03/04/2023) Resolved Problems Problem Noted Date Resolved Date Prediabetes 05/10/2022 09/15/2022 Overview: Per Prediabetes protocol Acute systolic congestive heart failure 03/14/20 17 09/04/2018 Acute systolic heart failure 03/14/2017 Paroxysmal atrial fibrillation 05/26/2015 0 12/29/2021 Varicella without complication 11/19/2002 0 09/04/2018 documented as of this encounter (statuses as of 03/04/2023) Immunizations Name Administration Dates Next Due Pneumococcal [...] Encounters Date Type Specialty Care Team Description 03/07/2023 Office Visit Family Medicine Vivi Avina DO [address] [place] [address] 03/11/2023 Office Visit Cardiology [facility] Card[facility] [place] [address] [place] [address] 03/15/2023 Office Visit Cardiology Toshia Akins CRNP [address] [place] [address] 03/25/2023 Laboratory Laboratory Cat Lab Scenery [address] [place] [address] 03/25/2023 Hem/Onc Treatment Hematology Oncology [place], Chair 1 Hem Onc Scenery [address] [place] [address] 07/12/2023 Office Visit Family Medicine Vivi Avina DO [address] [place] [address] 12/20/2023 Office Visit Hematology Oncology Bryce Crain MD [address] [place] [address] Scheduled Procedures Name Priority Associated Diagnoses Date/Ti [...] 05/02/2021, 05/09/2020, 05/02/2018, Additional history exists GFR 02/16/2024 02/15/2023, 09/02, 09/13/2022, Additional history exists Albumin/Creatinine Ratio 02/15/2026 02/15/2023, 09/01 Diabetes Screening 02/15/2026 02/15/2023, 0 02/15/2023, 09/28/2022, Additional history exists COLONOSCOPY-EVERY 5 YRS AGES [...] this encounter Medical Devices Implanted Type Area Turret Punch Press Operator Device Identifier Shelf Expiration Date Model / Serial / Lot Envelope Antibacteral Tyrx - [id number] Implanted:Qty: 1 on 04/01/2022 by Randa Skelton DO at OR [facility] [employer] : [facility] [id number] 12/12/2022 CMR6 133 / / [id number] documented as of this encounter Procedures Procedure Name Priority Date/Time Associated Diagnosis Comments CARDIOLOGY SCANNED RESULT 03/04/2023 documented in this encounter Results * CARDIOLOGY SCANNED RESULT (03/04/2023) 03/04/2023 Cj Day DO OTHER documented in this encounter Care Teams Rear Admiral Relationship Specialty Start Date End Date Vivi Avina DO [address] [place] [address] PCP - General Family Medicine 01/27/17 documented as of this encounter
--- OUTSIDE RECORDS SUMMARY | 2023-06-16 00:27 | External Medical Summary | Summary of Care ---
Author Name Unknown Organization [facility] Address [address] [place] [address] Phone [phone] Care Team Providers Care Operations Research Analyst Name Role Phone RovertorickiVivi DO Primary Care Provider Reason for Visit * Reason Onset Date Comments Abnormal Genetic Testing 02/23/2023 MyCode Result - TTN Encounter Details Date Type Department Care Team Description 02/23/2023 Telephone Clinical Genomics, [place] [address] [place] [address] Genomics, Mycode Clinical [address] [place] [address] Abnormal Genetic Testing (MyCode Result - ... 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 Increased risk for Cardiomyopathy (CM). Please click the link below for current clinical management recommendations for Hereditary Cardiomyopathy. TTN MACHADO (nonalcoholic steatohepatitis) 12/31 NICM (nonischemic cardiomyopathy) 2021 Secondary polycythemia 06/05/2020 HTN, goal below 140/90 09/04/2018 Permanent atrial fibrillation 03/14/2017 Ventricular tachycardia 03/14/2017 UNILAT INGUINAL HERNIA documented as of this encounter (statuses as of 02/28/2023) Resolved Problems Problem Noted Date Resolved Date Prediabetes 05/10/2022 09/15/2022 Overview: Per Prediabetes protocol Acute systolic congestive heart failure 03/14/20 17 09/04/2018 Acute systolic heart failure 03/14/2017 Paroxysmal atrial fibrillation 05/26/2015 0 12/29/2021 Varicella without complication 11/19/2002 0 09/04/2018 documented as of this encounter (statuses as of 02/28/2023) Immunizations Name Administration Dates Next Due Pneumococcal [...] encounter Miscellaneous Notes * Telephone Encounter - Sabine Gama, - 02/28/2023 1:39 PM EDT Genomic Screening and Counseling Result Disclosure Call I contacted Manuel Menendez to discuss their genetic test results by phone. They were found to have a TTN result through participation in the Guides[employer] [facility] Initiative. This result is consistent with increased risk for Cardiomyopathy (CM). I spoke to Manuel briefly and he indicated that he was currently in the emergency department and it was not a convenient time to speak. His result was not disclosed. I will attempt to contact him again at a later date. Please click the link below for current clinical management recommendations for Hereditary Cardiomyopathy. TTN Information based on chart review Consented 09/12/2015 - Laboratory [place] [facility] Relevant History: Cardiac Hx Ventricular tachycardia Nonischemic cardiomyopathy Permanent A Fib S/p ICD placement 04/2022 Follows with Ana [facility]; last visit 10/2022 FamHx: Mother - [place] Father - CHF Brother - Heart disorder Sabine Gama, MS, [facility] Licensed, Certified Genetic Counselor [facility] Genomic Screening and Counseling Program 02/28/2023 * Telephone Encounter - KATLYN Kumar - 02/23/2023 3:13 PM EDT Images from the original note were not included. [facility] [employer] [address] [facility] [address] [place] [address] 02/23/2023 Vivi Avina DO [address] [place] [facility] [place] [address] Vivi Avina DO, Your patient Manuel Menendez 1960 has been found to have increased risk for Cardiomyopathy (CM) due to a pathogenic variant in the TTN gene through participation in the [employer] [facility] Initiative. We will attempt to notify Manuel Menendez of this result within the next 5 business days and will offer an appointment with our Clinical Genomics team. We encourage you to discuss the result with yourpatient. We look forward to working with you in caring for Manuel Menendez regarding this result. Wewill copy you on any subsequent encounters. Please click the link below for current clinical management recommendations for Hereditary Cardiomyopathy. TTN For questions about this patient and their MyCode results, please use Ask-a-Doc or page the on-call Clinical Genomics provider by calling and having the powder press operator page [employer]. For non-urgent questions or for more information about this genetic condition, please contact our team (toll-free) at or by emailing [email or web address] Thank you, Yadi Shah MS, [facility] Co-director, [facility] Genomic Screening and Counseling Program Licensed, Certified Genetic Counselor Ngoc Nguyen MS, [facility] Oracle Soa Developer Co-director, [facility] Genomic Screening and Counseling Program Licensed, Certified Genetic Counselor KATLYN Kumar, Genetic Counseling Accounting Manager Cpa documented in this encounter Plan of Treatment Upcoming Encounters Date Type Specialty Care Team Description 03/02/2023 Office Visit Cardiology Sangeetha Julien CRNP [address] [place] [address] 03/25/2023 Laboratory Laboratory Cat, Lab Bharathi [address] [place] [address] 03/25/2023 Hem/Onc Treatment Hematology Oncology [place], Chair 1 Hem Onc Scenetomi [address] [place] [address] 07/12/2023 Office Visit Family Medicine Vivi Avina DO [address] [place] [address] 12/20/2023 Office Visit Hematology Oncology Bryce Crain MD [address] [place] [address] Scheduled Procedures Name Priority Associated Diagnoses Date/Ti [...] this encounter Medical Devices Implanted Type Area Truck Rental Service Attendant Device Identifier Shelf Expiration Date Model / Serial / Lot Envelope Antibacteral Tyrx - [id number] Implanted:Qty: 1 on 04/01/2022 by Randa Skelton DO at OR [facility] [employer] : CRM [id number] 12/12/2022 CMR6 133 / / [id number] documented as of this encounter Care Teams Operations Research Analyst Relationship Specialty Start Date End Date Vivi Avina DO [address] [place] [facility] [address] PCP - General Family Medicine 01/27/17 documented as of this encounter
--- OUTSIDE RECORDS SUMMARY | 2023-06-16 00:27 | External Medical Summary | Summary of Care ---
Author Name Unknown Organization [facility] Address [address] [place] [address] Phone [phone] Care Team Providers Care Spare Parts Clerk Name Role Phone RovertorickiVivi DO Primary Care Provider Reason for Visit * Reason Onset Date Comments Abnormal Genetic Testing 02/23/2023 MyCode Result - TTN Encounter Details Date Type Department Care Team Description 02/23/2023 Telephone Clinical Genomics, [place] [address] [place] [address] Genomics, Mycode Clinical [address] [place] [address] Abnormal Genetic Testing (MyCode Result - ... [...] cardiomyopathy 02/23/2023 Overview: pathogenic TTN gene variant (c.80636+2del, p.?) detected via Appy Pie. Increased risk for Cardiomyopathy (CM). Please click [...] encounter Miscellaneous Notes * Telephone Encounter - KATLYN Kumar - 02/23/2023 3:13 PM EDT Images from the original note were not included. [facility] [employer]tilia[employer]til[employer] [address] [facility] [address] [place] [address] 02/23/2023 Vivi Avina DO [address] [facility] [place] [address] Vivi Avina DO, Your patient Manuel Menendez 1960 has been found to have increased risk for Cardiomyopathy (CM) due to a pathogenic variant in the TTN gene through participation in the [employer] [facility] Initiative. We will attempt to [...] For questions about this patient and their Appy Pie results, please use Ask-a-Doc or page the on-call Clinical Genomics provider by calling and having the shell machine operator page [employer]. For non-urgent questions or for more information about this genetic condition, please contact our team (toll-free) at or by emailing [email or web address] Thank you, Yadi Shah MS, [facility] Co-director, [employer] Genomic Screening and Counseling Program Licensed, Certified Genetic Counselor Ngoc Nguyen MS, [facility] Float Builder Co-director, [employer] Genomic Screening and Counseling Program Licensed, Certified Genetic Counselor KATLYN Kumar, Genetic Counseling B2B Appointment Setter documented in this encounter Plan of Treatment Upcoming Encounters Date Type Specialty Care Team Description 03/02/2023 Office Visit Cardiology Sangeetha Julien CRNP [address] [place] [address] 03/25/2023 Laboratory Laboratory Cat, Lab Scenery [address] [place], [place] [address] 03/25/2023 Hem/Onc Treatment Hematology Oncology [place], Chair 1 Hem Onc Scenery [address] [place] [address] 07/12/2023 Office Visit Family Medicine Vivi Avina DO [address] [place] [address] 12/20/2023 Office Visit Hematology Oncology Bryce Crain MD [address] [place] [id number] Scheduled Procedures Name Priority Associated Diagnoses Date/Ti [...] this encounter Medical Devices Implanted Type Area Franchise Consultant Device Identifier Shelf Expiration Date Model / Serial / Lot Envelope Antibacteral Tyrx - [id number] Implanted:Qty: 1 on 04/01/2022 by Randa Skelton DO at OR [facility] [employer] : CRM [id number] 12/12/2022 CMRM6 133 / / [id number] documented as of this encounter Care Teams Spare Parts Clerk Relationship Specialty Start Date End Date Vivi Avina DO [address] [place] [address] PCP - General Family Medicine 01/27/17 documented as of this encounter
--- OUTSIDE RECORDS SUMMARY | 2023-06-16 00:27 | External Medical Summary | Summary of Care ---
Author Name Unknown Organization [facility] Address [address] [place] [address] Phone [phone] Care Team Providers Care Cabinetmaker Helper Name Role Phone RovertorickiVivi DO Primary Care Provider Reason for Visit * Reason Onset Date Comments Abnormal Genetic Testing 02/23/2023 MyCode Result - TTN Encounter Details Date Type Department Care Team Description 02/23/2023 Telephone Clinical Genomics, [place] [address] [place] [address] Genomics, Mycode Clinical [address] [place] [address] Abnormal Genetic Testing (MyCode Result - ... 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 Increased risk for Cardiomyopathy (CM). Please click the link below for current clinical management recommendations for Hereditary Cardiomyopathy. TTN MACHADO (nonalcoholic steatohepatitis) 12/31 NICM (nonischemic cardiomyopathy) 2021 Secondary polycythemia 06/05/2020 HTN, goal below 140/90 09/04/2018 Permanent atrial fibrillation 03/14/2017 Ventricular tachycardia 03/14/2017 UNILAT INGUINAL HERNIA documented as of this encounter (statuses as of 03/03/2023) Resolved Problems Problem Noted Date Resolved Date Prediabetes 05/10/2022 09/15/2022 Overview: Per Prediabetes protocol Acute systolic congestive heart failure 03/14/20 17 09/04/2018 Acute systolic heart failure 03/14/2017 Paroxysmal atrial fibrillation 05/26/2015 0 12/29/2021 Varicella without complication 11/19/2002 0 09/04/2018 documented as of this encounter (statuses as of 03/03/2023) Immunizations Name Administration Dates Next Due Pneumococcal [...] Miscellaneous Notes * Telephone Encounter - GERTRUDIS Gresham - 03/03/2023 8:36 AM EDT Noted. Thank you. Patient has known history of non-ischemic cardiomyopathy s/p ICD placement and on GDMT. Will loop Toshia in as she is seeing patient in upcomming weeks. Encourage family be made aware that first degree relatives have a 50% risk of inheriting the TTN variant. * Telephone Encounter - Sabine Gama MS - 02/28/2023 1:39 PM EDT Genomic Screening and Counseling Result Disclosure Call I contacted Manuel Menendez to discuss their genetic test results by phone. They were found to have a TTN result through participation in the GHash.IO [facility] Initiative. This result is consistent with increased [...] [place]; last visit 10/2022 FamHx: Mother - [place] Father - CHF Brother - Heart disorder Sabine Gama MS, [facility] Licensed, Certified Genetic Counselor [email or web address] Genomic Screening and Counseling Program 02/28/2023 * Telephone Encounter - KATLYN Kumar - 02/23/2023 3:13 PM EDT Images from the original note were not included. [facility] [address] [facility] [address] [place] [address] 02/23/2023 Vivi Avina DO [address] [place] [address] Vivi Avina DO, Your patient Manuel Menendez 1960 has been found to have increased risk for Cardiomyopathy (CM) due to a pathogenic variant in the TTN gene through participation in the GHash[employer]IO Community Health Initiative. We will attempt to [...] For questions about this patient and their GHash.IO results, please use Ask-a-Doc or page the on-call Clinical Genomics provider by calling and having the leveling machine operator page [employer]. For non-urgent questions or for more information about this genetic condition, please contact our team (toll-free) at or by emailing [email or web address] Thank you, Yadi Shah MS, [facility] Co-director, GHash[employer] Genomic Screening and Counseling Program Licensed, Certified Genetic Counselor Ngoc Nguyen MS, [facility] Stringer Machine Tender Co-director, G[facility] Genomic Screening and Counseling Program Licensed, Certified Genetic Counselor KATLYN Kumar, Genetic Counseling Forklift Truck Operator documented in this encounter Plan of Treatment Upcoming Encounters Date Type Specialty Care Team Description 03/07/2023 Office Visit Family Medicine Vivi Avina DO [address] [place] [address] 03/11/2023 Office Visit [facility]iology [facility] Cardiology [place] [address] [facility] [place] [address] 03/15/2023 Office Visit Cardiology Toshia Akins CRNP [address] [place] [address] 03/25/2023 Laboratory Laboratory [place], Lab Scenery [address] [place] [address] 03/25/2023 Hem/Onc Treatment Hematology Oncology [place], Chair 1 Hem Onc Scenery [address] [place] [address] 07/12/2023 Office Visit Family Medicine Vivi Avina DO [address] [place] [address] 12/20/2023 Office Visit Hematology Oncology Bryce Crain MD [address] [place] [address] Scheduled Procedures Name Priority Associated Diagnoses Date/Ti [...] this encounter Medical Devices Implanted Type Area Air Transportation Provider Device Identifier Shelf Expiration Date Model / Serial / Lot Envelope Antibacteral Tyrx - [id number] Implanted:Qty: 1 on 04/01/2022 by Randa Skelton DO at OR [facility] [employer] : CRM [id number] 12/12/2022 CMRM6 133 / / [id number] documented as of this encounter Care Teams Cabinetmaker Helper Relationship Specialty Start Date End Date Vivi Avina DO [address] [place], [place] [address] PCP - General Family Medicine 01/27/17 documented as of this encounter
--- OUTSIDE RECORDS SUMMARY | 2023-06-16 00:27 | External Medical Summary ---
Author Name Unknown Address Unknown Organization [id number]:[facility] [place] - [address] [place] [address] Laboratory Report Ordering Provider Test Date Status CINDI HO 03/11/2023 15:59:15 Final Exclude Heart Failure: <300 pg/mL
Diagnose Heart Failure:
Age <50 yr: >450 pg/mL
50-75 yr: >900 pg/mL
>75 yr: >1800 pg/mL
GFR is 30-59 mL/min: >1200 pg/mL or Age- adjusted values
GFR <30 mL/min: do not use, not reliable

Prognostic threshold: 1000 pg/mL Observation Date Value Abnormality Reference (Units ) Status BNP, Pro-hormone 03/11/2023 15:59:15 2041 Above high no rmal <300 (pg/mL) Final Performing Location LAB[facility]ORY [facility] [place] - [facility] [address] [place] [address]
--- OUTSIDE RECORDS SUMMARY | 2023-06-16 00:27 | External Medical Summary | Summary of Care ---
Author Name Unknown Organization [facility] Address [address] [place] [address] Phone [phone] Care Team Providers Care Property Management Specialist Name Role Phone RovertorickiVivi DO Primary Care Provider Reason for Visit * Reason Onset Date Comments Abnormal Genetic Testing 02/23/2023 MyCode Result - TTN Encounter Details Date Type Department Care Team Description 02/23/2023 Telephone Clinical Genomics, [place] [address] [place] [address] Genomics, My[facility] Clinical [address] [place] [address] Abnormal Genetic Testing (MyCode Result - ... 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 Increased risk for Cardiomyopathy (CM). Please click the link below for current clinical management recommendations for Hereditary Cardiomyopathy. TTN MACHADO (nonalcoholic steatohepatitis) 12/31 NICM (nonischemic cardiomyopathy) 2021 Secondary polycythemia 06/05/2020 HTN, goal below 140/90 09/04/2018 Permanent atrial fibrillation 03/14/2017 Ventricular tachycardia 03/14/2017 UNILAT INGUINAL HERNIA documented as of this encounter (statuses as of 03/07/2023) Resolved Problems Problem Noted Date Resolved Date Prediabetes 05/10/2022 09/15/2022 Overview: Per Prediabetes protocol Acute systolic congestive heart failure 03/14/20 17 09/04/2018 Acute systolic heart failure 03/14/2017 Paroxysmal atrial fibrillation 05/26/2015 0 12/29/2021 Varicella without complication 11/19/2002 0 09/04/2018 documented as of this encounter (statuses as of 03/07/2023) Immunizations Name Administration Dates Next Due Pneumococcal [...] Miscellaneous Notes * Telephone Encounter - Sabine Gama MS - 03/07/2023 12:48 PM EDT Genomic Screening and Counseling Result Disclosure Call I spoke with Manuel Menendez to discuss their genetic test results by phone. They were found to havea TTN result through participation in the [facility]. This result is consistent with increased risk for Cardiomyopathy (CM). The following information was reviewed: Genetic Results: POSITIVE. Gene: TTN Lab: [facility] Increased risk for Cardiomyopathy (CM). Please click the link below for current clinical management recommendations for Hereditary Cardiomyopathy. TTN Plan: Manuel Menendez declined a visit with Clinical Genomics at this time. He would like to continue follow-up with his current care team. We will send an informational packet via mail (address confirmed) with additional information about their result and a family letter for first-degree relatives. Patient declined to consent for electronic communication from our team via the [email or web address] tool - TrustDegreesoes not use a computer. Implications for family members: Manuel Menendez is encouraged to discuss this result with family members. We reviewed the labspolicy of offering genetic testing to family members at no charge for 90 days after Manuel Neal results report. Close relatives have up to a 50% chance of carrying this variant and having the associated increased risk for Cardiomyopathy (CM). Manuel Menendez has 3 living first degree relatives (0 parents, 2 full siblings, 1 child [all over age 18]). Sabine Lillian GamaMS, [facility] Licensed, Certified Genetic Counselor [facility] Genomic Screening and Counseling Program Clinical [facility] 03/07/2023 * Telephone Encounter - GERTRUDIS Thompson - 03/03/2023 10:57 AM EDT Noted. GERTRUDIS Hoyt * Telephone Encounter - GERTRUDIS Gresham - [...] a TTN result through participation in the [facility]. This result is consistent with [...] based on chart review Consented 09/12/2015 - Carlos Poon Relevant History: Cardiac Hx Ventricular tachycardia Nonischemic cardiomyopathy Permanent A Fib S/p ICD placement 04/2022 Follows with Ana Poon; last visit 10/2022 FamHx: Mother - IA Father - CHF Brother - Heart disorder Sabine Gama MS, [facility] Licensed, Certified Genetic Counselor [facility] Genomic Screening and Counseling Program 02/28/2023 * Telephone Encounter - KATLYN Kumar - 02/23/2023 3:13 PM EDT Images from the original note were not included. [employer] [address] [facility] [address] [place] [address] 02/23/2023 Vivi Avina DO [address] [place] [address] Vivi Avina DO, Your patient Manuel Menendez 1960 has been found to have increased risk for Cardiomyopathy (CM) due to a pathogenic variant in the TTN gene through participation in the [facility]. We will attempt to [...] For questions about this patient and their [facility] results, please use Ask-a-Doc or page the on-call Clinical Genomics provider by calling and having the electric screw driver operator page genomics. For non-urgent questions or for more information about this genetic condition, please contact our team (toll-free) at or by emailing [email or web address] Thank you, Yadi Shah MS, [facility] Co-director, [facility] Genomic Screening and Counseling Program Licensed, Certified Genetic Counselor Ngoc Nguyen MS, [facility] Drywall Foreman Co-director, [facility] Genomic Screening and Counseling Program Licensed, Certified Genetic Counselor KATLYN Kumar, Genetic Counseling Starter Cup Powder Mixer documented in this encounter Plan of Treatment Upcoming Encounters Date Type Specialty Care Team Description 03/07/2023 Office Visit Family Medicine Vivi Avina DO [address] [place] [address] 03/11/2023 Office Visit [facility] [place] [address] [place] [address] 03/15/2023 Office Visit Cardiology Toshia Akins CRNP [address] [place] [address] 03/25/2023 Laboratory Laboratory [place], Lab Scenery [address] [facility] [place] [address] 03/25/2023 Hem/Onc Treatment Hematology Oncology [place], Chair 1 Hem Onc Scenery [address] [place] [address] 07/12/2023 Office Visit Family Medicine Vivi Avina DO [address] [place] [address] 12/20/2023 Office Visit Hematology Oncology Bryce Crain MD [address] [place] [address] Scheduled Procedures Name Priority Associated Diagnoses Date/Ti [...] this encounter Medical Devices Implanted Type Area Mitochondrial Disorders Counselor Device Identifier Shelf Expiration Date Model / Serial / Lot Envelope Antibacteral Tyrx - [id number] Implanted:Qty: 1 on 04/01/2022 by Randa Skelton DO at OR [facility] [employer] : CRM [id number] 12/12/2022 CMRM6 133 / / [id number] documented as of this encounter Care Teams Property Management Specialist Relationship Specialty Start Date End Date Vivi Avina DO [address] [place] [address] PCP - General Family Medicine 01/27/17 documented as of this encounter
--- OUTSIDE RECORDS SUMMARY | 2023-06-16 00:27 | External Medical Summary | Summary of Care ---
Author Name Unknown Organization [facility] Address [address] [facility] [place] [address] Phone [phone] Care Team Providers Care Senior Database Administrator Name Role Phone Vivi Avina DO Primary Care Provider Reason for Visit * Reason Onset Date Comments Hospital Follow-Up 03/03/2023 Encounter Details Date Type Department Care Team Description 03/03/2023 Telephone Family Practice [facility] [place] [address] [facility] [address] Aimee Mota, RAJINDER Hospital Follow-Up Allergies Active Allergy Reactions Severity [...] cardiomyopathy 02/23/2023 Overview: 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 Increased risk for [...] encounter Miscellaneous Notes * Telephone Encounter - Aimee Mota RN - 03/03/2023 2:51 PM EDT Transitions of Care Note Reason for Referral:Recent Admission Phone visit for follow up: CHARLY Admitted to: [facility], Date: 02/28/23 Discharged to: Home, Date: 03/02/23 Diagnosis driving hospitalization: Acute on chronic systolic heart failure Source/Contact: Patient SUBJECTIVE Consent: Verbal consent for review of hospital discharge: Yes REVIEW OF SYSTEMS Patient/Other Reports: Current patient/caregiver problems or concerns: Patient feels he is doing well at home, no more swelling noted by patient. He has no further questions, he is aware of follow-up appointments and is unable to make the MTM appointment due to work, appointment rescheduled and patient aware. Patient aware to take extra 20mg Lasix po if he has 3-5lb weight gain in 1 day and to call PCP. CV: Denies problems Pulmonary: Denies problems Chills/Sweats/Fever:Denies chills/sweats Denies fever Appetite:Denies problems such as nausea, vomiting, burning, decreased appetite Current diet: Low sodium Bowel: denies problems Bladder: denies problems Wound (If applicable): N/A Pain:Denies Sleep:Denies problems FUNCTIONAL STATUS: ADL'S: Needs Assistance With:N/A as pt is independent IADL'S: Needs Assistance With:N/A as pt is independent Cognitive and Mental Health: denies problems, alert and oriented x 3 and able to communicate, understand instructions, process information. MEDICATION RECONCILIATION Medications: Discharge med list reviewed with patient or caregiver New medication(s) filled since hospitalization- Spironolactone 12.5mg PO daily and furosemide 20mg PO daily. Reports all medications taken as prescribed. Denies side effects OBJECTIVE n/a ASSESSMENT Medication Risk Assessment: No risks identified Did patient fail outpatient treatment? Yes Discharge instructions available for review? Yes PLAN Symptom Monitoring Interventions:Member/caregiver education - signs and symptoms to contact PrimaryCare (DO NOT DELETE-Three bruce symptoms patient is to report to PCP) 1. Chest pain/shortness of breath/difficulty breathing 2. Fever/chills/nausea/vomiting 3. Increased swelling in legs/hands/feet, weight gain of 2-3lbs in 24 hours, weakness/fatigue, fall. Engraver PantographFiller Picker of Care interventions/Action Plan: Medication reconciliation, Develop/confirm action plan for acute exacerbation and 5 - 7 day follow-up with PCP in place - Date: 03/07/23 with PCP, 03/11/23 with MTM, and 03/15/23 with cardiology. Educated on role of CHARLY completed with patient/caregiver. Educated patient/caregiver on patient right to have input on CHARLY plan of care. Verification of Home Health/DME if indicated: NO n/a Identified Care Gaps: Yes Care Gaps closed this call: Appointment made or confirmed, Medication adherence, Plan of care optimization, Post discharge appointment and Transition of Care follow-up communication Re-evaluation of Plan of Care and progress towards goals achievement: Patient education this visit: Verbal, Educated patient on importance of monitoring for signs/symptoms as discussed above and to call PCP if they occur. Educated patient to weigh self daily and keep record of weight. Educated patient on importance of keeping legs elevated, watching PO salt intake, and keeping well hydrated. Patient verbalized understanding of above education. Plan to follow-up as previously scheduled, instructed to call Primary Care Provider with change in symptoms or as needed before next follow-up, discharge needs met, verbalizes understanding and agrees with plan. Aimee Mota RN documented in this encounter Plan of Treatment Upcoming Encounters Date Type Specialty Care Team Description 03/07/2023 Office Visit Family Medicine Vivi Avina DO [address] [place] [address] 03/11/2023 Office Visit [facility] Card[facility] [place] [address] [place] [address] 03/15/2023 Office Visit Cardiology Toshia Akins CRNP [address] [place] [address] 03/25/2023 Laboratory Laboratory [place], Lab Scenery [address] [place] [address] 03/25/2023 Hem/Onc Treatment Hematology Oncology [place], Chair 1 Hem Onc Scenery [address] [place] [address] 07/12/2023 Office Visit Family Medicine Vivi Avina DO [address] [facility] [place] [address] 12/20/2023 Office Visit Hematology Oncology Bryce Crain MD [address] [place] [address] Scheduled Procedures Name Priority Associated Diagnoses Date/Ti [...] this encounter Medical Devices Implanted Type Area Cigarette Packer Device Identifier Shelf Expiration Date Model / Serial / Lot Envelope Antibacteral Tyrx - [id number] Implanted:Qty: 1 on 04/01/2022 by Randa Skelton DO at OR [facility] [employer] : [facility] [id number] 12/12/2022 CMRM6 133 / / [id number] documented as of this encounter Care Teams Senior Database Administrator Relationship Specialty Start Date End Date Vivi Avina DO [address] [place] [address] PCP - General Family Medicine 01/27/17 documented as of this encounter
--- OUTSIDE RECORDS SUMMARY | 2023-06-16 00:27 | External Medical Summary | Summary of Care ---
Author Name Unknown Organization [facility] Address [address] [facility] [place] [address] Phone [phone] Care Team Providers Care Defensive Line Coach Name Role Phone Vivi Avina DO Primary Care Provider Reason for Visit * Reason Onset Date Comments Short of Breath 02/28/2023 Encounter Details Date Type Department Care Team Description 02/28/2023 Telephone Cardiology, [facility] [address] [place] [address] Flavio Bocanegra DO [address] [place] [address] Short of Breath Allergies Active Allergy Reactions Severity Noted Date Comments Warfarin High 12/29/2021 Skin reaction/slothing off Sulfa Antibiotics 08/26/1999 fever documented as of this encounter (statuses as of 03/01/2023) Medications Medication Sig Dispensed Refills Start Date [...] as of this encounter (statuses as of 03/01/2023) Active Problems Problem Noted Date 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 Increased risk for Cardiomyopathy (CM). Please click the link below for current clinical management recommendations for Hereditary Cardiomyopathy. TTN MACHADO (nonalcoholic steatohepatitis) 12/31 NICM (nonischemic cardiomyopathy) 2021 Secondary polycythemia 06/05/2020 HTN, goal below 140/90 09/04/2018 Permanent atrial fibrillation 03/14/2017 Ventricular tachycardia 03/14/2017 UNILAT INGUINAL HERNIA documented as of this encounter (statuses as of 03/01/2023) Resolved Problems Problem Noted Date Resolved Date Prediabetes 05/10/2022 09/15/2022 Overview: Per Prediabetes protocol Acute systolic congestive heart failure 03/14/20 17 09/04/2018 Acute systolic heart failure 03/14/2017 Paroxysmal atrial fibrillation 05/26/2015 0 12/29/2021 Varicella without complication 11/19/2002 0 09/04/2018 documented as of this encounter (statuses as of 03/01/2023) Immunizations Name Administration Dates Next Due Pneumococcal [...] encounter Miscellaneous Notes * Telephone Encounter - Dejuan Snow RN - 03/01/2023 12:08 PM EDT Called left message on phone to return call to the clinic in regards tot he message from DR. Bocanegra below. * Telephone Encounter - Flavio Bocanegra DO - 02/28/2023 9:01 AM EDT See nurse triage encounter from earlier today. Contact patient to assess symptoms and schedule appointment for evaluation. documented in this encounter Plan of Treatment Upcoming Encounters Date Type Specialty Care Team Description 03/02/2023 Office Visit Cardiology Sangeetha Julien CRNP [address] [place] [address] 03/25/2023 Laboratory Laboratory [place], Lab Scenery [address] [facility] [place] [address] 03/25/2023 Hem/Onc Treatment Hematology Oncology [place], Chair 1 Hem Onc Scenery [address] [facility] [place] [address] 07/12/2023 Office Visit Family Medicine Vivi Avina DO [address] [place] [address] 12/20/2023 Office Visit Hematology Oncology Bryce Crain MD [address] [place] [address] Scheduled Procedures Name Priority Associated Diagnoses Date/Ti [...] this encounter Medical Devices Implanted Type Area Wind Farm Designer Device Identifier Shelf Expiration Date Model / Serial / Lot Envelope Antibacteral Tyrx - [id number] Implanted:Qty: 1 on 04/01/2022 by Randa Skelton DO at OR [facility] [employer] : CRM [id number] 12/12/2022 CMRM6 133 / / [id number] documented as of this encounter Care Teams Defensive Line Coach Relationship Specialty Start Date End Date Vivi Avina DO [address] [place] [address] PCP - General Family Medicine 01/27/17 documented as of this encounter
--- OUTSIDE RECORDS SUMMARY | 2023-06-16 00:27 | External Medical Summary ---
Author Name Unknown Address Unknown Organization K01:LABORATORY [facility] - [facility] [address] [facility] [address] [facility] [address] Laboratory Report Ordering Provider Test Date Status CINDI HO 03/11/2023 15:59:15 Final Observation Date Value Abnormality Reference (Units ) Status BUN 03/11/2023 15:59:15 25 Above high normal 6-20 (mg/dL) Final Creatinine 03/11/2023 15:59:15 1.5 Above high normal 0.6-1.2 (mg/dL) Final Glomerular filtration rate/1.73 sq M.predicted [Volume Rate/Area] in Serum, Plasma or Blood by Creatinine-based formula (CKD-EPI) 03/11/2023 15:59:15 53 Below low normal >=60 (mL/min) Final eGFR is calculated based on the CKD-EPI 2020 equation SODIUM 03/11/2023 15:59:15 141 135-146 (m mol/L) Final Potassium 03/11/2023 15:59:15 4.4 3.5-5.1 (m mol/L) Final Cl 03/11/2023 15:59:15 105 98-107 (mm ol/L) Final CO2 03/11/2023 15:59:15 23 22-32 (mmo l/L) Final Anion gap 03/11/2023 15:59:15 13 7-15 (mmol /L) Final Glucose 03/11/2023 15:59:15 100 70-120 (mg /dL) Final Calcium 03/11/2023 15:59:15 9.2 8.4-10.2 ( mg/dL) Final Performing Location LABOR[facility]ORY [facility] - [address] [facility] [address]
--- OUTSIDE RECORDS SUMMARY | 2023-06-16 00:27 | External Medical Summary | Summary of Care ---
Author Name Unknown Organization [facility] Address [address] [facility] [place] [address] Phone [phone] Care Team Providers Care Physical Metallurgist Name Role Phone RovertorickiVivi DO Primary Care Provider Reason for Visit * Reason Comments Dosage Adjustment In Person (Anticoag Cl inic) Congestive Heart Failure Encounter Details Date Type Department Care Team Description 03/11/2023 Office Visit Cardiology, [facility] [address] [address] [facility] Cardiology [facility] [address] [place] [address] NICM (nonischemic cardiomyopathy) ([facility])* Allergies Active Allergy Reactions Severity Noted Date Comments Warfarin High 12/29/2021 Skin reaction/slothing off Sulfa Antibiotics 08/26/1999 fever documented as of this encounter (statuses as of 03/11/2023) Medications Medication Sig Dispensed Refills Start Date [...] as of this encounter (statuses as of 03/11/2023) Active Problems Problem Noted Date 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 Increased risk for Cardiomyopathy (CM). Please click the link below for current clinical management recommendations for Hereditary Cardiomyopathy. TTN MACHADO (nonalcoholic steatohepatitis) 12/31 NICM (nonischemic cardiomyopathy) 2021 Secondary polycythemia 06/05/2020 HTN, goal below 140/90 09/04/2018 Permanent atrial fibrillation 03/14/2017 Ventricular tachycardia 03/14/2017 UNILAT INGUINAL HERNIA documented as of this encounter (statuses as of 03/11/2023) Resolved Problems Problem Noted Date Resolved Date Prediabetes 05/10/2022 09/15/2022 Overview: Per Prediabetes protocol Acute systolic congestive heart failure 03/14/20 17 09/04/2018 Acute systolic heart failure 03/14/2017 Paroxysmal atrial fibrillation 05/26/2015 0 12/29/2021 Varicella without complication 11/19/2002 0 09/04/2018 documented as of this encounter (statuses as of 03/11/2023) Immunizations Name Administration Dates Next Due Pneumococcal [...] Sign Reading Time Taken Comments Blood Pressure 102/69 03/11/2023 3:34 PM EDT Pulse 94 03/11/2023 3:34 PM EDT Temperature - - Respiratory Rate - - Oxygen Saturation - - Inhaled Oxygen Concentration - - Weight 92.1 kg (203 lb 1.6 oz) 03/11/2023 3:34 P M EDT Height - - Body Mass Index 30.88 09/15/2022 3:50 PM EST documented in this encounter Patient Instructions * Patient Instructions* Ainsley Snow RPh - 03/11/2023 3:51 PM EDT Lab work today [phone] ext [phone] Ainsley Snow Pharm D Clinical Pharmacist Cardiology 03/11/2023,3:52 PM documented in this encounter Progress Notes * Ainsley Snow RPh - 03/11/2023 3:21 PM EDT PHARMACY CHRONIC DISEASE MANAGEMENT - HEART FAILURE Manuel Menendez is an 62 year old patient referred to the Heart Failure [facility] clinic by Lew Bravo the following: General heart failure medication optimization HPI: Patient has heart failure assessment:Heart failure with REDUCED ejection fraction (SYStolic heartfailure)without ischemic heart disease Patient has evidence of RV dysfunction:Yes -Estimated RVEF- 34% Most recent LVEF:20-25% [facility]: [facility] Previous LVEF: 40% Date:10/07/22Modality:Echo 27% Date:03/2022Modality:Cardiac MRI 34% Date: 10/2021 Modality: Nuclearstress test 45 %Date: 09/2021 Modality: Echo Home vitals: Does patient monitor BP at home? yes Any dizziness or lightheadedness: Dizzy on positional changes Home BP log results: Past 5 days 90/66 94/80 86/63 84/67 88/67 Does patient monitor HR at home? yes Home HR log results: 71 71 79 74 64 Does patient monitor weight at home? yes Any increased edema or shortness of breath: Denies since hospitalization Home weight log results: 211 02/28---before hospitalization 199 8/ 198 03/11 Objective: BP Readings from Last 3 Encounters: 03/11/23 102/69 03/07/23 94/62 02/15/23 102/66 Pulse Readings from Last 3 Encounters: 03/11/23 94 03/07/23 82 02/15/23 78 Wt Readings from Last 3 Encounters: 03/11/23 92.1 kg (203 lb 1.6 oz) 03/07/23 93.6 kg (206 lb 6.4 oz) 02/15/23 94.8 kg (209 lb) Lab Results Component Value Date/Time CREATININE - [facility] 1.2 02/15/2023 12:43 PM CREATININE - [facility] 1.4 (H) 09/28/2022 03:24 PM CREATININE - [facility] 1.6 (H) 09/13/2022 03:28 PM CREATININE - [facility] 1.1 03/26/2020 03:58 PM CREATININE - [facility] 1.2 09/22/2019 11:55 AM CREATININE - [facility] 1.1 02/14/2017 12:24 PM CREATININE, RANDOM URINE - [facility] 194 02/15/2023 12:43 PM CREATININE, RANDOM URINE - [facility] 139 09/12/2020 03:16 PM CREATININE-[facility] 1.25 04/11/2018 12:00 AM CREATININE-[facility] 1.34 01/03/2018 12:00 AM CREATININE-OUTSIDE LAB 1.10 02/09/2017 12:00 AM Lab Results Component Value Date/Time SODIUM - [facility] 141 02/15/2023 12:43 PM SODIUM - [facility] 141 09/28/2022 03:24 PM SODIUM - [facility] 141 09/13/2022 03:28 PM SODIUM - [facility] 137 03/26/2020 03:58 PM SODIUM - [facility] 139 09/22/2019 11:55 AM SODIUM - [facility] 138 02/14/2017 12:24 PM Lab Results Component Value Date/Time POTASSIUM - [facility] 5.1 02/15/2023 12:43 PM POTASSIUM - [facility] 4.7 09/28/2022 03:24 PM POTASSIUM - [facility] 4.8 09/13/2022 03:28 PM POTASSIUM - [facility] 4.1 03/26/2020 03:58 PM POTASSIUM - [facility] 4.7 09/22/2019 11:55 AM POTASSIUM - [facility] 4.8 02/14/2017 12:24 PM POTASSIUM-[facility]IDE LAB 5.0 04/11/2018 12:00 AM POTASSIUM-OUTSIDE LAB 4.4 01/03/2018 12:00 AM POTASSIUM-OUTSIDE LAB 4.0 02/09/2017 12:00 AM Lab Results Component Value Date/Time DIGOXIN LEVEL - [facility] 0.5 04/16/2022 09:28 AM DIGOXIN LEVEL - [facility] 0.5 09/10/2021 04:46 PM DIGOXIN LEVEL - [facility] 0.6 09/22/2019 11:55 AM Lab Results Component Value Date/Time HGB - [facility] 14.1 01/28/2023 03:19 PM HGB - [facility] 13.9 (L) 11/29/2022 03:15 PM HGB - [facility] 15.2 11/01/2022 03:12 PM HGB - [facility] 16.7 07/07/2020 03:13 PM HGB - [facility] 17.3 (H) 06/23/2020 03:09 PM HGB - [facility] 18.2 (H) 03/26/2020 03:58 PM Lab Results Component Value Date/Time FERRITIN - [facility] 198.9 10/29/2019 12:45 PM Lab Results Component Value Date/Time IRON - [facility] 64 10/29/2019 12:45 PM IRON BINDING CAPACITY - [facility] 315 10/29/2019 12:45 PM Lab Results Component Value Date/Time IRON BINDING CAPACITY - [facility] 315 10/29/2019 12:45 PM Lab Results Component Value Date/Time TRANSFERRIN SATURATION PERCENT - [facility] 20 10/29/2019 12:45 PM Diet Review: Eating out; fairs Current Heart Failure Medication(s): Entresto 24-26mg BID-started 04/01/22 Metoprolol [id number] mg BID-increased 04/16/22 Jardiance 10 mg daily (copay card)-started 05/14/22 Spironolactone 12.5 mg daily-restarted 03/02/23 [id number] mg daily-restarted 03/02/23 Eliquis 5mg BID [id number] daily Assessment & Plan: 1. Heart Failure with Reduced Ejection Fraction -Non-ischemic cardiomyopathy(likely tachycardia induced) -Hyperkalemiaon spironolactone 25 mg daily -ProBNP and BMP today Patient with recent CHF exacerbation admitted to [facility]. 02/28/23-03/23 Treated with IV diuretics. Discharged on Lasix 20 mg daily and aldactone 12.5 mg daily on 03/02/23. EF during admission 20-25%. Prior to admission was taking Lasix PRN and was off aldactone due to hypotension. Most recent BMP prior to admission shows K of 5.1 and Scr 1.2 on 02/15/23. Needs updated BMP and ProBNP. Will obtain today. Patient seen Toshia on Tuesday next week. Depending on lab results, would consider reducing lasix to 20 mg every other day and possibly aldactone to MWF (alternating with lasix). This hopefully wouldhelp improve BP. Weight has been stable since discharge. Echo during admission did show reduced EF to 20%. Will defer to Toshia to determine what may have caused decline. Patient asking about cardiac rehab and restrictions at work (light duty). Defer to Toshia. 2. Ventricular Tachycardia -S/p single chamber ICD - 04/2022 3. Permanent Atrial Fibrillation -ContinueEliquis 4.Pre-Diabetes -Continue to [id number] 5. Controlled Hypertension -Goal < 130/90 -Continue current medications 6. Non obstructive cath -Cath 2017 Medication Changes: None Labs Due: proBNP and BMP today A1c - 04/2023 Vaccines Due: PNA, Flu, Tetanus, Covid Follow up: none; MTM will sign off as GDMT optimized Ainsley Snow RPh Clinical Pharmacist Medication Therapy Disease Management 03/11/2023,3:21 PM documented in this encounter Plan of Treatment Upcoming Encounters Date Type Specialty Care Team Description 03/15/2023 Office Visit Cardiology Toshia Akins CRNP [address] [place] [address] 03/25/2023 Laboratory Laboratory Cat, Lab Scenery [address] [place] [address] 03/25/2023 Hem/Onc Treatment Hematology Oncology Park, Chair 1 Hem Onc Scenery [address] [place] [address] 07/12/2023 Office Visit Family Medicine Vivi Avina DO [address] [place] [address] 12/20/2023 Office Visit Hematology Oncology Bryce Crain MD [address] [place] [address] Pending Results Name Type Priority Associated Diagnoses Date /Time BASIC METABOLIC PANEL Lab Routine NICM (nonischemic cardiomyopathy) ([facility]) 03/11/2023 3:59 PM EDT BNP, NT-PRO Lab Routine NICM (nonischemic cardiomyopathy) ([facility]) 03/11/2023 3:59 PM EDT Scheduled Orders Name Type Priority Associated Diagnoses Orde r Schedule BASIC METABOLIC PANEL Lab Routine NICM (nonischemic cardiomyopathy) ([facility]) Expected: 03/18/2023 (Approximate), Expires: 09/11/2023 BNP, NT-PRO Lab Routine NICM (nonischemic cardiomyopathy) ([facility]) Expected: 03/11/2023, Expires: 03/11/2024 Scheduled Procedures Name Priority Associated Diagnoses Date/Ti [...] this encounter Medical Devices Implanted Type Area Solutions Market Consultant Device Identifier Shelf Expiration Date Model / Serial / Lot Envelope Antibacteral Tyrx - [id number] Implanted:Qty: 1 on 04/01/2022 by Randa Skelton DO at OR [facility] [employer] : CRM [id number] 12/12/2022 CMRM6 133 / / [id number] documented as of this encounter Visit Diagnoses Diagnosis NICM (nonischemic cardiomyopathy) (HCC)- Primary Other primary cardiomyopathies documented in this encounter Care Teams Physical Metallurgist Relationship Specialty Start Date End Date Vivi Avina DO [address] [facility] [place] [address] PCP - General Family Medicine 01/27/17 documented as of this encounter
--- OUTSIDE RECORDS SUMMARY | 2023-06-16 00:27 | External Medical Summary | Summary of Care ---
Author Name Unknown Organization [facility] Address [address] [address] Phone [phone] Care Team Providers Care Election Clerk Name Role Phone Vivi Avina DO Primary Care Provider Reason for Visit * Reason Comments Outpatient Testing Encounter Details Date Type Department Care Team Description 03/11/2023 Laboratory Laboratory, [facility] [address] [facility] [address] [facility] [address] [facility] [place] [address] NICM (nonischemic cardiomyopathy) ([facility]) Allergies [...] cardiomyopathy 02/23/2023 Overview: pathogenic TTN gene variant (c.33755+2del, p.?) detected via Page365ode. Increased risk for Cardiomyopathy (CM). Please click [...] Toshia Akins CRNP [address] [place] [address] 03/25/2023 Laboratory Laboratory Cat, Lab Scenery [address] [place] [address] 03/25/2023 Hem/Onc Treatment Hematology Oncology Cat, Chair 1 Hem Onc Scenery [address] [place] [address] 07/12/2023 Office Visit Family Medicine Vivi Avina DO [address] [place] [address] 12/20/2023 Office Visit Hematology Oncology Bryce Crain MD [address] [place] [address] Pending Results Name Type Priority Associated Diagnoses Date /Time BASIC METABOLIC PANEL Lab Routine NICM (nonischemic cardiomyopathy) ([facility]) 03/11/2023 3:59 PM EDT BNP, NT-PRO Lab Routine NICM (nonischemic cardiomyopathy) ([facility]) 03/11/2023 3:59 PM EDT Scheduled Procedures Name Priority Associated [...] this encounter Medical Devices Implanted Type Area Vp Research Device Identifier Shelf Expiration Date Model / Serial / Lot Envelope Antibacteral Tyrx - [id number] Implanted:Qty: 1 on 04/01/2022 by Randa Skelton DO at OR [facility] [employer] : CRM [id number] 12/12/2022 CMRM6 133 / / [id number] documented as of this encounter Visit Diagnoses Diagnosis NICM (nonischemic cardiomyopathy) (HCC) Other primary cardiomyopathies documented in this encounter Care Teams Election Clerk Relationship Specialty Start Date End Date Vivi Avina DO [address] [place] [address] PCP - General Family Medicine 01/27/17 documented as of this encounter
--- OUTSIDE RECORDS SUMMARY | 2023-06-16 00:27 | External Medical Summary | Summary of Care ---
Author Name Unknown Organization [facility] Address [address] [place] [address] Phone [phone] Care Team Providers Care Diesel Engineer Name Role Phone RovertorickiVivi DO Primary Care Provider Reason for Visit * Reason Onset Date Comments Abnormal Genetic Testing 02/23/2023 MyCode Result - TTN Encounter Details Date Type Department Care Team Description 02/23/2023 Telephone Clinical Genomics, [facility] [address] [place] [address] Genomics, Mycode Clinical [address] [place] [address] Abnormal Genetic Testing (MyCode Result - ... 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 Increased risk for Cardiomyopathy (CM). Please click [...] in [place]. Encourage family be made aware that first degree relatives have a 50% risk of inheriting the TTN variant. * Telephone Encounter - Sabine Gama MS - 02/28/2023 1:39 PM EDT Genomic Screening and Counseling Result Disclosure Call I contacted Manuel Menendez to discuss their genetic test results by phone. They were found to have a TTN result through participation in the [employer] [facility]. This result is consistent with [...] Poon; last visit 10/2022 FamHx: Mother - [place] Father - CHF Brother - Heart disorder Sabine Gama MS, CGC Licensed, Certified Genetic Counselor [facility] Genomic Screening and Counseling Program 02/28/2023 * Telephone Encounter - KATLYN Kumar - 02/23/2023 3:13 PM EDT Images from the original note were not included. [facility] [address] [facility] [address] [facility] [address] [place] [address] 02/23/2023 Vivi Avina DO [address] [facility] [address] 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 We will attempt to [...] For questions about this patient and their [employer]4EA results, please use Ask-a-Doc or page the on-call Clinical Genomics provider by calling and having the roller die cutting machine operator page genomics. For non-urgent questions or for more information about this genetic condition, please contact our team (toll-free) at or by emailing [email or web address] Thank you, Yadi Shah MS, [facility] Co-director, [facility] Genomic Screening and Counseling Program Licensed, Certified Genetic Counselor Ngoc Nguyen MS, [facility] Roller Engraver Co-director, [facility] Genomic Screening and Counseling Program Licensed, Certified Genetic Counselor KATLYN Kumar, Genetic Counseling Ripper Operator documented in this encounter Plan of Treatment Upcoming Encounters Date Type Specialty Care Team Description 03/07/2023 Office Visit Family Medicine Vivi Avina DO [address] [place] [address] 03/11/2023 Office Visit Cardiology Cleve, [facility] Cardiology [place] [address] [place] [address] 03/15/2023 Office Visit Cardiology Toshia Akins CRNP [address] [place] [address] 03/25/2023 Laboratory Laboratory Park, Lab Scenery [address] [place] [address] 03/25/2023 Hem/Onc Treatment Hematology Oncology [place], Chair 1 Hem Onc Scenery [address] [place] [address] 07/12/2023 Office Visit Family Medicine KeVivi robison DO [address] [place] [address] 12/20/2023 Office Visit Hematology Oncology Bryce Crain MD [address] [place] [address] Scheduled Procedures Name Priority Associated Diagnoses Date/Ti [...] this encounter Medical Devices Implanted Type Area Call Centre Supervisor Device Identifier Shelf Expiration Date Model / Serial / Lot Envelope Antibacteral Tyrx - [id number] Implanted:Qty: 1 on 04/01/2022 by Randa Skelton DO at OR [facility] [employer] : CRM [id number] 12/12/2022 CMR6 133 / / [id number] documented as of this encounter Care Teams Diesel Engineer Relationship Specialty Start Date End Date Vivi Avina DO [address] [place] [address] PCP - General Family Medicine 01/27/17 documented as of this encounter
--- OUTSIDE RECORDS SUMMARY | 2023-06-16 00:27 | External Medical Summary | Summary of Care ---
Author Name Unknown Organization [facility] Address [address] [facility] [place] [address] Phone [phone] Care Team Providers Care Stationary Engineer Apprentice Name Role Phone Vivi Avina DO Primary Care Provider Reason for Referral * Evaluate & Treat - Unlimited Visits (Within 30 days (routine)) - Pending Review Specialty Diagnoses / Procedures Referred By Caty portillo Referred To Contact CARDIAC REHAB / Cardiology Diagnoses NICM (nonischemic cardiomyopathy) (HCC) Toshia Akins CRNP [address] [place] [address] Referral ID Status Reason Start Date Expiration Date Visits Requested Visits Authorized [id number] Pending Review Specialty Services Required 03/15/[phone] Question Answer Referral Priority Within 30 days (routine) Cardiac Rehabilitation Modality Center Based Cardiac Rehab Only Cardiac Rehab Location: [facility] (Specify in Comments) - [facility] Identify Cardiac Risk Low to Moderate Risk Reason for Visit * Reason Comments Hospital Follow-Up [facility] 02/28-03/02/23 Encounter Details Date Type Department Care Team Description 03/15/2023 Office Visit Cardiology, [facility] [address] [place] [id number] Toshia Akins CRNP [address] [place] [id number] NICM (nonischemic cardiomyopathy) (HCC)* Allergies Active Allergy Reactions Severity Noted Date Comments Warfarin High 12/29/2021 Skin reaction/slothing off Sulfa Antibiotics 08/26/1999 fever documented as of this encounter (statuses as of 03/15/2023) Medications Medication Sig Dispensed Refills Start Date [...] 24 Hour (toPROL XL)Indications:ОЛЬГА M (nonischemic cardiomyopathy) ([facility]) Take by mouth 1 Tablet in the [...] Tuesday only. 90 Tablet 3 03/16/2023 Active Spironolactone 25 MG Oral Tablet (Aldactone) Take 0.5 Tablets by mouth in the morning. 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 Increased risk for Cardiomyopathy (CM). Please click the link below for current clinical management recommendations for Hereditary Cardiomyopathy. TTN MACHADO (nonalcoholic steatohepatitis) 12/31 NICM (nonischemic cardiomyopathy) 2021 Secondary polycythemia 06/05/2020 HTN, goal below 140/90 09/04/2018 Permanent atrial fibrillation 03/14/2017 Ventricular tachycardia 03/14/2017 UNILAT INGUINAL HERNIA documented as of this encounter (statuses as of 03/15/2023) Resolved Problems Problem Noted Date Resolved Date Prediabetes 05/10/2022 09/15/2022 Overview: Per Prediabetes protocol Acute systolic congestive heart failure 03/14/20 17 09/04/2018 Acute systolic heart failure 03/14/2017 Paroxysmal atrial fibrillation 05/26/2015 0 12/29/2021 Varicella without complication 11/19/2002 0 09/04/2018 documented as of this encounter (statuses as of 03/15/2023) Immunizations Name Administration Dates Next Due Pneumococcal [...] Sign Reading Time Taken Comments Blood Pressure 92/66 03/15/2023 2:25 PM EDT Pulse 86 03/15/2023 2:25 PM EDT Temperature - - Respiratory Rate 16 03/15/2023 2:25 PM EDT Oxygen Saturation 97% 03/15/2023 2:25 PM EDT Inhaled Oxygen Concentration - - Weight 93.3 kg (205 lb 12 oz) 03/15/2023 2:25 PM EDT Height - - Body Mass Index 31.28 09/15/2022 3:50 PM EST documented in this encounter Progress Notes * GERTRUDIS Thompson - 03/15/2023 2:30 PM EDT Images from the original note were not included. Cardiology Outpatient Visit 03/15/2023 Primary Wood Technologist: Formally Dr. Bravo Past medical history: History of nonischemic cardiomyopathy, ? tachycardic induced- initially diagnosed in 2016, resolvedper echo 10/2017 (55-60%) Further decline in LVEF dated 04/2022 (45%) LVEF 27% per cardiac MRI 03/2022 S/p ICD placement 04/01/[address] Skelton TTN positive, 01/2023 genetic testing Persistent atrial fibrillation, on Eliquis Mild nonobstructive CAD per cardiac catheterization, 2016 Negative nuclear stress 10/2021 HTN Abnormal LFTs Secondary polycythemia History of hyperkalemia MACHADO HPI 63-year-old male presenting to the cardiology office today in follow-up after recent hospital admission to [facility] from 02/28 to 03/02. Patient was admitted for acute on chronic heart failure with reduced ejection fraction. Patient received IV Lasix with significant diuresis. Goal-directed medical therapy was titrated including Entresto, metoprolol succinate, spironolactone, and Jardiance. Per outpatient chart, patient underwent cardiac MRI on 03/04/2022 with findings consistent of nonischemic cardiomyopathy and an EF of 27%. Per Dr. Day's inpatient progress note dated 03/02/2023: I reviewed the images of the outpatient echocardiogram performed 10/07/2022 within the [facility] system. The ejection fraction was reported to be 44% at that time. However I think this was an overestimation of the ejection fraction. Contrast was not administered. I independently reviewed the images obtained at the time of his echocardiogram during his hospital stay 02/28/2023. Sonic contrast (Definity) was administered. Severe left ventricular systolic dysfunction noted with qualitative ejection fraction in the range of 20-25%. Overall, with taking all this data into account, I am not certain that he has had a recent decline in the ejection fraction after all, but this likely represents the same ejection fraction that was noted a year ago and prompted his AICD. Patient was discharged home on: Eliquis 5 mg twice daily, Entresto 24/ 1 tablet by mouth 2 times per day, Jardiance 10 mg by mouth daily, Metoprolol succinate 100 mg by mouth two times per day, Resume spironolactone 12.5 mg daily. Resume furosemide 20 mg by mouth daily. He was previously taking this on an as-needed basis. Today the patient presents with his per his usual routine. From a cardiac standpoint he is feeling well. Blood pressures are trending on the lower side. Admits to a high sodium diet on Tuesday,works at the [employer] in admits to eating a a hoagie, cheeseburger and [place] fries. Weights are generally stable, up about 2-3 lb. Denies chest pain. No worsening shortness of breath. 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 Able to go up and down flights of stairs without difficulty. Slight lightheadedness with position changes. No palpitations. No orthopnea or PND. No lower extremity edema. Denies abdominal bloating. No fever, chills, cough, hematochezia, melena, or hemoptysis. Patient is compliant with all medications, and offers no side effects. Current Outpatient Medications Medication Sig Dispense Refill [...] wks then as needed-otc. 30 Tablet 5 Entresto 24-26 MG Oral Tablet (sacubitril-valsartan 24-26 mg per tab) Take by mouth 1 Tablet in themorning AND 1 Tablet before bedtime. 60 Tablet 11 Metoprolol Succinate ER 100 MG Oral Tablet Extended Release 24 Hour (toPROL XL) Take by mouth 1 Tablet in the morning AND 1 Tablet before bedtime. 180 Tablet 3 Furosemide 20 MG Oral Tablet Take 1 Tablet by mouth in the morning. As needed. 30 Tablet 5 Ventolin HFA 108 (90 [...] meal of the day. 30 Capsule 5 Spironolactone 25 MG Oral Tablet (Aldactone) Take 0.5 Tablets by mouth in the morning. miscellaneous OTC Take 1 Each by mouth [...] atrial fibrillation (HCC) 05/26/2015 Varicella without complication Past Surgical History: Procedure Laterality Date COLONOSCOPY W/ LESION REMOVAL, SNARE 06/04/2011 hyperplastic polyp, repeat in 10 years COLONOSCOPY, DIAGNOSTIC (RECTUM) 06/19/2021 adenomatous polyp, diverticulosis, repeat 5 yrs / COLONOSCOPY FLEXIBLE PROXIMAL DIAGNOSTIC performed by Amy Walker MD at ENDOSCOPY [facility] INSERT/REPLACE DEFIBRILLATOR W/TRANSVERSE LEAD(S) Left 04/01/2022 NON-THORACIC INTERNAL CARDIAC DEFIBRILLATOR LEADS AND GENERATOR IMPLANT performed by Randa Skelton DO at OR [facility] MISCELLANEOUS ORDER ([facility] ONLY) 08/01/1983 finger surgery REPAIR INITIAL INGUINAL HERNIA REDUCIBLE AGE 5 OR MORE Inguinal Hernia Repair,5+Y/O,Reducibl THIGH OR KNEE SURGERY [facility] 08/01/1990 Femur/Knee Surg Unlisted Social History Tobacco Use Smoking status: Never Smokeless tobacco: Current Types: Snuff, Chew Tobacco comments: 1 can per week or less Vaping Use Vaping Use: Never used Substance Use Topics Alcohol use: Not Currently Drug use: No Review of patient's allergies indicates: Allergen Reactions Coumadin [Warfarin] Skin reaction/slothing off Sulfa Antibiotics fever Review of Systems: See HPI for pertinent positives. All others negative, other than those noted in HPI. Physical Exam BP 92/66 (BP Site: Left Arm, BP Position: Sitting, BP Cuff Size: Large) | Pulse 86 | Resp 16 | Wt 93.3 kg (205 lb 12 oz) | SpO2 97% | BMI 31.28 kg/m | BSA 2.12 m General: No acute distress. A+Ox3. HEENT: Normocephalic. Atraumatic. Conjunctiva and sclera clear. NECK: No carotid bruits. No JVD. Carotid upstrokes are brisk. Heart: Irregular. S1 and S2 noted without murmur, rubs, gallops. Lungs: Clear to auscultation. + faint expiratory wheeze, No rhonchi, rales. Abdomen: Normal bowel sounds. Soft. Nontender. No masses or organomegaly. No abdominal bruits. Extremities: +1 BLLE pitting edema. No clubbing or cyanosis. Pulses: radial=2/4, posterior tibial=2/4, dorsalis pedis = 2/4. NEURO: No focal deficits. PSYCH: Normal. Lab data/imaging study review: Echo at [facility] 02/28/2023 Echo 09/2022 The examination is [...] Mild tricuspid regurgitation. Severe left atrial enlargement. Impression/Plan: 1. NICM (nonischemic cardiomyopathy) ([facility]) 2. Presence of automatic cardioverter/defibrillator (AICD) -History of nonischemic cardiomyopathy, ? tachycardic induced- initially diagnosed in 2016, resolved in 2017. -Further decline in 09/2021. Most recent LVEF 27% per cardiac MRI dated 03/2022 (idiopathic NICM per imaging) -S/p ICD placement 04/01/[address] Skelton +Genetic testing (TTN positive) 1. Continue goal-directed medical therapy with Entresto, metoprolol succinate, aldactone, and Jardiance as ordered. 2. Recent decline in renal function- patient appears euvolemic/slightly hypovolemic. Given tendencies of high sodium diet will continue Lasix at 20 mg daily. Reduce Aldactone to 12.5 mg every Tuesday. Repeat a BMP in 1 week. 3. Consider repeat resting echocardiogram in 3 months to reassess LV systolic function 4. We had a lengthy discussion regarding CHF. CHF education packet provided to patient today. Startfollowing a low-sodium diet (less than 2g/2000mg daily). Continue daily weights- weigh first thing in the morning after using the bathroom. Should weight increase 3 pounds in 1 day or 5 pounds in 1 week, notify cardiology. 5. Recommend cardiac rehab, patient would prefer to go to [facility]. Referral placed. 3. Persistent atrial fibrillation (HCC) -[id number] score of 4 (HTN, CHF, CAD, DM). -Ventricular rates well controlled. 1. Continue metoprolol succinate 100 mg twice daily 2. Continue Eliquis 5 mg twice daily 4. Nonobstructive atherosclerosis of coronary artery -Mild nonobstructive CAD per cardiac catheterization, 2017. -Negative nuclear stress 10/2021. Not on ASA as he is on Eliquis There are no Patient Instructions on file for this visit. The patient agrees to the above plan and will call with additional questions or concerns. ER with all emergencies advised. Follow-up: Return in about 4 weeks (around 04/12/2023). 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 I spent a total of 40 minutes on the date of service in preparation, delivery, and documentation ofthe care provided to Manuel Menendez excluding any time spent in the performance of separately billed services. GERTRUDIS Shields, Department of Cardiology This chart was completed in part utilizing [employer] Speech Voice Recognition Software. Grammatical errors, random word insertions, prounoun errors, and incomplete sentences are an occasional consequence of this system due to software limitations, ambient noise, and hardware issues. Any formal questions or concerns about the content, text, or information contained within the body of this dictation should be directly addressed to the provider for clarification. documented in this encounter Nursing Notes * Barb Laboy CMA - 03/15/2023 2:21 PM EDT Examination Room: 7 Name: Manuel Menendez Date of : (1960). Reason for Visit: Hospital f/u Interim Hospitalization(s): [facility] Problems/Concerns: Denies. reports BP at home has been running on the low side. Chest Pain/SOB: Denies CP. Reports SOB has improved with exertion. [facility] Discussed: Not applicable My [employer] is a way you can talk to your provider online through e-mail. Would you like to sign up? I can activate it for you? ALREADY ACTIVE Patient was instructed to not get up on the exam table until directed and assisted by their provider; patient is to remain seated in the chair/ wheelchair/ exam table for fall prevention and safety reasons. Patient is aware to have assistance to step down off exam table with personnel. Patient voiced full comprehension of instructions. documented in this encounter Plan of Treatment Upcoming Encounters Date Type Specialty Care Team Description 03/25/2023 Laboratory Laboratory [place], Lab Scenery [address] [place] [address] 03/25/2023 Hem/Onc Treatment Hematology Oncology [place], Chair 1 Hem Onc Scenery [address] [place] [address] 05/26/2023 Office Visit Cardiology Sangeetha Julien CRNP [address] [place] [address] 07/12/2023 Office Visit Family Medicine Vivi Avina DO [address] [place] [address] 12/20/2023 Office Visit Hematology Oncology Bryce Crain MD [address] [place] [address] Scheduled Orders Name Type Priority Associated Diagnoses Orde r Schedule BASIC METABOLIC PANEL Lab Routine NICM (nonischemic cardiomyopathy) (HCC) Expected: 03/22/2023, Expires: 03/15/2024 Scheduled Procedures Name Priority Associated Diagnoses Date/Ti me COLONOSCOPY FLEXIBLE PROXIMAL DIAGNOSTIC Recall History of colon polyps Scheduled Referrals Name Type Priority Associated Diagnoses Orde r Schedule CARDIAC REHAB REFERRAL OP Referral Within 30 days (routine) NICM (nonischemic cardiomyopathy) (HCC) Ordered: 03/15/2023 Health Maintenance Due Date Last Done Comments [...] this encounter Medical Devices Implanted Type Area Advertising Job Titles Device Identifier Shelf Expiration Date Model / Serial / Lot Envelope Antibacteral Tyrx - [id number] Implanted:Qty: 1 on 04/01/2022 by Randa Skelton DO at OR [facility] [employer] : CRM [id number] 12/12/2022 CMRM6 133 / / [id number] documented as of this encounter Visit Diagnoses Diagnosis NICM (nonischemic cardiomyopathy) (HCC)- Primary Other primary cardiomyopathies documented in this encounter Care Teams Stationary Engineer Apprentice Relationship Specialty Start Date End Date Vivi Avina DO [address] [place], [place] [id number] PCP - General Family Medicine 01/27/17 documented as of this encounter"
--- OUTSIDE RECORDS SUMMARY | 2023-06-16 00:27 | External Medical Summary | Summary of Care ---
Author Name Unknown Organization [facility] Address [address] [facility] [place] [address] Phone [phone] Care Team Providers Care Wire Chief Name Role Phone RovertorickiVivi DO Primary Care Provider Encounter Details Date Type Department Care Team Description 03/11/2023 Result Scan Unspecified Department Cj Day DO [address] [place] [address] <No scans attached> Allergies Active Allergy Reactions [...] cardiomyopathy 02/23/2023 Overview: pathogenic TTN gene variant (c.02363+2del, 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 Increased risk for [...] Encounters Date Type Specialty Care Team Description 03/11/2023 Office Visit Cardiology [place], [facility] Cardiology [place] [address] [place] [address] 03/15/2023 Office Visit Cardiology Toshia Akins CRNP [address] [place] [address] 03/25/2023 Laboratory Laboratory [place], Lab Scenery [address] [place] [address] 03/25/2023 Hem/Onc Treatment Hematology Oncology [place], Chair 1 Hem Onc Scenery [address] [place] [address] 07/12/2023 Office Visit Family Medicine Vivi Avina DO [address] [place] [address] 12/20/2023 Office Visit Hematology Oncology Bryce Crain MD [address] [place] [address] Scheduled Procedures Name Priority Associated Diagnoses Date/Ti [...] this encounter Medical Devices Implanted Type Area Provider Relations Manager Device Identifier Shelf Expiration Date Model / Serial / Lot Envelope Antibacteral Tyrx - [id number] Implanted:Qty: 1 on 04/01/2022 by Randa Skelton DO at OR [facility] [employer] : CRM [id number] 12/12/2022 CMRM6 133 / / [id number] documented as of this encounter Procedures Procedure Name Priority Date/Time Associated Diagnosis Comments CARDIOLOGY SCANNED RESULT 03/11/2023 documented in this encounter Results * CARDIOLOGY SCANNED RESULT (03/11/2023) 03/11/2023 Cj Day DO OTHER documented in this encounter Care Teams Wire Chief Relationship Specialty Start Date End Date Vivi Avina DO [address] [place] [address] PCP - General Family Medicine 01/27/17 documented as of this encounter
--- OUTSIDE RECORDS SUMMARY | 2023-06-16 00:28 | External Medical Summary ---
Author Name Unknown Address Unknown Organization K01:LABORATORY [facility] - [address] [facility] [address] Laboratory Report Ordering Provider Test Date Status MARIANNA CARTAGENA 02/15/2023 12:43:49 Final Observation Date Value Abnormality Reference (Units ) Status HbA1C 02/15/2023 12:43:49 5.6 4.0-5.6 (% ) Final The use of HbA1c to monitor glycemic status is based on normal hemoglobin and HbA composition. This test should not be used in patients with abnormal hemoglobin that affects the half life of the red blood cell or the in vivo glycation rates. Glucose, estimated average 02/15/2023 12:43:49 114 <126 (mg/dL) Final Performing Location LABORATORY [facility] - [address] [facility] [address]
--- OUTSIDE RECORDS SUMMARY | 2023-06-16 00:28 | External Medical Summary | Summary of Care ---
Author Name Unknown Organization [facility] Address [address] [place] [address] Phone [phone] Care Team Providers Care Air Carrier Operations Inspector Name Role Phone Vivi Avina DO Primary Care Provider Encounter Details Date Type Department Care Team Description 02/23/2023 Orders Only Clinical [facility] [place] [address] [facility] [address] [place] [address] Elmo Sandhu MD [address] [place] [id number] Allergies Active Allergy Reactions Severity Noted Date Comments Warfarin High 12/29/2021 Skin reaction/slothing off Sulfa Antibiotics 08/26/1999 fever documented as of this encounter (statuses as of 02/23/2023) Medications Medication Sig Dispensed Refills Start Date [...] as of this encounter (statuses as of 02/23/2023) Active Problems Problem Noted Date 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 Increased risk for Cardiomyopathy (CM). Please click the link below for current clinical management recommendations for Hereditary Cardiomyopathy. TTN MACHADO (nonalcoholic steatohepatitis) 12/31 NICM (nonischemic cardiomyopathy) 2021 Secondary polycythemia 06/05/2020 HTN, goal below 140/90 09/04/2018 Permanent atrial fibrillation 03/14/2017 Ventricular tachycardia 03/14/2017 UNILAT INGUINAL HERNIA documented as of this encounter (statuses as of 02/23/2023) Resolved Problems Problem Noted Date Resolved Date Prediabetes 05/10/2022 09/15/2022 Overview: Per Prediabetes protocol Acute systolic congestive heart failure 03/14/20 17 09/04/2018 Acute systolic heart failure 03/14/2017 Paroxysmal atrial fibrillation 05/26/2015 0 12/29/2021 Varicella without complication 11/19/2002 0 09/04/2018 documented as of this encounter (statuses as of 02/23/2023) Immunizations Name Administration Dates Next Due Pneumococcal [...] Encounters Date Type Specialty Care Team Description 02/25/2023 Cardiac Studies Cardiology [place], [facility] [place] [place] [address] [facility] [place] [address] 03/25/2023 Laboratory Laboratory Cat Lab Scenery [address] [place] [address] 03/25/2023 Hem/Onc Treatment Hematology Oncology [place], Chair 1 Hem Onc Scenery [address] [place] [address] 07/12/2023 Office Visit Family Medicine Vivi Avina DO [address] [place] [address] 12/20/2023 Office Visit Hematology Oncology Bryce Crain MD [address] [place] [address] Scheduled Procedures Name Priority Associated Diagnoses Date/Ti [...] this encounter Medical Devices Implanted Type Area Classifier Device Identifier Shelf Expiration Date Model / Serial / Lot Envelope Antibacteral Tyrx - [id number] Implanted:Qty: 1 on 04/01/2022 by Randa Skelton DO at OR [facility] [employer] : [facility] [id number] 12/12/2022 CMRM6 133 / / [id number] documented as of this encounter Procedures Procedure Name Priority Date/Time Associated Diagnosis Comments GENETIC MYCODE RESULT Routine 02/23/2023 documented in this encounter Results * GENETIC MYCODE RESULT (02/23/2023) 02/23/2023 Elmo Sandhu MD LABORATORY OUTSIDE LAB (SEE SCANNED REPORT) documented in this encounter Care Teams Air Carrier Operations Inspector Relationship Specialty Start Date End Date Vivi Avina DO [address] [place] [address] PCP - General Family Medicine 01/27/17 documented as of this encounter
--- OUTSIDE RECORDS SUMMARY | 2023-06-16 00:28 | External Medical Summary | Summary of Care ---
Author Name Unknown Organization [facility] Address [address] [place] [address] Phone [phone] Care Team Providers Care Agricultural Production Engineer Name Role Phone Vivi Avina DO Primary Care Provider Reason for Visit * Reason Comments Outpatient Testing Encounter Details Date Type Department Care Team Description 02/15/2023 Laboratory Laboratory Scenery [facility] [address] [place] [address] [facility] Lab Scenery [address] [place] [address] HTN, goal below 140/90; Prediabetes; NICM (nonischemic cardiomyopathy) ([facility]) Allergies Active Allergy Reactions Severity Noted Date Comments Warfarin High 12/29/2021 Skin reaction/slothing off Sulfa Antibiotics 08/26/1999 fever documented as of this encounter (statuses as of 02/15/2023) Medications Medication Sig Dispensed Refills Start Date [...] as of this encounter (statuses as of 02/15/2023) Active Problems Problem Noted Date MACHADO (nonalcoholic steatohepatitis) 12/31 NICM (nonischemic cardiomyopathy) 2021 Secondary polycythemia 06/05/2020 HTN, goal below 140/90 09/04/2018 Permanent atrial fibrillation 03/14/2017 Ventricular tachycardia 03/14/2017 UNILAT INGUINAL HERNIA documented as of this encounter (statuses as of 02/15/2023) Resolved Problems Problem Noted Date Resolved Date Prediabetes 05/10/2022 09/15/2022 Overview: Per Prediabetes protocol Acute systolic congestive heart failure 03/14/20 17 09/04/2018 Acute systolic heart failure 03/14/2017 Paroxysmal atrial fibrillation 05/26/2015 0 12/29/2021 Varicella without complication 11/19/2002 0 09/04/2018 documented as of this encounter (statuses as of 02/15/2023) Immunizations Name Administration Dates Next Due Pneumococcal [...] Care Team Description 02/25/2023 Cardiac Studies Cardiology [facility] [address] [place] [address] 03/25/2023 Laboratory Laboratory [place], Lab Scenery [address] [place] [address] 03/25/2023 Hem/Onc Treatment Hematology Oncology [place], Chair 1 Hem Onc Scenery [address] [place] [address] 07/12/2023 Office Visit Family Medicine Vivi Avina DO [address] [place] [address] 12/20/2023 Office Visit Hematology Oncology Bryce Crain MD [address] [place] [address] Pending Results Name Type Priority Associated Diagnoses Date /Time ALBUMIN / CREATININE RATIO, URINE Lab Routine HTN, goal below 140/90 02/15/2023 12:43 PM EDT HEMOGLOBIN A1C Lab Routine Prediabetes 02/15/2023 12:43 PM EDT BASIC METABOLIC PANEL Lab Routine NICM (nonischemic cardiomyopathy) (HCC) 02/15/2023 12:43 PM EDT Scheduled Procedures Name Priority Associated [...] 2023 05/02/2021, 05/09/2020, 05/02/2018, Additional history exists Albumin/Creatinine Ratio 09/12/2023 09/12/2020 GFR 09/28/2023 09/28/2022, 09/01, 08/30/2022, Additional history exists Diabetes Screening 09/28/2025 09/28/2022, 0 09/13/2022, 08/30/2022, Additional history exists COLONOSCOPY-EVERY 5 YRS AGES [...] this encounter Medical Devices Implanted Type Area Drip Box Tender Device Identifier Shelf Expiration Date Model / Serial / Lot Envelope Antibacteral Tyrx - [id number] Implanted:Qty: 1 on 04/01/2022 by Randa Skelton DO at OR [facility] [employer] : CRM [id number] 12/12/2022 [id number] 133 / / [id number] documented as of this encounter Visit Diagnoses Diagnosis HTN, goal below 140/90 Unspecified essential hypertension Prediabetes Other abnormal glucose NICM (nonischemic cardiomyopathy) (HCC) Other primary cardiomyopathies documented in this encounter Care Teams Agricultural Production Engineer Relationship Specialty Start Date End Date Vivi Avina DO [address] [place] [address] PCP - General Family Medicine 01/27/17 documented as of this encounter
--- OUTSIDE RECORDS SUMMARY | 2023-06-16 00:28 | External Medical Summary | Summary of Care ---
Author Name Unknown Organization [facility] Address [address] [place] [address] Phone [phone] Care Team Providers Care Director Of Claims Name Role Phone RovertorickiVivi DO Primary Care Provider Reason for Visit * Reason Onset Date Comments Abnormal Genetic Testing 02/23/2023 MyCode Result - TTN Encounter Details Date Type Department Care Team Description 02/23/2023 Telephone Clinical Genomics, [place] [address] [place] [address] Genomics, Mycode Clinical [address] [place] [address] Abnormal Genetic Testing (MyCode Result - ... [...] cardiomyopathy 02/23/2023 Overview: pathogenic TTN gene variant (c.09049+2del, p.?) detected via [facility]. Increased risk for Cardiomyopathy (CM). Please click [...] from the original note were not included. [facility] Dog[facility]acay Otilia[facility]tilia [address] [facility] [address] [place] [address] 02/23/2023 Vivi Avina DO [address] [facility] [address] Vivi Avina DO, Your patient Manuel Menendez 1960 has been found to have increased risk for Cardiomyopathy (CM) due to a pathogenic variant in the TTN gene through participation in the [facility]. We will attempt to [...] For questions about this patient and their Njini results, please use Ask-a-Doc or page the on-call Clinical Genomics provider by calling and having the drain tile machine operator page [email or web address]. For non-urgent questions or for more information about this genetic condition, please contact our team (toll-free) at or by emailing [email or web address] Thank you, Yadi Shah MS, [facility] Co-director, [facility] Gen[facility] Screening and Counseling Program Licensed, Certified Genetic Counselor Ngoc Nguyen MS, [facility] Sales Record Clerk Co-director, [facility] Scre[facility] Licensed, Certified Genetic Counselor KATLYN Kumar, Genetic Counseling Hydroelectric Mechanic documented in this encounter Plan of Treatment Upcoming Encounters Date Type Specialty Care Team Description 02/25/2023 [facility], Pacer [address] [place] [address] 03/25/2023 Laboratory Laboratory [place], Lab Scenery [address] [place] [address] 03/25/2023 Hem/Onc Treatment Hematology Oncology [place], Chair 1 Hem Onc Scenery [address] [place] [address] 07/12/2023 Office Visit Family Medicine Vivi Avina DO [address] [place] [address] 12/20/2023 Office Visit Hematology Oncology Bryce Crain MD [address] [place] [id number] Scheduled Procedures Name Priority Associated Diagnoses Date/Ti [...] this encounter Medical Devices Implanted Type Area Panel Raiser Operator Device Identifier Shelf Expiration Date Model / Serial / Lot Envelope Antibacteral Tyrx - [id number] Implanted:Qty: 1 on 04/01/2022 by Randa Skelton DO at OR [facility] [employer] : CRM [id number] 12/12/2022 [id number] 133 / / [id number] documented as of this encounter Care Teams Director Of Claims Relationship Specialty Start Date End Date Vivi Avina DO [address] [place] [address] PCP - General Family Medicine 01/27/17 documented as of this encounter
--- OUTSIDE RECORDS SUMMARY | 2023-06-16 00:28 | External Medical Summary | Summary of Care ---
Author Name Unknown Organization [facility] Address [address] [facility] [place] [address] Phone [phone] Care Team Providers Care Tech Intern Name Role Phone Vivi Avina DO Primary Care Provider Reason for Visit * Reason Onset Date Comments Test Results 02/15/2023 Encounter Details Date Type Department Care Team Description 02/15/2023 Telephone Cardiology, [facility] [address] [place] [id number] Toshia Akins CRNP [address] [facility] [place] [address] Test Results Allergies Active Allergy Reactions Severity [...] encounter Miscellaneous Notes * Telephone Encounter - Herlinda Kenney CMA - 02/15/2023 4:18 PM EDT Pt aware of results. * Telephone Encounter - Herlinda Kenney CMA - 02/15/2023 4:18 PM EDT ----- Message from GERTRUDIS Thompson sent at 02/15/2023 1:41 PM EDT ----- Renal function improved. documented in this encounter Plan of Treatment Upcoming Encounters Date Type Specialty Care Team Description 02/25/2023 Cardiac Studies Cardiology [facility] Pacer [facility] [address] [facility] [place] [address] 03/25/2023 Laboratory Laboratory [place], Lab Scenery [address] [place] [address] 03/25/2023 Hem/Onc Treatment Hematology Oncology [place], Chair 1 Hem Onc Scenery [address] [place] [address] 07/12/2023 Office Visit Family Medicine Vivi Avina DO [address] [place] [address] 12/20/2023 Office Visit Hematology Oncology Bryce Crain MD [address] [place] [address] Scheduled Procedures Name Priority Associated Diagnoses Date/Ti [...] history exists Albumin/Creatinine Ratio 09/12/2023 09/12/2020 GFR 02/16/2024 02/15/2023, 09/02, 09/13/2022, Additional history exists Diabetes Screening 02/15/2026 02/15/2023, 0 09/28/2022, 09/13/2022, Additional history exists COLONOSCOPY-EVERY 5 YRS AGES [...] this encounter Medical Devices Implanted Type Area Ceramic Design Engineer Device Identifier Shelf Expiration Date Model / Serial / Lot Envelope Antibacteral Tyrx - [id number] Implanted:Qty: 1 on 04/01/2022 by Randa Skelton DO at OR [facility] [employer] : CRM [id number] 12/12/2022 CMRM6 133 / / [id number] documented as of this encounter Care Teams Tech Intern Relationship Specialty Start Date End Date Vivi Avina DO [address] [facility], [place] [phone] PCP - General Family Medicine 01/27/17 documented as of this encounter
--- OUTSIDE RECORDS SUMMARY | 2023-06-16 00:28 | External Medical Summary | Summary of Care ---
Author Name Unknown Organization [facility] Address [address] [facility] [address] Phone [phone] Care Team Providers Care Mold Puller Name Role Phone Vivi Avina DO Primary Care Provider Reason for Visit * Reason Comments Cough Edema Encounter Details Date Type Department Care Team Description 02/15/2023 Office Visit Family Practice [facility] [address] [place] [address] Vivi Avina DO [address] [place] [address] Gastroesophageal reflux disease with esophagitis without hemorrhage*; Chronic systolic heart failure (HCC) Allergies Active Allergy Reactions Severity Noted Date Comments Warfarin High 12/29/2021 Skin reaction/slothing off Sulfa Antibiotics 08/26/1999 fever documented as of this encounter (statuses as of 02/16/2023) Medications Medication Sig Dispensed Refills Start Date [...] as of this encounter (statuses as of 02/16/2023) Active Problems Problem Noted Date MACHADO (nonalcoholic steatohepatitis) 12/31 NICM (nonischemic cardiomyopathy) 2021 Secondary polycythemia 06/05/2020 HTN, goal below 140/90 09/04/2018 Permanent atrial fibrillation 03/14/2017 Ventricular tachycardia 03/14/2017 UNILAT INGUINAL HERNIA documented as of this encounter (statuses as of 02/16/2023) Resolved Problems Problem Noted Date Resolved Date Prediabetes 05/10/2022 09/15/2022 Overview: Per Prediabetes protocol Acute systolic congestive heart failure 03/14/20 17 09/04/2018 Acute systolic heart failure 03/14/2017 Paroxysmal atrial fibrillation 05/26/2015 0 12/29/2021 Varicella without complication 11/19/2002 0 09/04/2018 documented as of this encounter (statuses as of 02/16/2023) Immunizations Name Administration Dates Next Due Pneumococcal [...] Sign Reading Time Taken Comments Blood Pressure 102/66 02/15/2023 12:05 PM EDT Pulse 78 02/15/2023 12:05 PM EDT Temperature 36.4 C (97.5 F) 02/15/2023 12:05 PM E DT Respiratory Rate 16 02/15/2023 12:05 PM EDT Oxygen Saturation 98% 02/15/2023 12:05 PM EDT Inhaled Oxygen Concentration - - Weight 94.8 kg (209 lb) 02/15/2023 12:05 PM EDT Height - - Body Mass Index 31.78 09/15/2022 3:50 PM EST documented in this encounter Progress Notes * Trinidad Serenachase Avina, DO - 02/15/2023 12:15 PM EDT Subjective: Manuel Menendez is a 63 year old male. Chief Complaint Patient presents with Cough Edema HPI: Manuel Menendez presents with complaints of dry non-productive cough and bilateral lower extremity edema. 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 PHM: Patient Active Problem List Diagnosis Code UNILAT INGUINAL HERNIA K40.90 Permanent atrial fibrillation (HCC) I48.21 Ventricular tachycardia (HCC) I47.20 HTN, goal below 140/90 I10 Secondary polycythemia D75.1 NICM (nonischemic cardiomyopathy) (HCC) I42.8 MACHADO (nonalcoholic steatohepatitis) K75.81 Outpatient Medications Prior to Visit Medication Sig Dispense Refill Jardiance 10 MG Oral Tablet (Empagliflozin) take [...] 24 Hour (toPROL XL) Take by mouth 1Tablet in the morning AND 1 Tablet before bedtime. 180 Tablet 3 Liver Support Sublingual Tablet Sublingual Take by mouth 2 Tablets daily . miscellaneous OTC Take 1 Each by mouth in the morning and 1 Each before bedtime. Zinc 50 MG Oral Tablet Take 1 Tablet by mouth in the morning. Entresto 24-26 MG Oral Tablet (sacubitril-valsartan 24-26 mg per tab) Take by mouth 1 Tablet inthe morning AND 1 Tablet before bedtime. 60 Tablet 11 Loratadine 10 MG Oral Tablet (Claritin) Take by mouth 1 Tablet before bedtime. x1-2 wks then asneeded-otc. 30 Tablet 5 Magnesium 400 MG Capsule Take 1 Capsule by mouth in the morning. Multiple Vitamins-Minerals (CENTRUM SILVER 50+MEN) TABS Take by mouth 1 Tablet daily . TRIAMCINOLONE ACETONIDE 0.5 % EX CREA Apply to affected area twice a day 60 g 5 No facility-administered medications prior to visit. Last reviewed on 02/15/2023 12:05 PM by Kallie Barry LPN Review of patient's allergies indicates: Allergen Reactions Coumadin [Warfarin] Skin reaction/slothing off Sulfa Antibiotics fever Objective: BP 102/66 | Pulse 78 | Temp 36.4 C (97.5 F) (Tympanic) | Resp 16 | Wt 94.8 kg (209 lb) | SpO2 98% | BMI 31.78 kg/m | BSA 2.13 m Physical Exam: General: alert, healthy and no distress Head: Normocephalic, No masses, lesions, tenderness or abnormalities Oropharynx: no exudate, no erythema, lips, buccal mucosa, and tongue normal and mucous membranes are moist Neck: supple, no adenopathy, no bruits, thyroid normal size, non-tender, without nodularity Lymph: no palpable lymphadenopathy Heart: regular rate & rhythm, no murmur and no gallops Lungs: chest symmetric with normal AP diameter, no chest deformities noted, no chest wall tenderness, lungs clear to auscultation Pulses: carotid=2/4 w/o bruits Extremities: less than 2 second capillary refill, no joint deformities, effusion, or inflammation Latest Reference Range & Units 09/13/22 15:28 09/28/22 15:24 10/04/22 15:21 11/01/22 15:12 11/29/22 15:15 01/28/23 15:19 02/15/23 12:43 Sodium 135 - 146 mmol/L 141 141 141 Potassium 3.5 - 5.1 mmol/L 4.8 4.7 5.1 Chloride 98 - 107 mmol/L 102 100 103 CO2 22 - 32 mmol/L 28 29 28 BUN 6 - 20 mg/dL 22 (H) 24 (H) 19 Creatinine 0.6 - 1.2 mg/dL 1.6 (H) 1.4 (H) 1.2 Estimated Glomerular Filtration Rate >=60 mL/min 50 (L) 57 (L) 72 Anion Gap 7 - 15 mmol/L 11 12 10 Glucose 70 - 120 mg/dL 69 (L) 67 (L) 111 Calcium 8.4 - 10.2 mg/dL 9.5 9.4 9.8 Estimated Average Glucose <126 mg/dL 114 Hemoglobin A1C 4.0 - 5.6 % 5.6 CBC Rpt Rpt ! Rpt ! Rpt CBC WITH WBC DIFFERENTIAL Rpt ! Rpt ! Rpt ! Rpt ! WBC 4.00 - 10.80 K/uL 9.51 9.89 10.25 9.38 HGB 14.0 - 16.8 g/dL 14.7 15.2 13.9 (L) 14.1 HCT 40.0 - 48.4 % 48.0 49.5 (H) 45.0 45.3 MCV 82.0 - 99.5 fL 75.1 76.5 77.6 75.9 PLT 140 - 400 K/uL 254 267 270 261 Absolute Neutrophils 1.80 - 7.70 K/uL 6.54 6.40 7.19 6.72 Absolute Lymphocytes 1.00 - 4.80 K/ul 1.66 1.83 1.56 1.27 Absolute Monocytes 0.00 - 1.10 K/uL 1.02 1.38 (H) 1.26 (H) 1.12 (H) Absolute Eosinophils 0.00 - 0.70 K/uL 0.23 0.23 0.18 0.21 Absolute Basophils 0.00 - 0.20 K/uL 0.06 0.05 0.06 0.06 Albumin / Creatinine Ratio, Urine <30 mg/g Creat 20 ALBUMIN / CREATININE RATIO, URINE Rpt Albumin, Random Urine mg/dL 3.80 Creatinine, Random Urine mg/dL 194 ASSESSMENT/PLAN: Gastroesophageal reflux disease with esophagitis without hemorrhage (Primary) - Omeprazole 20 MG Oral Capsule Delayed Release (PriLOSEC); Take 1 Capsule by mouth in the morning.1 hour before the first meal of the day. reviewed appropriate use, benefits, risks, side effects and alternatives. Handouts reviewed- print at checkout Possibly contributing to chronic cough Chronic systolic heart failure (HCC) euvolemic now after catching up on lasix, resting, elevating legs, reinforced no salt/ low salt diet, check daily weights (was up, now back down) 30 min spent with patient, reviewing history, performing physical exam, reviewing labs, studies, specialist OVNs, and reports, educating and coordinating care, discussing treatment Vivi Avina DO documented in this encounter Nursing Notes * Kallie Barry LPN - 02/15/2023 12:07 PM EDT Manuel Menendez presents with complaints of dry non-productive cough and bilateral lower extremity edema. documented in this encounter Plan of Treatment Upcoming Encounters Date Type Specialty Care Team Description 02/25[facility]2023 [facility] [address] [place] [address] 03/25/2023 Laboratory Laboratory [place], Lab Scenery [address] [facility] [place] [address] 03/25/2023 Hem/Onc Treatment Hematology Oncology [place], Chair 1 Hem Onc Scenery [address] [place] [address] 07/12/2023 Office Visit Family Medicine Vivi Avina DO [address] [place] [address] 12/20/2023 Office Visit Hematology Oncology Bryce Crain MD [address] [place] [address] Scheduled Procedures Name Priority Associated Diagnoses Date/Ti [...] this encounter Medical Devices Implanted Type Area Inorganic Chemistry Teacher Device Identifier Shelf Expiration Date Model / Serial / Lot Envelope Antibacteral Tyrx - [id number] Implanted:Qty: 1 on 04/01/2022 by Randa Skelton DO at OR [facility] [employer] : CRM [id number] 12/12/2022 CMRM6 133 / / [id number] documented as of this encounter Visit Diagnoses Diagnosis Gastroesophageal reflux disease with esophagitis without hemorrhage- Primary Chronic systolic heart failure (HCC) Chronic systolic heart failure documented in this encounter Care Teams Mold Puller Relationship Specialty Start Date End Date Vivi Avina DO [address] [place] [address] PCP - General Family Medicine 01/27/17 documented as of this encounter"
--- OUTSIDE RECORDS SUMMARY | 2023-06-16 00:28 | External Medical Summary | Summary of Care ---
Author Name Unknown Organization [facility] Address [address] [facility] [place] [address] Phone [phone] Care Team Providers Care Sail Lay Out Worker Name Role Phone Vivi Avina DO Primary Care Provider Reason for Visit * Reason Onset Date Comments Test Results 02/15/2023 Encounter Details Date Type Department Care Team Description 02/15/2023 Telephone Cardiology, [facility] [address] [place] [id number] Toshia Akins CRNP [address] [facility] [place] [address] Test Results Allergies Active Allergy Reactions Severity [...] Telephone Encounter - Yesika Ceballos LPN - 02/16/2023 10:18 AM EDT Pt returned call. Answered questions about past and current BMP. Pt appreciative. * Telephone Encounter - Herlinda Kenney CMA - 02/15/2023 4:18 PM EDT Pt aware of results. * Telephone Encounter - Herlinda Kenney CMA - 02/15/2023 4:18 PM EDT ----- Message from GERTRUDIS Thompson sent at 02/15/2023 1:41 PM EDT ----- Renal function improved. documented in this encounter Plan of Treatment Upcoming Encounters Date Type Specialty Care Team Description 02/25/2023 Cardiac Studies Cardiology Sunil Mclean [address] [place] [address] 03/25/2023 Laboratory Laboratory [place], Lab Scenery [address] [facility] [place] [address] 03/25/2023 Hem/Onc Treatment Hematology Oncology [place], Chair 1 Hem Onc Scenery [address] [facility] [place] [address] 07/12/2023 Office Visit Family Medicine Vivi Avina DO [address] [place] [address] 12/20/2023 Office Visit Hematology Oncology Bryce Crain MD [address] [place] [address] Scheduled Procedures Name Priority Associated Diagnoses Date/Ti [...] this encounter Medical Devices Implanted Type Area Insole Presser Device Identifier Shelf Expiration Date Model / Serial / Lot Envelope Antibacteral Tyrx - [id number] Implanted:Qty: 1 on 04/01/2022 by Randa Skelton DO at OR [facility] [employer] : CRM [id number] 12/12/2022 CMRM6 133 / / [id number] documented as of this encounter Care Teams Sail Lay Out Worker Relationship Specialty Start Date End Date Vivi Avina DO [address] [place] [address] PCP - General Family Medicine 01/27/17 documented as of this encounter
--- OUTSIDE RECORDS SUMMARY | 2023-06-16 00:28 | External Medical Summary | Summary of Care ---
Author Name Unknown Organization [facility] Address [address] [facility] [place] [address] Phone [phone] Care Team Providers Care Grab Setter Name Role Phone Vivi Avina DO Primary Care Provider Reason for Visit * Reason Comments Defibrillator Clinic Medtronic ICD Advis ory Programming Encounter Details Date Type Department Care Team Description 02/25/2023 Cardiac Studies Cardiology, [facility] [address] [place] [address] [place], Pacer Clinic [facility] [address] [place] [address] Allergies Active Allergy Reactions Severity Noted Date Comments Warfarin High 12/29/2021 Skin reaction/slothing off Sulfa Antibiotics 08/26/1999 fever documented as of this encounter (statuses as of 02/25/2023) Medications Medication Sig Dispensed Refills Start Date [...] as of this encounter (statuses as of 02/25/2023) Active Problems Problem Noted Date 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 Increased risk for Cardiomyopathy (CM). Please click the link below for current clinical management recommendations for Hereditary Cardiomyopathy. TTN MACHADO (nonalcoholic steatohepatitis) 12/31 NICM (nonischemic cardiomyopathy) 2021 Secondary polycythemia 06/05/2020 HTN, goal below 140/90 09/04/2018 Permanent atrial fibrillation 03/14/2017 Ventricular tachycardia 03/14/2017 UNILAT INGUINAL HERNIA documented as of this encounter (statuses as of 02/25/2023) Resolved Problems Problem Noted Date Resolved Date Prediabetes 05/10/2022 09/15/2022 Overview: Per Prediabetes protocol Acute systolic congestive heart failure 03/14/20 17 09/04/2018 Acute systolic heart failure 03/14/2017 Paroxysmal atrial fibrillation 05/26/2015 0 12/29/2021 Varicella without complication 11/19/2002 0 09/04/2018 documented as of this encounter (statuses as of 02/25/2023) Immunizations Name Administration Dates Next Due Pneumococcal [...] as of this encounter Progress Notes * ANEL Smith - 02/25/2023 3:02 PM EDT Medtronic ICD Advisory Reprogramming completed. B>AX on all therapies that are enabled. Tech: Laron Harrison III Venetian Blind Worker: Dr. Day documented in this encounter Plan of Treatment Upcoming Encounters Date Type Specialty Care Team Description 03/02/2023 Office Visit Cardiology Sangeetha Julien CRNP [address] [place] [address] 03/25/2023 Laboratory Laboratory Cat, Lab Scenery [address] [place] [address] 03/25/2023 Hem/Onc Treatment Hematology Oncology Cat, Chair 1 Hem Onc Scenery [address] [place] [address] 07/12/2023 Office Visit Family Medicine Vivi Avina DO [address] [place] [address] 12/20/2023 Office Visit Hematology Oncology Bryce Crain MD [address] [place] [address] Scheduled Procedures Name Priority Associated Diagnoses Date/Ti [...] this encounter Medical Devices Implanted Type Area Beater Dumper Device Identifier Shelf Expiration Date Model / Serial / Lot Envelope Antibacteral Tyrx - [id number] Implanted:Qty: 1 on 04/01/2022 by Randa Skelton DO at OR [facility] [employer] : CRM [id number] 12/12/2022 [id number] / / [id number] documented as of this encounter Care Teams Grab Setter Relationship Specialty Start Date End Date Vivi Avina DO [address] [facility], [place] [id number] PCP - General Family Medicine 01/27/17 documented as of this encounter
--- OUTSIDE RECORDS SUMMARY | 2023-06-16 00:29 | External Medical Summary ---
Author Name Unknown Address Unknown Organization [id number]:[facility] - [address] [place] [address] Laboratory Report Ordering Provider Test Date Status CARTAGENAMARIANNA 02/15/2023 12:43:49 Final Normal: <30 mg/g creatinine< br/>High: 30-300 mg/g creatinine
Very High: >300 mg/g creatinine
Nephrotic: >2200 mg/g creatinine Observation Date Value Abnormality Reference (Units ) Status Albumin, Urine 02/15/2023 12:43:49 3.80 (mg/dL) Final Creatinine, Urine 02/15/2023 12:43:49 194 (mg/dL) Final Albumin/Creatinine [Mass Ratio] in Urine 02/15/2023 12:43:49 20 <30 (mg/g Creat) Final Performing Location [facility] - [address] [place] [address]
--- OUTSIDE RECORDS SUMMARY | 2023-06-16 00:29 | External Medical Summary ---
Author Name Unknown Address Unknown Organization K09:[facility] [address] Laboratory Report Ordering Provider Test Date Status GISELA AMOS 01/28/2023 15:19:02 Final Observation Date Value Abnormality Reference (Units ) Status WBC, Total 01/28/2023 15:19:02 9.38 4.00-10.8 0 (K/uL) Final RBC 01/28/2023 15:19:02 5.97 4.50-5.25 (M/uL) Final Hemoglobin 01/28/2023 15:19:02 14.1 14.0-16.8 (g/dL) Final HCT 01/28/2023 15:19:02 45.3 40.0-48.4 (%) Final MCV 01/28/2023 15:19:02 75.9 82.0-99.5 (fL) Final MCH 01/28/2023 15:19:02 23.6 27.0-34.0 (pg) Final MCHC 01/28/2023 15:19:02 31.1 32.0-36.0 (g/dL) Final RDW 01/28/2023 15:19:02 20.3 11.5-15.5 (%) Final Platelets 01/28/2023 15:19:02 261 140-400 (K /uL) Final MPV 01/28/2023 15:19:02 10.9 6.6-11.1 ( fL) Final Performing Location [facility] [address]
--- OUTSIDE RECORDS SUMMARY | 2023-06-16 00:29 | External Medical Summary | Summary of Care ---
Author Name Unknown Organization [facility] Address [address] [facility] [place] [address] Phone [phone] Care Team Providers Care Hot Dip Galvanizer Name Role Phone RovertorickiVivi DO Primary Care Provider Reason for Visit * Reason Comments Follow Up Encounter Details Date Type Department Care Team Description 12/16/2022 Office Visit Hematology/Oncology [facility] [address] [place] [address] Bryce Crain MD [address] [place] [address] Secondary polycythemia* Allergies Active Allergy Reactions Severity Noted Date Comments Warfarin High 12/29/2021 Skin reaction/slothing off Sulfa Antibiotics 08/26/1999 fever documented as of this encounter (statuses as of 12/16/2022) Medications Medication Sig Dispensed Refills Start Date [...] 12/08/2021 Active Entresto 24-26 MG Oral Tablet (sacubitril-valsart an 24-26 mg per tab) Take by mouth [...] As needed. 30 Tablet 5 09/14/2022 Active predniSONE 10 MG Oral Tablet (Deltasone)Indicati ons:Viral URI with cough Take 5 tabs for 2 days, 4 tabs for 2 days, 3 tabs for 2 days, 2 tabs for 2 days 1 tab for 2 days 30 Tablet 0 09/15/2022 Active Additional Information Patient not taking.Reported on 11/03/2022 Benzonatate 100 MG Oral CapsuleIndications: Viral URI with cough Take 1 Capsule by mouth 3 times a day as needed for Cough. 30 Capsule 1 09/15/2022 Active Additional Information Patient not taking.Reported on 11/03/2022 Ventolin HFA 108 (90 Base) MCG/ACT Inhalation Aerosol SolutionIndications :Viral URI with cough,Rales Inhale 2 Puffs by mouth every 4 hours as needed for Wheezing or Dyspnea. 1 g 0 09/15/2022 Active Additional Information Patient not taking.Reported on 11/03/2022 Sildenafil Citrate 50 MG Oral TabletIndications:E rectile [...] every morning 90 Tablet 3 11/22/2022 Active documented as of this encounter (statuses as of 12/16/2022) Active Problems Problem Noted Date NICM (nonischemic cardiomyopathy) 2021 Secondary polycythemia 06/05/2020 HTN, goal below 140/90 09/04/2018 Permanent atrial fibrillation 03/14/2017 Ventricular tachycardia 03/14/2017 UNILAT INGUINAL HERNIA documented as of this encounter (statuses as of 12/16/2022) Resolved Problems Problem Noted Date Resolved Date Prediabetes 05/10/2022 09/15/2022 Overview: Per Prediabetes protocol Acute systolic congestive heart failure 03/14/20 17 09/04/2018 Acute systolic heart failure 03/14/2017 Paroxysmal atrial fibrillation 05/26/2015 0 12/29/2021 Varicella without complication 11/19/2002 0 09/04/2018 documented as of this encounter (statuses as of 12/16/2022) Immunizations Name Administration Dates Next Due Pneumococcal [...] Sign Reading Time Taken Comments Blood Pressure 111/77 12/16/2022 3:15 PM EDT Pulse 82 12/16/2022 3:15 PM EDT Temperature 36.7 C (98 F) 12/16/2022 3:15 PM EDT Respiratory Rate 16 12/16/2022 3:15 PM EDT Oxygen Saturation 96% 12/16/2022 3:15 PM EDT Inhaled Oxygen Concentration - - Weight 98 kg (216 lb 1.6 oz) 12/16/2022 3:15 PM EDT Height - - Body Mass Index 32.86 09/15/2022 3:50 PM EST documented in this encounter Progress Notes * Bryce Crain MD - 12/16/2022 3:15 PM EDT EDGAR TAN MR # [id number] :1960 62-year-old male, Date of Consutatiion:10/29/2019 DIAGNOSIS: Erythrocytosis for long time, based on our record since 2016. Normal WBC and normal Platelet count. EPO level --> 9.7 (09/12/2015) JAK2 mutation --> negative (September 2015) MPL mutation --> negative. -No thrombotic complications in the past. CURRENT TREATMENT: Currently he is having phlebotomy if the hematocrit level is > 48 I would like to change to CBCD checkup every 2 monthly and he should have phlebotomy if the hematocrit is > 48 (12/16/2022). He is on Eliquis for underlying cardiac arrhythmia for the last 3 years. PREVIOUS TREATMENT: -he says that he used to donate blood on a regular basis for the last several years but no blood donation for the last 10 years since he had cardiac problem. DIAGNOSTIC WORKUP: He says that he had elevated Hemoglobin level since teenager, he was advised to donate the blood, he was donating blood for the last several years, discontinued donating blood about 10 years back when he had a cardiac problem. I reviewed his medical records, his Hemoglobin level/hematocrit level --> 17.5/51 with normal White blood cell count and normal Platelet count in September 2006. Since 2006, his Hemoglobin level and hematocrit level has remained on the higher side. -WBC 8400, H&H of 19/56, MCV 94, Platelet count of 200,000 (09/20/2019) In the past he never had in thrombotic complications He is on Eliquis for the last 3 years for underlying atrial fibrillation. No bleeding complications from any site. He says that he was tested for sleep apnea about a year back, as per the patient he does not have sleep apnea. History of excessive snoring present, no daytime sleepiness, his has not noticed the any change in breathing mainly stopping of the breathing during the nighttime. He is not aware about any other family member with the similar problem in the form of elevated Hemoglobin level He had workup in 2016, had a normal EPO level, JAK2 mutation and MPL mutation --> negative. INTERVAL HISTORY: He has come the clinic for the follow up, he came to clinic accompanied by his in the office. He says that the he is otherwise doing well, no nausea no vomiting, he says that he was formally tested for sleep apnea and he does not have sleep apnea, current weight around 216 lb, no smoking, no new cardiac or pulmonary symptom no new GI symptoms. No increasing headache, he is on Eliquis, no new bleeding complications. Past Medical History: Diagnosis Date Asthma Benign [...] performed by Amy Walker MD at ENDOSCOPY [facility] INSERT/REPLACE DEFIBRILLATOR W/TRANSVERSE LEAD(S) Left 04/01/2022 NON-THORACIC INTERNAL CARDIAC DEFIBRILLATOR LEADS AND GENERATOR IMPLANT performed by Randa Skelton DO at OR [facility] MISCELLANEOUS ORDER ([facility] ONLY) 08/01/1983 finger surgery REPAIR INITIAL INGUINAL HERNIA REDUCIBLE AGE 5 OR MORE Inguinal Hernia Repair,5+Y/O,Reducibl THIGH OR KNEE SURGERY NEC 08/01/1990 Femur/Knee Surg Unlisted Current Outpatient Medications Medication Sig Dispense Refill [...] x1-2 wks then asneeded-otc. 30 Tablet 5 Entresto 24-26 MG Oral Tablet (sacubitril-valsartan 24-26 mg per tab) Take by mouth 1 Tablet inthe morning AND 1 Tablet before bedtime. 60 Tablet 11 miscellaneous OTC Take 1 Each by mouth in the morning and 1 Each before bedtime. Liver Support Sublingual Tablet Sublingual Take by mouth 2 Tablets daily . Zinc 50 MG Oral Tablet Take 1 Tablet by mouth in the morning. Metoprolol Succinate ER 100 MG Oral Tablet Extended Release 24 Hour (toPROL XL) Take by mouth 1Tablet in the morning AND 1 Tablet before bedtime. 180 Tablet 3 Furosemide 20 MG Oral Tablet Take 1 Tablet by mouth in the morning. As needed. 30 Tablet 5 predniSONE 10 MG Oral Tablet (Deltasone) Take 5 tabs for 2 days, 4 tabs for 2 days, 3 tabs for 2 days, 2 tabs for 2 days 1 tab for 2 days (Patient not taking: Reported on 11/03/2022) 30 Tablet 0 Benzonatate 100 MG Oral Capsule Take 1 Capsule by mouth 3 times a day as needed for Cough. (Patient not taking: Reported on 11/03/2022) 30 Capsule 1 Ventolin HFA 108 (90 Base) MCG/ACT Inhalation Aerosol Solution Inhale 2 Puffs by mouth every 4 hours as needed for Wheezing or Dyspnea. (Patient not taking: Reported on 11/03/2022) 1 g 0 Sildenafil Citrate 50 MG Oral Tablet TAKE 1/2 TABLET BY MOUTH 1 HOUR BEFORE SEXUAL ACTIVITY 30 Tablet 5 Eliquis 5 MG Oral Tablet (Apixaban) take 1 tablet by mouth twice a day 180 Tablet 3 Jardiance 10 MG Oral Tablet (Empagliflozin) take 1 tablet by mouth every morning 90 Tablet 3 No current facility-administered medications for this visit. Family History Problem Relation Age of Onset Heart Disorder Mother mi Diabetes Father Hypertension Father Cancer Father prostrate ca at age 78 Heart Disorder Father chf Thyroid Disorder Brother No Past Hx Brother No Past Hx Son No Past Hx Daughter Heart Disorder Brother Social History Socioeconomic History Marital status: Spouse name: Not on file Number of children: Not on file Years of education: Not on file Highest education level: Not on file Occupational History Not on file Social Needs Financial resource strain: Not on file Food insecurity Worry: Not on file Inability: Not on file Transportation needs Medical: Not on file Non-medical: Not on file Tobacco Use Smoking status: Never Smoker Smokeless tobacco: Current User Types: Snuff, Chew Tobacco comment: 1 can per week or less Substance and Sexual Activity Alcohol use: Yes Alcohol/week: 0.0 standard drinks Comment: very occasionally Drug use: No Sexual activity: Yes Partners: Female Lifestyle Physical activity Days per week: Not on file Minutes per session: Not on file Stress: Not on file Relationships Social connections Talks on phone: Not on file Gets together: Not on file Attends orthodox service: Not on file Active member of club or organization: Not on file Attends meetings of clubs or organizations: Not on file Relationship status: Not on file Intimate partner violence Fear of current or ex partner: Not on file Emotionally abused: Not on file Physically abused: Not on file Forced sexual activity: Not on file Other Topics Concern Service No Blood Transfusions No Caffeine Concern No Occupational Exposure No Hobby Hazards No Sleep Concern No Stress Concern No Weight Concern No Special Diet No Back Care No Exercise Yes Comment: karate Bike Helmet Not Asked Seat Belt Yes Self-Exams Not Asked Social History Narrative Not on file Vaping/E-Cigarette Use Vaping/E-Cigarette Use Never User Vaping/E-Cigarette Substances Vaping/E-Cigarette Devices On Exam: There were no vitals taken for this visit. Constitutional: Patient is alert, cooperative and oriented x 3. Well built man, Patient is in no acute distress. HEENT:No icterus, no pallor, Throat and pharynx normal. Sinuses are non-tender. Neck: Supple and without lymphadenopathy or masses. No JVD. No Palpable supraclavicular lymph nodes. Lungs: Clear to auscultation. Bilateral symmetric air entry. No wheezing or rhonchi. Cardiovascular: Normal heart sounds, no murmurs.Regular rate and rhythm. Abdomen: soft, nontender, no hepatomegaly, no splenomegaly. Bowel sounds are normal. Neurological: No gross focal neurological deficit; walks with a normal gait. Extremities: No finger clubbing, No cyanosis. No leg edema. Skin:: No skin rash. SPINE: No spinal or paraspinal tenderness. LABS: -WBC [address], H&H of 13.9/45, MCV 77, Platelet count 148814 (11/29/2022). IMAGING: Ultrasound of the abdomen (June 2015) --> spleen size measuring 12.3 cm. Doppler evaluation of the left lower extremity (December 2016) --> no evidence of DVT. ASSESSMENT AND PLAN: 62-year-old the male, Who has longstanding history of histiocytosis at least since 2006 but he says that he has It for last several years, he used to donate the blood on a regular basis (every 56 days), no blood donation for the last 10 years since he had a cardiac problem. He is on oral anticoagulant with Eliquis for the last 3 years for underlying atrial fibrillation. No thrombotic complications in the past. He had evaluation for erythrocytosis in 2015, had a normal EPO level, JAK2 mutation and MPL mutation --> negative. Normal White blood cell count and normal Platelet count over the last several years noted. Current weight is around 222 lb, he says that he was tested for sleep apnea, as per the patient he does not have sleep apnea. No history of smoking. He had a Ferritin level done at [facility], It was around 300. No family history of any new elevated Hemoglobin level problem. Based on normal EPO level and negative JAK2 mutation, appears to be secondary polycythemia. Obesity, hypoventilation may be the cause. He also has MACHADO. His hematocrit level did go up to around 54.8 earlier in April 2022 and so decided to do phlebotomy, started him on weekly CBCD checkup and phlebotomy if the hematocrit is > 48 Now overall he is doing well, latest hematocrit around 45 as of 11/29/2022. I would like to change CBCD checkup to every 2 monthly and the he should have phlebotomy if the hematocrit is > 48 He is on Eliquis for underlying cardiac arrhythmia I am planning to see him back in the clinic in about [address] Bryce Crain Hem/Onc (This note was completed using the dictation program Fluency Direct. As such, there may be misspellings word substitutions, or other variations that should not change the essence of the clinical content of this encounter note. If there is need for further clarification, please direct questions to the provider listed above.) documented in this encounter Nursing Notes * Chikis Gutierrez CMA - 12/16/2022 3:16 PM EDT Patient identifed by name and birthdate Do you have any concerns about pain management for today's visit? No Living Will or Advance Directive for Health Care as noted on the problem list. [facility] is a way you can talk to your provider on line through e-mail. Would you like to sign up? I can activate it for you? ALREADY ACTIVE Filed Vitals: 12/16/22 1515 BP: 111/77 Pulse: 82 Resp: 16 Temp: 36.7 C (98 F) TempSrc: Tympanic SpO2: 96% Weight: 98 kg (216 lb 1.6 oz) Patient was instructed to not get up on the exam table/exam chair until directed and assisted by their provider; patient is to remain seated in the chair/ wheelchair/ exam table/ exam chair for fall prevention and safety reasons. Patient is aware to have assistance to step down off exam table/exam chair with personnel. Patient voiced full comprehension of instructions. documented in this encounter Plan of Treatment Upcoming Encounters Date Type Specialty Care Team Description 01/10/2023 Office Visit Family Medicine Vivi Avina DO [address] [place] [address] 01/28/2023 Laboratory Laboratory Cat, Lab Scenery [address] [place] [address] 01/28/2023 Hem/Onc Treatment Hematology Oncology [place], Chair 2 Hem Onc Scenery [address] [place] [address] 07/05/2023 Office Visit Cardiology Zac Bravo Jr., DO 07/14/2023 Cardiac Studies Cardiology Sunil Mclean [address] [place] [address] 12/20/2023 Office Visit Hematology Oncology Bryce Crain MD [address] [place] [address] Scheduled Procedures Name Priority Associated Diagnoses Date/Ti [...] 10/03/2022 10/03/2012, 10/19/2006 Influenza Vaccine (FLU shot) (Season Ended) 2023 05/02/2021, 05/09/2020, 05/02/2018, Additional history exists Albumin/Creatinine Ratio 09/12/2023 09/12/2020 GFR - Renal Function 09/28/2023 09/28/2022, 09/13/2022, 08/30/2022, Additional history exists Diabetes Screening 09/28/2025 [...] this encounter Medical Devices Implanted Type Area Electric Distribution Checker Device Identifier Shelf Expiration Date Model / Serial / Lot Envelope Antibacteral Tyrx - [id number] Implanted:Qty: 1 on 04/01/2022 by Randa Skelton DO at OR [facility] [employer] : CRM [id number] 12/12/2022 CMRM6 133 / / [id number] documented as of this encounter Visit Diagnoses Diagnosis Secondary polycythemia- Primary Polycythemia, secondary documented in this encounter Care Teams Hot Dip Galvanizer Relationship Specialty Start Date End Date Vivi Avina DO [address] [facility] [place], [place] [phone] PCP - General Family Medicine 01/27/17 documented as of this encounter
--- OUTSIDE RECORDS SUMMARY | 2023-06-16 00:29 | External Medical Summary | Summary of Care ---
Author Name Unknown Organization [facility] Address [address] [facility] [place] [address] Phone [phone] Care Team Providers Care Oil Fire Specialist Name Role Phone RovertorickiVivily Primary Care Provider Encounter Details Date Type Department Care Team Description 01/07/2023 Result Scan Unspecified Department Randa Skelton DO [address] [facility] [place] [address] <No scans attached> Allergies Active Allergy Reactions Severity Noted Date Comments Warfarin High 12/29/2021 Skin reaction/slothing off Sulfa Antibiotics 08/26/1999 fever documented as of this encounter (statuses as of 01/07/2023) Medications Medication Sig Dispensed Refills Start Date [...] as of this encounter (statuses as of 01/07/2023) Active Problems Problem Noted Date NICM (nonischemic cardiomyopathy) 2021 Secondary polycythemia 06/05/2020 HTN, goal below 140/90 09/04/2018 Permanent atrial fibrillation 03/14/2017 Ventricular tachycardia 03/14/2017 UNILAT INGUINAL HERNIA documented as of this encounter (statuses as of 01/07/2023) Resolved Problems Problem Noted Date Resolved Date Prediabetes 05/10/2022 09/15/2022 Overview: Per Prediabetes protocol Acute systolic congestive heart failure 03/14/20 17 09/04/2018 Acute systolic heart failure 03/14/2017 Paroxysmal atrial fibrillation 05/26/2015 0 12/29/2021 Varicella without complication 11/19/2002 0 09/04/2018 documented as of this encounter (statuses as of 01/07/2023) Immunizations Name Administration Dates Next Due Pneumococcal [...] Description 01/10/2023 Office Visit Family Medicine Vivi Avina, DO [address] [facility] [place] [address] 01/28/2023 Laboratory Laboratory Cat, Lab [facility] [address] [place] [address] 01/28/2023 Hem/Onc Treatment Hematology Oncology Cat, Chair 2 Hem Onc [facility] [address] [facility], [place] [address] 07/05/2023 Office Visit Cardiology Zac Bravo Jr., 07/14/2023 Cardiac Studies Cardiology Sunil Mclean [address] [place] [address] 12/20/2023 Office Visit Hematology Oncology Bryce Crain MD 200 [place] [address] Scheduled Procedures Name Priority Associated Diagnoses Date/Ti [...] this encounter Medical Devices Implanted Type Area Cook Night Device Identifier Shelf Expiration Date Model / Serial / Lot Envelope Antibacteral Tyrx - [id number] Implanted:Qty: 1 on 04/01/2022 by Randa Skelton DO at OR [facility] [employer] : CRM [id number] 12/12/2022 CMRM6 133 / / [id number] documented as of this encounter Procedures Procedure Name Priority Date/Time Associated Diagnosis Comments CARDIOLOGY SCANNED RESULT 01/07/2023 documented in this encounter Results * CARDIOLOGY SCANNED RESULT (01/07/2023) 01/07/2023 Randa Skelton DO OTHER documented in this encounter Care Teams Oil Fire Specialist Relationship Specialty Start Date End Date Vivi Avina DO [address] [place] [address] PCP - General Family Medicine 01/27/17 documented as of this encounter
--- OUTSIDE RECORDS SUMMARY | 2023-06-16 00:29 | External Medical Summary | Summary of Care ---
Author Name Unknown Organization [facility] Address [address] [place] [address] Phone [phone] Care Team Providers Care Physical Medicine Teacher Name Role Phone Vivi Avina DO Primary Care Provider Reason for Visit * Reason Comments Outpatient Testing Encounter Details Date Type Department Care Team Description 01/28/2023 Laboratory Laboratory [facility] [place] [facility] [address] [place] [address] [facility] [address] [place] [address] Secondary polycythemia Allergies Active Allergy Reactions Severity Noted Date Comments Warfarin High 12/29/2021 Skin reaction/slothing off Sulfa Antibiotics 08/26/1999 fever documented as of this encounter (statuses as of 01/28/2023) Medications Medication Sig Dispensed Refills Start Date [...] as of this encounter (statuses as of 01/28/2023) Active Problems Problem Noted Date MACHADO (nonalcoholic steatohepatitis) 12/31 NICM (nonischemic cardiomyopathy) 2021 Secondary polycythemia 06/05/2020 HTN, goal below 140/90 09/04/2018 Permanent atrial fibrillation 03/14/2017 Ventricular tachycardia 03/14/2017 UNILAT INGUINAL HERNIA documented as of this encounter (statuses as of 01/28/2023) Resolved Problems Problem Noted Date Resolved Date Prediabetes 05/10/2022 09/15/2022 Overview: Per Prediabetes protocol Acute systolic congestive heart failure 03/14/20 17 09/04/2018 Acute systolic heart failure 03/14/2017 Paroxysmal atrial fibrillation 05/26/2015 0 12/29/2021 Varicella without complication 11/19/2002 0 09/04/2018 documented as of this encounter (statuses as of 01/28/2023) Immunizations Name Administration Dates Next Due Pneumococcal [...] Encounters Date Type Specialty Care Team Description 07/12/2023 Office Visit Family Medicine Vivi Avina DO [address] [place] [address] 07/14/2023 Cardiac Studies Cardiology Sunil Mclean [address] [place] [address] 12/20/2023 Office Visit Hematology Oncology Bryce Crain MD [address] [place] [address] Scheduled Procedures Name Priority Associated Diagnoses Date/Ti [...] this encounter Medical Devices Implanted Type Area Home And Family Living Professor Device Identifier Shelf Expiration Date Model / Serial / Lot Envelope Antibacteral Tyrx - [id number] Implanted:Qty: 1 on 04/01/2022 by Randa Skelton DO at OR [facility] [employer] : CRM [id number] 12/12/2022 [id number] 133 / / [id number] documented as of this encounter Procedures Procedure Name Priority Date/Time Associated Diagnosis Comments DIFFERENTIAL, AUTOMATED STAT 01/28/2023 3:19 PM EDT Secondary polycythemia CBC WITH WBC DIFFERENTIAL STAT 01/28/2023 3:19 PM EDT Secondary polycythemia CBC STAT 01/28/2023 3:19 PM EDT Secondary polycythemia documented in this encounter Results * (ABNORMAL) DIFFERENTIAL, AUTOMATED (01/28/2023 3:19 PM EDT) WBC 9.38 4.00 - 10.80 K/uL 01/28/2023 3:30 PM EDT [facility] Neutrophils % 71.8 40.0 - 75.0 % 01/28/2023 3:30 PM EDT [facility] Lymphocytes % 13.5(L) 18.0 - 42.0 % 01/28/2023 3:30 PM EDT [facility]02 Monocytes % 11.9(H) 1.0 - 11.0 % 01/28/2023 3:30 PM EDT [facility] Eosinophils % 2.2 0.0 - 6.0 % 01/28/2023 3:30 PM EDT [facility] Basophils % 0.6 0.0 - 2.0 % 01/28/2023 3:30 PM EDT [facility] Absolute Neutrophils 6.72 1.80 - 7.70 K/uL 01/28/2023 3:30 PM EDT [facility]02 Absolute Lymphocytes 1.27 1.00 - 4.80 K/ul 01/28/2023 3:30 PM EDT [facility]02 Absolute Monocytes 1.12(H) 0.00 - 1.10 K/uL 01/28/2023 3:30 PM EDT [facility]02 Absolute Eosinophils 0.21 0.00 - 0.70 K/uL 01/28/2023 3:30 PM EDT [facility] 56 Absolute Basophils 0.06 0.00 - 0.20 K/uL 01/28/2023 3:30 PM EDT [facility] 56 Blood Venous blood specimen / Unknown Venipuncture / Unknown 01/28/2023 3:19 PM EDT 01/28/2023 3:19 PM EDT Bryce Crain MD LAB BLOOD ORDERABLES [address] [place] [address] * CBC (01/28/2023 3:19 PM EDT) WBC 9.38 4.00 - 10.80 K/uL 01/28/2023 3:[address]T [address] RBC 5.97 4.50 - 5.25 M/uL 01/28/2023 3:30 PM EDT [address] HGB 14.1 14.0 - 16.8 g/dL 01/28/2023 3:30 PM EDT [address] HCT 45.3 40.0 - 48.4 % 01/28/2023 3:30 PM EDT [facility] 56 MCV 75.9 82.0 - 99.5 fL 01/28/2023 3:30 PM EDT [facility] 56 MCH 23.6 27.0 - 34.0 pg 01/28/2023 3:30 PM EDT [facility] 56 MCHC 31.1 32.0 - 36.0 g/dL 01/28/2023 3:30 PM EDT [facility] 56 RDW 20.3 11.5 - 15.5 % 01/28/2023 3:30 PM EDT [facility] 56 PLT 261 140 - 400 K/uL 01/28/2023 3:30 PM EDT [facility] 56 MPV 10.9 6.6 - 11.1 fL 01/28/2023 3:30 PM EDT [facility] 5602 Blood Venous blood specimen / Unknown Venipuncture / Unknown 01/28/2023 3:19 PM EDT 01/28/2023 3:19 PM EDT Bryce Crain MD LAB BLOOD ORDERABLES [facility]-02 [address] [place] [address] documented in this encounter Visit Diagnoses Diagnosis Secondary polycythemia Polycythemia, secondary documented in this encounter Care Teams Physical Medicine Teacher Relationship Specialty Start Date End Date [facility] [address] [facility] [address] PCP - General Family Medicine 01/27/17 documented as of this encounter
--- OUTSIDE RECORDS SUMMARY | 2023-06-16 00:29 | External Medical Summary | Summary of Care ---
Author Name Unknown Organization [facility] Address [address] [place] [address] Phone [phone] Care Team Providers Care Radiotelephone Technical Operator Name Role Phone Vivi Avina DO Primary Care Provider Encounter Details Date Type Department Care Team Description 12/28/2022 Orders Only Outcomes Research Department [address] [place] [address] Serena Corrales CHRA [employer] Other*[id number] Allergies Active Allergy Reactions Severity Noted Date Comments Warfarin High 12/29/2021 Skin reaction/slothing off Sulfa Antibiotics 08/26/1999 fever documented as of this encounter (statuses as of 12/28/2022) Medications Medication Sig Dispensed Refills Start Date [...] as of this encounter (statuses as of 12/28/2022) Active Problems Problem Noted Date NICM (nonischemic cardiomyopathy) 2021 Secondary polycythemia 06/05/2020 HTN, goal below 140/90 09/04/2018 Permanent atrial fibrillation 03/14/2017 Ventricular tachycardia 03/14/2017 UNILAT INGUINAL HERNIA documented as of this encounter (statuses as of 12/28/2022) Resolved Problems Problem Noted Date Resolved Date Prediabetes 05/10/2022 09/15/2022 Overview: Per Prediabetes protocol Acute systolic congestive heart failure 03/14/20 17 09/04/2018 Acute systolic heart failure 03/14/2017 Paroxysmal atrial fibrillation 05/26/2015 0 12/29/2021 Varicella without complication 11/19/2002 0 09/04/2018 documented as of this encounter (statuses as of 12/28/2022) Immunizations Name Administration Dates Next Due Pneumococcal [...] 01/10/2023 Office Visit Family Medicine Vivi Avina, [address] [place] [address] 01/28/2023 Laboratory Laboratory [place] [address] [facility] [place] [address] 01/28/2023 Hem/Onc Treatment Hematology Oncology [place], Chair 2 Hem Onc [facility] [address] [facility] [place] [address] 07/05/2023 Office Visit Cardiology Zac Bravo Jr., 07/14/2023 Cardiac Studies Cardiology [facility] [address] [facility] [place] [address] 12/20/2023 Office Visit Hematology Oncology Bryce Crain MD [address] [facility] [place] [address] Scheduled Orders Name Type Priority Associated Diagnoses Orde r Schedule MYCODE SUBSEQUENT ADULT Lab Routine [employer] Other*[id number] Every 6 Months for 2 Occurrences starting 12/28/2022 until 01/17/2024 Scheduled Procedures Name Priority Associated Diagnoses Date/Ti [...] this encounter Medical Devices Implanted Type Area Expanded Duty Dental Assistant Device Identifier Shelf Expiration Date Model / Serial / Lot Envelope Antibacteral Tyrx - [id number] Implanted:Qty: 1 on 04/01/2022 by Randa Skelton DO at OR [facility] [employer] : CRM [id number] 12/12/2022 CMRM6 133 / / [id number] documented as of this encounter Visit Diagnoses Diagnosis [employer] Other*[id number] documented in this encounter Care Teams Radiotelephone Technical Operator Relationship Specialty Start Date End Date Vivi Avina DO [address] [facility], [place] [id number] PCP - General Family Medicine 01/27/17 documented as of this encounter
--- OUTSIDE RECORDS SUMMARY | 2023-06-16 00:29 | External Medical Summary | Summary of Care ---
Author Name Unknown Organization [facility] Address [address] [place] [place] [address] Phone [phone] Care Team Providers Care Case Coordinator Name Role Phone RovertorickiVivi DO Primary Care Provider Reason for Visit * Reason Onset Date Comments Pacemaker Clinic 12/06/2022 Remote device c heck showing fluid retention Encounter Details Date Type Department Care Team Description 12/06/2022 Telephone Cardiology, [facility] [address] [facility] [place] [address] Randa Skelton DO [address] [facility] [place] [address] Pacemaker Clinic (Remote device check show... Allergies Active Allergy Reactions Severity Noted Date Comments Warfarin High 12/29/2021 Skin reaction/slothing off Sulfa Antibiotics 08/26/1999 fever documented as of this encounter (statuses as of 12/17/2022) Medications Medication Sig Dispensed Refills Start Date [...] as of this encounter (statuses as of 12/17/2022) Active Problems Problem Noted Date NICM (nonischemic cardiomyopathy) 2021 Secondary polycythemia 06/05/2020 HTN, goal below 140/90 09/04/2018 Permanent atrial fibrillation 03/14/2017 Ventricular tachycardia 03/14/2017 UNILAT INGUINAL HERNIA documented as of this encounter (statuses as of 12/17/2022) Resolved Problems Problem Noted Date Resolved Date Prediabetes 05/10/2022 09/15/2022 Overview: Per Prediabetes protocol Acute systolic congestive heart failure 03/14/20 17 09/04/2018 Acute systolic heart failure 03/14/2017 Paroxysmal atrial fibrillation 05/26/2015 0 12/29/2021 Varicella without complication 11/19/2002 0 09/04/2018 documented as of this encounter (statuses as of 12/17/2022) Immunizations Name Administration Dates Next Due Pneumococcal [...] Telephone Encounter - Yesika Ceballos LPN - 12/17/2022 2:12 PM EDT Attempted pt again, no answer left detailed message on secure voice mail for pt to call back if having trouble with edema or using lasix more d/t fluid. Pt did not have 1-2 week bmp recommended on 12/07/22 completed. * Telephone Encounter - Yadi Rolon RN - 12/07/2022 4:05 PM EDT Called, left message for patient to return call. MyChart message also sent with below recommendations. Will await return call or patient to read message. Lab order placed. * Telephone Encounter - GERTRUDIS Thompson - 12/07/2022 9:51 AM EDT Please have the patient take lasix 20 mg x2 days then resume lasix on an as needed basis. Monitor for weight gain, fluid retention, and shortness of breath. Repeat a BMP in 1-2 weeks. GERTRUDIS Hoyt * Telephone Encounter - Barb Laboy CMA - 12/06/2022 4:52 PM EDT Patient returned call to the clinic. Denies any symptoms of fluid retention - no cough, edema, or weight gain. States he feet look "good." Only using furosemide 20 mg prn and reports that he does not use it frequently. Please advise with any further recommendations. * Telephone Encounter - ANEL Smith - 12/06/2022 1:41 PM EDT I called and left a voicemail for the patient letting him know that his remote device check shows that he is retaining an elevated fluid level. I asked him to call if he was having merry symptoms, such as swelling in the lower extremities, difficulty breathing or weight gain. I asked that he call and let us know if he is having any of these symptoms. I left the number and asked him to call and speak to the device clinic at [facility]. documented in this encounter Plan of Treatment Upcoming Encounters Date Type Specialty Care Team Description 01/10/2023 Office Visit [facility] [address] 01/28/2023 Laboratory [facility] [place] [facility] [address] 01/28/2023 Hem/Onc Treatment Hematology Oncology [place], Chair 2 Hem Onc [facility] [address] [facility] [address] 07/05/2023 Office Visit Cardiology Zac Braov Jr., 07/14/2023 Cardiac Studies Cardiology Sunil [facility] [address] [facility] [place] [address] 12/20/2023 Office Visit Hematology Oncology Bryce Crain MD [address] [facility], [place] [address] Scheduled Orders Name Type Priority Associated Diagnoses Orde r Schedule BASIC METABOLIC PANEL Lab Routine NICM (nonischemic cardiomyopathy) (HCC) Expected: 12/21/2022, Expires: 12/08/2023 Scheduled Procedures Name Priority Associated Diagnoses Date/Ti [...] encounter Medical Devices Implanted Type Area Director Of Exhibit Development Device Identifier Shelf Expiration Date Model / Serial / Lot Envelope Antibacteral Tyrx - [id number] Implanted:Qty: 1 on 04/01/2022 by Randa Skelton DO at OR [facility] [employer] : CRM [id number] 12/12/2022 CMRM6 133 / / [id number] documented as of this encounter Visit Diagnoses Diagnosis NICM (nonischemic cardiomyopathy) (HCC)- Primary Other primary cardiomyopathies documented in this encounter Care Teams Case Coordinator Relationship Specialty Start Date End Date Vivi Avina DO [address] [place] [address] PCP - General Family Medicine 01/27/17 documented as of this encounter
--- OUTSIDE RECORDS SUMMARY | 2023-06-16 00:29 | External Medical Summary ---
Author Name Unknown Address Unknown Organization K09[facility] [place] [address] Laboratory Report Ordering Provider Test Date Status GISELA AMOS 01/28/2023 15:19:02 Final Observation Date Value Abnormality Reference (Units ) Status SYNC LEUKOCYTES IN BLOOD BY AUTOMATED COUNT 01/28/2023 15:19:02 9.38 4.00-10.80 (K/uL) Final Segs 01/28/2023 15:19:02 71.8 40.0-75.0 (%) Final Lymphs % 01/28/2023 15:19:02 13.5 Below low normal 18.0-42.0 (%) Final Monos 01/28/2023 15:19:02 11.9 Above high normal 1.0-11.0 (%) Final Eosinophils 01/28/2023 15:19:02 2.2 0.0-6.0 (%) Final Basos 01/28/2023 15:19:02 0.6 0.0-2.0 (%) Final Absolute Segs 01/28/2023 15:19:02 6.72 1.80-7.70 (K/uL) Final Lymphs, absolute 01/28/2023 15:19:02 1.27 1.00-4.80 (K/ul) Final Monos, Abs 01/28/2023 15:19:02 1.12 Above high normal 0.00-1.10 (K/uL) Final Eos, Abs 01/28/2023 15:19:02 0.21 0.00-0.70 (K/uL) Final Basos, Abs 01/28/2023 15:19:02 0.06 0.00-0.20 (K/uL) Final Performing Location [facility] [place] [address]
--- OUTSIDE RECORDS SUMMARY | 2023-06-16 00:29 | External Medical Summary | Summary of Care ---
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 Livestock Dealer Name Role Phone Vivi Avina DO Primary Care Provider Reason for Visit * Reason Comments Follow Up Encounter Details Date Type Department Care Team Description 01/10/2023 Office Visit Family Practice [facility] [address] [facility] [place] [address] Vivi Avina DO [address] [facility] [place] [address] NICM (nonischemic cardiomyopathy) (HCC)*; Ventricular tachycardia (HCC); Permanent atrial fibrillation (HCC); MACHADO (nonalcoholic steatohepatitis); Secondary polycythemia; Class 1 obesity due to excess calories with serious comorbidity and body mass index (BMI) of 30.0 to 30.9 in adult Allergies Active Allergy Reactions Severity Noted Date Comments Warfarin High 12/29/2021 Skin reaction/slothing off Sulfa Antibiotics 08/26/1999 fever documented as of this encounter (statuses as of 01/24/2023) Medications Medication Sig Dispensed Refills Start Date [...] every morning 90 Tablet 3 11/22/2022 Active predniSONE 10 MG Oral Tablet (Deltasone)Indicat ions:Viral URI with cough Take 5 tabs for 2 days, 4 tabs for 2 days, 3 tabs for 2 days, 2 tabs for 2 days 1 tab for 2 days 30 Tablet 0 09/15/2022 01/10/2023 Discontinue d(End of Procedure) Benzonatate 100 MG Oral CapsuleIndications :Viral URI with cough Take 1 Capsule by mouth 3 times a day as needed for Cough. 30 Capsule 1 09/15/2022 01/10/2023 Discontinue d(Medicatio n List Clean Up) documented as of this encounter (statuses as of 01/24/2023) Active Problems Problem Noted Date MACHADO (nonalcoholic steatohepatitis) 12/31 NICM (nonischemic cardiomyopathy) 2021 Secondary polycythemia 06/05/2020 HTN, goal below 140/90 09/04/2018 Permanent atrial fibrillation 03/14/2017 Ventricular tachycardia 03/14/2017 UNILAT INGUINAL HERNIA documented as of this encounter (statuses as of 01/24/2023) Resolved Problems Problem Noted Date Resolved Date Prediabetes 05/10/2022 09/15/2022 Overview: Per Prediabetes protocol Acute systolic congestive heart failure 03/14/20 17 09/04/2018 Acute systolic heart failure 03/14/2017 Paroxysmal atrial fibrillation 05/26/2015 0 12/29/2021 Varicella without complication 11/19/2002 0 09/04/2018 documented as of this encounter (statuses as of 01/24/2023) Immunizations Name Administration Dates Next Due Pneumococcal [...] Sign Reading Time Taken Comments Blood Pressure 100/62 01/10/2023 6:29 PM EDT Pulse 96 01/10/2023 6:29 PM EDT Temperature 36.5 C (97.7 F) 01/10/2023 6:29 PM ED T Respiratory Rate 16 01/10/2023 6:29 PM EDT Oxygen Saturation - - Inhaled Oxygen Concentration - - Weight 95.7 kg (211 lb) 01/10/2023 6:29 PM EDT Height - - Body Mass Index 32.08 09/15/2022 3:50 PM EST documented in this encounter Progress Notes * Vivi Avina, DO - 01/10/2023 6:43 PM EDT Subjective: Manuel Menendez is a 63 year old male. Chief Complaint Patient presents with Follow Up HPI: Patient's past medical, surgical, family, and social history were reviewed. Medications, allergies, immunizations, and health care maintenance screenings were also reviewed. Patient says his allergies are really bothering him lately. He takes an allergy pill every day but it doesn't seem to be helping. He says he can feel his right ear draining and some sinus pressure around the right eye. Diabetes Follow Up The patient is taking medications as instructed. No medication side effects are described. Compliance with Diet: good Compliance with exercise program: good The patient is not monitoring home blood pressures. The patient denies any acute focal neurologic symptoms. The patient reports no chest pain, no orthopnea and no dyspnea on exertion. The patient denies intermittent claudication symptoms. Fasting home blood sugar readings: 120 - 140 Hypoglycemic symptoms: absent Visual changes: none Peripheral Neuropathy: none Patient is aware of possibility of myocardial infarction without any symptoms, and poor glycemic control will lead to poorer prognosis. Last Retinal Exam: within the last year PHM: Patient Active Problem List Diagnosis Code [...] mouth twice a day 180 Tablet 3 Ventolin HFA 108 (90 Base) MCG/ACT Inhalation [...] area twice a day 60 g 5 Sildenafil Citrate 50 MG Oral Tablet TAKE 1/2 TABLET BY MOUTH 1 HOUR BEFORE SEXUAL ACTIVITY 30 Tablet 5 [DISCONTINUED] Benzonatate 100 MG Oral Capsule Take 1 Capsule by mouth 3 times a day as needed for Cough. (Patient not taking: Reported on 11/03/2022) 30 Capsule 1 [DISCONTINUED] predniSONE 10 MG Oral Tablet (Deltasone) Take 5 tabs for 2 days, 4 tabs for 2 days, 3 tabs for 2 days, 2 tabs for 2 days 1 tab for 2 days (Patient not taking: Reported on 11/03/2022)30 Tablet 0 No facility-administered medications prior to visit. Last reviewed on 01/10/2023 6:29 PM by Yadi Martin LPN Review of patient's allergies indicates: Allergen Reactions Coumadin [Warfarin] Skin reaction/slothing off Sulfa Antibiotics fever Objective: BP 100/62 | Pulse 96 | Temp 36.5 C (97.7 F) (Tympanic) | Resp 16 | Wt 95.7 kg (211 lb) | BMI 32.08 kg/m | BSA 2.14 m Physical Exam: General: alert, healthy and no distress Head: Normocephalic, No masses, lesions, tenderness or abnormalities Neck: supple, no adenopathy, no bruits, thyroid normal size, non-tender, without nodularity Heart: regular rate & rhythm, no murmur and no gallops Lungs: chest symmetric with normal AP diameter, no chest deformities noted, no chest wall tenderness, lungs clear to auscultation Pulses: carotid=2/4 w/o bruits Extremities: less than 2 second capillary refill, no joint deformities, effusion, or inflammation Recent Labs: Latest Reference Range & Units 09/13/22 15:28 09/15/22 16:19 09/16/22 14:06 09/28/22 15:24 10/04/22 15:21 10/07/22 08:03 11/01/22 15:12 11/29/22 15:15 Sodium 135 - 146 mmol/L 141 141 Potassium 3.5 - 5.1 mmol/L 4.8 4.7 Chloride 98 - 107 mmol/L 102 100 CO2 22 - 32 mmol/L 28 29 BUN 6 - 20 mg/dL 22 (H) 24 (H) Creatinine 0.6 - 1.2 mg/dL 1.6 (H) 1.4 (H) Estimated Glomerular Filtration Rate >=60 mL/min 50 (L) 57 (L) Anion Gap 7 - 15 mmol/L 11 12 Glucose 70 - 120 mg/dL 69 (L) 67 (L) Calcium 8.4 - 10.2 mg/dL 9.5 9.4 CBC Rpt Rpt ! Rpt ! CBC WITH WBC DIFFERENTIAL Rpt ! Rpt ! Rpt ! WBC 4.00 - 10.80 K/uL 9.51 9.89 10.25 HGB 14.0 - 16.8 g/dL 14.7 15.2 13.9 (L) HCT 40.0 - 48.4 % 48.0 49.5 (H) 45.0 MCV 82.0 - 99.5 fL 75.1 76.5 77.6 PLT 140 - 400 K/uL 254 267 270 Absolute Neutrophils 1.80 - 7.70 K/uL 6.54 6.40 7.19 Absolute Lymphocytes 1.00 - 4.80 K/ul 1.66 1.83 1.56 Absolute Monocytes 0.00 - 1.10 K/uL 1.02 1.38 (H) 1.26 (H) Absolute Eosinophils 0.00 - 0.70 K/uL 0.23 0.23 0.18 Absolute Basophils 0.00 - 0.20 K/uL 0.06 0.05 0.06 SARS-CoV-2 (COVID-19) Result Negative Positive ! Influenza A PCR Result Negative Negative Influenza B PCR Result Negative Negative INFLUENZA A/B RSV SARS-COV2,PCR Rpt ! RSV PCR Result Negative Negative XR CHEST 2 VIEWS Rpt ECHO, COMPLETE (2D), TRANS-THORACIC Rpt Lab Results Component Value Date/Time HEMOGLOBIN A1C - [facility] 6.0 (H) 04/16/2022 09:28 AM HEMOGLOBIN A1C - [facility] 5.8 (H) 09/09/2020 04:01 PM HEMOGLOBIN, S2S-[facility] LAB 5.3 10/18/2017 12:00 AM HEMOGLOBIN-OUTSIDE LAB 16.8 09/21/2017 12:00 AM HEMOGLOBIN-OUTSIDE LAB 17.5 02/09/2017 12:00 AM HEMOGLOBIN-OUTSIDE LAB 18.0 01/17/2017 12:00 AM Lab Results Component Value Date/Time CREATININE - [facility] 1.4 (H) 09/28/2022 03:24 PM CREATININE - [facility] 1.6 (H) 09/13/2022 03:28 PM CREATININE - [facility] 1.2 08/30/2022 03:38 PM CREATININE - [facility] 1.1 03/26/2020 03:58 PM CREATININE - [facility] 1.2 09/22/2019 11:55 AM CREATININE - [facility] 1.1 02/14/2017 12:24 PM CREATININE, RANDOM URINE - [facility] 139 09/12/2020 03:16 PM CREATININE-OUTSIDE LAB 1.25 04/11/2018 12:00 AM CREATININE-OUTSIDE LAB 1.34 01/03/2018 12:00 AM CREATININE-OUTSIDE LAB 1.10 02/09/2017 12:00 AM ASSESSMENT/PLAN: NICM (nonischemic cardiomyopathy) (HCC) (Primary) Ventricular tachycardia (HCC) Permanent atrial fibrillation (HCC) MACHADO (nonalcoholic steatohepatitis) Secondary polycythemia Class 1 obesity due to excess calories with serious comorbidity and body mass index (BMI) of 30.0 to 30.9 in adult Follow-up: Return in about 6 months (around 07/12/2023), or if symptoms worsen or fail to improve. | Check-out note: Cardiology- schedule with omar Day A healthy, low fat, low cholesterol diabetic diet and 30-60 minutes of cardiovascular exercise daily were encouraged. Maintaining a healthy weight/BMI was advised. A total of 1500mg of Calcium and 1000 IU of vitamin D were recommended daily, to be obtained from a combination of both diet and supplement sources. Vivi Avina DO documented in this encounter Nursing Notes * Yadi Martin LPN - 01/10/2023 6:29 PM EDT Manuel Menendez presents for 3 month recheck. Medications & HM reviewed. Patient says his allergies are really bothering him lately. He takes an allergy pill every day but it doesn't seem to be helping. He says he can feel his right ear draining and some sinus pressure around the right eye. documented in this encounter Plan of Treatment Upcoming Encounters Date Type Specialty Care Team Description 01/28/2023 Laboratory Laboratory Cat, Lab Scenery [address] [place] [address] 01/28/2023 Hem/Onc Treatment Hematology Oncology Park, Chair 2 Hem Onc Scenery [address] [place] [address] 07/12/2023 Office Visit Family Medicine Vivi Avina DO [address] [place] [address] 07/14/2023 Cardiac Studies [address] [facility] [address] [facility] [place] [address] 12/20/2023 Office Visit Hematology Oncology Bryce Crain MD [address] [facility] [place] [address] Scheduled Procedures Name Priority Associated Diagnoses Date/Ti [...] encounter Medical Devices Implanted Type Area Vp Cardiovascular Service Line Device Identifier Shelf Expiration Date Model / Serial / Lot Envelope Antibacteral Tyrx - [id number] Implanted:Qty: 1 on 04/01/2022 by Randa Skelton DO at OR [facility] [employer] : CRM [id number] 12/12/2022 CMRM6 133 / / [id number] documented as of this encounter Visit Diagnoses Diagnosis NICM (nonischemic cardiomyopathy) (HCC)- Primary Other primary cardiomyopathies Ventricular tachycardia (HCC) Paroxysmal ventricular tachycardia Permanent atrial fibrillation (HCC) Atrial fibrillation MACHADO (nonalcoholic steatohepatitis) Other chronic nonalcoholic liver disease Secondary polycythemia Polycythemia, secondary Class 1 obesity due to excess calories with serious comorbidity and body mass index (BMI) of 30.0 to 30.9 in adult documented in this encounter Care Teams Livestock Dealer Relationship Specialty Start Date End Date Vivi Avina DO [address] [place] [address] PCP - General Family Medicine 01/27/17 documented as of this encounter"
--- OUTSIDE RECORDS SUMMARY | 2023-06-16 00:29 | External Medical Summary | Summary of Care ---
Author Name Unknown Organization [facility] Address [address] [facility] [place] [address] Phone [phone] Care Team Providers Care Director Check Name Role Phone Vivi Avina DO Primary Care Provider Reason for Visit * Reason Comments Procedure phlebotomy Encounter Details Date Type Department Care Team Description 01/28/2023 Hem/Onc Treatment Hematology/Oncology Treatment, [place] [address] [place] [address] Cat, Chair 2 Hem Onc Scenery [address] [place] [address] Allergies Active Allergy Reactions Severity Noted Date [...] as of this encounter Nursing Notes * Zora Lua RN - 01/28/2023 3:39 PM EDT Hct today is 45.3. Phlebotomy held per treatment parameters. Next visit scheduled for 2 months. documented in this encounter Plan of Treatment Upcoming Encounters Date Type Specialty Care Team Description 03/25/2023 Laboratory Laboratory Park, Lab Scenery [address] [place] [address] 03/25/2023 Hem/Onc Treatment Hematology Oncology [place], Chair 1 Hem Onc Scenery [address] [place] [address] 07/12/2023 Office Visit Family Medicine Vivi Avina DO [address] [place] [address] 07/14/2023 Cardiac Studies Cardiology [facility], Pacer [facility] [address] [facility] [place] [address] 12/20/2023 Office Visit Hematology Oncology Bryce Crain MD [address] [place] [address] Scheduled Procedures Name Priority Associated Diagnoses Date/Ti [...] this encounter Medical Devices Implanted Type Area Pharmacy Delivery Driver Device Identifier Shelf Expiration Date Model / Serial / Lot Envelope Antibacteral Tyrx - [id number] Implanted:Qty: 1 on 04/01/2022 by Randa Skelton DO at OR [facility] [employer] : CRM [id number] 12/12/2022 CMRM6 133 / / [id number] documented as of this encounter Care Teams Director Check Relationship Specialty Start Date End Date Vivi Avina DO [address] [place] [address] PCP - General Family Medicine 01/27/17 documented as of this encounter
--- OUTSIDE RECORDS SUMMARY | 2023-06-16 00:29 | External Medical Summary ---
Author Name Unknown Address Unknown Organization K09:[facility] [place] [address] Laboratory Report Ordering Provider Test Date Status BORIS SMITH 02/15/2023 12:43:49 Final Observation Date Value Abnormality Reference (Units ) Status BUN 02/15/2023 12:43:49 19 6-20 (mg/dL) Final Creatinine 02/15/2023 12:43:49 1.2 0.6-1.2 (mg/dL) Final Glomerular filtration rate/1.73 sq M.predicted [Volume Rate/Area] in Serum, Plasma or Blood by Creatinine-based formula (CKD-EPI) 02/15/2023 12:43:49 72 >=60 (mL/min) Final eGFR is calculated based on the CKD-EPI 2020 equation SODIUM 02/15/2023 12:43:49 141 135-146 (m mol/L) Final Potassium 02/15/2023 12:43:49 5.1 3.5-5.1 (m mol/L) Final Cl 02/15/2023 12:43:49 103 98-107 (mm ol/L) Final CO2 02/15/2023 12:43:49 28 22-32 (mmo l/L) Final Anion gap 02/15/2023 12:43:49 10 7-15 (mmol /L) Final Glucose 02/15/2023 12:43:49 111 70-120 (mg /dL) Final Calcium 02/15/2023 12:43:49 9.8 8.4-10.2 ( mg/dL) Final Performing Location [facility] [place] [address]
[2023-06-16] MEDS: PANTOprazole 40 MG TAB PO SCH (05:38)
[2023-06-16 06:17] LABS: BUN Creatinine Ratio 17.5 (10-20); Creatinine Clr Calc Pharmacy 59.1 ml/min; Est GFR (African American) 60.4 ml/min; Est GFR (Non-African American) 52.1 ml/min; Magnesium 2.1 mg/dl (1.7-2.4); Potassium 4.4 mmol/L (3.5-5.1)
--- NOTE | 2023-06-16 08:45 | Cardiology Progress Note ---
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 * LVEF 25-30% * ICD * Chronic Afib Plans: * Diuresing - getting closer to euvolemia * STOP Lasix 80 mg IV BID * Continue Lasix 80 mg po per day * K+ goal 4.5-5 * Mag goal >2 * No increase in Entresto given marginal SBP - not lightheaded * Continue Entresto 24/26 mg po BID * Continue Aldactone 25 mg po per day * Continue Toprol 100 mg po per day * + Afib - rate controlled * Continue DOAC * Continue Jardiance 10 mg po per day * Pt to follow up with [facility] Cardiology * Please call with any additional questions Sharif Davis Subjective Events overnight: * NSVT Subjective: * No complaints Review of Systems Review of Systems: All systems reviewed & are unremarkable except as noted in HPI & below Physical Exam Physical Exam: Overweight JVP just above the clavicles S1S2 Soft 2/6 systolic murmur CTA B Trace Bilateral LE edema Warm and perfusing Results & Data Vital Signs (Past 12 Hours) Vital Signs Temp Pulse Pulse Resp BP Pulse Ox O2 Del Method 06/16/23 05:48 36.7 C 98 H 16 91/58 L 95 Room Air 06/16/23 00:40 92 H 06/15/23 23:00 36.8 C 78 18 92/63 L 96 Room Air Laboratory Results Comprehensive Metabolic Panel 06/15/23 06/16/23 Range/Units 07:47 05:45 Sodium 138 139 (136-145) mmol/L Potassium 4.4 4.4 (3.5-5.1) mmol/L Chloride 100 101 (98-107) mmol/L Carbon Dioxide 32 34 H (21-32) mmol/L BUN 28 H 25 H (6-23) mg/dl Creatinine 1.40 1.43 H (0.6-1.4) mg/dl Glucose 91 84 (70-99(Fasting)) mg/dl Calcium 9.4 9.0 (8.6-10.3) mg/dl Intake and Output 06/15/23 06/16/23 06/16/23 22:59 06:59 14:59 Output Total 2049 / 0 Balance -2049 / -0 Output: Urine 2049 / 4799 Medications Administered Current Inpatient Medications Acetaminophen (Acetaminophen 325 Mg Tab) 650 mg PO Q4H PRN PRN Reason: Pain or Fever Stop: 07/14/23 07:02 Albuterol (Albuterol Hfa 8 Gm Inhaler) 2 puffs INH Q4 PRN PRN Reason: wheezing or dyspnea Stop: 07/14/23 07:02 Apixaban (Apixaban 5 Mg Tablet) 5 mg PO BID CASSANDRA Stop: 07/14/23 08:59 Last Admin: 06/15/23 20:06 Dose: 5 mg Empagliflozin (Empagliflozin 10 Mg Tab) 10 mg PO DAILY CASSANDRA Stop: 07/15/23 08:59 Last Admin: 06/15/23 08:28 Dose: 10 mg Furosemide (Furosemide 20 Mg Tab) 60 mg PO QAM CASSANDRA Stop: 07/16/23 08:59 Loratadine (Loratadine 10 Mg Tab) 10 mg PO DAILY PRN PRN Reason: Allergy Symptoms Stop: 07/14/23 07:02 Magnesium Oxide (Magnesium Oxide 400 Mg Tab) 400 mg PO QAM CASSANDRA Stop: 07/14/23 08:59 Last Admin: 06/15/23 08:28 Dose: 400 mg Metoprolol Succinate (Metoprolol Succ 50mg Ext Rel Tab) 100 mg PO BID CASSANDRA Stop: 07/14/23 08:59 Last Admin: 06/15/23 20:06 Dose: 100 mg Multivitamins/Minerals (Cerovite Adv Formula Tab) 1 tab PO DAILY CASSANDRA Stop: 07/14/23 08:59 Last Admin: 06/15/23 08:28 Dose: 1 tab Nitroglycerin (Nitroglycerin Sl 0.4 Mg/Tab Tab) 0.4 mg SL Q5M PRN PRN Reason: Chest Pain Stop: 07/14/23 07:02 Pantoprazole Sodium (Pantoprazole 40 Mg Tab) 40 mg PO DAILYBB [facility] Stop: 07/14/23 07:44 Last Admin: 06/16/23 05:38 Dose: 40 mg Polyethylene Glycol (Polyethylene (Miralax) 17 Gm Pack) 17 gm PO DAILY PRN PRN Reason: Constipation Stop: 07/14/23 07:02 Sacubitril/Valsartan (Valsartan/Sacubitril 26/24mg Tab) 1 tab PO BID [facility] Stop: 07/14/23 08:59 Last Admin: 06/15/23 20:06 Dose: 1 tab Spironolactone (Spironolactone 25 Mg Tab) 25 mg PO DAILY [facility] Stop: 07/16/23 08:59
[2023-06-16] MEDS: MAGNESIUM OXIDE 400 MG TAB PO SCH (08:50)
[2023-06-16] MEDS: METOPROLOL SUCC 50MG EXT REL TAB PO SCH (08:51)
[2023-06-16] MEDS: CEROVITE ADV FORMULA TAB PO SCH (08:51)
[2023-06-16] MEDS: VALSARTAN/SACUBITRIL 26/24MG TAB PO SCH (08:51)
[2023-06-16] MEDS: APIXABAN 5 MG TABLET PO SCH (08:51)
[2023-06-16] MEDS: EMPAGLIFLOZIN 10 MG TAB PO SCH (08:52)
[2023-06-16] MEDS ORDERED: SPIRONOLACTONE 25 MG TAB PO SCH (09:00)
[2023-06-16] MEDS ORDERED: FUROSEMIDE 20 MG TAB PO SCH (09:00)
--- NOTE | 2023-06-16 13:55 | Discharge Summary ---
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 Patient states last few days his legs edema getting worse and increased his Lasix dose but was not helping. Tonight at 1 AM woke up with short of breath which prompted him to come to ER. Orthopnea present. Denies any chest pain. No nausea. No headache. No blurred vision. Has some runny nose. Has dry cough. No difficul ty swallowing. Appetite is good. No abdominal pain. Normal bowel and bladder movements. Currently hemodynamics are stable. Past medical history. As mentioned above Past surgical history. Colonoscopy, cardiac defibrillator. Inguinal hernia repair. Social history. . No smoking. Chews 1 can/week. No alcohol use. No drug use. Family history. Father had prostate cancer at age 78. Diabetes. CHF. Hypertension. Mother had [place]. Brother had heart disorder. Admission Exam Per Admitting Provider General- Not in distress Head- atraumatic Eyes- PERRL. ENT- oropharynx clear Neck- supple, no JVD. Lungs- clear to auscultation no obvious wheezing or crackles Heart- regular rhythm; no murmur, no gallop. Abdomen- normal bowel sounds, soft, nontender, no distension. Extremities- +1 pretibial edema, no erythema seen. Neuro- alert, oriented x 3; PERRL, no facial palsy; no dysarthria; Skin- warm & dry Principal Diagnosis Acute on chronic heart failure with reduced ejection fraction Discharge Exam GENERAL: Alert and oriented x3. NAD, on RA. HEENT: No pallor, no icterus. Pupils equal, round and reactive to light. Oral mucosa moist. NECK: No JVD, no neck masses. HEART: S1 and S2 heard. regular rate and rhythm. No murmur, no gallop. RESPIRATORY SYSTEM: Normal AP diameter. No accessory muscle use. No wheezing, bb crackles. ABDOMEN: Soft, bowel sounds present, nontender, no distention. CENTRAL NERVOUS SYSTEM: No facial droop. Speech is clear. Obeys simple commands. Moves extremities. EXTREMITIES: 1+ ble edema, no erythema seen. Discharge Data Allergies Allergy/AdvReac Type Severity Reaction Status Date / Time warfarin [From Coumadin] Allergy Severe SKIN Verified 06/14/23 11:05 SLOUGHING OFF Sulfa (Sulfonamide Allergy Mild Fever Verified 06/14/23 02:16 Antibiotics) Consultations 06/14/23 04:25 ED Decision to Admit Stat 06/14/23 08:00 Consult Cardiology Routine Hospital Course (1) Acute HFrEF (heart failure with reduced ejection fraction): 63-year-old male with past medical history significant for ventricular tachycardia, nonischemic cardiomyopathy, chronic systolic CHF, permanent atrial fibrillation, hypertension, Clifford, secondary polycythemia, 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 He was managed for the following: Acute heart failure with reduced ejection fraction Patient came in with shortness of breath, September 2022 echo with EF of 40 to 45%. Patient reports being compliant with medication but states he is not able to maintain dietary compliance due to work condition. 06/14 echo with EF of 20 to 25%, left ventricle is severely dilated. Moderate to severe mitral regurgitation noted. Patient reports improvement in his shortness of breath. Cardiology on board, Lasix 80 mg daily, Aldactone 25 Mg daily. Continue with home Entresto/metoprolol/magnesium oxide Aldactone dose increased to 25 mg daily. Continue with Jardiance and DOAC. Cardiology follow-up on DC. Cardiac rehab on discharge. History of permanent atrial fibrillation: Continue with metoprolol and Eliquis. Rate controlled. Hypertension: Continue with/resume home meds as and when able. DVT prophylaxis: Patient already on Eliquis. Full code Patient being discharged home with following instruction at the point of discharge: Follow-up with your primary care physician within a week time and likely you will need labs CBC/CMP/magnesium/phosphorus. Follow-up with cardiology in 1 to 2 weeks time upon discharge. Continue with your cardiac rehab as prior. Maintain compliance with heart healthy diet/low-sodium [less than 2 g/day] diet/fluid restriction of about 2 L a day. Take your medications as prescribed. Please make sure that you are able to get your medications today by calling your pharmacy before you leave the hospital so that your treatment continuity is not broken. [facility] Attestation I certify that this patient is under my care and that I, or a physicians assistant counsel working with me, had a face to-face encounter that meets the [id number] encounter requirements with this patient. The encounter with the patient was in whole, or in part, for the following medical condition, which is the primary reason for home health care (list medical condition): I certify that, based on my findings, the following services are medically necessary home health services: My clinical findings support the need for the above services because: Further, I certify that my clinical findings support that this patient is homebound (i.e. absences from home require considerable and taxing effort and are for medical reasons or orthodox services or infrequently or of short duration when for other reasons) because: Certification for Home Health Services: Based on the above findings, I certify that this patient is confined to the home and needs intermittent care home care, physical therapy and/or speech therapy or continues to need occupational therapy. The patient is under my care, and I have initiated the establishment of the plan of care. This patient will be followed by a physician who will periodically review the plan of care. Total Time Total Time Spent Total Time Spent (In Minutes): 45 Discharge Plan Discharge Items Patient Disposition: Home - Self-Care Reason For Visit: ACUTE CHF Discharge Diagnosis: Acute on chronic heart failure with reduced ejection fraction Activity: As commented below Activity Comment: Continue with cardiac rehab on discharge. Non-emergency contact: Primary Care Provider Call non-emergency contact if: you have any medication questions Follow-up/Referrals: Vivi Avina, [Primary Care Provider] - Diet: Heart Healthy and Low Sodium (2gm) Addtl Attending Provider Instructions: Follow-up with your primary care physician within a week time and likely you will need labs CBC/CMP/magnesium/phosphorus. Follow-up with cardiology in 1 to 2 weeks time upon discharge. Continue with your cardiac rehab as prior. Maintain compliance with heart healthy diet/low-sodium [less than 2 g/day] diet/fluid restriction of about 2 L a day. Take your medications as prescribed. Please make sure that you are able to get your medications today by calling your pharmacy before you leave the hospital so that your treatment continuity is not broken. Pending Studies at Discharge: No Stand-Alone Forms: My FAGUO, Smoking Cessation Medications and DC Order Prescriptions: New spironolactone 25 mg Tablet 25 mg PO DAILY Qty: 30 0RF nitroglycerin [Nitrostat] 0.4 mg Tablet, Sublingual 0.4 mg sublingual UD PRN (Reason: chest pain) Qty: 20 0RF furosemide 80 mg tablet 80 mg PO DAILY Qty: 30 0RF Continued magnesium oxide 400 mg Capsule 400 mg PO QAM Eliquis 5 mg Tablet 5 mg PO BID metoprolol succinate 100 mg tablet extended release 24 hr 100 mg PO [facility]HS albuterol sulfate 90 mcg/actuation HFA aerosol inhaler 2 puff INHALATION Q4 PRN (Reason: wheezing or dyspnea) Centrum Silver Men [id number] mcg Tablet 1 tab PO DAILY omeprazole 20 mg capsule,delayed release(DR/EC) 20 mg PO DAILYBB Jardiance 10 mg tablet 10 mg PO QAM Entresto 24-26 mg tablet 1 tab PO BID loratadine 10 mg Tablet 10 mg PO DAILY PRN (Reason: Allergy Symptoms) Discontinued furosemide 20 mg tablet 20 mg PO QAM spironolactone 25 mg Tablet 12.5 mg PO DAILY Qty: 30 0RF Discharge Orders: Discharge Order- CHF (Routine); Ordered 06/16/23 Ordered By: Minal Vasquez Admission Data Admit Date/Time: 06/14/23 05:02 Attending Provider: Minal Vasquez Admit Provider: Redd Chandler Primary Care Provider: Vivi Avina Other Providers: Redd Chandler
== END 2023-06-16 15:19 | disposition home or self-care (01) ==
LOC: ED 01:52 → SUATTDRO 05:02 → 2E 05:02 → INTOOBSV 05:02 → 2E 07:24